=== PATIENT | female | born 1945 | race Caucasian/White ===

== ENCOUNTER 2016-10-22 20:29 | Emergency (ER) | payer MEDICARE ==
[2016-10-22 20:35] VITALS: BP 153/77
--- NOTE | 2016-10-22 21:04 | UC ---
Skin Complaint HPI - HPI Summary HPI Summary: 71 yo female was outside around 2 today a flying insect was shoed away and she thinks she was bit has always been sensitive to bites now red and slightly swollen no itching - History of Current Complaint Chief Complaint: UCSkin Time Seen by Provider: 10/22/16 20:49 Stated Complaint: BUG BITE Hx Obtained From: Patient Onset/Duration: Sudden Onset, Lasting Hours Timing: Constant Onset Severity: Mild Current Severity: Mild Pain Intensity: 0 Pain Scale Used: 0-10 Numeric Location: Discrete Character: Redness, Raised Aggravating: Nothing Alleviating: Nothing Associated Signs & Symptoms: Positive: Rash - Allergy/Home Medications Allergies/Adverse Reactions: Allergies Allergy/AdvReac Type Severity Reaction Status Date / Time Shellfish Allergy Allergy Severe anaphylacti Verified 10/22/16 20:37 c Nabumetone [From Relafen] Allergy Intermediate Rash Verified 10/22/16 20:37 Penicillins Allergy Intermediate Rash Verified 10/22/16 20:37 Benzyl Alcohol [From Enbrel] Allergy Unknown onknown Verified 10/22/16 20:37 per pt Etanercept [From Enbrel] Allergy Unknown onknown Verified 10/22/16 20:37 per pt Tromethamine [From Enbrel] Allergy Unknown onknown Verified 10/22/16 20:37 per pt Azithromycin [From Zithromax] Allergy Rash Verified 10/22/16 20:37 Cefuroxime [From Ceftin] Allergy Swelling Verified 10/22/16 20:37 Lisinopril Allergy Rash Verified 10/22/16 20:37 methotrexztae Allergy Intermediate Rash Uncoded 10/22/16 20:37 Review of Systems Constitutional: Negative Skin: Rash Eyes: Negative ENT: Negative Respiratory: Negative Cardiovascular: Negative Gastrointestinal: Negative Genitourinary: Negative Motor: Negative Neurovascular: Negative Musculoskeletal: Negative Neurological: Negative Psychological: Negative Is Patient Immunocompromised?: No All Other Systems Reviewed And Are Negative: Yes PMH/Surg Hx/FS Hx/Imm Hx Previously Healthy: Yes - RA on chronic prednisone GI/ History: Other Other GI/ History: IBS - Surgical History Surgical History: Yes Surgery Procedure, Year, and Place: hysterectomy,breast biopsy right benign, ectopic ; SKIN CELLS REMOVED-BENIGN - Family History Known Family History: Positive: Hypertension - Social History Alcohol Use: None Substance Use Type: None Smoking Status (MU): Never Smoked Tobacco Physical Exam Triage Information Reviewed: Yes Appearance: Well-Appearing - stigmata of RA, No Pain Distress, Well-Nourished Vital Signs: Initial Vital Signs Temp 97.6 F 10/22/16 20:32 Pulse 77 10/22/16 20:32 Resp 18 10/22/16 20:32 BP 153/77 10/22/16 20:32 Pulse Ox 98 10/22/16 20:32 Vital Signs Reviewed: Yes Eyes: Positive: Conjunctiva Clear ENT: Positive: Pharynx normal. Negative: Nasal congestion, Nasal drainage, Trismus Neck: Positive: Supple, Nontender Respiratory: Positive: Lungs clear, Normal breath sounds, No respiratory distress Cardiovascular: Positive: RRR, No Murmur Neurological: Positive: Alert, Fatigued Skin Exam: Other - see image Course/Dx - Diagnoses Provider Diagnoses: local reaction to insect sting Discharge - Discharge Plan Condition: Good Disposition: HOME Patient Education Materials: Insect Bite or Sting (ED) Referrals: Janie Mccullough MD [Primary Care Provider] - Additional Instructions: cool compresses steroid cream benadryl orally if needed I am here tomorrow at 7AM until 2:30 Pm...don't hesitate to call for any questions or concerns Images Head: 1 - central red spot where bit occurred with surronding mild erthyema 1.5 cm x 3 cm
== END 2016-10-22 21:15 | disposition home or self-care (01) ==
LOC: UCEAST 20:29
DX: T14.8 Other injury of unspecified body region (principal); Z88.0 Allergy status to penicillin; M06.9 Rheumatoid arthritis, unspecified; W57.XXXA Bitten or stung by nonvenomous insect and other nonvenomous arthropods, initial encounter; Y92.9 Unspecified place or not applicable
CPT/HCPCS: 99211; G0463

== ENCOUNTER 2016-11-22 10:22 | Observation (INO) | payer MEDICARE ==
[2016-11-22 11:28] LABS: Hematocrit 40 % (35-47); Hemoglobin 13.3 g/dl (12.0-16.0); Mean Corpuscular HGB Conc 33 g/dl (31-36); Mean Corpuscular Hemoglobin 31 pg (27-31); Mean Corpuscular Volume 93 fL (80-97); Mean Platelet Volume 7 um3 (7.4-10.4); Red Blood Count 4.31 10^6/ul (4.0-5.4); Red Cell Distribution Width 14 % (10.5-15); White Blood Count 9.7 10^3/ul (3.5-10.8)
[2016-11-22 11:54] LABS: Albumin 3.3 g/dL (3.2-5.2); BUN/Creatinine Ratio 22.9 (8-20); C Reactive Protein 7.96 mg/L (< 5.00); Calcium 8.6 mg/dL (8.6-10.3); EGFR African American 106.4 (>60); EGFR Non-African American 82.7 (>60); Globulin 2.4 g/dL (2-4); Total Bilirubin 0.9 mg/dL (0.2-1.0); Total Protein 5.7 g/dL (6.4-8.9)
[2016-11-22] MEDS ORDERED: Potassium Chlor TAB* 20 MEQ TAB.ER PO ONE (11:56)
[2016-11-22] MEDS ORDERED: predniSONE TAB* 10 MG PO ONE (12:09)
[2016-11-22] MEDS ORDERED: Acetaminophen TAB* 325 MG PO ONE (12:09)
[2016-11-22] MEDS ORDERED: Nitroglycerin TAB 0.4 MG* 0.4 MG TAB SL ONE (12:10)
[2016-11-22] MEDS ORDERED: Aspirin TAB* 325 MG PO ONE (12:10)
[2016-11-22] MEDS ORDERED: Iohexol 350* (CONTRAST) 500 ML MDV IV ONE (12:39)
[2016-11-22] MEDS ORDERED: Lidocaine PATCH 5%* 1 PATCH TRANSDERM PRN (13:30)
[2016-11-22] MEDS ORDERED: ALPRAZolam TAB* 0.5 MG PO PRN (13:30)
[2016-11-22] MEDS ORDERED: Enoxaparin(*) 40 MG/0.4 ML SYR SUBCUT SCH (14:00)
[2016-11-22 14:11] LABS: Erythrocyte Sed Rate 30 mm/Hr (0-40)
[2016-11-22 14:33] LABS: Urine Bacteria Absent (Absent); Urine Bilirubin Negative (Negative); Urine Glucose Negative (Negative); Urine Nitrite Negative (Negative)
--- NOTE | 2016-11-22 15:16 | RAD ---
INDICATION: Chest pain. Short of breath. Evaluate for pulmonary embolus. COMPARISON: CT chest December 30, 2011 TECHNIQUE: Axial source images were obtained from the thoracic inlet to the hemidiaphragms following administration of [address] angiographic technique was utilized. Coronal and sagittal reconstructed images were acquired. CHEST FINDINGS: Neck/thyroid: The visualized neck to include the thyroid appear normal. Chest wall: There are no acute abnormalities of the bony thorax or chest wall. There is no supraclavicular, infraclavicular, or axillary lymphadenopathy. Lungs : There are multiple calcified, subcentimeter, nodules compatible with a glomus. Several tiny rounded nodules are not calcified. These are likely chronic inflammatory foci and appear to have been present previously. The pulmonary interstitium appears normal. There are no endobronchial lesions. Cardiomediastinal structures: There is no CT evidence of acute pulmonary embolic disease. The heart is normal in size. There is no pericardial effusion. There is a small amount of fluid in the pericardial recesses There is no evidence of aortic aneurysm or dissection. There is no mediastinal or hilar adenopathy. There are multiple calcified mediastinal lymph nodes. The esophagus appears normal. Pleura : There are no pleural-based masses or effusions. Other: There are calcified granulomas in the spleen. IMPRESSION: NO CT EVIDENCE OF ACUTE PULMONARY EMBOLIC DISEASE. OLD GRANULOMATOUS DISEASE.
[2016-11-22] MEDS ORDERED: diPHENhydraMINE IV* 50 MG/ML 1 ml VIAL (BENADRYL) SLOW PUSH ONE (15:23)
[2016-11-22] MEDS ORDERED: EPINEPHrine AMP 1 MG/ML IM ONE (15:23)
[2016-11-22] MEDS ORDERED: methylPREDNISolone 125 MG* 2 ML VIAL IV ONE (15:23)
[2016-11-22] MEDS ORDERED: EPINEPHRINE 1 MG/ML 1 ML VIAL ONE (15:24)
[2016-11-22] MEDS ORDERED: methylPREDNISolone 125 MG* 2 ML VIAL ONE (15:24)
[2016-11-22] MEDS ORDERED: diPHENhydraMINE IV* 50 MG/ML 1 ml VIAL (BENADRYL) ONE (15:24)
[2016-11-22] MEDS ORDERED: Albuterol 2.5 MG/3 ML NEB.SOL* (0.083%) INH ONE (15:26)
[2016-11-22] MEDS: Atorvastatin* 10 MG TAB PO SCH (17:36)
[2016-11-22] MEDS: Potassium Chlor TAB* 20 MEQ TAB.ER PO SCH (20:25)
--- NOTE | 2016-11-22 21:12 | HP ---
CC: Dr. Mccullough; Dr. Scott, Rheumatology * HISTORY AND PHYSICAL: DATE OF ADMISSION: 11/22/16 PRIMARY CARE PHYSICIAN: Dr. Mccullough. CHIEF COMPLAINT: Fever, chest tightness, nausea. HISTORY OF PRESENT ILLNESS: Ms. Gotti is a pleasant 71-year-old female with past medical history of rheumatoid arthritis, currently on Cimzia and Arava, IBS , hypertension, anxiety, Sjogren's syndrome, hyperlipidemia, who presents to the hospital with fever, nausea, and chest tightness. The patient states she has recently changed her rheumatoid arthritis medications. She was on Xeljanz and developed cellulitis. This was treated at the end of October and last Monday she began Cimzia. She states she has felt off for a while, but more specifically this morning she had some nausea, mild fever that she took at home that was 100.5 as well as some worsening chest tightness. She states that she has had this chest tightness, which has been ongoing for some time now on the order of weeks to months. She seems to downplay the symptoms. She states the tightness can come on at any time, not necessarily with exertion, but she does endorse dyspnea on exertion when she is walking on uneven ground, uphill. She is scheduled to have a stress test done as an outpatient through Dr. Ewing. This morning after she had these symptoms, she called Dr. Scott's office and he told her to come to the ER for further evaluation. She denies any rash. Did not have any emesis this morning. No abdominal pain, diarrhea, blood in the stool or in the urine. Not noticed any evidence of cellulitis recurring. No dysuria. She reports a mild dry cough that has been ongoing. Has had some worsening joint pain after recently tapering her prednisone back down to 5 mg daily and she reports that Dr. Scott told her to go back up to 20 today. In the emergency room, she was found to have D-dimer of 298. A CTA was ordered and hospitalist service was consulted to evaluate the patient. PAST MEDICAL HISTORY: 1. Rheumatoid arthritis, on Cimzia and Arava. 2. IBS. 3. Hypertension. 4. Anxiety. 5. Sjogren's syndrome. 6. Hyperlipidemia. PAST SURGICAL HISTORY: 1. Hysterectomy. 2. Breast biopsy. 3. Ectopic . 4. Wrist surgery. HOME MEDICATIONS: 1. Vitamin D3, 5000 units by mouth daily. 2. Lactobacillus 1 capsule by mouth daily. 3. Aspirin 81 mg by mouth daily. 4. [place]-3 fatty acids 1000 mg by mouth 3 times daily. 5. Multivitamin 1 tablet by mouth daily. 6. Diclofenac gel 1 application topical daily as needed for pain. 7. Calcium carbonate, vitamin D 1 tablet by mouth daily. 8. Lidocaine patch, 1 patch transdermal daily as needed for pain. 9. Sodium chloride 1.1% by mouth nightly. 10. Xanax 0.5 mg by mouth at bedtime as needed for anxiety. 11. Tretinoin 0.025% topical daily. 12. Metronidazole cream 0.75% topical 2 times daily. 13. Chlorthalidone 25 mg by mouth daily. 14. Prednisone 5 mg by mouth daily. 15. Potassium chloride 20 mEq by mouth 2 times daily. 16. Simvastatin 10 mg by mouth daily. 17. Cyclosporin 1 drop in both eyes 2 times daily. 18. Toprol-XL 25 mg by mouth daily. 19. Leflunomide 10 mg by mouth daily. 20. Certolizumab, which is Cimzia 400 mg subcutaneous every 2 weeks. ALLERGIES: The patient has allergies to METHOTREXATE, LISINOPRIL, CEFUROXIME, AZITHROMYCIN, ENBREL, PENICILLIN, NABUMETONE, SHELLFISH, and . FAMILY HISTORY: Significant for father with colon cancer. Mother is still alive at 98 with CAD. SOCIAL HISTORY: The patient smoked cigarettes occasionally in college, none since then. Denies any alcohol or illicit drug use. Lives at home with her . REVIEW OF SYSTEMS: A 12-point review of systems negative except for that as noted in the HPI. PHYSICAL EXAMINATION GENERAL: The patient is a pleasant elderly female, lying in bed, in no apparent distress. VITAL SIGNS: On admission, temperature 99.2, heart rate of 88, respiratory rate of 20, O2 saturation 99% on room air, and blood pressure 101/57. HEENT: Head: Normocephalic, atraumatic. Pupils are equal, round, and reactive to light and accommodation. Anicteric sclerae. ENT: Dry mucous membranes. NECK: No cervical adenopathy. LUNGS: Clear to auscultation bilaterally. No wheezes, rales, or rhonchi. CARDIOVASCULAR: Regular rate and rhythm. S1 and S2 present. No murmurs, gallops, or rubs. ABDOMEN: Soft, nontender, nondistended. Bowel sounds positive. EXTREMITIES: The patient has small bilateral knee effusions, slightly warm to touch. No erythema. Reports pain in her shoulders, although they do not appear to be swollen. NEURO: The patient is alert and oriented x3. No focal neurological deficits. LABORATORY DATA/DIAGNOSTIC STUDIES: White blood cell count of 9.7, hematocrit of 40, and platelets of 286,000. ESR of 30. D-dimer of 298. Sodium 132, potassium 3.0, chloride of 98, BUN of 16, creatinine of 0.7, glucose of 105, lactic acid 1.7. LFTs within normal limits. Troponin 0.00. CRP 7.96. B- natriuretic peptide 25. UA with 1+ blood, trace rbc's, no evidence of infection. EKG personally reviewed shows normal sinus rhythm. No ischemic changes. CTA is pending. ASSESSMENT AND PLAN: Low-grade fever, worsening joint de leon, and exertional dyspnea in a 71-year-old female with past medical history of hypertension, rheumatoid arthritis, Sjogren's, hyperlipidemia, anxiety, and irritable bowel syndrome. 1. Low-grade fever. The patient has a temperature of 99.2 here in the hospital. No clear evidence of infection thus far. White blood cell count is normal. ESR is normal. CRP is minimally elevated. UA does not show any clear evidence of infection. Imaging of the chest is pending at this time. I have ordered blood cultures as well as procalcitonin. We will monitor the patient overnight for any infection to present itself, hold off on antibiotics at this time. 2. Exertional dyspnea. Definitely concerning this has been ongoing for some time with the patient. As this seems to be a primary problem, we will plan to get a stress test while she is here in the hospital tomorrow morning. We will do a chemical stress test due to the patient's rheumatoid arthritis. We will trend her troponins and monitor her on telemetry. No acute ischemic changes noted on her EKG. 3. Rheumatoid arthritis. We will continue plan to increase prednisone 20 mg by mouth daily. 4. I have ordered leflunomide to continue daily, although the patient may have to bring this from home. Reports her next Cimzia dose is due on Monday, . 5. Hypertension. Continue home chlorthalidone and metoprolol. 6. Hyperlipidemia. Continue home statin. 7. Anxiety. Continue Xanax p.r.n. 8. Hypokalemia. We will replete, recheck tomorrow. 9. DVT prophylaxis. Lovenox subcu. 10. Code status: The patient is full code. 11. The patient is a DNR. TIME SPENT: Total time spent on this admission 45 minutes with over half the time spent [id number] with the patient in counseling and coordinating care. [id number]/CPS #: [id number] MTDMiles
[2016-11-22] MEDS ORDERED: Acetaminophen TAB* 325 MG PO PRN (21:31)
[2016-11-23 06:56] LABS: BUN/Creatinine Ratio 24.6 (8-20); Calcium 8.7 mg/dL (8.6-10.3); EGFR African American 115.9 (>60); EGFR Non-African American 90.1 (>60); Potassium 3.4 mmol/L (3.5-5.0)
[2016-11-23 08:03] VITALS: BP 112/53
[2016-11-23] MEDS ORDERED: Metoprolol Succinate XL TAB* 25 MG PO SCH (09:00)
[2016-11-23] MEDS ORDERED: Multivitamins/Minerals TAB PO SCH (09:00)
[2016-11-23] MEDS ORDERED: Chlorthalidone TAB* 50 MG PO SCH (09:00)
[2016-11-23] MEDS ORDERED: Aspirin EC Low Dose* 81 MG TAB.EC PO SCH (09:00)
[2016-11-23] MEDS ORDERED: LEFLUNOMIDE 10 MG PO SCH (09:00)
[2016-11-23] MEDS ORDERED: predniSONE TAB* 20 MG PO SCH (09:00)
[2016-11-23] MEDS ORDERED: Regadenoson* 0.4 MG/5 ML SYRINGE ONE (10:40)
[2016-11-23] MEDS ORDERED: Aminophylline IV* 25 MG/ML 10 ML VIAL ONE (10:40)
[2016-11-23] MEDS: Atorvastatin* 10 MG TAB PO SCH (11:59)
[2016-11-23] MEDS: Potassium Chlor TAB* 20 MEQ TAB.ER PO SCH (11:59)
--- NOTE | 2016-11-23 12:18 | RAD ---
Edited for charges. INDICATION: Chest pain. Negative CT of the chest COMPARISON: CTA chest previous day TECHNIQUE: A single day SPECT protocol was utilized. Rest images were acquired following the intravenous injection of 10.8 millicuries of technetium 99m tetrofosmin. Pharmacologic stress images were acquired following the intravenous administration of 25.2 millicuries of technetium 99m tetrofosmin. FINDINGS: There are no defects of the stress-induced or fixed nature. The cardiac chamber size is normal. There are no wall motion abnormalities. The ejection fraction is calculated at 99 percent during stress. IMPRESSION: NORMAL EXAMINATION ASSESSMENT: LOW-RISK Based on imaging criteria from ACC/AHA 2002 Guideline Update for the Management of Patients With Chronic Stable Angina Table 23. Noninvasive Risk Stratification. MTDD
--- NOTE | 2016-11-23 12:55 | DCNOTE ---
Allergic reaction to IV contrast in CT scan, resolved in ED yesterday. Patient feels well today. Joint pain improved. No further fevers. On exam, lungs CTA B/L, no w/r/r, s1 and s2 present, LEONEL, abd soft, NTND, BS+, no c/c/e Stress test negative, infectious work-up negative. Will plan to discharge patient home on continued prednisone 20 mg daily. F/U with PCP and Dr. Scott regarding ?need for additional lung testing, ?repeat PFTs
--- NOTE | 2016-11-24 03:31 | DS ---
CC: Dr. Mccullough; Dr. Scott, Rheumatology * DISCHARGE SUMMARY: DATE OF ADMISSION: 11/22/16 DATE OF DISCHARGE: 11/23/16 PRIMARY CARE PHYSICIAN: Dr. Mccullough. PRINCIPAL DISCHARGE DIAGNOSES: 1. Low-grade fever. 2. Rheumatoid arthritis flare. 3. Dyspnea on exertion. SECONDARY DIAGNOSES: 1. History of rheumatoid arthritis, on Cimzia and Arava. 2. Irritable bowel syndrome. 3. Hypertension. 4. Anxiety. 5. Sjogren's syndrome. 6. Hyperlipidemia. DISCHARGE MEDICATION REGIMEN: 1. Vitamin D3 5000 units by mouth daily. 2. Lactobacillus 1 capsule by mouth daily. 3. Aspirin 81 mg by mouth daily. 4. [place]-3 fatty acids 1000 mg by mouth 3 times daily. 5. Multivitamin 1 tablet by mouth daily. 6. Diclofenac gel 1% application topical daily as needed for pain. 7. Calcium carbonate and vitamin D 1 tablet by mouth daily. 8. Lidocaine patch 1 patch transdermal daily as needed for pain. 9. Sodium fluoride 1.1% by mouth nightly. 10. Alprazolam 0.5 mg by mouth at bedtime as needed for anxiety. 11. Tretinoin 0.025% topical daily. 12. Metronidazole cream 0.75% topical 2 times daily. 13. Chlorthalidone 25 mg by mouth daily. 14. Prednisone 20 mg by mouth daily, taper as per Dr. Scott. 15. Potassium chloride 20 mEq by mouth 2 times daily. 16. Simvastatin 10 mg by mouth daily. 17. Cyclosporin 1 drop in both eyes 2 times daily. 18. Toprol-XL 12.5 mg by mouth daily. 19. Leflunomide 10 mg by mouth daily. 20. Cimzia 400 mg subcutaneous every other week. STUDIES DONE DURING HOSPITALIZATION: CT of the chest, impression: No CT evidence of acute pulmonary embolic disease. Old granulomatous disease present , unchanged. Nuclear cardiac stress test, impression: Normal examination. Assessment, low risk. HISTORY OF PRESENT ILLNESS AND HOSPITAL SUMMARY: Please see my full history and physical for full details. Briefly, Ms. Gotti is a 71-year-old female with a past medical history as above, who presented to the hospital with low- grade fever, nausea, worsening joint pain as well as ongoing dyspnea on exertion. The patient contacted Dr. Scott's office with these symptoms and temperature of 100.5 at home and she was instructed to come to the hospital for further evaluation. The patient just recently started Cimzia, which is a biologic agent for her rheumatoid arthritis. In the hospital, labs were fairly unremarkable. Inflammatory markers were as follows: ESR of 30, CRP of 7.96. The patient had no evidence of infection on UA. Due to the mildly elevated D- dimer, she did undergo a CTA of the chest, which did not show any evidence of infection or pulmonary embolism. It did show some old granulomatous disease, which is unchanged. Unfortunately, the patient had an allergic reaction to the IV contrast. In the emergency department, she received Benadryl, Solu-Medrol and epinephrine with the resolution of her symptoms. Due to the patient's dyspnea on exertion, she was planned for a stress test as an outpatient as her symptoms were still ongoing. She was monitored on telemetry here and underwent a nuclear cardiac stress test as above that was negative. Troponins remained negative as well. Her joints felt better the following day on increased steroids. She had no recurrent fever here in the hospital. She will continue on prednisone 20 mg daily as per Dr. Scott and he will manage her prednisone taper. The patient will follow up with her PCP and Dr. Scott and she should get referral to perhaps repeat her pulmonary function tests to see if there is any change due to her ongoing breathing issues. TIME SPENT: Total time spent on this discharge 45 minutes. This is a summary of the hospitalization. Please see the full medical record for further details. [id number]/CPS #: [id number] MTDD
== END 2016-11-23 14:15 | disposition home or self-care (01) ==
LOC: ED 10:22 → MEDTELE 13:28
PROVIDERS: ADMIT Hospitalist; ATTEND Hospitalist
DX: R50.9 Fever, unspecified (principal); M06.9 Rheumatoid arthritis, unspecified; R06.09 Other forms of dyspnea; R07.89 Other chest pain; Z79.899 Other long term (current) drug therapy; I10 Essential (primary) hypertension; E78.5 Hyperlipidemia, unspecified; M35.00 Sjogren syndrome, unspecified; F41.9 Anxiety disorder, unspecified; K58.9 Irritable bowel syndrome, unspecified; R11.0 Nausea
CPT/HCPCS: 36415; 71275; 78452; 80048; 80053; 81003; 81015; 82550; 83605; 83880; 84145; 84484; 85025; 85379; 85652; 86140; 87040; 93005; 93017; 96372; 96374; 96375; 99284; A9270-GY; A9502; G0378; J0171; J0280; J1200; J1650; J2785; J2930; J7512; Q9967

== ENCOUNTER 2017-07-01 19:50 | Emergency (ER) | payer MEDICARE ==
[2017-07-01 20:13] VITALS: BP 141/78
[2017-07-01] MEDS ORDERED: Clindamycin CAP* 150 MG PO ONE (20:40)
--- NOTE | 2017-07-01 20:50 | UC ---
Silver Newton Julia, scribed for Veto Menchaca MD on 07/01/17 at 2043 . Skin Complaint HPI - HPI Summary HPI Summary: This patient is a 72 year old F presenting to [facility] with a chief complaint of an insect bite to the right forearm on 06/29/17 that has been worsening with redness and swelling. She states she did not notice the bite immediately but believes is occurred while clipping bushes in her yard. She states last time she had an insect bite like this it developed into cellulitis. PMHx of RA. - History of Current Complaint Chief Complaint: UCSkin Time Seen by Provider: 07/01/17 20:26 Stated Complaint: BUG BITE Hx Obtained From: Patient Onset/Duration: Sudden Onset, Gradual Onset, Lasting Days Skin Exposure Onset/Duration: Days Ago Timing: Constant Onset Severity: Mild Current Severity: Moderate Pain Intensity: 0 Location: Other - right forearm Character: Swelling, Redness Associated Signs & Symptoms: Positive: Negative Related History: Insect Bite/Sting, Other: - cellulitis Similar Episode/Dx as: cellulitis - Allergy/Home Medications Allergies/Adverse Reactions: Allergies Allergy/AdvReac Type Severity Reaction Status Date / Time MS Shellfish Allergy Allergy Severe anaphylacti Verified 10/22/16 20:37 [Shellfish Allergy] c MS Nabumetone [From Relafen] Allergy Intermediate Rash Verified 10/22/16 20:37 MS Penicillins [Penicillins] Allergy Intermediate Rash Verified 10/22/16 20:37 MS Benzyl Alcohol Allergy Unknown onknown Verified 10/22/16 20:37 [From Enbrel] per pt MS Etanercept [From Enbrel] Allergy Unknown onknown Verified 10/22/16 20:37 per pt MS Tromethamine [From Enbrel] Allergy Unknown onknown Verified 10/22/16 20:37 per pt MS Azithromycin Allergy Rash Verified 10/22/16 20:37 [From Zithromax] MS Cefuroxime [From Ceftin] Allergy Swelling Verified 10/22/16 20:37 MS Iohexol [From Omnipaque] Allergy Airway Verified 11/22/16 17:00 Obstruction MS Lisinopril [Lisinopril] Allergy Rash Verified 10/22/16 20:37 methotrexztae Allergy Intermediate Rash Uncoded 10/22/16 20:37 Home Medications: Home Medications Tofacitinib Citrate [Xeljanz] 5 mg PO BID 07/01/17 [History Confirmed 07/01/17] tretinoin 0.03% (NF) [Retin-A 0.03% (NF)] 1 applic .SEE ORDER DAILY 07/01/17 [ History Confirmed 07/01/17] Review of Systems Constitutional: Negative Skin: Other - insect bite Musculoskeletal: Edema All Other Systems Reviewed And Are Negative: Yes PMH/Surg Hx/FS Hx/Imm Hx - Additional Past Medical History Additional PMH: RA Cardiovascular History: Hypertension - Surgical History Surgical History: Yes Surgery Procedure, Year, and Place: hysterectomy,breast biopsy right benign, ectopic ; SKIN CELLS REMOVED-BENIGN, four hand joints replaced and wrist fused, 2014 - Family History Known Family History: Positive: Hypertension - Social History Alcohol Use: None Substance Use Type: None Smoking Status (MU): Former Smoker Physical Exam - Summary Physical Exam Summary: General: well-appearing, no pain distress Skin: warm, color reflects adequate perfusion, dry, Dorsum of R forearm with raised erythematous area appears to be insect bite, no tick or foreign body, with a surrounding erythematous area with a diameter of 3cm, no streaking Head: normal Eyes: EOMI, MITCHELL ENT: normal Neck: supple, nontender Respiratory: CTA, breath sounds present Cardiovascular: RRR Abdomen: soft, nontender Bowel: present Musculoskeletal: normal, strength/ROM intact Neurological: sensory/motor intact, A&O x3 Psychological: affect/mood appropriate Triage Information Reviewed: Yes Vital Signs: Initial Vital Signs Temp 98.0 F 07/01/17 20:07 Pulse 73 07/01/17 20:07 Resp 16 07/01/17 20:07 BP 141/78 07/01/17 20:07 Pulse Ox 99 07/01/17 20:07 Vital Signs Reviewed: Yes Course/Dx - Diagnoses Provider Diagnoses: RIGHT FOREARM INSECT BITE WITH SURROUNDING CELLULITIS Discharge - Sign-Out/Discharge Documenting (check all that apply): Discharge/Admit/Transfer - Discharge Plan Condition: Stable Disposition: HOME Prescriptions: Clindamycin Cap(NF) [Clindamycin Cap 300 mg Cap(NF)] 300 mg PO Q6H #38 cap Patient Education Materials: Cellulitis (ED) Referrals: Janie Mccullough MD [Primary Care Provider] - Additional Instructions: FOLLOW UP WITH YOUR DOCTOR. GET RECHECKED FOR ANY WORSENING OF YOUR CONDITION OR QUESTIONS OR CONCERNS. - Billing Disposition and Condition Condition: STABLE Disposition: HOME The documentation as recorded by the Silver cadet Julia accurately reflects the service I personally performed and the decisions made by me, Veto Menchaca MD.
[2017-07-01] MEDS: Clindamycin CAP* 150 MG PO ONE ×2 (21:09→21:26)
== END 2017-07-01 21:10 | disposition home or self-care (01) ==
LOC: UCEAST 19:50
DX: S50.861A Insect bite (nonvenomous) of right forearm, initial encounter (principal); L03.113 Cellulitis of right upper limb; W57.XXXA Bitten or stung by nonvenomous insect and other nonvenomous arthropods, initial encounter; Y93.H2 Activity, gardening and landscaping; Y92.096 Garden or yard of other non-institutional residence as the place of occurrence of the external cause; M06.9 Rheumatoid arthritis, unspecified; I10 Essential (primary) hypertension; Z88.8 Allergy status to other drugs, medicaments and biological substances; Z88.1 Allergy status to other antibiotic agents; Z91.041 Radiographic dye allergy status; Z88.0 Allergy status to penicillin; Z91.013 Allergy to seafood; Z87.891 Personal history of nicotine dependence
CPT/HCPCS: 99213; A9270-GY; G0463

== ENCOUNTER 2017-08-03 16:17 | Emergency (ER) | payer MEDICARE ==
[2017-08-03] MEDS ORDERED: Morphine VIAL* 4 MG/ML VIAL (1 ml vial) IV ONE (16:45)
[2017-08-03] MEDS ORDERED: Ondansetron ODT TAB* 4 MG PO ONE ×2 (16:46→19:39)
[2017-08-03] MEDS ORDERED: Ondansetron ODT TAB* 4 MG ONE (16:48)
[2017-08-03 17:07] LABS: ABS Basophils 0 10^3/ul (0-0.2); ABS Eosinophils 0 10^3/ul (0-0.6); ABS Lymphocytes 0.5 10^3/ul (1.0-4.8); ABS Monocytes 0.7 10^3/ul (0-0.8); ABS Neutrophils 6.2 10^3/ul (1.5-7.7); ABS Nucleated RBC 0 10^3/ul; Eosinophil % 0.1 % (0-6); Hematocrit 40 % (35-47); Hemoglobin 13.4 g/dl (12.0-16.0); Lymphocyte % 6.9 % (25-47); Mean Corpuscular HGB Conc 34 g/dl (31-36); Mean Corpuscular Hemoglobin 32 pg (27-31); Mean Corpuscular Volume 95 fL (80-97); Mean Platelet Volume 7.7 um3 (7.4-10.4); Nucleated Red Blood Cells % 0; Platelet Count 296 10^3/ul (150-450); Red Blood Count 4.17 10^6/ul (4.00-5.40); Red Cell Distribution Width 13 % (10.5-15); White Blood Count 7.4 10^3/ul (3.5-10.8)
[2017-08-03 17:25] LABS: EGFR Non-African American 86.8 (>60)
[2017-08-03] MEDS ORDERED: HYDROmorphone INJ* 2 MG/ML CARPUJECT SYRINGE IV SLOW PU ONE (17:35)
[2017-08-03] MEDS ORDERED: Potassium Chlor TAB* 20 MEQ TAB.ER PO ONE (17:49)
--- NOTE | 2017-08-03 18:50 | RAD ---
Indication: Left flank pain. CT of the abdomen and pelvis was performed without oral or IV contrast administration. Coronal and sagittal reconstructed images were obtained. The lung bases demonstrate calcified granuloma in the left lower lobe. No alveolar consolidation is noted. The heart demonstrates no pericardial effusion. Liver is normal in size. No focal lesions or intrahepatic ductal dilatation is noted. The spleen demonstrates old granulomatous disease. Pancreas demonstrates no mass or pancreatic ductal dilatation. The common duct is not dilated. The gallbladder demonstrates no gallstones, pericholecystic fluid or wall thickening. No adrenal lesions are noted. The kidneys demonstrate no hydronephrosis in either kidney. No hydroureter is noted. No retroperitoneal lymphadenopathy is noted. No dilated loops of bowel are noted. Atherosclerotic aorta without evidence of a residual dilatation. CT of the pelvis demonstrates urinary bladder to be unremarkable. No hernias are noted. Stool is present throughout the colon. Degenerative disc disease is noted at multiple levels. Incidentally noted is a small periumbilical hernia containing omentum. IMPRESSION: No definite obstructive uropathy is noted. Degenerative disc disease of the lower lumbar spine. Old granulomatous disease of the spleen.
[2017-08-03 18:59] LABS: Urine Appearance Clear; Urine Blood Negative (Negative); Urine Color Yellow; Urine Ketones 1+ (Negative); Urine Protein Negative (Negative); Urine Specific Gravity 1.014 (1.010-1.030); Urine Urobilinogen Negative (Negative)
--- NOTE | 2017-08-03 19:15 | ED ---
Delmi Newton Emily, scribed for Micheal Carolina on 08/03/17 at 1655 . Abdominal Pain/Female - HPI Summary HPI Summary: This patient is a 72 year old F BIBA to [facility] accompanied by with a chief complaint of sudden, constant L flank and back pain that began this morning. The patient rates the pain 8/10 in severity. Symptoms aggravated by nothing. Symptoms alleviated by nothing. Patient reports nausea. - History of Current Complaint Chief Complaint: EDFlankPain Stated Complaint: BACK PAIN Time Seen by Provider: 08/03/17 16:42 Hx Obtained From: Patient ?: No Onset/Duration: Sudden Onset, Lasting Hours, Still Present Timing: Constant Severity Initially: Severe Severity Currently: Severe Pain Intensity: 8 Pain Scale Used: 0-10 Numeric Location: Flank Radiates: Yes Radiates to: Back Character: Sharp Aggravating Factor(s): Nothing Alleviating Factor(s): Nothing Associated Signs and Symptoms: Positive: Nausea Allergies/Adverse Reactions: Allergies Allergy/AdvReac Type Severity Reaction Status Date / Time shellfish derived Allergy Severe Anaphylatic Verified 08/03/17 16:33 Shock methotrexate Allergy Intermediate Rash Verified 08/03/17 16:33 nabumetone Allergy Intermediate Rash Verified 08/03/17 16:33 Penicillins Allergy Intermediate Rash Verified 08/03/17 16:33 azithromycin Allergy Rash Verified 08/03/17 16:33 benzyl alcohol Allergy Unknown Verified 08/03/17 16:33 Reaction Details cefuroxime Allergy Swelling Verified 08/03/17 16:33 etanercept Allergy Unknown Verified 08/03/17 16:33 Reaction Details iohexol Allergy Airway Verified 08/03/17 16:33 Obstruction lisinopril Allergy Rash Verified 08/03/17 16:33 tromethamine Allergy Unknown Verified 08/03/17 16:33 Reaction Details Home Medications: Home Medications Aspirin EC TAB* [Ecotrin EC Low Dose 81 MG*] 81 mg PO DAILY 08/03/17 [History Confirmed 08/03/17] Cholecalciferol (Vitamin D3) [Natural Vitamin D-3] 5,000 unit PO DAILY 08/03/17 [History Confirmed 08/03/17] Cyclosporine 0.05% OPHTH (NF) [Restasis 0.05% OPHTH] 1 drop BOTH EYES BID [History Confirmed 08/03/17] Fluoride (Sodium) [Sf 5000 Plus] 1.1 % PO DAILY 08/03/17 [History Confirmed ] Leflunomide (NF) [Arava (NF)] 10 mg PO DAILY 08/03/17 [History Confirmed ] Multivitamins/Minerals TAB* [Theragran/minerals TAB*] 1 tab PO DAILY 08/03/17 [ History Confirmed 08/03/17] [place]-3 Fatty Acids (Nf) [Fish Oil (NF)] 1,000 mg PO BID 08/03/17 [History Confirmed 08/03/17] Ranitidine TAB (NF) [Zantac TAB (NF)] 150 mg PO BID 08/03/17 [History Confirmed 08/03/17] Simvastatin TAB(NF) [Zocor(NF)] 10 mg PO DAILY 08/03/17 [History Confirmed 08/03] predniSONE TAB* [Deltasone TAB*] 5 mg PO DAILY 08/03/17 [History Confirmed 08/03] PMH/Surg Hx/FS Hx/Imm Hx Previously Healthy: No Endocrine/Hematology History: Denies: Hx Diabetes, Hx Systemic Lupus Erythematosus, Hx Thyroid Disease Cardiovascular History: Reports: Hx Hypertension Denies: Hx Congestive Heart Failure, Hx Pacemaker/ICD Respiratory History: Denies: Hx Asthma, Hx Chronic Obstructive Pulmonary Disease (COPD) GI History: Reports: Other GI Disorders - ibs Denies: Hx Ulcer History: Denies: Hx Dialysis, Hx Renal Disease Musculoskeletal History: Reports: Hx Rheumatoid Arthritis, Other Musculoskeletal History - ra Sensory History: Reports: Hx Contacts or Glasses, Hx Hearing Aid Opthamlomology History: Reports: Hx Contacts or Glasses Psychiatric History: Denies: Hx Panic Disorder - Cancer History Hx Chemotherapy: No Hx Radiation Therapy: No - Surgical History Surgery Procedure, Year, and Place: hysterectomy,breast biopsy right benign, ectopic ; SKIN CELLS REMOVED-BENIGN, four hand joints replaced and wrist fused, 2014 Hx Anesthesia Reactions: No Infectious Disease History: No Infectious Disease History: Denies: Hx Hepatitis, Hx Human Immunodeficiency Virus (HIV), Traveled Outside the [place] in Last 30 Days - Family History Known Family History: Positive: Hypertension - Social History Occupation: Retired Lives: With Family Alcohol Use: None Hx Substance Use: No Substance Use Type: Reports: None Hx Tobacco Use: Yes Smoking Status (MU): Former Smoker Review of Systems Negative: Fever Positive: Nausea, Other - Positive flank pain All Other Systems Reviewed And Are Negative: Yes Physical Exam - Summary Physical Exam Summary: Appearance: Well appearing, no pain distress Skin: warm, dry, reflects adequate perfusion Head/face: normal Eyes: EOMI, MITCHELL ENT: normal Neck: supple, non-tender Respiratory: CTA, breath sounds present Cardiovascular: RRR, pulses symmetrical Abdomen: L flank tenderness, soft Bowel: present Musculoskeletal: normal, strength/ROM intact Neuro: normal, sensory motor intact, A&Ox3 Triage Information Reviewed: Yes Vital Signs On Initial Exam: Initial Vitals Temp Pulse Resp BP Pulse Ox 97.9 F 70 18 155/83 100 08/03/17 16:20 08/03/17 16:20 08/03/17 16:20 08/03/17 16:20 08/03/17 16:20 Vital Signs Reviewed: Yes Diagnostics - Vital Signs Vital Signs Temp Pulse Resp BP Pulse Ox 08/03/17 16:50 20 08/03/17 16:25 63 155/83 98 08/03/17 16:20 97.9 F 70 18 155/83 100 - Laboratory Lab Results: Lab Results 08/03/17 08/03/17 08/03/17 Range/Units 16:55 16:55 16:55 WBC 7.4 (3.5-10.8) 10^3/ul RBC 4.17 (4.00-5.40) 10^6/ul Hgb 13.4 (12.0-16.0) g/dl Hct 40 (35-47) % MCV 95 (80-97) fL MCH 32 H (27-31) pg MCHC 34 (31-36) g/dl RDW 13 (10.5-15) % Plt Count 296 (150-450) 10^3/ul MPV 7.7 (7.4-10.4) um3 Neut % (Auto) 83.4 H (38-83) % Lymph % (Auto) 6.9 L (25-47) % [place] % (Auto) 9.2 H (0-7) % Eos % (Auto) 0.1 (0-6) % Baso % (Auto) 0.4 (0-2) % Absolute Neuts (auto) 6.2 (1.5-7.7) 10^3/ul Absolute Lymphs (auto) 0.5 L (1.0-4.8) 10^3/ul Absolute Monos (auto) 0.7 (0-0.8) 10^3/ul Absolute Eos (auto) 0 (0-0.6) 10^3/ul Absolute Basos (auto) 0 (0-0.2) 10^3/ul Absolute Nucleated RBC 0 10^3/ul Nucleated RBC % 0 Sodium 134 L (135-145) mmol/L Potassium 3.1 L (3.5-5.0) mmol/L Chloride 97 L (101-111) mmol/L Carbon Dioxide 25 (22-32) mmol/L Anion Gap 12 H (2-11) mmol/L BUN 12 (6-24) mg/dL Creatinine 0.67 (0.51-0.95) mg/dL Est GFR ( Amer) 105.0 (>60) Est GFR (Non-Af Amer) 86.8 (>60) BUN/Creatinine Ratio 17.9 (8-20) Glucose 125 H (70-100) mg/dL Lactic Acid 1.4 (0.5-2.0) mmol/L Calcium 9.2 (8.6-10.3) mg/dL Total Bilirubin 0.70 (0.2-1.0) mg/dL AST 19 (13-39) U/L ALT 16 (7-52) U/L Alkaline Phosphatase 42 (34-104) U/L C-Reactive Protein < 1.00 (<8.01) mg/L Total Protein 6.3 L (6.4-8.9) g/dL Albumin 4.0 (3.2-5.2) g/dL Globulin 2.3 (2-4) g/dL Albumin/Globulin Ratio 1.7 (1-3) Lipase 14 (11.0-82.0) U/L Urine Color Urine Appearance Urine pH (5-9) Ur Specific [place] (1.010-1.030) Urine Protein (Negative) Urine Ketones (Negative) Urine Blood (Negative) Urine Nitrate (Negative) Urine Bilirubin (Negative) Urine Urobilinogen (Negative) Ur Leukocyte Esterase (Negative) Urine Glucose (Negative) 08/03/17 Range/Units 18:50 WBC (3.5-10.8) 10^3/ul RBC (4.00-5.40) 10^6/ul Hgb (12.0-16.0) g/dl Hct (35-47) % MCV (80-97) fL MCH (27-31) pg MCHC (31-36) g/dl RDW (10.5-15) % Plt Count (150-450) 10^3/ul MPV (7.4-10.4) um3 Neut % (Auto) (38-83) % Lymph % (Auto) (25-47) % [place] % (Auto) (0-7) % Eos % (Auto) (0-6) % Baso % (Auto) (0-2) % Absolute Neuts (auto) (1.5-7.7) 10^3/ul Absolute Lymphs (auto) (1.0-4.8) 10^3/ul Absolute Monos (auto) (0-0.8) 10^3/ul Absolute Eos (auto) (0-0.6) 10^3/ul Absolute Basos (auto) (0-0.2) 10^3/ul Absolute Nucleated RBC 10^3/ul Nucleated RBC % Sodium (135-145) mmol/L Potassium (3.5-5.0) mmol/L Chloride (101-111) mmol/L Carbon Dioxide (22-32) mmol/L Anion Gap (2-11) mmol/L BUN (6-24) mg/dL Creatinine (0.51-0.95) mg/dL Est GFR ( Amer) (>60) Est GFR (Non-Af Amer) (>60) BUN/Creatinine Ratio (8-20) Glucose (70-100) mg/dL Lactic Acid (0.5-2.0) mmol/L Calcium (8.6-10.3) mg/dL Total Bilirubin (0.2-1.0) mg/dL AST (13-39) U/L ALT (7-52) U/L Alkaline Phosphatase (34-104) U/L C-Reactive Protein (<8.01) mg/L Total Protein (6.4-8.9) g/dL Albumin (3.2-5.2) g/dL Globulin (2-4) g/dL Albumin/Globulin Ratio (1-3) Lipase (11.0-82.0) U/L Urine Color Yellow Urine Appearance Clear Urine pH 7.0 (5-9) Ur Specific [place] 1.014 (1.010-1.030) Urine Protein Negative (Negative) Urine Ketones 1+ A (Negative) Urine Blood Negative (Negative) Urine Nitrate Negative (Negative) Urine Bilirubin Negative (Negative) Urine Urobilinogen Negative (Negative) Ur Leukocyte Esterase Negative (Negative) Urine Glucose Negative (Negative) Result Diagrams: 08/03/17 16:55 08/03/17 16:55 Lab Statement: Any lab studies that have been ordered have been reviewed, and results considered in the medical decision making process. - CT Abdomen/Pelvis CT CT Interpretation Completed By: Radiologist - Abdomen/Pelvis CT reveals, per radiologist, no definite obstructive uropathy is noted. Degenerative disc disease of the lower lumbar spine. Old granulomatous disease of the spleen. ED physician has reviewed this radiology report. Re-Evaluation - Re-Evaluation First Eval Re-Evaluation Time: 17:33 Change: Unchanged Comment: She still reports that she is in pain Second Eval Re-Evaluation Time: 19:00 Change: Improved Comment: Pt reports that her pain has improved Abdominal Pain Fem Course/Dx - Course Course Of Treatment: This patient is a 72 year old F BIBA to [facility] accompanied by with a chief complaint of sudden, constant L flank and back pain that began this morning. Physical Exam Findings: Tenderness over L flank Abdomen /Pelvis CT reveals, per radiologist, no definite obstructive uropathy is noted. Degenerative disc disease of the lower lumbar spine. Old granulomatous disease of the spleen. Blood work and UA obtained. In the ED course the patient was given hydromorphone, morphine, ondansetron, and potassium chlor. Patient will be discharged with prescription for flexeril and percocet and with follow up from PCP. The patient is agreeable with this plan. - Diagnoses Differential Diagnosis: Positive: Diverticulitis, Renal Colic, Urinary Tract Infection Provider Diagnoses: Back pain Discharge - Sign-Out/Discharge Documenting (check all that apply): Discharge/Admit/Transfer - discharge home - Discharge Plan Condition: Stable Disposition: HOME Prescriptions: Cyclobenzaprine TAB* [Flexeril 10 MG TAB*] 10 mg PO TID PRN #15 tab MDD 3 PRN Reason: Pain oxyCODONE/Acetamin 5/325 MG* [Percocet 5/325 TAB*] 1 tab PO Q8H PRN #12 tab MDD 3 PRN Reason: Pain Patient Education Materials: Oxycodone/Acetaminophen (By mouth), Back Pain (ED) Referrals: Janie Mccullough MD [Primary Care Provider] - 3 Days Additional Instructions: RETURN TO THE EMERGENCY DEPARTMENT FOR NEW OR WORSENING SYMPTOMS - Billing Disposition and Condition Condition: STABLE Disposition: Home The documentation as recorded by the Delmi cadet Emily accurately reflects the service I personally performed and the decisions made by Caity montoya Emmanuel.
[2017-08-03 20:33] VITALS: BP 142/74
== END 2017-08-03 20:35 | disposition home or self-care (01) ==
LOC: ED 16:17
DX: R10.9 Unspecified abdominal pain (principal); M54.9 Dorsalgia, unspecified; D73.89 Other diseases of spleen; M51.36 Other intervertebral disc degeneration, lumbar region; M06.9 Rheumatoid arthritis, unspecified; Z79.899 Other long term (current) drug therapy; Z87.891 Personal history of nicotine dependence; Z88.8 Allergy status to other drugs, medicaments and biological substances; Z88.3 Allergy status to other anti-infective agents; Z88.0 Allergy status to penicillin
CPT/HCPCS: 36415; 74176; 80053; 81003; 83605; 83690; 85025; 86140; 96374; 96375; 99284; A9270-GY; J1170; J2270

== ENCOUNTER → 2018-10-17 | Day surgery (SDC) | payer MEDICARE ==
[~2018-10-17] MED LIST: Acetaminophen IV 1GM/100ML * 100 ML ONE; Bacitracin OINTMENT* 0.5% 0.5 oz TUBE ONE; Buffered Lidocaine 1% SYRIN* 1 ML/SYRINGE INTRADERM ONE; Bupivacaine 0.5% W/EPI SDV* 10 ML VIAL INJ ONE; Clindamycin 900 MG/D5W BAG(*) 900 MG/50 ML BAG IVPB ONE; Dexamethasone TAB* 4 MG ONE; Dexamethasone TAB* 4 MG PO ONE; DiMENhydriNATE IV* 50 MG/ML VIAL IV PUSH PRN; Famotidine IV* 10 MG/ML 2 ML (20 mg) IV ONE; Famotidine IV* 10 MG/ML 2 ML (20 mg) ONE; HYDROmorphone INJ1* 1 MG/ML SYRINGE IV PRN; KETAMINE HCL* 50 MG/ML 10 ML VIAL ONE; Lactated Ringers 1000 ML Bag* 1,000 ML IV SCH; Lidocaine 1% INJ* 10 MG/ML 30 ML SDV ONE; Lidocaine 2% PF * 5 ML VIAL ONE; Metoprolol Tartrate IV* 1 MG/ML 5 ML VIAL ONE; Midazolam* 1 MG/ML 5 ML VIAL (5 MG) ONE; Naloxone* 0.4 MG/ML 1 ML VIAL IV PRN; Ondansetron ODT TAB* 4 MG ONE; Ondansetron ODT TAB* 4 MG PO ONE; PROCHLORPERAZINE INJ 5 MG/ML 2 ML VIAL IV PRN; Propofol* 10 MG/ML 20 ML BTL ONE; fentaNYL* 50 MCG/ML 2 ML VIAL (100 MCG VIAL) IV PRN; fentaNYL* 50 MCG/ML 2 ML VIAL (100 MCG VIAL) ONE; hydrALAZINE IV* 20 MG/ML VIAL ONE; oxyCODONE TAB* 5 MG TAB ONE
[2018-10-17] MEDS: oxyCODONE TAB* 5 MG TAB PO PRN ×2 (15:20→15:31)
[2018-10-17 16:14] VITALS: BP 133/69
--- NOTE | 2018-10-17 22:30 | OP ---
CC: Dr. Janie Mccullough; Dr. Mary Covarrubias * DATE OF OPERATION: 10/17/18 - [facility] DATE OF : 47 SURGEON: Dr. Romo. STRINGING MACHINE OPERATOR: Carine Turner NP. ANESTHESIOLOGIST: Dr. Kerr. ANESTHESIA: Local MAC. PRE-OP DIAGNOSIS: Umbilical hernia. POST-OP DIAGNOSIS: Umbilical hernia. OPERATIVE PROCEDURE: Umbilical hernia repair with mesh. ESTIMATED BLOOD LOSS: Minimal blood loss. FLUIDS: Minimal crystalloid fluid given; see chart for additional details. SPECIMEN: None. DRAINS: None. COMPLICATIONS: None. DESCRIPTION OF PROCEDURE: The patient was identified in the preoperative area. She was marked. A consent was signed. She was then taken to the operating room and placed on the operating table in the supine position. Preoperative antibiotics were given. Sequential devices were placed on bilateral lower extremities. Sedation was then given and the patient's abdomen was prepped and draped in a standard surgical fashion. A time-out was performed. An infraumbilical incision was made. This was deepened down to the anterior abdominal wall inferiorly. We did enter into the hernia sac and quickly found ourselves in the abdomen. The hernia defect appeared approximately 2 cm. We sharply dissected the umbilical skin off of the hernia sac and freed up the fascia along the full circumference. Placing my finger into the abdomen, I felt no additional hernias superiorly or inferiorly. Next, a 6.4 cm Ventralex mesh was then placed into the abdomen. It was allowed to unfurl appropriately and tails of this mesh were brought out superiorly and inferiorly. They were sutured to the anterior fascia with a 0 Vicryl suture. The tails were then cut and the edges of the hernia were then reapproximated again with additional 0 Vicryl suture. Next, with the hernia closed, we then irrigated. Hemostasis was obtained. The umbilical skin was tacked down with a 2-0 Vicryl suture and the skin incision was closed in a standard fashion with 3- 0 Vicryl, followed by 4-0 Monocryl subcuticular suture. Steri-Strips and sterile dressing were applied. The patient tolerated the procedure well and was then transferred to the PACU in stable condition. [id number]/[facility] #: [id number] [facility]
== END | disposition home or self-care (01) ==
LOC: OR 11:36
PROVIDERS: ATTEND Surgery
DX: K42.9 Umbilical hernia without obstruction or gangrene (principal); I10 Essential (primary) hypertension; M06.9 Rheumatoid arthritis, unspecified; Z79.52 Long term (current) use of systemic steroids; Z87.891 Personal history of nicotine dependence; M81.0 Age-related osteoporosis without current pathological fracture; E78.00 Pure hypercholesterolemia, unspecified
CPT/HCPCS: A9270-GY; C1781; J0360; J2250; J2704; J3010; J3490; J8540

== ENCOUNTER 2018-12-04 07:30 | Inpatient (IN) | payer MEDICARE ==
--- NOTE | 2018-11-27 13:23 | HP ---
HISTORY AND PHYSICAL: DATE OF ADMISSION/SURGERY: 12/04/18 DATE OF OFFICE VISIT: 11/26/18 SURGEON: Mary Covarrubias MD * (DICTATED BY ELSA DESAI) PROCEDURE: Right total knee arthroplasty. CHIEF COMPLAINT: Right knee pain. HISTORY OF PRESENT ILLNESS: Ms. Gotti is a 73-year-old female with continued complaints of right knee pain. She has failed conservative treatment and elected to proceed with a right total knee arthroplasty. PAST MEDICAL HISTORY: 1. RA. 2. Hypertension. 3. Anxiety. 4. Sjogren's syndrome. 5. Hyperlipidemia. PAST SURGICAL HISTORY: 1. Hysterectomy. 2. Left hand surgery. 3. ORIF of the left wrist. 4. Hernia repair. 5. Breast biopsy. 6. Surgery for an ectopic . CURRENT MEDICATIONS: 1. Actemra subcutaneous injection every other week. 2. [place] 5/325 three times a day as needed for pain. 3. Simvastatin 20 mg q.h.s. 4. Alprazolam 0.5 mg 3 times a day as needed. 5. Prednisone 5 mg a day. 6. Metoprolol 25 mg half a tab daily. 7. Leflunomide 10 mg daily. 8. Potassium chloride 20 mEq twice a day. 9. Chlorthalidone 25 mg a day. 10. Restasis. 11. Metro cream. 12. Retin-A. ALLERGIES: PENICILLIN, METHOTREXATE, SHELLFISH, LISINOPRIL, , NORVASC, ZITHROMAX, CEFTIN, PREVNAR, and CONTRAST DYE. FAMILY HISTORY: Cancer, hypertension, coronary artery disease, and TIA. SOCIAL HISTORY: She is a 73-year-old female. She lives with her . She does not smoke or use drugs. REVIEW OF SYSTEMS: A complete 14-point review of systems was reviewed with the patient, and was all negative and noncontributory. She denies history of DVT, PE, hepatitis, HIV, or anesthesia problems. PHYSICAL EXAMINATION GENERAL: She is well developed, well nourished, in no acute distress. VITAL SIGNS: She stands 62 inches tall, weighs 133 pounds. Her blood pressure is 132/70, heart rate is 89. HEENT: Normocephalic, atraumatic. NECK: Supple. No palpable lymph nodes. PULMONARY: The lungs are clear to auscultation bilaterally. CARDIO: Regular rate and rhythm. Strong S1, S2. ABDOMEN: Soft, nontender, nondistended. NEUROLOGICAL: She is alert and oriented x3. MUSCULOSKELETAL: Right lower extremity: The skin is intact. There are no open wounds or abrasions. There is a moderate effusion of the right knee joint. There is a 15-degree valgus deformity of the right knee and range of motion is 15 to 110 degrees of flexion with significant patellofemoral crepitus. She has 2+ dorsalis pedis pulse. She is able to dorsiflex and plantar flex and has intact sensation. ASSESSMENT AND PLAN: Ms. Gotti is a 73-year-old female with severe end- stage osteoarthritis of the right knee. She has failed conservative treatment and elected to proceed with a right total knee arthroplasty. The surgery is scheduled for 12/04/[address] Covarrubias discussed the risks and benefits of the surgery at today's visit and all of her questions were answered. She will follow up with Dr. Covarrubias 2 weeks after the surgery. ELSA DESAI [id number]/[facility] #: [id number] MELANIE
[~2018-12-04 07:30] MED LIST changes: -Acetaminophen IV 1GM/100ML * 100 ML ONE; +Acetaminophen TAB* 325 MG PO ONE; -Bacitracin OINTMENT* 0.5% 0.5 oz TUBE ONE; -Bupivacaine 0.5% W/EPI SDV* 10 ML VIAL INJ ONE; -Clindamycin 900 MG/D5W BAG(*) 900 MG/50 ML BAG IVPB ONE; -Dexamethasone TAB* 4 MG ONE; -Famotidine IV* 10 MG/ML 2 ML (20 mg) ONE; +Gabapentin CAP(*) 300 MG PO ONE; -KETAMINE HCL* 50 MG/ML 10 ML VIAL ONE; -Lidocaine 1% INJ* 10 MG/ML 30 ML SDV ONE; -Lidocaine 2% PF * 5 ML VIAL ONE; -Metoprolol Tartrate IV* 1 MG/ML 5 ML VIAL ONE; -Midazolam* 1 MG/ML 5 ML VIAL (5 MG) ONE; -Ondansetron ODT TAB* 4 MG ONE; -Propofol* 10 MG/ML 20 ML BTL ONE; +Tranexamic Acid 1,000 MG in NS 0.9% 50 ML* (outpatient use) IV SCH; +celeCOXIB CAP* 100 MG PO ONE; -fentaNYL* 50 MCG/ML 2 ML VIAL (100 MCG VIAL) ONE; -hydrALAZINE IV* 20 MG/ML VIAL ONE; -oxyCODONE TAB* 5 MG TAB ONE; +oxyCODONE TAB* 5 MG TAB PO PRN
--- OUTSIDE RECORDS SUMMARY | 2018-12-04 12:21 | XMS REPORT | Continuity of Care Document ---
:1945 External Reference #:[id number] Author Name Janie Mccullough M.D. (transmitted by agent of provider Janeen Gunderson ) Address [address], [address] [place] [id number] Care Team Providers Name Role Phone Janie Mccullough MD - Internal Care Team Information President [employer] Medicine Problems Active Problems Provider Date Rheumatoid arthritis of multiple joints Bakari Haines M.D. Onset: 11/27/2014 Sjogren's syndrome Bakari Haines M.D. Onset: 08/07/2012 Senile osteoporosis Bakari Haines M.D. Onset: 06/25/2013 Pure hypercholesterolemia Bennie Levi M.D. Onset: 11/02/2010 Lumbosacral spondylosis without myelopathy Bakari Haines M.D. Onset: 2011 Irritable bowel syndrome Bennie Levi M.D. Onset: 03/22/2011 Cervical spondylosis without myelopathy Bakari Haines M.D. Onset: 05/15/2012 Moderate recurrent major depression Bakari Haines M.D. Onset: 09/11/2014 Essential hypertension Janie Mccullough M.D. Onset: 11/06/2014 Long-term current use of systemic steroid Bakari Haines M.D. Onset: 2015 Rheumatoid arthritis with organ / system Dominic Tan MD Onset: 10/09/2018 involvement Localized, primary osteoarthritis of the Mary Covarrubias M.D. Onset: 09/07/2018 pelvic region and thigh Localized, primary osteoarthritis Mary Covarrubias M.D. Onset: 09/07/2018 Rheumatoid arthritis Dominic Tan MD Onset: 07/10/2018 Localized, primary osteoarthritis of the Dominic Tan MD Onset: 07/10/2018 shoulder region Social History Type Date Description Comments Sex Unknown ETOH Use Denies alcohol use Tobacco Use Start: Unknown End: Patient is a former social smoking in Unknown smoker college Recreational Drug Use Denies Drug Use Smoking Status Reviewed: 11/15/18 Patient is a former social smoking in smoker college Exercise Type/Frequency Does not exercise Allergies, Adverse Reactions, Alerts Active Allergies Reaction Severity Comments Date PCN rash 03/05/2007 Methotrexate rash 03/05/2007 shellfish sensity throat tightness Severe Lobster, craw fish 03/05/2007 Lisinopril rash 04/10/2012 Clorox Breathing Problems 01/31/2013 Norvasc rash on chest 03/12/2013 Zithromax rash 04/25/2014 Ceftin throat swelling Severe 06/05/2014 Prevnar sick in bed for weeks 09/12/2014 Contrast Dye Anaphylaxis Severe 12/09/2016 Medications Active Medications SIG Qnty Indications Ordering Date Provider Valacyclovir HCL 1 PO tid x 1 week 21tabs B02.9 Janie 11/15/2018 Janice Mccullough 1gm Tablets Hydrocodone-Acetami 1 tab by mouth twice 60tabs Nain Scott, 10/19/2018 nophen daily as needed for M.D. 5-325mg pain, avoid with Tablets driving Actemra inject 162 mg 4units Nain Scott, 09/04/2018 162mg/0.9ML subcutaneously every M.D. Soln Prefill other week On Hold Syringe Simvastatin 1 by mouth every day 90tabs E78.4 Janie 06/12/2018 20mg at bedtime Janice Mccullough Tablets Alprazolam 1 tablet three times 90tabs Janie 05/02/2018 0.5mg a day as needed Janice Mccullouhg Tablets anxiety Prednisone 15 mg x 4 days, 10 mg 90tabs Z79.52 Nain Scott, 03/19/2018 5mg x 4 days, then 5 mg M.DKaren Tablets daily Metoprolol 1/2 by mouth every 45tabs Janie 09/26/2016 Succinate ER day Janice Mccullough 25mg Tablets ER 24HR Leflunomide Take One Tablet By 90tabs M06.89 Nain Scott, 02/29/2016 10mg Mouth Once Daily M.DKaren Tablets M05.79 Z79.899 Potassium Chloride ER Take One Tablet By 180tabs Janie Mccullough, 2015 20Meq Mouth Twice A Day M.D. Tablets ER Chlorthalidone Take 1 Tablet By 90tabs I10 Janie Mccullough, 09/12/2014 25mg Tablets Mouth Daily as M.D. Directed Calcium 600 1 by mouth every Unknown 600mg Tablets day Tretinoin gel daily as Unknown 0.025% Cream directed Metrocream apply twice daily Unknown Cream as needed Restasis one gtts ou bid Unknown 0.05% Emulsion Fish Oil one tab daily Gale Zhang MD 1200mg Capsules History Medications Hydrocodone-Acetaminophen take one by mouth 30tabs Nain 10/05/2018 - 7.5-325mg twice daily as Tyler, 10/19/2018 Tablets needed for pain M.D. Actemra inject 162 mg 4units M05. Nain 08/23/2018 - 162mg/0.9ML Soln Prefill subcutaneously 79 Tyler, 09/03/2018 Syringe every other week, M.D. stop Xeljanz Nabumetone Take one 30tabs Nain 07/25/2018 - 750mg Tablets capsule/tablet by Tyler, 07/30/2018 mouth twice daily M.D. as needed for pain Hydrocodone take one 60tabs Nain 07/25/2018 - Bitartrate/Acetaminophen capsule/tablet by Tyler, 10/05/2018 5-325mg Tablets mouth twice daily M.D. as needed for pain Nabumetone take one 30tabs Nain 07/03/2018 - 500mg Tablets capsule/tablet by Tyler, 07/25/2018 mouth twice daily M.D. as needed for pain, please stop other nsaids Celebrex take one 30caps Nain 06/19/2018 - 200mg Capsules capsule/tablet Tyler, 07/03/2018 daily by mouth as M.D. needed for pain, avoid ibuprofen and other nsaids Medications Administered in Office Medication SIG Qnty Indications Ordering Provider Date Triamcinolone (Kenalog) Dominic Tan MD 10/09/2018 Injection Triamcinolone (Kenalog) Nain Scott M.D. 08/23/2018 Injection Triamcinolone (Kenalog) Nani Scott M.D. 08/23/2018 Injection Triamcinolone (Kenalog) Dominic Tan MD 06/26/2018 Injection Triamcinolone (Kenalog) Nain Scott M.D. 04/09/2018 Injection Triamcinolone (Kenalog) Nain Scott M.D. 10/03/2017 Injection Triamcinolone (Kenalog) Nain Scott M.D. 08/07/2017 Injection PPD Gale Zhang M.D. 04/19/2011 Injection Immunizations CPT Code Status Date Vaccine Reaction Lot # [id number] Given 11/13/2017 Influenza Virus Vaccine, Quadrivalent, Split, Preservative Free 07122 Given 11/03/2016 Influenza Virus Vaccine, No immediate reaction [id number] Quadrivalent, Split, Preservative Free 12180 Given 11/03/2015 Influenza Virus Vaccine, [id number] Quadrivalent, Split, Preservative Free 62453 Given 11/20/2014 Influenza Virus Vaccine, [id number] Quadrivalent, Split, Preservative Free 50746 Given 04/17/2014 Pneumococcal Conjugate [id number] Vaccine 13 Valent For Intramuscular Use 84348 Given 11/14/2013 Influenza Virus Vaccine, [id number] Quadrivalent, Split, Preservative Free 74185 Given 10/31/2012 Flu Vaccine Split Virus [id number] Preservative Free For Indiv 3Yr Older 86726 Given 08/07/2012 Pneumonia Vaccine [id number] Given 11/22/2011 Fluzone Vaccine [id number] 42651 Given 10/26/2010 Influenza Virus 3Yrs & Over 79644 Given 10/26/2010 Influenza Virus 3Yrs & [id number] Over 20044 Given 12/07/2004 Pneumovax (History By [id number] Patient) 04045 Given 12/07/2004 Td (History By Patient) Vital Signs Date Vital Result Comment 11/15/2018 10:33am Height 62.5 inches 5'2.50" Weight 132.00 lb Heart Rate 88 /min BP Systolic 119 mmHg BP Diastolic 76 mmHg O2 % BldC Oximetry 97 % BMI (Body Mass Index) 23.8 kg/m2 10/26/2018 3:17pm Heart Rate 78 /min BP Systolic Sitting 132 mmHg BP Diastolic Sitting 80 mmHg Respiratory Rate 18 /min Body Temperature 97.5 F Results Test Date Facility Test Result H/L Range Note Order 11/15/2018 [facility] In-House EKG <pending> Laboratory test 10/03/2018 [facility] Vitamin D 75.7 ng/mL High 20-50 [address] Total 25(Oh) [place] [address] [phone] Comp Metabolic 10/03/2018 [facility] Sodium 140 mmol/L Normal 135-[address] [place] [address] [phone] Potassium 3.5 mmol/L Normal 3.5-5.0 Chloride 104 mmol/L Normal 101-111 Co2 Carbon Dioxide 30 mmol/L Normal 22-32 Anion Gap 6 mmol/L Normal 2-11 Glucose 99 mg/dL Normal 70-100 Blood Urea Nitrogen 13 mg/dL Normal 6-24 Creatinine 0.65 mg/dL Normal 0.51-0.95 BUN/Creatinine Ratio 20.0 Normal 8-20 Calcium 9.8 mg/dL Normal 8.6-10.3 Total Protein 6.0 g/dL Low 6.4-8.9 Albumin 4.4 g/dL Normal 3.2-5.2 Globulin 1.6 g/dL Low 2-4 Albumin/Globulin Ratio 2.8 Normal 1-3 Total Bilirubin 1.00 mg/dL Normal 0.2-1.0 Alkaline Phosphatase 46 U/L Normal 34-104 Alt 26 U/L Normal 7-52 Ast 25 U/L Normal 13-39 Egfr Non- 89.6 >60 Egfr 108.4 >60 2 Laboratory test 10/03/2018 [facility] Erythrocyte Sed 7 mm/Hr Normal 0-29 [address] [place] [address] [phone] C Reactive Protein < 1.00 mg/L Normal <8.01 4 Lipid Profile 10/03/2018 [facility] Triglycerides 135 mg/dL 5 (Trig/Chol/HDL) [address] [place] [address] [phone] Cholesterol 208 mg/dL 6 HDL Cholesterol 73.3 mg/dL 7 LDL Cholesterol 108 mg/dL 8 CBC Auto 10/03/2018 [facility] White Blood 4.3 10^3/uL Normal 3.5-10.[address] [place] [address] [phone] Red Blood Count 4.54 10^6/uL Normal 3.70-4.87 Hemoglobin 15.4 g/dL Normal 12.0-16.0 Hematocrit 44 % Normal 35-47 Mean Corpuscular Volume 97 fL Normal 80-97 Mean Corpuscular Hemoglobin 34 pg High 27-31 Mean Corpuscular HGB Conc 35 g/dL Normal 31-36 Red Cell Distribution Width 14 % Normal 10-15 Platelet Count 245 10^3/uL Normal 150-450 Mean Platelet Volume 7.3 fL Low 7.4-10.4 Abs Neutrophils 2.8 10^3/uL Normal 1.5-7.7 Abs Lymphocytes 0.7 10^3/uL Low 1.0-4.8 Abs Monocytes 0.7 10^3/uL Normal 0-0.8 Abs Eosinophils 0.1 10^3/uL Normal 0-0.6 Abs Basophils 0.0 10^3/uL Normal 0-0.2 Abs Nucleated RBC 0.0 10^3/uL Granulocyte % 65.3 % Lymphocyte % 15.9 % Monocyte % 15.5 % Eosinophil % 2.5 % Basophil % 0.8 % Nucleated Red Blood Cells % 0.0 Lipid Profile 08/21/2018 [facility] Triglycerides 94 mg/dL 9 (Trig/Chol/HDL) [address] [place], [place] [id number] [phone] Cholesterol 218 mg/dL 10 HDL Cholesterol 81.1 mg/dL 11 LDL Cholesterol 118 mg/dL 12 Laboratory test 08/21/2018 [facility] Vitamin D 94.4 High 20- 50 [address] Total 25(Oh) ng/mL [place], [place] [id number] [phone] CBC Auto Diff 08/21/2018 [facility] White Blood 4.9 Normal 3.5 -10.[address] Count 10^3/[place] [address] [phone] Red Blood Count 4.44 10^6/uL Normal 3.70-4.87 Hemoglobin 14.7 g/dL Normal 12.0-16.0 Hematocrit 43 % Normal 35-47 Mean Corpuscular Volume 98 fL High 80-97 Mean Corpuscular Hemoglobin 33 pg High 27-31 Mean Corpuscular HGB Conc 34 g/dL Normal 31-36 Red Cell Distribution Width 13 % Normal 10-15 Platelet Count 278 10^3/uL Normal 150-450 Mean Platelet Volume 7.6 fL Normal 7.4-10.4 Abs Neutrophils 3.5 10^3/uL Normal 1.5-7.7 Abs Lymphocytes 0.8 10^3/uL Low 1.0-4.8 Abs Monocytes 0.6 10^3/uL Normal 0-0.8 Abs Eosinophils 0.1 10^3/uL Normal 0-0.6 Abs Basophils 0.0 10^3/uL Normal 0-0.2 Abs Nucleated RBC 0.0 10^3/uL Granulocyte % 70.8 % Lymphocyte % 15.4 % Monocyte % 11.8 % Eosinophil % 1.5 % Basophil % 0.5 % Nucleated Red Blood Cells % 0.0 Comp Metabolic 08/21/2018 [facility] Sodium 141 mmol/L Normal 135-[address] [place] [address] [phone] Potassium 3.5 mmol/L Normal 3.5-5.0 Chloride 102 mmol/L Normal 101-111 Co2 Carbon Dioxide 29 mmol/L Normal 22-32 Anion Gap 10 mmol/L Normal 2-11 Glucose 85 mg/dL Normal 70-100 Blood Urea Nitrogen 14 mg/dL Normal 6-24 Creatinine 0.72 mg/dL Normal 0.51-0.95 BUN/Creatinine Ratio 19.4 Normal 8-20 Calcium 9.5 mg/dL Normal 8.6-10.3 Total Protein 6.2 g/dL Low 6.4-8.9 Albumin 4.1 g/dL Normal 3.2-5.2 Globulin 2.1 g/dL Normal 2-4 Albumin/Globulin Ratio 2.0 Normal 1-3 Total Bilirubin 0.90 mg/dL Normal 0.2-1.0 Alkaline Phosphatase 55 U/L Normal 34-104 Alt 21 U/L Normal 7-52 Ast 20 U/L Normal 13-39 Egfr Non- 79.6 >60 Egfr 96.3 >60 14 Laboratory test 08/21/2018 [facility] Erythrocyte Sed 16 mm/Hr Normal 0-29 [address] [place] [address] [phone] C Reactive Protein 2.09 mg/L Normal <8.01 16 Laboratory test 06/09/2018 [facility] Erythrocyte Sed 12 mm/Hr Normal 0-29 [address] [place] [address] [phone] C Reactive Protein < 1.00 mg/L Normal <8.01 18 CBC Auto 06/09/2018 [facility] White Blood 4.9 10^3/uL Normal 3.5-10.[address] [place] [address] [phone] Red Blood Count 4.22 10^6/uL Normal 3.70-4.87 Hemoglobin 13.7 g/dL Normal 12.0-16.0 Hematocrit 41 % Normal 35-47 Mean Corpuscular Volume 96 fL Normal 80-97 Mean Corpuscular Hemoglobin 32 pg High 27-31 Mean Corpuscular HGB Conc 34 g/dL Normal 31-36 Red Cell Distribution Width 14 % Normal 10.5-15 Platelet Count 313 10^3/uL Normal 150-450 Mean Platelet Volume 7.6 fL Normal 7.4-10.4 Abs Neutrophils 3.3 10^3/uL Normal 1.5-7.7 Abs Lymphocytes 0.9 10^3/uL Low 1.0-4.8 Abs Monocytes 0.6 10^3/uL Normal 0-0.8 Abs Eosinophils 0.1 10^3/uL Normal 0-0.6 Abs Basophils 0.0 10^3/uL Normal 0-0.2 Abs Nucleated RBC 0.0 10^3/uL Granulocyte % 68.0 % Lymphocyte % 17.7 % Monocyte % 11.8 % Eosinophil % 2.1 % Basophil % 0.4 % Nucleated Red Blood Cells % 0.0 Comp Metabolic 06/09/2018 [facility] Sodium 142 mmol/L Normal 135-[address] [place] [address] [phone] Potassium 3.7 mmol/L Normal 3.5-5.0 Chloride 104 mmol/L Normal 101-111 Co2 Carbon Dioxide 31 mmol/L Normal 22-32 Anion Gap 7 mmol/L Normal 2-11 Glucose 85 mg/dL Normal 70-100 Blood Urea Nitrogen 20 mg/dL Normal 6-24 Creatinine 0.71 mg/dL Normal 0.51-0.95 BUN/Creatinine Ratio 28.2 High 8-20 Calcium 10.2 mg/dL Normal 8.6-10.3 Total Protein 6.0 g/dL Low 6.4-8.9 Albumin 4.1 g/dL Normal 3.2-5.2 Globulin 1.9 g/dL Low 2-4 Albumin/Globulin Ratio 2.2 Normal 1-3 Total Bilirubin 0.60 mg/dL Normal 0.2-1.0 Alkaline Phosphatase 65 U/L Normal 34-104 Alt 17 U/L Normal 7-52 Ast 19 U/L Normal 13-39 Egfr Non- 80.9 >60 Egfr 97.9 >60 19 Lipid Profile 06/09/2018 [facility] Triglycerides 81 mg/dL 20 (Trig/Chol/HDL) [address] [place] [address] [phone] Cholesterol 214 mg/dL 21 HDL Cholesterol 81.2 mg/dL 22 LDL Cholesterol 117 mg/dL 23 Laboratory test 06/09/2018 [facility] Hemoglobin A1c 5.9 % High 4.0-5.6 [address] (Glyco HGB) [place] [address] [phone] 1 Total 25-Hydroxyvitamin D2 and D3 (25-OH-VitD) <10 ng/mL (severe deficiency) 10-19 ng/mL (mild to moderate deficiency) 20-50 ng/mL (optimum levels) 51-80 ng/mL (increased risk of hypercalciuria) >80 ng/mL (toxicity possible) 2 Because ethnic data is not always readily available, this report includes an eGFR for both -Americans and non- Americans. The National Kidney Disease Education Program (NKDEP) does not endorse the use of the MDRD equation for patients that are not between the ages of 18 and 70, are , have extremes of body size, muscle mass, or nutritional status, or are non- or non-. According to the National Kidney Foundation, irrespective of diagnosis, the stage of the disease is based on the level of kidney function: Stage Description GFR(mL/min/1.73 m(2)) 1 Kidney damage with normal or decreased GFR 90 2 Kidney damage with mild decrease in GFR 60-89 3 Moderate decrease in GFR 30-59 4 Severe decrease in GFR 15-29 5 Kidney failure <15 (or dialysis) 3 Please check labs 2 days before follow up 4 Please check labs 2 days before follow up 5 Desirable: <150 Borderline High: 150-199 High: 200-499 Very High: >500 6 Desirable: <200 Borderline High: 200-239 High: >239 7 Low: <40 Desirable: 40-60 High: >60 8 Desirable: <100 Near Optimal: 100-129 Borderline High: 130-159 High: 160-189 Very High: >189 9 Desirable: <150 Borderline High: 150-199 High: 200-499 Very High: >500 10 Desirable: <200 Borderline High: 200-239 High: >239 11 Low: <40 Desirable: 40-60 High: >60 12 Desirable: <100 Near Optimal: 100-129 Borderline High: 130-159 High: 160-189 Very High: >189 13 Total 25-Hydroxyvitamin D2 and D3 (25-OH-VitD) <10 ng/mL (severe deficiency) 10-19 ng/mL (mild to moderate deficiency) 20-50 ng/mL (optimum levels) 51-80 ng/mL (increased risk of hypercalciuria) >80 ng/mL (toxicity possible) 14 Because ethnic data is not always readily available, this report includes an eGFR for both -Americans and non- Americans. The National Kidney Disease Education Program (NKDEP) does not endorse the use of the MDRD equation for patients that are not between the ages of 18 and 70, are , have extremes of body size, muscle mass, or nutritional status, or are non- or non-. According to the National Kidney Foundation, irrespective of diagnosis, the stage of the disease is based on the level of kidney function: Stage Description GFR(mL/min/1.73 m(2)) 1 Kidney damage with normal or decreased GFR 90 2 Kidney damage with mild decrease in GFR 60-89 3 Moderate decrease in GFR 30-59 4 Severe decrease in GFR 15-29 5 Kidney failure <15 (or dialysis) 15 S/O Q12 WEEKS PRN ORDERED 07/30/18 EXPIRES 01/29/19 16 S/O Q12 WEEKS PRN ORDERED 07/30/18 EXPIRES 01/29/19 17 Please check labs 2 days before follow up 18 Please check labs 2 days before follow up 19 Because ethnic data is not always readily available, this report includes an eGFR for both -Americans and non- Americans. The National Kidney Disease Education Program (NKDEP) does not endorse the use of the MDRD equation for patients that are not between the ages of 18 and 70, are , have extremes of body size, muscle mass, or nutritional status, or are non- or non-. According to the National Kidney Foundation, irrespective of diagnosis, the stage of the disease is based on the level of kidney function: Stage Description GFR(mL/min/1.73 m(2)) 1 Kidney damage with normal or decreased GFR 90 2 Kidney damage with mild decrease in GFR 60-89 3 Moderate decrease in GFR 30-59 4 Severe decrease in GFR 15-29 5 Kidney failure <15 (or dialysis) 20 Desirable: <150 Borderline High: 150-199 High: 200-499 Very High: >500 21 Desirable: <200 Borderline High: 200-239 High: >239 22 Low: <40 Desirable: 40-60 High: >60 23 Desirable: <100 Near Optimal: 100-129 Borderline High: 130-159 High: 160-189 Very High: >189 24 Therapeutic target for the treatment of diabetes mellitus patients is <7% HBA1C, and in selective patients <6.0%. Please refer to [place] [employer] diabetic care guidelines for further information. Procedures Date Code Description Status 11/15/2018 31439 EKG Tracing & Interpretation Completed 10/17/2018 59100 Repair Hernia Umbilical > 5 Yrs, Reducible Completed 10/17/2018 74016 Repair Hernia Umbilical > 5 Yrs, Reducible Completed 10/09/2018 22283 Inject/Drain Joint/Bursa Major W/O US Completed 08/23/2018 75983 Inject/Drain Joint/Bursa Major W/O US Completed 06/26/2018 28097 Inject/Drain Joint/Bursa Major W/O US Completed 02/12/2018 [id number] Mammogram Completed 06/20/2017 [id number] Bone Mineral Density Test Completed 02/10/2017 [id number] Mammogram Completed 02/05/2016 [id number] Mammogram Completed 12/03/2015 [id number] Colonoscopy Completed 05/04/2015 [id number] Bone Mineral Density Test Completed 02/03/2015 [id number] Mammogram Completed 10/15/2014 [id number] Mammogram Completed 10/14/2013 [id number] Mammogram Completed 04/30/2013 [id number] Bone Mineral Density Test Completed 10/12/2012 [id number] Mammogram Completed 10/11/2011 [id number] Mammogram Completed 10/06/2010 [id number] Mammogram Completed 05/17/2010 [id number] Bone Mineral Density Test Completed Medical Devices Description No Information Available Encounters Type Date Location Provider Dx Diagnosis Office Visit 10/05/2018 Rheumatology Nain Scott M05.79 Rheu arthritis w 12:[facility]p [facility] rheu factor mult site w/o org/sys involv M16.11 Unilateral primary osteoarthritis, right hip Z79.899 [facility] (current) drug therapy M21.061 Valgus deformity, not elsewhere classified, right knee Office Visit 09/24/2018 1:00p [facility] Bob Mackey K42.9 [facility], without FACS obstruction or gangrene Office Visit 09/07/2018 8:00a [facility] Mary Covarrubias M05.79 Rheu arthritis w at [facility] rheu factor mult site w/o org/sys involv M25.561 Pain in right knee M25.562 Pain in left knee M17.11 Unilateral primary osteoarthritis, right knee M25.551 Pain in right hip M16.11 Unilateral primary osteoarthritis, right hip M21.061 Valgus deformity, not elsewhere classified, right knee Office Visit 08/23/2018 2:40p Rheumatology Nain Scott M05.79 [facility] w rheu factor mult site w/o org/sys involv Z79.899 Other [facility] (current) drug therapy M25.551 Pain in right hip M25.561 Pain in right knee Office Visit 07/30/2018 9:00a [facility] Internal Janie R19.00 Intra-abd and Medicine - Ute Mccullough M.D. pelvic swelling, mass and lump, unsp site Office Visit 07/10/2018 9:30a Essence Tan M19.012 [facility] at osteoarthritis, [place] left shoulder M06.9 Rheumatoid arthritis, unspecified Office Visit 06/26/2018 10:30a [facility] Zaneb Yaseen, M25.512 Pain in left at [place] shoulder M19.012 Primary osteoarthritis, left shoulder M06.9 Rheumatoid arthritis, unspecified Office Visit 06/19/2018 1:40p Rheumatology Nain Scott, M05.79 [facility] Janice w jacob factor mult site w/o org/sys involv Z79.899 Other manager intermediate (current) drug therapy M25.551 Pain in right hip M54.5 Low back pain M25.561 Pain in right knee M25.512 Pain in left shoulder Assessments Date Code Description Provider 11/15/2018 Z01.818 Encounter for other preprocedural Janie Mccullough M.D. 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 factor of multiple site 11/15/2018 M16.11 Unilateral primary osteoarthritis, Janie Mccullough M.D. right hip 11/15/2018 Z79.52 exterminator (current) use of systemic Janie Mccullough M.D. steroids 11/15/2018 I10 Essential (primary) hypertension Janie Mccullough M.D. 11/15/2018 B02.9 Zoster without complications Janie Mccullough M.D. 10/26/2018 K42.9 Umbilical hernia without obstruction or Bob Romo MD , FACS gangrene 10/17/2018 K42.9 Umbilical hernia without obstruction or Carine Turner NP gangrene 10/17/2018 K42.9 Umbilical hernia without obstruction or Bob Romo MD , FACS gangrene 10/15/2018 K42.9 Umbilical hernia without obstruction or Bob Romo MD , FACS gangrene 10/15/2018 Z01.818 Encounter for other preprocedural Bob Romo MD, FACS examination 10/09/2018 M05.612 Rheumatoid arthritis of left shoulder Dominic Tan MD with involvement of ot 10/05/2018 M05.79 Rheumatoid arthritis with rheumatoid Nain Scott M.D. factor of multiple site 10/05/2018 M16.11 Unilateral primary osteoarthritis, Nain Scott M.D. right hip 10/05/2018 Z79.899 Other [facility] (current) drug therapy Nain Scott M.D. 10/05/2018 M21.061 Valgus deformity, not elsewhere Nain Scott M.D. classified, right knee 09/24/2018 K42.9 Umbilical hernia without obstruction or Bob Romo MD , FACS gangrene 09/12/2018 M25.561 Pain in right knee Mary Covarrubias M.D. 09/12/2018 M17.11 Unilateral primary osteoarthritis, Mary Covarrubias M.D. right knee 09/12/2018 M21.061 Valgus deformity, not elsewhere Mary Covarrubias M.D. 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 factor of multiple site 09/07/2018 M25.561 Pain in right knee Mary Covarrubias M.D. 09/07/2018 M25.562 Pain in left knee Mary Covarrubias M.D. 09/07/2018 M17.11 Unilateral primary osteoarthritis, Mary Covarrubias M.D. right knee 09/07/2018 M25.551 Pain in right hip Mary Covarrubias M.D. 09/07/2018 M16.11 Unilateral primary osteoarthritis, Mary Covarrubias M.D. right hip 09/07/2018 M21.061 Valgus deformity, not elsewhere Mary Covarrubias M.D. 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 factor of multiple site 08/23/2018 Z79.899 Other [facility]it[facility]iary (current) drug therapy Nain Scott M.D. 08/23/2018 M25.551 Pain in right hip Nain Scott M.D. 08/23/2018 M25.561 Pain in right knee Nain Scott M.D. 07/30/2018 R19.00 Intra-abdominal and pelvic swelling, Janie Mccullough M.D. mass and lump, unspecif 07/10/2018 M19.012 Primary osteoarthritis, left shoulder Dominic Tan MD 07/10/2018 M06.9 Rheumatoid arthritis, unspecified Dominic Tan MD 06/26/2018 M25.512 Pain in left shoulder Dominic Tan MD 06/26/2018 M19.012 Primary osteoarthritis, left shoulder Dominic Tan MD 06/26/2018 M06.9 Rheumatoid arthritis, unspecified Dominic Tan MD 06/19/2018 M05.79 Rheumatoid arthritis with rheumatoid Nain Scott M.D. factor of multiple site 06/19/2018 Z79.899 Other [facility] (current) drug therapy Nain Scott M.D. 06/19/2018 M25.551 Pain in right hip Nain Scott M.D. 06/19/2018 M54.5 Low back pain Nain Scott M.D. 06/19/2018 M25.561 Pain in right knee Nain Scott M.D. 06/19/2018 M25.512 Pain in left shoulder Nain Scott M.D. 06/12/2018 Z00.01 Encounter for general adult medical Janie Mccullough M.D. examination with abnorma 06/12/2018 I10 Essential (primary) hypertension Janie Mccullough M.D. 06/12/2018 E78.5 Hyperlipidemia, unspecified Janie Mccullough M.D. Plan of Treatment Future Appointment(s):12/04/2018 9:30 am - Endy Jenkins PA-C at [facility] at Obmeeu0612/04/2018 9:30 am - ELSA Banegas at [facility] at Facvgy4911/26/2018 9:45 am - Mary Covarrubias M.D. at [facility] at Mlepsj5612/21/2018 12:00 pm - Nain Scott M.D. at [facility]12/04/2018 9:30 am - Mary Covarrubias M.D. at [facility] at [email or web address]/13/2018 1:00 pm - Janie Mccullough M.D. at [facility] Internal Medicine - [facility]11/15/2018 - Janie Mccullough M.D.Z01.818 Encounter for other preprocedural examinationComments:PRE-OP:Medications:Fish oil: stop this 1 week prior to surgeryAspirin: stay offNSAIDs ( ibuprofen, Motrin, Advil, Aleve, naproxen): stay offActemra: stay off this until 4 weeks after surgeryLeflunomide : per directions from Dr. Scott - stop 3 days prior to surgery and resume 3 days after POST-OP:You may have trouble with a walker given your hand joint disease. Discuss this with the business continuity planner and PT at the hospital.For bowel: take MiraLax and WjabgA00.79 Rheumatoid arthritis with rheumatoid factor of multiple siteNew Xrays:SP Cervical 4+VWS, Ordered: 11/15/18Chest PA & Lat 2 VWS, Ordered: 11/15/18M16.11 Unilateral primary osteoarthritis, right hipZ79.52 exterminator (current) use of systemic jcyqgnyaV07 Essential (primary) memisivbujveY34.9 Zoster without complicationsNew Medication:Valacyclovir HCL 1 gm - 1 PO tid x 1 week Functional Status Description No Information Available Mental Status Description No Information Available Referrals Refer to Reason for Referral Status Appt Date Basil Schwartz MD Sent 09/24/2018 [address] [facility] [place] [address] [place] [address] [phone] Mary Covarrubias M.D. Please eval patient with severe Osteoarthritis of Sent 09/07/2018 the knee [address] [place] [id number] [phone] Dominic Tan MD Please evaluate persistent AC joint pain and Sent arthritis in patient with RA; refractory to cortisone and PT [address] [facility] [place] [address] [place] [address] [phone]
--- OUTSIDE RECORDS SUMMARY | 2018-12-04 12:21 | XMS REPORT | Continuity of Care Document ---
:1945 External Reference #:[id number] Author Name Nain Scott M.D. (transmitted by agent of provider Darshana Reese) Address [address] [place] [id number] Care Team Providers Name Role Phone Janie Mccullough MD - Internal Care Team Information Medicare Coordinator Medicine Problems Active Problems Provider Date Rheumatoid [...] systemic steroid Bakari Haines M.D. Onset: 2015 Localized, primary osteoarthritis of the Mary Covarrubias [...] Use Denies Drug Use Smoking Status Reviewed: 10/05/18 Patient is a former social smoking in [...] Medications SIG Qnty Indications Ordering Date Provider Hydrocodone-Acetam take one by mouth 30tabs Nain Scott, 10/05/2018 inophen twice daily as needed M.DKaren 7.5-325mg for pain Tablets Actemra inject 162 mg 4units Nain Scott, 09/04/2018 subcutaneously every M.D. 162mg/0.9ML Soln other week Prefill Syringe Simvastatin 1 by mouth every day 90tabs E78.4 Janie 06/12/2018 20mg at bedtime Janice Mccullough Tablets Alprazolam 1 tablet three times 90tabs Janie 05/02/2018 0.5mg a day as needed Janice Mccullough Tablets anxiety Prednisone 1 by mouth every day 90tabs Z79.52 Nain Scott, 03/19/2018 5mg M.DKaren Tablets Shingrix 0.5 milliliters 2units Z79.899 Nain Scott, 03/19/2018 intramuscular times M.D. 50mcg/0.5ML 1, followed by 0.5ml Suspension Rec intramuscular 2-6 months after dose #1 Ranitidine HCL take 1 tablet by 180tabs R07.89 Janie 02/19/2017 mouth twice daily Janice Mccullough 150mg Tablets Metoprolol 1/2 by mouth every 45tabs Janie 09/26/2016 Succinate ER day Janice Mccullough 25mg Tablets ER 24HR Leflunomide Take One Tablet By 90tabs M06.89 Nain Scott, 02/29/2016 10mg Mouth Once Daily M.D. Tablets M05.79 Z79.899 Potassium Chloride ER Take One Tablet By 180tabs Janie Mccullough, 2015 20Meq Mouth Twice A Day M.D. Tablets ER Chlorthalidone Take 1 Tablet By 90tabs I10 Janie Mccullough, 09/12/2014 25mg Tablets Mouth Daily as M.D. Directed Calcium 600 1 by mouth every Unknown 600mg Tablets day Tretinoin gel daily as Unknown 0.025% Cream directed Retin-A daily Unknown Metrocream apply twice daily Unknown Cream as needed Restasis one gtts ou bid Unknown 0.05% Emulsion Fish Oil one tab daily Gale Zhang MD 1200mg Capsules History Medications Actemra inject 162 mg 4units M05.79 Nain Scott, 08/23/2018 - 162mg/0.9ML subcutaneously every M.D. 09/03/2018 Soln Prefill other week, stop Syringe Xeljanz Nabumetone Take one 30tabs Nain Scott, 07/25/2018 - 750mg capsule/tablet by Janice 07/30/2018 Tablets mouth twice daily as needed for pain Hydrocodone take one 60tabs Nain Scott, 07/25/2018 - Bitartrate/Acetamin capsule/tablet by Janice 10/05/2018 ophen mouth twice daily as 5-325mg needed for pain Tablets Nabumetone take one 30tabs Nain Scott, 07/03/2018 - 500mg capsule/tablet by Janice 07/25/2018 Tablets mouth twice daily as needed for pain, please stop other nsaids Celebrex take one 30caps Nain Scott, 06/19/2018 - 200mg capsule/tablet daily M.DKaren 07/03/2018 Capsules by mouth as needed for pain, avoid ibuprofen and other nsaids Medications Administered in Office Medication SIG Qnty Indications Ordering Provider Date Triamcinolone (Kenalog) Nain Scott M.D. 08/23/2018 Injection Triamcinolone (Kenalog) Nain Scott M.D. 08/23/2018 Injection Triamcinolone (Kenalog) Dominic Tan MD 06/26/2018 Injection Triamcinolone (Kenalog) Nain Scott M.D. 04/09/2018 Injection Triamcinolone (Kenalog) Nain Scott M.D. 10/03/2017 Injection Triamcinolone (Kenalog) Nain Scott M.D. 08/07/2017 Injection PPD Gale Zhang M.D. 04/19/2011 Injection Immunizations CPT Code Status Date Vaccine Reaction Lot # [id number] Given 11/13/2017 Influenza Virus Vaccine, Quadrivalent, Split, Preservative Free 30033 Given 11/03/2016 Influenza Virus Vaccine, No immediate reaction [id number] Quadrivalent, Split, Preservative Free 69382 Given 11/03/2015 Influenza Virus Vaccine, [id number] Quadrivalent, Split, Preservative Free 96220 Given 11/20/2014 Influenza Virus Vaccine, [id number] Quadrivalent, Split, Preservative Free 25613 Given 04/17/2014 Pneumococcal Conjugate [id number] Vaccine 13 Valent For Intramuscular Use 04481 Given 11/14/2013 Influenza Virus Vaccine, [id number] Quadrivalent, Split, Preservative Free 31114 Given 10/31/2012 Flu Vaccine Split Virus [id number] Preservative Free For Indiv 3Yr Older 09741 Given 08/07/2012 Pneumonia Vaccine [id number] Q2038 Given 11/22/2011 Fluzone Vaccine [id number] 20680 Given 10/26/2010 Influenza Virus 3Yrs & Over 84795 Given 10/26/2010 Influenza Virus 3Yrs & [id number] Over 64470 Given 12/07/2004 Pneumovax (History By 1381u Patient) 16321 Given 12/07/2004 Td (History By Patient) Vital Signs Date Vital Result Comment 10/05/2018 12:33pm Height 62.5 inches 5'2.50" Weight 136.38 lb Heart Rate 83 /min BP Systolic 146 mmHg BP Diastolic 82 mmHg Body Temperature 98.8 F O2 % BldC Oximetry 96 % BMI (Body Mass Index) 24.5 kg/m2 09/24/2018 1:12pm Height 62.5 inches 5'2.50" Weight 135.00 lb Heart Rate 78 /min BP Systolic Sitting 138 mmHg BP Diastolic Sitting 78 mmHg Respiratory Rate 16 /min Body Temperature 97.4 F BMI (Body Mass Index) 24.3 kg/m2 Results Test Date Facility Test Result H/L Range Note Laboratory test 10/03/2018 [facility] Erythrocyte Sed 7 mm/Hr Normal 0-29 [address] [place] [address] [phone] C Reactive Protein < 1.00 mg/L Normal <8.01 2 Lipid Profile 10/03/2018 [facility] Triglycerides 135 mg/dL 3 (Trig/Chol/HDL) [address] [place] [address] [phone] Cholesterol 208 mg/dL 4 HDL Cholesterol 73.3 mg/dL 5 LDL Cholesterol 108 mg/dL 6 CBC Auto 10/03/2018 [facility] White Blood 4.3 10^3/uL Normal 3.5-10.[address] [place] [address] [phone] Red Blood Count 4.54 10^6/uL Normal 3.70-4.87 [...] Red Blood Cells % 0.0 Comp Metabolic 10/03/2018 [facility] Sodium 140 mmol/L Normal 135-[address] [place] [address] [phone] Potassium 3.5 mmol/L Normal 3.5-5.0 Chloride 104 [...] Egfr Non- 89.6 >60 Egfr 108.4 >60 7 Laboratory test 10/03/2018 [facility] Vitamin D Total 75.7 High 20-50 [address] 25(Oh) ng/[place] [address] [phone] Lipid Profile 08/21/2018 [facility] Triglycerides 94 mg/dL 9 (Trig/Chol/HDL) [address] [place] [address] [phone] Cholesterol 218 mg/dL 10 HDL Cholesterol 81.1 mg/dL 11 LDL Cholesterol 118 mg/dL 12 Laboratory test 08/21/2018 [facility] Vitamin D 94.4 High 20- 50 [address] Total 25(Oh) ng/[place] [address] [phone] CBC Auto Diff 08/21/2018 [facility] White Blood 4.9 Normal 3.5 -10.[address] Count 10^3/[place] [address] [phone] Red Blood Count 4.44 10^6/uL Normal 3.70-4.87 [...] Blood Cells % 0.0 Comp Metabolic 08/21/2018 [facility] Sodium 141 mmol/L Normal 135-[address] [place] [address] [phone] Potassium 3.5 mmol/L Normal 3.5-5.0 Chloride 102 [...] Egfr 96.3 >60 14 Laboratory test 08/21/2018 [facility] Erythrocyte Sed 16 mm/Hr Normal 0-29 [address] [place] [address] [phone] C Reactive Protein 2.09 mg/L Normal <8.01 16 Laboratory test 06/09/2018 [facility] Hemoglobin A1c 5.9 % High 4.0-5.[address] (Glyco HGB) [place] [address] [phone] Lipid Profile 06/09/2018 [facility] Triglycerides 81 18 (Trig/Chol/HDL) [address] mg/[place] [address] [phone] Cholesterol 214 mg/dL 19 HDL Cholesterol 81.2 mg/dL 20 LDL Cholesterol 117 mg/dL 21 Comp Metabolic 06/09/2018 [facility] Sodium 142 mmol/L Normal 135-[address] [place] [address] [phone] Potassium 3.7 mmol/L Normal 3.5-5.0 Chloride 104 [...] Egfr Non- 80.9 >60 Egfr 97.9 >60 22 CBC Auto 06/09/2018 [facility] White Blood 4.9 10^3/uL Normal 3.5-10.[address] [place] [address] [phone] Red Blood Count 4.22 10^6/uL Normal 3.70-4.87 [...] % Nucleated Red Blood Cells % 0.0 Laboratory test 06/09/2018 [facility] Erythrocyte Sed 12 mm/Hr Normal 0-29 [address] [place] [address] [phone] C Reactive Protein < 1.00 mg/L Normal <8.01 24 1 Please check labs 2 days before follow up 2 Please check labs 2 days before follow up 3 Desirable: <150 Borderline High: 150-199 High: 200-499 Very High: >500 4 Desirable: <200 Borderline High: 200-239 High: >239 5 Low: <40 Desirable: 40-60 High: >60 6 Desirable: <100 Near Optimal: 100-129 Borderline High: 130-159 High: 160-189 Very High: >189 7 Because ethnic data is not always readily [...] 15-29 5 Kidney failure <15 (or dialysis) 8 Total 25-Hydroxyvitamin D2 and D3 (25-OH-VitD) <10 ng/mL (severe deficiency) 10-19 ng/mL (mild to moderate deficiency) 20-50 ng/mL (optimum levels) 51-80 ng/mL (increased risk of hypercalciuria) >80 ng/mL (toxicity possible) 9 Desirable: <150 Borderline High: 150-199 High: [...] WEEKS PRN ORDERED 07/30/18 EXPIRES 01/29/19 17 Therapeutic target for the treatment of diabetes mellitus patients is <7% HBA1C, and in selective patients <6.0%. Please refer to [place] [employer] diabetic care guidelines for further information. 18 Desirable: <150 Borderline High: 150-199 High: 200-499 Very High: >500 19 Desirable: <200 Borderline High: 200-239 High: >239 20 Low: <40 Desirable: 40-60 High: >60 21 Desirable: <100 Near Optimal: 100-129 Borderline High: 130-159 High: 160-189 Very High: >189 22 Because ethnic data is not always readily [...] 15-29 5 Kidney failure <15 (or dialysis) 23 Please check labs 2 days before follow up 24 Please check labs 2 days before follow up Procedures Date Code Description Status 08/23/201844021 Inject/Drain Joint/Bursa Major W/O US Completed 06/26/201875093 Inject/Drain Joint/Bursa Major W/O US Completed 04/09/201811221 Inject/Drain Joint/Bursa Major W/O US Completed 02/12/2018 [id number] Mammogram Completed 06/20/2017 [id number] Bone Mineral Density Test Completed 02/10/2017 [id number] Mammogram Completed 02/05/2016 [id number] Mammogram Completed 12/03/2015 [id number] Colonoscopy Completed 05/04/2015 [id number] Bone Mineral Density Test Completed 02/03/2015 [id number] Mammogram Completed 10/15/2014 [id number] Mammogram Completed 10/14/2013 [id number] Mammogram Completed 04/30/2013 [id number] Bone Mineral Density Test Completed 10/12/2012 [id number] Mammogram Completed 10/11/2011 [id number] Mammogram Completed 10/06/2010 [id number] Mammogram Completed 05/17/2010 [id number] Bone Mineral Density Test Completed Medical Devices Description No Information Available Encounters Type Date Location Provider Dx Diagnosis Office Visit 09/24/2018 Surgical Bob Romo, K42.9 Umbilical hernia 1:00p [facility], [facility] without obstruction or gangrene Office Visit 09/07/2018 Orthopedic Mary Covarrubias, M05.79 Rheu arthritis w 8:00a [facility] rheu factor mult site w/o org/sys involv M25.561 Pain in right knee M25.562 Pain in left knee M17.11 Unilateral primary osteoarthritis, right knee M25.551 Pain in right hip M16.11 Unilateral primary osteoarthritis, right hip M21.061 Valgus deformity, not elsewhere classified, right knee Office Visit 08/23/2018 2:40p Rheumatology Nain Scott M05.79 Rheu [facility] rheu factor mult site w/o org/sys involv Z79.899 Other termination clerk (current) drug therapy M25.551 Pain in right hip M25.561 Pain in right knee Office Visit 07/30/2018 9:00a [facility] Internal Janie R19.00 Intra-abd and Medicine - Ute Mccullough M.D. pelvic swelling, mass and lump, unsp site Office Visit 07/10/2018 9:30a Orthopedic Dominic Tan, M19.012 [facility], [facility] left shoulder M06.9 Rheumatoid arthritis, unspecified Office Visit 06/26/2018 10:30a Orthopedic Dominic Tan M25.512 Pain in left Services [facility] M19.012 Primary osteoarthritis, left shoulder M06.9 Rheumatoid arthritis, unspecified Office Visit 06/19/2018 1:40p Rheumatology Nain Scott M05.79 Rhe[facility] rheu factor mult site w/o org/sys involv Z79.899 Other custodial (current) drug therapy M25.551 Pain in right hip M54.5 Low back pain M25.561 Pain in right knee M25.512 Pain in left shoulder Office Visit 04/09/2018 4:20p Rheumatology Nain Scott, M25.512 Pain in left [facility] M.DKaren shoulder M05.612 Rheu arthritis of l shoulder w involv of organs and systems Z79.52 alf (current) use of systemic steroids Assessments Date Code Description Provider 10/05/2018 M05.79 Rheumatoid arthritis with rheumatoid Nain Scott M.D. factor of multiple site 10/05/2018 M16.11 Unilateral primary osteoarthritis, right Nain Scott M.D. hip 10/05/2018 Z79.899 Other termination clerk (current) drug therapy Nain Scott M.D. 10/05/2018 M21.061 Valgus deformity, not elsewhere Nain Scott M.D. classified, right knee 09/24/2018 K42.9 Umbilical hernia without obstruction or Bob Romo MD , FACS gangrene 09/12/2018 M25.561 Pain in right knee Mary Covarrubias M.D. 09/12/2018 M17.11 Unilateral primary osteoarthritis, right Mary Covarrubias M.D. knee 09/12/2018 M21.061 Valgus deformity, not elsewhere Mary Covarrubias M.D. 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 factor of multiple site 09/07/2018 M25.561 Pain in right knee Mary Covarrubias M.D. 09/07/2018 M25.562 Pain in left knee Mary Covarrubias M.D. 09/07/2018 M17.11 Unilateral primary osteoarthritis, right Mary Covarrubias M.D. knee 09/07/2018 M25.551 Pain in right hip Mary Covarrubias M.D. 09/07/2018 M16.11 Unilateral primary osteoarthritis, right Mary Covarrubias M.D. hip 09/07/2018 M21.061 Valgus deformity, not elsewhere Mary Covarrubias M.D. 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 factor of multiple site 08/23/2018 Z79.899 Other termination clerk (current) drug therapy Nain Scott M.D. 08/23/2018 M25.551 Pain in right hip Nain Scott M.D. 08/23/2018 M25.561 Pain in right knee Nain Scott M.D. 07/30/2018 R19.00 Intra-abdominal and pelvic swelling, mass Janie Mccullough M.D. and lump, unspecif 07/10/2018 M19.012 Primary osteoarthritis, left shoulder Dominic Tan MD 07/10/2018 M06.9 Rheumatoid arthritis, unspecified Dominic Tan MD 06/26/2018 M25.512 Pain in left shoulder Dominic Tan MD 06/26/2018 M19.012 Primary osteoarthritis, left shoulder Dominic Tan MD 06/26/2018 M06.9 Rheumatoid arthritis, unspecified Dominic Tan MD 06/19/2018 M05.79 Rheumatoid arthritis with rheumatoid Nani Scott M.D. factor of multiple site 06/19/2018 Z79.899 Other termination clerk (current) drug therapy Nain Scott M.D. 06/19/2018 [...] 06/12/2018 E78.5 Hyperlipidemia, unspecified Janie Mccullough M.D. 04/09/2018 M25.512 Pain in left shoulder Nain Scott M.D. 04/09/2018 M05.612 Rheumatoid arthritis of left shoulder Nain Scott M.D. with involvement of ot 04/09/2018 Z79.52 rodent exterminator (current) use of systemic Nain Scott M.D. steroids Plan of Treatment Future Appointment(s):12/21/2018 12:00 pm - Nain Scott M.D. at [facility]10/09/2018 10:00 am - Dominic Tan MD at [facility]11/15/2018 10:20 am - Janie Mccullough M.D. at [facility] Internal Medicine - [facility]10/22/2018 9:45 am - Mary Covarrubias M.D. at [facility] 9:30 am - Mary Covarrubias M.D. at [facility]2018 9:45 am - Mary Covarrubias M.D. at [facility]10/26/2018 3 :00 pm - Bob Romo MD, FACS at [facility]10/15/2018 11:00 am - Bob Romo MD, FACS at [facility]10/17/2018 2:30 pm - Carine Turner NP at [facility]10/17/2018 2:30 pm - Bob Romo MD, FACS at [facility]12/04/2018 7:30 am - Mary Covarrubias M.D. at [facility]11/23/2018 9:45 am - Mary Covarrubias M.D. at [facility]12/13/2018 1:00 pm - Janie Mccullough M.D. at [facility] - [facility]10/05/2018 - Nain Scott M.D.M05.79 Rheumatoid arthritis with rheumatoid factor of multiple siteM16.11 Unilateral primary osteoarthritis, right hipZ79.899 Other termination clerk (current) drug pslrgqqA21.061 Valgus deformity, not elsewhere classified, right kneeFollow up:Follow up in 6 to 8 weeks or sooner if needed Functional Status Description No Information Available Mental Status Description No Information Available Referrals Refer to Dr Reason for Referral Status Appt Date Basil Schwartz MD Sent 09/24/[address] [place] [address] [place] [id number] [phone] Satish, Mary, M.D. Please eval patient with severe Osteoarthritis of Sent 09/07/2018 the knee [address] [place] [address] [phone] Dominic Tan MD Please evaluate persistent AC joint pain and Sent arthritis in patient with RA; refractory to cortisone and PT [address] [facility] [place] [address] [place] [address] [phone]
--- OUTSIDE RECORDS SUMMARY | 2018-12-04 12:21 | XMS REPORT | Continuity of Care Document ---
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 Tablets daily Metoprolol 1/2 by mouth every [...] 30caps Nain 06/19/2018 - 200mg Capsules capsule/tablet Tyler 07/03/2018 daily by mouth as M.D. needed [...] Code Status Date Vaccine Reaction Lot # [id number] Given 11/13/2017 Influenza Virus Vaccine, Quadrivalent, Split, Preservative Free 38833 Given 11/03/2016 Influenza Virus Vaccine, No immediate reaction [id number] Quadrivalent, Split, Preservative Free 83825 Given 11/03/2015 Influenza Virus Vaccine, [id number] Quadrivalent, Split, Preservative Free 30244 Given 11/20/2014 Influenza Virus Vaccine, [id number] Quadrivalent, Split, Preservative Free 88121 Given 04/17/2014 Pneumococcal Conjugate [id number] Vaccine 13 Valent For Intramuscular Use 43199 Given 11/14/2013 Influenza Virus Vaccine, [id number] Quadrivalent, Split, Preservative Free 22709 Given 10/31/2012 Flu Vaccine Split Virus [id number] Preservative Free For Indiv 3Yr Older 62239 Given 08/07/2012 Pneumonia Vaccine [id number] Q2038 Given 11/22/2011 Fluzone Vaccine [id number] 60714 Given 10/26/2010 Influenza Virus 3Yrs & Over 75754 Given 10/26/2010 Influenza Virus 3Yrs & [id number] Over 68187 Given 12/07/2004 Pneumovax (History By 1381u Patient) 31611 Given 12/07/2004 Td (History By Patient) Vital Signs Date Vital Result Comment 11/16/2018 2:25pm Heart Rate 78 /min BP Systolic Sitting 124 mmHg BP Diastolic Sitting 80 mmHg Respiratory Rate 16 /min Body Temperature 97.1 F 11/15/2018 10:33am Height 62.5 inches 5'2.50" Weight 132.00 lb Heart Rate 88 /min BP Systolic 119 mmHg BP Diastolic 76 mmHg O2 % BldC Oximetry 97 % BMI (Body Mass Index) 23.8 kg/m2 Results Test Date Facility Test Result H/L Range Note Order 11/15/2018 [facility] In-House EKG <pending> Laboratory test 10/03/2018 [facility] Vitamin D 75.7 ng/mL High 20-[address] Total 25(Oh) [place] [address] [phone] Comp Metabolic 10/03/2018 [facility] Sodium 140 mmol/L Normal 135-[address] [place] [address] [phone] Potassium 3.5 mmol/L Normal 3.5-5.0 Chloride 104 [...] Egfr 108.4 >60 2 Laboratory test 10/03/2018 [facility] Erythrocyte Sed 7 mm/Hr Normal 0-29 [address] [place] [address] [phone] C Reactive Protein < 1.00 mg/L Normal <8.01 4 Lipid Profile 10/03/2018 [facility] Triglycerides 135 mg/dL 5 (Trig/Chol/HDL) [address] [place] [address] [phone] Cholesterol 208 mg/dL 6 HDL Cholesterol 73.3 mg/dL 7 LDL Cholesterol 108 mg/dL 8 CBC Auto 10/03/2018 [facility] White Blood 4.3 10^3/uL Normal 3.5-10.[address] [place] [address] [phone] Red Blood Count 4.54 10^6/uL Normal 3.70-4.87 [...] Blood Cells % 0.0 Lipid Profile 08/21/2018 [facility] Triglycerides 94 mg/dL 9 (Trig/Chol/HDL) [address] [place] [address] [phone] Cholesterol 218 mg/dL 10 HDL Cholesterol 81.1 mg/dL 11 LDL Cholesterol 118 mg/dL 12 Laboratory test 08/21/2018 [facility] Vitamin D 94.4 High 20- 50 [address] Total 25(Oh) ng/mL [place], [place] [phone] CBC Auto Diff 08/21/2018 [facility] White Blood 4.9 Normal 3.5 -10.[address] Count 10^3/[place] [address] [phone] Red Blood Count 4.44 10^6/uL Normal 3.70-4.87 [...] Blood Cells % 0.0 Comp Metabolic 08/21/2018 [facility] Sodium 141 mmol/L Normal 135-[address] [place] [address] [phone] Potassium 3.5 mmol/L Normal 3.5-5.0 Chloride 102 [...] Egfr 96.3 >60 14 Laboratory test 08/21/2018 [facility] Erythrocyte Sed 16 mm/Hr Normal 0-29 [address] [place] [address] [phone] C Reactive Protein 2.09 mg/L Normal <8.01 16 Laboratory test 06/09/2018 [facility] Erythrocyte Sed 12 mm/Hr Normal 0-29 [address] [place] [address] [phone] C Reactive Protein < 1.00 mg/L Normal <8.01 18 CBC Auto 06/09/2018 [facility] White Blood 4.9 10^3/uL Normal 3.5-10.[address] [place] [address] [phone] Red Blood Count 4.22 10^6/uL Normal 3.70-4.87 [...] Blood Cells % 0.0 Comp Metabolic 06/09/2018 [facility] Sodium 142 mmol/L Normal 135-[address] [place] [address] [phone] Potassium 3.7 mmol/L Normal 3.5-5.0 Chloride 104 [...] Egfr 97.9 >60 19 Lipid Profile 06/09/2018 [facility] Triglycerides 81 mg/dL 20 (Trig/Chol/HDL) [address] [place] [address] [phone] Cholesterol 214 mg/dL 21 HDL Cholesterol 81.2 mg/dL 22 LDL Cholesterol 117 mg/dL 23 Laboratory test 06/09/2018 [facility] Hemoglobin A1c 5.9 % High 4.0-5.[address] (Glyco HGB) [place] [address] [phone] 1 Total 25-Hydroxyvitamin D2 and D3 (25-OH-VitD) [...] in selective patients <6.0%. Please refer to [place] [employer] diabetic care guidelines for further information. Procedures Date Code Description Status 11/15/2018 12446 EKG Tracing & Interpretation Completed 10/17/2018 73731 Repair Hernia Umbilical > 5 Yrs, Reducible Completed 10/17/2018 70001 Repair Hernia Umbilical > 5 Yrs, Reducible Completed 10/09/2018 25223 Inject/Drain Joint/Bursa Major W/O US Completed 08/23/2018 44280 Inject/Drain Joint/Bursa Major W/O US Completed 06/26/2018 59937 Inject/Drain Joint/Bursa Major W/O US Completed 02/12/2018 [id number] Mammogram Completed 06/20/2017 [id number] Bone Mineral Density Test Completed 02/10/2017 [id number] Mammogram Completed 02/05/2016 [id number] Mammogram Completed 12/03/2015 [id number] Colonoscopy Completed 05/04/2015 [id number] Bone Mineral Density Test Completed 02/03/2015 [id number] Mammogram Completed 10/15/2014 [id number] Mammogram Completed 10/14/2013 [id number] Mammogram Completed 04/30/2013 [id number] Bone Mineral Density Test Completed 10/12/2012 [id number] Mammogram Completed 10/11/2011 [id number] Mammogram Completed 10/06/2010 [id number] Mammogram Completed 05/17/2010 [id number] Bone Mineral Density Test Completed Medical Devices Description No Information Available Encounters Type Date Location Provider Dx Diagnosis Office Visit 10/05/2018 Rheumatology Nain Scott M05.79 Rheu arthritis w 12:40p [facility] rheu factor mult site w/o org/sys involv M16.11 Unilateral primary osteoarthritis, right hip Z79.899 Other terminologist (current) drug therapy M21.061 Valgus deformity, not elsewhere classified, right knee Office Visit 09/24/2018 1:00p Surgical Bob Mackey K42.9 [facility] Rom[facility] MD, without FACS obstruction or gangrene Office Visit 09/07/2018 8:00a [facility] Mary Covarrubias M05.79 Rheu arthritis w [...] mult site w/o org/sys involv Z79.899 Other terminologist (current) drug therapy M25.551 Pain in right hip M25.561 Pain in right knee Office Visit 07/30/2018 9:00a [facility] Internal Janie R19.00 Intra-abd and Medicine - Ute Mccullough M.D. pelvic swelling, mass and lump, unsp site Office Visit 07/10/2018 9:30a Essence Tan, M19.012 [facility] osteoarthritis, [place] left shoulder M06.9 Rheumatoid arthritis, unspecified Office Visit 06/26/2018 10:30a [facility] Dominic Tan, M25.512 Pain in left at [place] shoulder M19.012 Primary osteoarthritis, left shoulder M06.9 Rheumatoid arthritis, unspecified Office Visit 06/19/2018 1:40p Rheumatology Nain Scott, M05.79 [facility] [place] [place] w/o org/sys involv Z79.899 Other usp (current) drug therapy M25.551 Pain in right hip M54.5 Low back pain M25.561 Pain in right knee M25.512 Pain in left shoulder Assessments Date Code Description Provider 11/16/2018 K42.9 Umbilical hernia without obstruction or Bob Romo MD , FACS gangrene 11/15/2018 Z01.818 Encounter for other preprocedural Janie Mccullough M.D. 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 steroids 11/15/2018 I10 Essential (primary) hypertension Janie Mccullough M.D. 11/15/2018 B02.9 Zoster without complications Janie Mccullough M.D. 11/15/2018 R07.9 Chest pain, unspecified Janie Mccullough M.D. 10/26/2018 K42.9 Umbilical hernia [...] Scott M.D. right hip 10/05/2018 Z79.899 Other usp (current) drug therapy Nain Scott M.D. 10/05/2018 [...] factor of multiple site 08/23/2018 Z79.899 Other terminologist (current) drug therapy Nain Scott M.D. 08/23/2018 M25.551 Pain in right hip Nain Scott M.D. 08/23/2018 M25.561 Pain in right knee Nain Scott M.D. 07/30/2018 R19.00 Intra-abdominal and pelvic swelling, Janie Mccullough M.D. 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 factor of multiple site 06/19/2018 Z79.899 Other usp (current) drug therapy Nain Scott M.D. 06/19/2018 [...] 9:30 am - Endy Jenkins PA-C at [facility] at Rmigew6112/04/2018 9:30 am - ELSA Banegas at [facility] at Kzezgu8611/26/2018 9:45 am - Mary Covarrubias M.D. at [facility] at Nbdrrq6612/21/2018 12:00 pm - Nain Scott M.D. at [facility]12/04/2018 9:30 am - Mary Covarrubias M.D. at [facility] at Flgwdl1712/13/2018 1:00 pm - Janie Mccullough M.D. at [facility] Internal Medicine - Ccmob11/16/2018 - Bob Romo MD, FACSK42.9 Umbilical hernia without obstruction or gangreneFollow up:None needed Functional Status Description No Information Available Mental Status Description No Information Available Referrals Refer to Dr Reason for Referral Status Appt Date Basil Schwartz MD Sent 09/24/2018 [address] [facility] [place] [address] [phone] Mary Covarrubias M.D. Please eval patient with severe Osteoarthritis of Sent 09/07/2018 the knee [address] [place] [address] [phone] Dominic Tan MD Please evaluate persistent AC joint pain and Sent arthritis in patient with RA; refractory to cortisone and PT [address] [facility] [place] [address] [phone]
--- OUTSIDE RECORDS SUMMARY | 2018-12-04 12:21 | XMS REPORT | Continuity of Care Document ---
:1945 External Reference #:[id number] Author Name Nain Scott M.D. 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 Medicine Problems Active Problems Provider Date Rheumatoid [...] Scott, 10/05/2018 inophen twice daily as needed M.DaKren 7.5-325mg for pain Tablets Actemra inject 162 [...] for pain Tablets Nabumetone take one 30tabs aNin Scott, 07/03/2018 - 500mg capsule/tablet by Janice [...] Code Status Date Vaccine Reaction Lot # 19949 Given 11/13/2017 Influenza Virus Vaccine, Quadrivalent, Split, Preservative Free 69895 Given 11/03/2016 Influenza Virus Vaccine, No immediate reaction [id number] Quadrivalent, Split, Preservative Free 73088 Given 11/03/2015 Influenza Virus Vaccine, [id number] Quadrivalent, Split, Preservative Free 58892 Given 11/20/2014 Influenza Virus Vaccine, [id number] Quadrivalent, Split, Preservative Free 89311 Given 04/17/2014 Pneumococcal Conjugate [id number] Vaccine 13 Valent For Intramuscular Use 65746 Given 11/14/2013 Influenza Virus Vaccine, [id number] Quadrivalent, Split, Preservative Free 67064 Given 10/31/2012 Flu Vaccine Split Virus [id number] Preservative Free For Indiv 3Yr Older 36040 Given 08/07/2012 Pneumonia Vaccine [id number] Q2038 Given 11/22/2011 Fluzone Vaccine [id number] 40273 Given 10/26/2010 Influenza Virus 3Yrs & Over 12627 Given 10/26/2010 Influenza Virus 3Yrs & [id number] Over 69255 Given 12/07/2004 Pneumovax (History By 1381u Patient) 57679 Given 12/07/2004 Td (History By Patient) Vital [...] Result H/L Range Note Laboratory test 10/03/2018 [facility] Erythrocyte Sed 7 mm/Hr Normal 0-29 [address] [place] [address] [phone] C Reactive Protein < 1.00 mg/L Normal <8.01 2 Lipid Profile 10/03/2018 [facility] Triglycerides 135 mg/dL 3 (Trig/Chol/HDL) [address] [place] [address] [phone] Cholesterol 208 mg/dL 4 HDL Cholesterol 73.3 mg/dL 5 LDL Cholesterol 108 mg/dL 6 CBC Auto 10/03/2018 [facility] White Blood 4.3 10^3/uL Normal 3.5-10.[address] [place] [address] [phone] Red Blood Count 4.54 10^6/uL Normal 3.70-4.87 [...] Blood Cells % 0.0 Comp Metabolic 10/03/2018 [facility] Sodium 140 mmol/L Normal 135-[address] [place] [address] [phone] Potassium 3.5 mmol/L Normal 3.5-5.0 Chloride 104 [...] Egfr 108.4 >60 7 Laboratory test 10/03/2018 [facility] Vitamin D Total 75.7 High 20-50 [address] 25(Oh) ng/[place] [address] [phone] Lipid Profile 08/21/2018 [facility] Triglycerides 94 mg/dL 9 (Trig/Chol/HDL) [address] [place] [address] [phone] Cholesterol 218 mg/dL 10 HDL Cholesterol 81.1 mg/dL 11 LDL Cholesterol 118 mg/dL 12 Laboratory test 08/21/2018 [facility] Vitamin D 94.4 High 20- 50 [address] Total 25(Oh) ng/[place] [address] [phone] CBC Auto Diff 08/21/2018 [facility] White Blood 4.9 Normal 3.5 -10.[address] Count 10^3/[place] [address] [phone] Red Blood Count 4.44 10^6/uL Normal 3.70-4.87 [...] Blood Cells % 0.0 Comp Metabolic 08/21/2018 [facility] Sodium 141 mmol/L Normal 135-[address] [place] [address] [phone] Potassium 3.5 mmol/L Normal 3.5-5.0 Chloride 102 [...] Egfr 96.3 >60 14 Laboratory test 08/21/2018 [facility] Erythrocyte Sed 16 mm/Hr Normal 0-29 [address] [place] [address] [phone] C Reactive Protein 2.09 mg/L Normal <8.01 16 Laboratory test 06/09/2018 [facility] Hemoglobin A1c 5.9 % High 4.0-5.6 [address] (Glyco HGB) [place] [address] [phone] Lipid Profile 06/09/2018 [facility] Triglycerides 81 18 (Trig/Chol/HDL) [address] mg/[place] [address] [phone] Cholesterol 214 mg/dL 19 HDL Cholesterol 81.2 mg/dL 20 LDL Cholesterol 117 mg/dL 21 Comp Metabolic 06/09/2018 [facility] Sodium 142 mmol/L Normal 135-[address] [place] [address] [phone] Potassium 3.7 mmol/L Normal 3.5-5.0 Chloride 104 [...] Egfr 97.9 >60 22 CBC Auto 06/09/2018 [facility] White Blood 4.9 10^3/uL Normal 3.5-10.[address] [place] [address] [phone] Red Blood Count 4.22 10^6/uL Normal 3.70-4.87 [...] Blood Cells % 0.0 Laboratory test 06/09/2018 [facility] Erythrocyte Sed 12 mm/Hr Normal 0-29 [address] [place] [address] [phone] C Reactive Protein < 1.00 mg/L Normal [...] in selective patients <6.0%. Please refer to [place] [employer] diabetic care guidelines for further [...] follow up Procedures Date Code Description Status 08/23/201841204 Inject/Drain Joint/Bursa Major W/O US Completed 06/26/201831559 Inject/Drain Joint/Bursa Major W/O US Completed 04/09/201825232 Inject/Drain Joint/Bursa Major W/O US Completed 02/12/2018 [id number] Mammogram Completed 06/20/2017 [id number] Bone Mineral Density Test Completed 02/10/2017 [id number] Mammogram Completed 02/05/2016 [id number] Mammogram Completed 12/03/2015 [id number] Colonoscopy Completed 05/04/2015 [id number] Bone Mineral Density Test Completed 02/03/2015 [id number] Mammogram Completed 10/15/2014 [id number] Mammogram Completed 10/14/2013 [id number] Mammogram Completed 04/30/2013 [id number] Bone Mineral Density Test Completed 10/12/2012 [id number] Mammogram Completed 10/11/2011 [id number] Mammogram Completed 10/06/2010 [id number] Mammogram Completed 05/17/2010 [id number] Bone Mineral Density Test Completed Medical Devices [...] mult site w/o org/sys involv Z79.899 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 (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) drug 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 M25.551 Pain in right hip M25.561 Pain in right knee Office Visit 07/30/2018 9:00a [facility] Internal Janie R19.00 Intra-abd and Medicine - [...] unspecified Office Visit 06/19/2018 1:40p Rheumatology Nain Sctot M05.79 Rheu [facility] rheu factor mult site w/o org/sys involv Z79.899 Other assisted (current) drug therapy M25.551 Pain in right hip M54.5 Low back pain M25.561 Pain in right knee M25.512 Pain in left shoulder Office Visit 04/09/2018 4:20p Rheumatology Nain Scott, M25.512 Pain in left [facility] M.DKaren shoulder M05.612 Rheu arthritis of l shoulder w involv of organs and systems Z79.52 care home (current) use of systemic steroids Assessments Date Code Description Provider 10/05/2018 M05.79 Rheumatoid arthritis with rheumatoid Nain Scott M.D. factor of multiple site 10/05/2018 M16.11 Unilateral primary osteoarthritis, right Nain Scott M.D. hip 10/05/2018 Z79.899 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 (current) drug therapy Nain Scott M.D. 10/05/2018 [...] factor of multiple site 08/23/2018 Z79.899 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 (current) drug therapy Nain Scott M.D. 08/23/2018 [...] 06/19/2018 M05.79 Rheumatoid arthritis with rheumatoid Nain Soctt M.D. factor of multiple site 06/19/2018 Z79.899 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 (current) drug therapy Nain Scott M.D. 06/19/2018 [...] M.D. 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 steroids Plan of Treatment Future Appointment(s):12/21/2018 12:00 pm - Nain Scott M.D. at [facility]10/09/2018 10:00 am - Dominic Tan MD at [facility]/15/2018 10:20 am - Janie Mccullough M.D. at [facility] Internal Medicine - [facility]10/22/2018 9:45 am - Mary Covarrubias M.D. at [facility] 9:30 am - Mary Covarrubias M.D. at [facility]2018 9:45 am - Mary Covarrubias M.D. at [facility]10/26/2018 3 :00 pm - Bob Romo MD, FACS at [facility]10/15/2018 11:00 am - Bob Romo MD, FACS at [facility]10/17/2018 2:30 pm - Carine Turner NP at [facility]10/17/2018 2:30 pm - Bob Romo MD, FACS at [facility]12/04/2018 7:30 am - Mary Covarrubias M.D. at [facility]11/23/2018 9:45 am - Mary Covarrubias M.D. at [facility]12/13/2018 1:00 pm - Janie Mccullough M.D. at [facility] Internal Medicine - [facility]10/05/2018 - Nain Scott M.D.M05.79 Rheumatoid arthritis with rheumatoid factor of multiple siteM16.11 Unilateral primary osteoarthritis, right hipZ79.899 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 (current) drug vrnzengC73.061 Valgus deformity, not elsewhere classified, right kneeFollow up:Follow up in 6 to 8 weeks or sooner if needed Functional Status Description No Information Available Mental Status Description No Information Available Referrals Refer to Dr Reason for Referral Status Appt Date Basil Schwartz MD Sent 09/24/[address] [place] [address] [place] [id number] [phone] Satish, Mary, M.D. Please eval patient with severe Osteoarthritis of Sent 09/07/2018 the knee [address] [place] [address] [phone] Dominic Tan MD Please evaluate persistent AC joint pain and Sent arthritis in patient with RA; refractory to cortisone and PT [address] [facility] [address] [place] [address] [phone]
--- OUTSIDE RECORDS SUMMARY | 2018-12-04 12:21 | XMS REPORT | Continuity of Care Document ---
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 25mg Tablets ER 24HR Leflunomide Take One [...] Code Status Date Vaccine Reaction Lot # [id number] Given 11/13/2017 Influenza Virus Vaccine, Quadrivalent, Split, Preservative Free 59247 Given 11/03/2016 Influenza Virus Vaccine, No immediate reaction [id number] Quadrivalent, Split, Preservative Free 78245 Given 11/03/2015 Influenza Virus Vaccine, [id number] Quadrivalent, Split, Preservative Free 30793 Given 11/20/2014 Influenza Virus Vaccine, [id number] Quadrivalent, Split, Preservative Free 40646 Given 04/17/2014 Pneumococcal Conjugate [id number] Vaccine 13 Valent For Intramuscular Use 51560 Given 11/14/2013 Influenza Virus Vaccine, [id number] Quadrivalent, Split, Preservative Free 00260 Given 10/31/2012 Flu Vaccine Split Virus [id number] Preservative Free For Indiv 3Yr Older 24685 Given 08/07/2012 Pneumonia Vaccine [id number] Q2038 Given 11/22/2011 Fluzone Vaccine [id number] 01660 Given 10/26/2010 Influenza Virus 3Yrs & Over 25934 Given 10/26/2010 Influenza Virus 3Yrs & [id number] Over 59405 Given 12/07/2004 Pneumovax (History By 1381u Patient) 13394 Given 12/07/2004 Td (History By Patient) Vital Signs Date Vital Result Comment 10/09/2018 10:10am Height 62.5 inches 5'2.50" Weight 136.00 lb BP Systolic 112 mmHg BP Diastolic 68 mmHg Respiratory Rate 20 /min Pain Level 1 BMI (Body Mass Index) 24.5 kg/m2 10/05/2018 12:33pm Height 62.5 inches 5'2.50" Weight 136.38 lb Heart Rate 83 /min BP Systolic 146 mmHg BP Diastolic 82 mmHg Body Temperature 98.8 F O2 % BldC Oximetry 96 % BMI (Body Mass Index) 24.5 kg/m2 Results Test Date Facility Test Result H/L Range Note Laboratory test 10/03/2018 [facility] Erythrocyte Sed 7 mm/Hr Normal 0-29 [address] [place] [address] [phone] C Reactive Protein < 1.00 mg/L Normal <8.01 2 Lipid Profile 10/03/2018 [facility] Triglycerides 135 mg/dL 3 (Trig/Chol/HDL) [address] [place] [address] [phone] Cholesterol 208 mg/dL 4 HDL Cholesterol 73.3 mg/dL 5 LDL Cholesterol 108 mg/dL 6 CBC Auto 10/03/2018 [facility] White Blood 4.3 10^3/uL Normal 3.5-10.[address] [place] [address] [phone] Red Blood Count 4.54 10^6/uL Normal 3.70-4.87 [...] Blood Cells % 0.0 Comp Metabolic 10/03/2018 [facility] Sodium 140 mmol/L Normal 135-[address] [place] [address] [phone] Potassium 3.5 mmol/L Normal 3.5-5.0 Chloride 104 [...] Egfr 108.4 >60 7 Laboratory test 10/03/2018 [facility] Vitamin D Total 75.7 High 20-50 [address] 25(Oh) ng/[place] [address] [phone] Lipid Profile 08/21/2018 [facility] Triglycerides 94 mg/dL 9 (Trig/Chol/HDL) [address] [place] [address] [phone] Cholesterol 218 mg/dL 10 HDL Cholesterol 81.1 mg/dL 11 LDL Cholesterol 118 mg/dL 12 Laboratory test 08/21/2018 [facility] Vitamin D 94.4 High 20- 50 [address] Total 25(Oh) ng/[place] [address] [phone] CBC Auto Diff 08/21/2018 [facility] White Blood 4.9 Normal 3.5 -10.[address] Count 10^3/[place] [address] [phone] Red Blood Count 4.44 10^6/uL Normal 3.70-4.87 [...] Blood Cells % 0.0 Comp Metabolic 08/21/2018 [facility] Sodium 141 mmol/L Normal 135-[address] [place] [address] [phone] Potassium 3.5 mmol/L Normal 3.5-5.0 Chloride 102 [...] Egfr 96.3 >60 14 Laboratory test 08/21/2018 [facility] Erythrocyte Sed 16 mm/Hr Normal 0-29 [address] [place] [address] [phone] C Reactive Protein 2.09 mg/L Normal <8.01 16 Laboratory test 06/09/2018 [facility] Hemoglobin A1c 5.9 % High 4.0-5.6 [address] (Glyco HGB) [place] [address] [phone] Lipid Profile 06/09/2018 [facility] Triglycerides 81 18 (Trig/Chol/HDL) [address] mg/[place] [address] [phone] Cholesterol 214 mg/dL 19 HDL Cholesterol 81.2 mg/dL 20 LDL Cholesterol 117 mg/dL 21 Comp Metabolic 06/09/2018 [facility] Sodium 142 mmol/L Normal 135-[address] [place] [address] [phone] Potassium 3.7 mmol/L Normal 3.5-5.0 Chloride 104 [...] Egfr 97.9 >60 22 CBC Auto 06/09/2018 [facility] White Blood 4.9 10^3/uL Normal 3.5-10.[address] [place] [address] [phone] Red Blood Count 4.22 10^6/uL Normal 3.70-4.87 [...] Blood Cells % 0.0 Laboratory test 06/09/2018 [facility] Erythrocyte Sed 12 mm/Hr Normal 0-29 [address] [place] [address] [phone] C Reactive Protein < 1.00 mg/L Normal [...] in selective patients <6.0%. Please refer to [place] [employer] diabetic care guidelines for further [...] follow up Procedures Date Code Description Status 10/09/2018 81373 Inject/Drain Joint/Bursa Major W/O US Completed 08/23/2018 12579 Inject/Drain Joint/Bursa Major W/O US Completed 06/26/2018 08544 Inject/Drain Joint/Bursa Major W/O US Completed 04/09/2018 57743 Inject/Drain Joint/Bursa Major W/O US Completed 02/12/2018 [id number] Mammogram Completed 06/20/2017 [id number] Bone Mineral Density Test Completed 02/10/2017 [id number] Mammogram Completed 02/05/2016 [id number] Mammogram Completed 12/03/2015 [id number] Colonoscopy Completed 05/04/2015 [id number] Bone Mineral Density Test Completed 02/03/2015 [id number] Mammogram Completed 10/15/2014 [id number] Mammogram Completed 10/14/2013 [id number] Mammogram Completed 04/30/2013 [id number] Bone Mineral Density Test Completed 10/12/2012 [id number] Mammogram Completed 10/11/2011 [id number] Mammogram Completed 10/06/2010 [id number] Mammogram Completed 05/17/2010 [id number] Bone Mineral Density Test Completed Medical Devices Description No Information Available Encounters Type Date Location Provider Dx Diagnosis Office Visit 09/24/2018 Surgical Bob Romo, K42.9 Umbilical hernia 1:00p [facility] , FACS without obstruction or gangrene Office Visit [...] mult site w/o org/sys involv Z79.899 Other ad terminal makeup operator (current) drug therapy M25.551 Pain in right hip M25.561 Pain in right knee Office Visit 07/30/2018 9:00a [facility] Internal Janie R19.00 Intra-abd and Medicine - Ute Mccullough M.D. pelvic swelling, mass and lump, unsp site Office Visit 07/10/2018 9:30a Orthopedic Dominic Tan M19.012 [facility] MD l[facility], C.M.A. left shoulder M06.9 Rheumatoid arthritis, unspecified Office Visit 06/26/2018 10:30a Orthopedic Dominic Tan M25.512 Pain in left Services Of shoulder C.M.A. M19.012 Primary osteoarthritis, left shoulder M06.9 Rheumatoid arthritis, unspecified Office Visit 06/19/2018 1:40p Rheumatology Nain Scott M05.79 Rheu arthritis [facility] Nanci wang rheu factor mult site w/o org/sys involv Z79.899 Other ad terminal makeup operator (current) drug therapy M25.551 Pain in right hip M54.5 Low back pain M25.561 Pain in right knee M25.512 Pain in left shoulder Office Visit 04/09/2018 4:20p Rheumatology Nain Scott, M25.512 Pain in left [facility] M.D. 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 factor of multiple site 10/05/2018 M16.11 Unilateral primary osteoarthritis, right Nain Scott M.D. hip 10/05/2018 Z79.899 Other ad terminal makeup operator (current) drug therapy Nain Scott M.D. 10/05/2018 [...] factor of multiple site 08/23/2018 Z79.899 Other ad terminal makeup operator (current) drug therapy Nain Scott M.D. 08/23/2018 [...] factor of multiple site 06/19/2018 Z79.899 Other care home (current) drug therapy Nain Scott M.D. 06/19/2018 [...] M.D. with involvement of ot 04/09/2018 Z79.52 long-term (current) use of systemic Nain Scott M.D. steroids Plan of Treatment Future Appointment(s):12/21/2018 12:00 pm - Nain Scott M.D. at [facility]11/15/2018 10:20 am - Janie Mccullough M.D. at [facility] Internal Medicine - [facility]10/22/2018 9:45 am - Mary Covarrubias M.D. at [facility]10/15/2018 9:30 am - Mary Covarrubias M.D. at [facility]10/29/2018 9:45 am - Mary Covarrubias M.D. at [facility]10/26/2018 3:00 pm - Bob Romo MD, FACS at [facility]10/15/2018 11:00 am - Bob Romo MD, FACS at [facility]10/17/2018 2:30 pm - Carine Turner NP at [facility]10/17/2018 2:30 pm - Bob Romo MD, FACS at [facility]12/04/2018 7:30 am - Mary Covarrubias M.D. at [facility] 9:45 am - Mary Covarrubias M.D. at [facility]2018 1:00 pm - Janie Mccullough M.D. at [facility] Internal Medicine - [facility]2018 - Dominic Tan, MDM05.612 Rheumatoid arthritis of left shoulder with involvement of otFollow up:Follow up: as needed Functional Status Description No Information Available Mental Status Description No Information Available Referrals Refer to Dr Reason for Referral Status Appt Date Basil Schwartz MD Sent 09/24/[address] [place] [address] [place] [address] [phone] Mary Covarrubias M.D. Please eval patient with severe Osteoarthritis of Sent 09/07/2018 the knee [address] [place] [address] [phone] Dominic Tan MD Please evaluate persistent AC joint pain and Sent arthritis in patient with RA; refractory to cortisone and PT [address] [facility] [place] [address] [phone]
--- OUTSIDE RECORDS SUMMARY | 2018-12-04 12:21 | XMS REPORT | Continuity of Care Document ---
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 5-325mg pain, [...] day 90tabs Z79.52 Nain Scott, 03/19/2018 5mg M.D. Tablets Shingrix 0.5 milliliters 2units Z79.899 Nain [...] Mccullough, 09/12/2014 25mg Tablets Mouth Daily as M.DKaren Directed Calcium 600 1 by mouth every [...] 09/03/2018 Syringe every other week, M.D. stop Xenicholas Nabumetone Take one 30tabs Nain 07/25/2018 - [...] Code Status Date Vaccine Reaction Lot # [id number] Given 11/13/2017 Influenza Virus Vaccine, Quadrivalent, Split, Preservative Free 79886 Given 11/03/2016 Influenza Virus Vaccine, No immediate reaction [id number] Quadrivalent, Split, Preservative Free 90027 Given 11/03/2015 Influenza Virus Vaccine, [id number] Quadrivalent, Split, Preservative Free 28142 Given 11/20/2014 Influenza Virus Vaccine, [id number] Quadrivalent, Split, Preservative Free 48529 Given 04/17/2014 Pneumococcal Conjugate [id number] Vaccine 13 Valent For Intramuscular Use 21749 Given 11/14/2013 Influenza Virus Vaccine, [id number] Quadrivalent, Split, Preservative Free 33679 Given 10/31/2012 Flu Vaccine Split Virus [id number] Preservative Free For Indiv 3Yr Older 84278 Given 08/07/2012 Pneumonia Vaccine [id number] Q2038 Given 11/22/2011 Fluzone Vaccine [id number] 79464 Given 10/26/2010 Influenza Virus 3Yrs & Over 33849 Given 10/26/2010 Influenza Virus 3Yrs & [id number] Over 24440 Given 12/07/2004 Pneumovax (History By 1381u Patient) 16725 Given 12/07/2004 Td (History By Patient) Vital Signs Date Vital Result Comment 10/26/2018 3:17pm Heart Rate 78 /min BP Systolic Sitting 132 mmHg BP Diastolic Sitting 80 mmHg Respiratory Rate 18 /min Body Temperature 97.5 F 10/15/2018 11:06am Height 62.5 inches 5'2.50" Weight 134.00 lb Heart Rate 76 /min BP Systolic Sitting 138 mmHg BP Diastolic Sitting 82 mmHg Respiratory Rate 16 /min Body Temperature 97.4 F BMI (Body Mass Index) 24.1 kg/m2 Results Test Date Facility Test Result H/L Range Note Laboratory test 10/03/2018 [facility] Erythrocyte Sed 7 mm/Hr Normal 0-29 [address] [place] [address] [phone] C Reactive Protein < 1.00 mg/L Normal <8.01 2 Lipid Profile 10/03/2018 [facility] Triglycerides 135 mg/dL 3 (Trig/Chol/HDL) [address] [place] [address] [phone] Cholesterol 208 mg/dL 4 HDL Cholesterol 73.3 mg/dL 5 LDL Cholesterol 108 mg/dL 6 CBC Auto 10/03/2018 [facility] White Blood 4.3 10^3/uL Normal 3.5-10.[address] [place] [address] [phone] Red Blood Count 4.54 10^6/uL Normal 3.70-4.87 [...] Blood Cells % 0.0 Comp Metabolic 10/03/2018 [facility] Sodium 140 mmol/L Normal 135-[address] [place] [address] [phone] Potassium 3.5 mmol/L Normal 3.5-5.0 Chloride 104 [...] Egfr 108.4 >60 7 Laboratory test 10/03/2018 [facility] Vitamin D Total 75.7 High 20-50 8 finding 101 25(Oh) ng/[place] [address] [phone] Laboratory test 08/21/2018 [facility] Erythrocyte Sed 16 mm/Hr Normal 0-[address] [place] [address] [phone] C Reactive Protein 2.09 mg/L Normal <8.01 10 Comp Metabolic 08/21/2018 [facility] Sodium 141 mmol/L Normal 135-[address] [place] [address] [phone] Potassium 3.5 mmol/L Normal 3.5-5.0 Chloride 102 [...] Egfr Non- 79.6 >60 Egfr 96.3 >60 11 CBC Auto 08/21/2018 [facility] White Blood 4.9 10^3/uL Normal 3.5-10.[address] [place] [address] [phone] Red Blood Count 4.44 10^6/uL Normal 3.70-4.87 [...] Red Blood Cells % 0.0 Laboratory test 08/21/2018 [facility] Vitamin D Total 94.4 High 20-50 [address] 25(Oh) ng/[place] [address] [phone] Lipid Profile 08/21/2018 [facility] Triglycerides 94 mg/dL 13 (Trig/Chol/HDL) [address] [place] [address] [phone] Cholesterol 218 mg/dL 14 HDL Cholesterol 81.1 mg/dL 15 LDL Cholesterol 118 mg/dL 16 Laboratory test 06/09/2018 [facility] Erythrocyte Sed 12 mm/Hr Normal 0-29 [address] [place] [address] [phone] C Reactive Protein < 1.00 mg/L Normal <8.01 18 CBC Auto 06/09/2018 [facility] White Blood 4.9 10^3/uL Normal 3.5-10.[address] [place] [address] [phone] Red Blood Count 4.22 10^6/uL Normal 3.70-4.87 [...] Blood Cells % 0.0 Comp Metabolic 06/09/2018 [facility] Sodium 142 mmol/L Normal 135-[address] [place] [address] [phone] Potassium 3.7 mmol/L Normal 3.5-5.0 Chloride 104 [...] Egfr 97.9 >60 19 Lipid Profile 06/09/2018 [facility] Triglycerides 81 mg/dL 20 (Trig/Chol/HDL) [address] [email or web address] [address] [phone] Cholesterol 214 mg/dL 21 HDL Cholesterol 81.2 mg/dL 22 LDL Cholesterol 117 mg/dL 23 Laboratory test 06/09/2018 [facility] Hemoglobin A1c 5.9 % High 4.0-5.6 24 finding [email or web address] (Glyco HGB) [place] [address] [phone] 1 Please check labs 2 days before [...] of hypercalciuria) >80 ng/mL (toxicity possible) 9 S/O Q12 WEEKS PRN ORDERED 07/30/18 EXPIRES 01/29/19 10 S/O Q12 WEEKS PRN ORDERED 07/30/18 EXPIRES 01/29/19 11 Because ethnic data is not always readily [...] 15-29 5 Kidney failure <15 (or dialysis) 12 Total 25-Hydroxyvitamin D2 and D3 (25-OH-VitD) <10 ng/mL (severe deficiency) 10-19 ng/mL (mild to moderate deficiency) 20-50 ng/mL (optimum levels) 51-80 ng/mL (increased risk of hypercalciuria) >80 ng/mL (toxicity possible) 13 Desirable: <150 Borderline High: 150-199 High: 200-499 Very High: >500 14 Desirable: <200 Borderline High: 200-239 High: >239 15 Low: <40 Desirable: 40-60 High: >60 16 Desirable: <100 Near Optimal: 100-129 Borderline High: 130-159 High: 160-189 Very High: >189 17 Please check labs 2 days before [...] in selective patients <6.0%. Please refer to [place] [employer] diabetic care guidelines for further information. Procedures Date Code Description Status 10/17/2018 65585 Repair Hernia Umbilical > 5 Yrs, Reducible Completed 10/17/2018 87306 Repair Hernia Umbilical > 5 Yrs, Reducible Completed 10/09/2018 04210 Inject/Drain Joint/Bursa Major W/O US Completed 08/23/2018 37765 Inject/Drain Joint/Bursa Major W/O US Completed 06/26/2018 49159 Inject/Drain Joint/Bursa Major W/O US Completed 02/12/2018 [id number] Mammogram Completed 06/20/2017 [id number] Bone Mineral Density Test Completed 02/10/2017 [id number] Mammogram Completed 02/05/2016 [id number] Mammogram Completed 12/03/2015 [id number] Colonoscopy Completed 05/04/2015 [id number] Bone Mineral Density Test Completed 02/03/2015 [id number] Mammogram Completed 10/15/2014 [id number] Mammogram Completed 10/14/2013 [id number] Mammogram Completed 04/30/2013 [id number] Bone Mineral Density Test Completed 10/12/2012 [id number] Mammogram Completed 10/11/2011 [id number] Mammogram Completed 10/06/2010 [id number] Mammogram Completed 05/17/2010 [id number] Bone Mineral Density Test Completed Medical Devices Description No Information Available Encounters Type Date Location Provider Dx Diagnosis Office Visit 10/05/2018 Rheumatology Nain Scott M05.79 Rheu arthritis w 12:40p [facility] Nanci Camacho rheu factor mult site w/o org/sys involv M16.11 Unilateral primary osteoarthritis, right hip Z79.899 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 pelvic swelling, mass and lump, unsp site Office Visit 07/10/2018 9:30a Orthopedic Dominic Tan, M19.012 Primary Services Of osteoarthritis, C.M.A. left shoulder M06.9 Rheumatoid arthritis, unspecified Office Visit 06/26/2018 10:30a Orthopedic Dominic Tan, M25.512 Pain in left Services Of shoulder C.M.A. M19.012 Primary osteoarthritis, left shoulder M06.9 Rheumatoid arthritis, unspecified Office Visit 06/19/2018 1:40p Rheumatology Nain Scott, M05.79 Rheu arthritis [facility] Of Nanci Camacho w rheu factor mult site w/o org/sys involv Z79.899 Other assisted (current) drug therapy M25.551 Pain in right hip M54.5 Low back pain M25.561 Pain in right knee M25.512 Pain in left shoulder Assessments Date Code Description Provider 10/26/2018 K42.9 Umbilical hernia without obstruction or [...] site 10/05/2018 M16.11 Unilateral primary osteoarthritis, Nain Soctt M.D. right hip 10/05/2018 Z79.899 Other assisted (current) drug therapy Nain Scott M.D. 10/05/2018 [...] factor of multiple site 08/23/2018 Z79.899 Other assisted (current) drug therapy Nain Scott M.D. 08/23/2018 [...] factor of multiple site 06/19/2018 Z79.899 Other silk screen processor (current) drug therapy Nain Scott M.D. 06/19/2018 [...] Janie Mccullough M.D. Plan of Treatment Future Appointment(s):11/16/2018 1:00 pm - Bob Romo MD, FACS at [facility]11/26/2018 9:45 am - Mary Covarrubias M.D. at [facility]12/21/2018 12:00 pm - Nain Scott M.D. at [facility]11/15/2018 10:20 am - Janie Mccullough M.D. at [facility] Internal Medicine - [facility]12/04/2018 7:30 am - Mary Covarrubias M.D. at [facility]12/13/2018 1:00 pm - Janie Mccullough M.D. at [facility] Internal Medicine - [facility]10/26/2018 - Bob Romo MD, FACSK42.9 Umbilical hernia without obstruction or gangreneFollow up:3 weeksInstructions:Antibiotic ointment daily in the evening. Functional Status Description No Information Available Mental Status Description No Information Available Referrals Refer to Dr Reason for Referral Status Appt Date Basil Schwartz MD Sent 09/24/2018 [address] [place] [address] [phone] Mary Covarrubias M.D. Please eval patient with severe Osteoarthritis of Sent 09/07/2018 the knee [address] [place] [address] [phone] Dominic Tan MD Please evaluate persistent AC joint pain and Sent arthritis in patient with RA; refractory to cortisone and PT [address] [facility] [place] [address] [phone]
[2018-12-04] MEDS ORDERED: celeCOXIB CAP* 100 MG ONE (12:54)
[2018-12-04] MEDS ORDERED: Ondansetron ODT TAB* 4 MG ONE (12:54)
[2018-12-04] MEDS ORDERED: Gabapentin CAP(*) 300 MG ONE (12:55)
[2018-12-04] MEDS ORDERED: Acetaminophen TAB* 325 MG ONE (12:55)
[2018-12-04] MEDS ORDERED: Dexamethasone TAB* 4 MG ONE (12:55)
[2018-12-04] MEDS ORDERED: Clindamycin 900 MG/D5W BAG(*) 900 MG/50 ML BAG IVPB ONE (12:55)
[2018-12-04] MEDS ORDERED: Buffered Lidocaine 1% SYRIN* 1 ML/SYRINGE INTRADERM ONE (12:56)
[2018-12-04] MEDS ORDERED: Famotidine IV* 10 MG/ML 2 ML (20 mg) ONE (12:56)
[2018-12-04] MEDS ORDERED: KETAMINE HCL* 50 MG/ML 10 ML VIAL ONE (13:16)
[2018-12-04] MEDS ORDERED: Midazolam* 1 MG/ML 10 ML VIAL (10 MG) ONE (13:16)
[2018-12-04] MEDS ORDERED: fentaNYL* 50 MCG/ML 2 ML VIAL (100 MCG VIAL) ONE (13:16)
[2018-12-04] MEDS ORDERED: ROPIVACAINE 5 MG/ML 30 ML BTL (0.5%) ONE ×2 (14:13→16:57)
[2018-12-04 15:32] LABS: Body Fluid Source Synovial Fluid
[2018-12-04] MEDS ORDERED: Ondansetron ODT TAB* 4 MG PO PRN (16:23)
[2018-12-04] MEDS ORDERED: diPHENhydraMINE PO* 25 MG PO PRN (16:23)
[2018-12-04] MEDS ORDERED: Ondansetron INJ* 2 MG/ML VIAL IV PRN (16:23)
[2018-12-04] MEDS ORDERED: Magnesium Hydroxide LIQ* 30 ML UDC PO PRN (16:23)
[2018-12-04] MEDS ORDERED: diPHENhydraMINE IV* 50 MG/ML 1 ml VIAL (BENADRYL) IV PRN (16:23)
[2018-12-04] MEDS ORDERED: Morphine INJ* 2 MG/ML 1 ML SYRINGE (TWO MG - NEW SYRINGE VERSION) IV PRN (16:23)
[2018-12-04] MEDS ORDERED: oxyCODONE TAB* 5 MG TAB PO PRN (16:23)
[2018-12-04] MEDS ORDERED: Cyclobenzaprine TAB* 10 MG PO PRN (16:23)
[2018-12-04] MEDS ORDERED: oxyCODONE/Acetamin 5/325 MG* TAB PO PRN ×2 (16:23)
[2018-12-04] MEDS ORDERED: Phenylephrine 10 MG/ML VIAL* 1 ML VIAL ONE (16:57)
[2018-12-04] MEDS ORDERED: Propofol* 10 MG/ML 20 ML BTL ONE (16:57)
[2018-12-04] MEDS ORDERED: Lidocaine 2% PF * 5 ML VIAL ONE (16:57)
[2018-12-04] MEDS ORDERED: Ketorolac INJ* 30 MG/ML 1 ML VIAL ONE (16:57)
[2018-12-04] MEDS ORDERED: Bupivacaine 0.5% SDV PF* 30ML VIAL ONE (16:57)
[2018-12-04] MEDS ORDERED: ALPRAZolam TAB* 0.5 MG PO PRN (17:06)
[2018-12-04] MEDS ORDERED: diPHENhydraMINE CREAM 2%(NF) 28 gm TUBE TOPICAL PRN (17:06)
[2018-12-04 17:50] LABS: Body Fluid Mono 24 %
--- NOTE | 2018-12-04 17:57 | OP ---
Operative Report - Blank - Operative Report Date of Operation: 12/04/18 Note: BRAYAN VALENTINE 1945 Date of Surgery: 12/04/18 Mary Covarrubias MD Paleology Professor: Lisbeth HUNTER did help throughout the procedure with preparation of the knee, wound retraction, manipulation of the knee, and wound closure. Anesthesiologist: Del Kerr MD Anesthesia Type: Spinal Preoperative Diagnosis: Right severe degenerative osteoarthritis of the knee Postoperative Diagnosis: As above Procedure Performed: Right Total Knee Arthroplasty Tourniquet time: 63 minutes Complications: None Specimen: Bone and cartilage from the right knee joint sent to pathology. Joint fluid sent for micro c and s, gram stain negative intraoperatively. Hardware Used: Cemented Hess [employer] Nephew total knee hardware was used - For the femur a size 6 narrow right legion posterior stabilized femoral component, for the tibia a size 5 right mayte II tibial baseplate, for the insert a size 9mm 5-6 posterior stabilized articular polyethylene insert, and for the patella a size 29 3-peg all poly patella. Brief History/Indication: BRAYAN VALENTINE was known in clinic and had a history of severe right knee pain and swelling. She failed conservative treatment with anti-inflammatories, pain pills, intra-articular injections and physical therapy. She elected to undergo right total knee arthroplasty due to continued pain and decreased quality of life. Radiographs showed severe end stage osteoarthritis of the knee with bone on bone contact. Informed consent was obtained from the patient. She understood the risks of surgery included but were not limited to: bleeding, infection, damage to nearby structures, intraoperative fracture, nerve palsy, failure of the hardware, early loosening, knee stiffness or loss of motion, anesthesia complications, stroke, heart attack , blood clot and . She wished to proceed. Intra-Operative Findings: Intraoperatively the patient was noted to have severe loss of cartilage in all 3 compartments of the knee. Description of the Procedure: BRAYAN VALENTINE was identified in the preanesthesia unit. Her right knee was marked as the correct operative side. Informed consent was signed and placed in the chart. The patient was taken to the operating room and placed under anesthesia without complication. A braun catheter was placed. A tourniquet was placed on the right thigh. The right lower extremity was prepped and draped in the usual sterile fashion. Preoperative time-out was made to correctly identify the patient, side and site. Appropriate intraoperative antibiotics were given within one hour of incision. Tourniquet was inflated. A midline incision was made and carried sharply down to the extensor mechanism. A new 10 blade was used to make a standard medial parapatellar arthrotomy. The joint fluid was thicker than normal and this was likely due to her rheumatoid arthritis. Fluid was collected and STAT gram stain was negative for any organisms. Multiple culture swabs were sent for C and S. No signs of infection were noted. The patella was subluxed laterally. Electrocautery was used to dissect soft tissue off the superomedial tibia to the midsagittal plane. The knee was flexed up. The anterior horn of the lateral meniscus and the ACL were sharply incised. A drill was used to enter the distal femur. The intramedullary distal femoral cutting guide was pinned on the distal femur. The oscillating saw was used to make the distal femoral cut. The external rotation guide was pinned on the distal femur and the distal femur was sized to a size 6. The size 6 multi-cutting jig was pinned on the distal femur. The oscillating saw was used to make the appropriate 4 chamfer cuts. Next the PCL was completely released. The extramedullary tibial cutting guide was pinned on the proximal tibia and the oscillating saw was used to make the proximal tibial cut perpendicular to the mechanical axis of the tibia. The bone was carefully removed. The knee was brought out into full extension. The spacer block was placed and had excellent fit with the knee in full extension. The medial and lateral ligaments were well balanced. The flexion and extension gaps were well balanced. The knee was flexed up. [place] [employer] electrician was placed both medially and laterally. Any remaining meniscus was removed with electrocautery. Curved osteotome was used to remove any posterior osteophytes. The tibial tray and drop sheree were placed and confirmed a satisfactory tibial cut. The size 6 right narrow femoral trial was impacted onto the distal femur. This trial had excellent fit and stability. The box for the posterior stabilized implant was prepared using a box cut osteotome and a reamer. Next a tibial tray trial and 9 mm insert trial was placed. The knee was taken through a range of motion and had full extension to 130 degrees of flexion. Patellofemoral tracking was satisfactory. The patella was inverted and sized to a size 29. Three peg holes were drilled through the size 29 drill guide. The trial patella was placed and the knee was taken through a range of motion. There was satisfactory patellofemoral tracking. All trials were removed. The tibia was subluxed anteriorly and sized to a size 5. The proximal tibial was prepared with a size 5 keel punch. All bony cut surfaces were irrigated with sterile saline and dried. Final implants were cemented into place starting with the tibia, followed by the femur, and last the patella. A 9 mm insert trial was placed and the knee was brought into full extension. Tourniquet was turned down and the knee was copiously irrigated with sterile saline. Electrocautery was used to obtain meticulous hemostasis. Once the cement had fully cured, the insert trial was removed. Any excess cement was removed from around the hardware and capsule. Final insert chosen was a 9 mm posterior stabilized Mayte II articular insert size 5-6. Stability of the insert was checked and noted to be stable. The extensor mechanism was closed using number 1 vicryls. The rest of the incision was closed in a layered fashion using 0 and 2-0 vicryls. The skin was closed using 3-0 nylon suture. Sterile xeroform, 4x4s and webril were used to cover the incision. Yoni wrap and cold pack were used to cover the dressings. The patients anesthesia was reversed without difficulty. She was taken to the PACU in stable condition. Intended weight-bearing will be as tolerated.
[2018-12-04] MEDS: Lactated Ringers 1000 ML Bag* 1,000 ML IV SCH (19:01)
[2018-12-04] MEDS: Potassium Chlor TAB* 20 MEQ TAB.ER PO SCH (20:42)
[2018-12-04] MEDS: Docusate CAP* 100 MG PO SCH (20:42)
[2018-12-04] MEDS: Calcium Carbonate TAB* 1250 MG (CALCIUM 500 MG) PO SCH (20:43)
[2018-12-04] MEDS: HYDROcodone/ACETAMIN 5-325 MG* 1 TAB PO PRN (20:44)
[2018-12-04] MEDS: Atorvastatin* 10 MG TAB PO SCH (20:44)
[2018-12-04] MEDS: PTO:Cyclosporine 0.05% OPHTH (NF) 0.4 ML VIAL BOTH EYES SCH (20:45)
[2018-12-04] MEDS ORDERED: TRETINOIN TOPICAL SCH (21:00)
[2018-12-04] MEDS ORDERED: Metronidazole (TOPICAL)(NF) 45 GM TUBE TOPICAL SCH (21:00)
[2018-12-04] MEDS: OMEGA-3 FATTY ACIDS (NF) 1,000 MG CAP PO SCH (22:16)
[2018-12-04] MEDS: Magnesium Hydroxide LIQ* 30 ML UDC PO SCH (22:16)
[2018-12-04] MEDS: Clindamycin 600 MG/D5W BAG(*) 600 MG/50 ML BAG IV SCH (22:18)
--- NOTE | 2018-12-05 | CONS ---
CONSULTATION REPORT: DATE OF CONSULT: 12/04/18 REASON FOR CONSULT: General co-medical management. REQUESTING PROVIDER: Dr. Covarrubias. HISTORY OF PRESENT ILLNESS: This is a 73-year-old female with a past medical history significant for rheumatoid arthritis, hypertension, Sjogren syndrome, who was admitted in the hospital on 12/04/18 status post a right total knee replacement after failing outpatient therapy. Hospital Medicine was consulted for general co-medical management. The patient was seen in the PACU, resting in bed, in no acute distress. She stated she had no pain to her right lower extremity. PAST MEDICAL HISTORY: Rheumatoid arthritis, hypertension, anxiety, Sjogren syndrome, hyperlipidemia, and IBS. PAST SURGICAL HISTORY: Hysterectomy, left hand surgery, left wrist ORIF, hernia repair, breast biopsy, and surgery for ectopic . HOME MEDICATIONS: 1. Retin-A 0.03% 1 application topically b.i.d. 2. Prednisone 5 mg p.o. q.a.m. 3. Benadryl 2% cream topically once as needed. 4. Simvastatin 20 mg p.o. q.p.m. 5. Potassium chloride 20 mEq p.o. b.i.d. 6. [place]-3 fatty acids 1200 mg p.o. b.i.d. 7. MetroCream 0.75% topically b.i.d. 8. Metoprolol succinate 12.5 mg p.o. q.a.m. 9. Leflunomide 10 mg p.o. q.a.m. 10. Hydrocodone/acetaminophen 7.5/325 p.o. b.i.d. p.r.n. 11. Hydrocodone/acetaminophen 5/325 p.o. b.i.d. p.r.n. 12. Cyclosporin 0.05% 1 drop both eyes b.i.d. 13. Chlorthalidone 25 mg p.o. q.a.m. 14. Calcium carbonate 1000 mg p.o. b.i.d. 15. Alprazolam 0.5 mg p.o. at bedtime as needed p.r.n. ALLERGIES: SHELLFISH, METHOTREXATE, PENICILLIN, AMLODIPINE, IV CONTRAST, AZITHROMYCIN, CEFUROXIME, LISINOPRIL, TROMETHAMINE, and CLOROX. FAMILY HISTORY: Colon cancer, hypertension, CAD, and TIA. SOCIAL HISTORY: Quit smoking 50 years ago. Denies any alcohol or substance use. 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 REVIEW OF SYSTEMS: An 11-point system review was performed, was positive for left shoulder pain as per her norm, radiating down into the left arm, which she states is due to her rheumatoid arthritis, wore a brace to left hand. Denies any chest pain, shortness of breath, abdominal pain. PHYSICAL EXAM: Vital Signs: 97.9 temp, 83 pulse, 16 respirations, 95% oxygen on room air, 128/69 blood pressure. General: This is a well-developed, though thin older woman seen resting in bed, no acute distress noted. Eyes: Conjunctivae pink and moist. PERRLA. EOMs intact. ENT: Mucous membranes slightly dry. Oropharynx clear. Neck is supple. Cardiac: S1, S2 present. Heart rate regular. No murmurs, gallops, or rubs appreciated. Pulmonary: Lung sounds clear throughout bilaterally on room air. No accessory muscle use noted. Abdomen is soft, nontender, nondistended with positive bowel sounds x4. Musculoskeletal: Limited range of motion to the left arm due to pain. No clubbing or cyanosis of the digits. Skin: Dressing to right knee is clean, dry , and intact. No other open areas appreciated. : Muñiz draining medium clear yellow urine. Neuro: Has numbness and tingling to the left fifth finger per her normal. Psych: Alert and oriented x4. Thought content organized. DIAGNOSTIC STUDIES/LAB DATA: Synovial fluid cloudy in appearance. White blood cell count 12,075. Right knee x-ray postoperatively showed proper alignment of prosthesis. ASSESSMENT AND PLAN: My impression; this is a 73-year-old female with past medical history significant for rheumatoid arthritis, hypertension, and Sjogren syndrome, who was admitted on 12/04/18 status post a right total knee arthroplasty after failing outpatient therapy. 1. Right total knee arthroplasty. PT and OT, pain and bowel management as per Ortho. Muñiz catheter to be removed in the a.m. Saline lock after tolerating p.o. and hemodynamically stable. 2. Hypertension. Blood pressures are currently systolically between 120s and 130s. We will hold chlorthalidone, but may continue metoprolol and resume the chlorthalidone upon discharge. 3. Sjogren syndrome. No reports of dry eyes or other membranes at this moment in time, though continue Restasis eye drops. 4. Rheumatoid arthritis. The patient has ongoing left shoulder pain due to the rheumatoid arthritis. May continue prednisone and leflunomide. 5. Anxiety. May continue alprazolam as needed, though the patient knows that if she takes that along with narcotic pain medicine, she will get palpitations as she has discovered in the past. 6. Hyperlipidemia. Continue simvastatin. 7. Hypokalemia. The patient originally is taking potassium due to chlorthalidone, though states she has had issues in the past keeping her potassium levels up. I do not have a current lab data to reference, though continue potassium supplementation. 8. DVT prophylaxis. Continue SCDs and apixaban as per Ortho. 9. Full code status. Thank you for allowing us to participate in the care of this patient. We will follow additionally during this admission. [id number]/[facility] #: [id number] MELANIE
[2018-12-05] MEDS: Hydrocodone/Acetamin 10/325 1 TAB PO PRN ×4 (01:49→23:40)
[2018-12-05] MEDS: Lactated Ringers 1000 ML Bag* 1,000 ML IV SCH (06:07)
[2018-12-05 06:14] LABS: Hematocrit 36 % (35-47); Hemoglobin 12.1 g/dL (12.0-16.0); Mean Platelet Volume 6.4 fL (7.4-10.4); Platelet Count 402 10^3/uL (150-450)
[2018-12-05 06:26] LABS: BUN/Creatinine Ratio 17.3 (8-20); Calcium 8.8 mg/dL (8.6-10.3); EGFR African American 140.3 (>60); EGFR Non-African American 115.9 (>60); Potassium 3.1 mmol/L (3.5-5.0)
[2018-12-05] MEDS: Clindamycin 600 MG/D5W BAG(*) 600 MG/50 ML BAG IV SCH ×2 (06:30→14:13)
[2018-12-05] MEDS ORDERED: Potassium Chlor TAB* 20 MEQ TAB.ER PO ONE (06:43)
[2018-12-05] MEDS: Docusate CAP* 100 MG PO SCH ×2 (08:42→21:25)
[2018-12-05] MEDS: Magnesium Hydroxide LIQ* 30 ML UDC PO SCH ×2 (08:42→21:37)
[2018-12-05] MEDS: Potassium Chlor TAB* 20 MEQ TAB.ER PO SCH ×2 (08:44→21:25)
[2018-12-05] MEDS: Vitamin THERAPEUTIC TAB PO SCH (08:44)
[2018-12-05] MEDS: Metoprolol Succinate XL TAB* 25 MG PO SCH (08:44)
[2018-12-05] MEDS: Calcium Carbonate TAB* 1250 MG (CALCIUM 500 MG) PO SCH ×2 (08:44→21:25)
[2018-12-05] MEDS: predniSONE TAB* 5 MG PO SCH (08:45)
[2018-12-05] MEDS: Apixaban* 2.5 MG TAB PO SCH ×2 (08:45→21:25)
[2018-12-05] MEDS: PTO:Cyclosporine 0.05% OPHTH (NF) 0.4 ML VIAL BOTH EYES SCH ×2 (08:45→23:02)
[2018-12-05] MEDS: OMEGA-3 FATTY ACIDS (NF) 1,000 MG CAP PO SCH ×2 (08:48→21:26)
[2018-12-05] MEDS: Leflunomide (NF) 10 MG TAB PO SCH (08:48)
--- NOTE | 2018-12-05 10:47 | PN ---
Subjective Date of Service: 12/05/18 Interval History: Patient was seen after ambulating in hallway to physical therapist and walker, gait steady. Reported pain to be well controlled. Denied chest pain, shortness of breath, palpitations, muscle cramps, nausea, vomiting, or bowel issues. Has voided twice since braun catheter removal. Family History: Unchanged from Admission Social History: Unchanged from Admission Past Medical History: Unchanged from Admission Objective Active Medications: Acetaminophen (Tylenol Tab*) 650 mg PO Q8HR PRN PRN Reason: MILD PAIN or TEMP > 100.4 Hydrocodone Bitart/Acetaminophen ([place] 5-325 Tab*) 1 tab PO Q4H PRN PRN Reason: PAIN - MODERATE Last Admin: 12/04/18 20:44 Dose: 1 tab Hydrocodone Bitart/Acetaminophen ([place] 10/325 (Nf)) 1 tab PO Q4H PRN PRN Reason: PAIN - SEVERE Last Admin: 12/05/18 08:43 Dose: 1 tab Alprazolam (Xanax Tab*) 0.5 mg PO BEDTIME PRN PRN Reason: ANXIETY Last Admin: 12/04/18 23:23 Dose: 0.5 mg Apixaban (Eliquis*) 2.5 mg PO BID [facility] Last Admin: 12/05/18 08:45 Dose: 2.5 mg Atorvastatin Calcium (Lipitor*) 10 mg PO QPM [facility] Last Admin: 12/04/18 20:44 Dose: 10 mg Bisacodyl (Dulcolax Supp*) 10 mg NC DAILY PRN PRN Reason: CONSTIPATION Calcium Carbonate (Calcium Carbonate Tab*) 1,250 mg PO BID [facility] Last Admin: 12/05/18 08:44 Dose: 1,250 mg Cyclobenzaprine HCl (Flexeril Tab*) 10 mg PO Q6H PRN PRN Reason: SPASMS Cyclosporine (Restasis 0.05% Oph) 1 drop BOTH EYES BID [facility]; Protocol Last Admin: 12/05/18 08:45 Dose: 1 drop Diphenhydramine HCl (Benadryl Iv*) 25 mg IV Q6H PRN PRN Reason: PRURITIS Diphenhydramine HCl (Benadryl Po*) 25 mg PO Q6H PRN PRN Reason: PRURITIS Docusate Sodium (Colace Cap*) 100 mg PO BID [facility] Last Admin: 12/05/18 08:42 Dose: 100 mg Fish Oil (Fish Oil (Nf)) 1,200 mg PO BID [facility]; Protocol Last Admin: 12/05/18 08:48 Dose: Not Given Clindamycin HCl/Dextrose (Cleocin 600 Mg/50 Ml(*)) 600 mg in 50 mls @ 100 mls/ hr IV Q8H [facility] Stop: 12/05/18 14:59 Last Admin: 12/05/18 06:30 Dose: 100 mls/hr Lactated Ringer's (Lactated Ringers 1000 Ml Bag*) 1,000 mls @ 100 mls/hr IV PER RATE [facility] Last Admin: 12/05/18 06:07 Dose: 100 mls/hr Lactulose (Lactulose*) 30 ml PO BID PRN PRN Reason: CONSTIPATION Leflunomide (Arava (Nf)) 10 mg PO QAM [facility]; Protocol Last Admin: 12/05/18 08:48 Dose: Not Given Magnesium Hydroxide (Milk Of Magnesia Liq*) 30 ml PO BID [facility] Last Admin: 12/05/18 08:42 Dose: 30 ml Magnesium Hydroxide (Milk Of Magnesia Liq*) 30 ml PO Q6H PRN PRN Reason: CONSTIPATION Metoprolol Succinate (Toprol Xl Tab*) [facility] [place] Last Admin: 12/05/18 08:44 Dose: 12.5 mg Morphine Sulfate (Morphine Inj (Syringe))*) 2 mg IV Q4H PRN PRN Reason: Pain - Unrelieved Multivitamins (Theragran Tab*) 1 tab PO DAILY [facility] Last Admin: 12/05/18 08:44 Dose: 1 tab Ondansetron HCl (Zofran Inj*) 4 mg IV Q6H PRN PRN Reason: NAUSEA Ondansetron HCl (Zofran Odt Tab*) 4 mg PO Q6H PRN PRN Reason: NAUSEA Potassium Chloride (Klor Con Er Tab*) 20 meq PO BID [facility] Last Admin: 12/05/18 08:44 Dose: 20 meq Prednisone (Deltasone Tab*) 5 mg PO QAM [facility] Last Admin: 12/05/18 08:45 Dose: 5 mg Zinc Acetate/Diphenhydramine (Banophen 2 % Cream (Nf)) 1 applic TOPICAL ONCE PRN PRN Reason: RASH Stop: 12/05/18 17:05 Vital Signs - 8 hr 12/05/18 12/05/18 12/05/18 03:32 06:12 08:00 Temperature 98.7 F Pulse Rate 80 Respiratory 17 16 16 Rate Blood Pressure 142/63 (mmHg) O2 Sat by Pulse 97 97 Oximetry 12/05/18 12/05/18 08:07 08:43 Temperature 99.1 F Pulse Rate 85 Respiratory 16 20 Rate Blood Pressure 129/63 (mmHg) O2 Sat by Pulse 96 Oximetry Oxygen Devices in Use Now: None Appearance: Well developed female seen resting in bed, no acute distress. Eyes: No Scleral Icterus, PERRLA Ears/Nose/Mouth/Throat: Clear Oropharnyx, Mucous Membranes Moist Neck: NL Appearance and Movements; NL JVP, Trachea Midline Respiratory: Symmetrical Chest Expansion and Respiratory Effort, Clear to Auscultation Cardiovascular: NL Sounds; No Murmurs; No JVD, RRR, - - +1 non-pitting edema to righ lower extremity. Abdominal: NL Sounds; No Tenderness; No Distention Lymphatic: No Cervical Adenopathy Extremities: No Clubbing, Cyanosis Skin: No Rash or Ulcers, No Nodules or Sclerosis, - - Dressing to right knee is clean, dry and intact. Neurological: Alert and Oriented x 3, NL Sensation, NL Gait Lines/Tubes/Other Access: Clean, Dry and Intact Peripheral IV Result Diagrams: 12/05/18 05:52 12/05/18 05:52 Microbiology and Other Data: Microbiology 12/04/18 15:15 Skin and Soft Tissue MRSA/MSSA (PCR - Final Knee Right Mrsa Negative S.aureus Negative Gram Stain - Final Assess/Plan/Problems-Billing Assessment: This is a 73 year old female with a past medical history significant for RA and HTN admitted on 12/04/18 s/p a right total knee replacement after failing outpatient conservative treatment. - Patient Problems (1) Status post total right knee replacement Current Visit: Yes Status: Acute Code(s): Z96.651 - PRESENCE OF RIGHT ARTIFICIAL KNEE JOINT SNOMED Code(s): 2773244973511 Comment: -PT/OT. Pain and bowel management as per ortho. Patient appears to be managing well on her first post op day. (2) Rheumatoid arthritis Current Visit: Yes Status: Acute Code(s): M06.9 - RHEUMATOID ARTHRITIS, UNSPECIFIED SNOMED Code(s): 17548510 Comment: -Patient has alread gone through several previous surgeries due to RA. -Continue prednisone and leflunomide. (3) HTN (hypertension) Current Visit: Yes Status: Acute Code(s): I10 - ESSENTIAL (PRIMARY) HYPERTENSION SNOMED Code(s): 43646794 Comment: -Systolically averaging between 120'2 to 130's BP. -Continue metoprolol. -Hold chlorthalidone during admission, but may resume upon discharge. (4) Anxiety Current Visit: Yes Status: Acute Code(s): F41.9 - ANXIETY DISORDER, UNSPECIFIED SNOMED Code(s): 69534993 Comment: -May continue alprazolam as needed, though patient states that when she take sit with pain medication, she feels like she will sometimes get palpitations. Feels comfortable in self-managing the balance between pain and anxiety. (5) Hyperlipidemia Current Visit: Yes Status: Acute Code(s): E78.5 - HYPERLIPIDEMIA, UNSPECIFIED SNOMED Code(s): 89501184 Comment: -Continue atorvastatin while in hospital, may resume her normal simvastatin upon discharge. (6) Hypokalemia Current Visit: Yes Status: Acute Code(s): E87.6 - HYPOKALEMIA SNOMED Code( s): 88556877 Comment: -Potassium level this am 3.1. Received a one time dose of potassium 40mEq in addition to her normal 20mEq BID. Asymptomatic. (7) DVT prophylaxis Current Visit: Yes Status: Acute Code(s): Z29.9 - ENCOUNTER FOR PROPHYLACTIC MEASURES, UNSPECIFIED SNOMED Code(s): 446742048 Comment: -Continue SCD's and apixaban per ortho. (8) DNR (do not resuscitate) Current Visit: Yes Status: Acute Status and Disposition: CONDITION: Fair DISPOSITION: Inpatient. Attending: Jocelynn Jeff
--- NOTE | 2018-12-05 11:29 | PN ---
Progress Note - Progress Note Date of Service: 12/05/18 SOAP: Subjective: []Pt seen at bedside. She is feeling well, progressing towards goals with PT. Knee is sore but pain is tolerable after PT. Denies CP, SOB, dizziness or nausea. Desires rehab at [facility]. Has pmhx of RA Objective: []Gen: APpears well, NAD RLE: Right knee dressing CDI, thigh soft, DF/PF intact, DP2+, sensation intact to light touch distally Calves supple and nontender without erythema, edema or palpable cords Assessment: []POD 1 sp RTK Plan: []WBAT PT.OT eliquis 2.5 mg po BID 40 mEQ K+ today for hypokalemia [facility] referral in Vital Signs Temp 99.1 F 12/05/18 08:07 Pulse 85 12/05/18 08:07 Resp 20 12/05/18 08:43 BP 129/63 12/05/18 08:07 Pulse Ox 96 12/05/18 08:07 Intake & Output 12/04/18 12/05/18 12/05/18 18:59 06:59 18:59 Intake Total 1700 2120 480 Output Total 1250 400 Balance 1700 870 80 Weight 130 lb Intake: IV Fluids 1700 1040 ABX - CLINDAMYCIN 50 LR 1700 990 Oral 1080 480 Output: Urine 400 Muñiz 1250 Laboratory Last Values Hgb 12.1 g/dL (12.0-16.0) 12/05/18 05:52 Hct 36 % (35-47) 12/05/18 05:52 Plt Count 402 10^3/uL (150-450) 12/05/18 05:52 MPV 6.4 fL (7.4-10.4) L 12/05/18 05:52 Sodium 137 mmol/L (135-145) 12/05/18 05:52 Potassium 3.1 mmol/L (3.5-5.0) L 12/05/18 05:52 Chloride 99 mmol/L (101-111) L 12/05/18 05:52 Carbon Dioxide 28 mmol/L (22-32) 12/05/18 05:52 Anion Gap 10 mmol/L (2-11) 12/05/18 05:52 BUN 9 mg/dL (6-24) 12/05/18 05:52 Creatinine 0.52 mg/dL (0.51-0.95) 12/05/18 05:52 Est GFR ( Amer) 140.3 (>60) 12/05/18 05:52 Est GFR (Non-Af Amer) 115.9 (>60) 12/05/18 05:52 BUN/Creatinine Ratio 17.3 (8-20) 12/05/18 05:52 Glucose 117 mg/dL (70-100) H 12/05/18 05:52 Calcium 8.8 mg/dL (8.6-10.3) 12/05/18 05:52 Fluid Source Synovial fluid 12/04/18 15:15 Fluid Volume 6.0 mL 12/04/18 15:15 Fluid Color Reena 12/04/18 15:15 Fluid Appearance Cloudy 12/04/18 15:15 Fluid WBC 29986 /mcL (0-102384) 12/04/18 15:15 Fluid RBC 3900 /mcL 12/04/18 15:15 Fluid Tot Cell Count 100 12/04/18 15:15 Fluid Neutrophils 62 % 12/04/18 15:15 Fluid Lymphocytes 14 % 12/04/18 15:15 Fluid Monocytes 24 % 12/04/18 15:15 Fluid Cell Count Rvw By 12/04/18 15:15 Fluid Comment 12/04/18 15:15
[2018-12-05] MEDS: Acetaminophen TAB* 325 MG PO PRN ×2 (11:34→21:25)
[2018-12-05] MEDS ORDERED: HYDROcodone/ACETAM 10-325 MG(NF) 1 TAB PO PRN ×2 (13:18→23:45)
[2018-12-05] MEDS: Atorvastatin* 10 MG TAB PO SCH (18:05)
[2018-12-05] MEDS ORDERED: Hydrocodone/Acetamin 10/325 1 TAB PO PRN (23:45)
[2018-12-06] MEDS: Hydrocodone/Acetamin 10/325 1 TAB PO PRN (04:05)
[2018-12-06 06:48] LABS: Hematocrit 30 % (35-47); Hemoglobin 10.6 g/dL (12.0-16.0); Mean Platelet Volume 6.6 fL (7.4-10.4); Platelet Count 364 10^3/uL (150-450)
[2018-12-06 07:01] LABS: Calcium 8.1 mg/dL (8.6-10.3); EGFR African American 165.7 (>60); Potassium 3.4 mmol/L (3.5-5.0)
[2018-12-06 07:27] VITALS: BP 135/59
[2018-12-06] MEDS: Docusate CAP* 100 MG PO SCH (08:47)
[2018-12-06] MEDS: Apixaban* 2.5 MG TAB PO SCH (08:47)
[2018-12-06] MEDS: Potassium Chlor TAB* 20 MEQ TAB.ER PO SCH (08:47)
[2018-12-06] MEDS: HYDROcodone/ACETAMIN 5-325 MG* 1 TAB PO PRN (08:48)
[2018-12-06] MEDS: Vitamin THERAPEUTIC TAB PO SCH (08:48)
[2018-12-06] MEDS: predniSONE TAB* 5 MG PO SCH (08:48)
[2018-12-06] MEDS: Calcium Carbonate TAB* 1250 MG (CALCIUM 500 MG) PO SCH (08:48)
[2018-12-06] MEDS: PTO:Cyclosporine 0.05% OPHTH (NF) 0.4 ML VIAL BOTH EYES SCH (08:50)
[2018-12-06] MEDS: Metoprolol Succinate XL TAB* 25 MG PO SCH (08:51)
[2018-12-06] MEDS: Magnesium Hydroxide LIQ* 30 ML UDC PO SCH (08:56)
[2018-12-06] MEDS: OMEGA-3 FATTY ACIDS (NF) 1,000 MG CAP PO SCH (08:56)
[2018-12-06] MEDS: Leflunomide (NF) 10 MG TAB PO SCH (08:56)
[2018-12-06] MEDS ORDERED: Chlorthalidone TAB* 50 MG PO SCH (09:00)
[2018-12-06] MEDS ORDERED: Potassium Chlor TAB* 20 MEQ TAB.ER PO ONE (10:10)
--- NOTE | 2018-12-06 10:40 | DS ---
Orthopedic Discharge Summary - Discharge Summary Date of Admission:12/04/18 Date of Discharge: 12/06/18 Date of Surgery: 12/04/18 Attending Orthopedic Provider: Dr Covarrubias Pre-operative Diagnosis: Right knee osteoarthritis Operative Procedure: right total knee replacement Disposition of Patient: home with VNS Condition of Patient: stable History: BRAYAN VALENTINE is a 73 year old F with years of increasingly severe right knee pain. Patient has failed conservative management and has elected to undergo a right total knee replacement Hospital Course: BRAYAN was admitted to [facility] on 12/04/18. Patient underwent a right total knee replacement without complication followed by a brief recovery in PACU and transfer to the Short Stay Surgical Unit in stable condition. Our hospitalist service, physical therapy and occupational therapy also participated in this patients care. Post-op day 1: patient was alert and in no acute distress. Dressing was clean, dry and intact. Operative extremity dorsiflexion and plantarflexion intact, sensation intact to light touch distally, DP2+. Post-op day two: dressing was changed, incision was clean , dry and intact. Patient was deemed to be medically and orthopedically stable for discharge. Physical therapy goals were met. Home Medications Medication Instructions Recorded Confirmed Type Chlorthalidone TAB* [Hygroton TAB*] 25 mg PO QAM 12/01/15 12/04/18 History ALPRAZolam TAB* [Xanax TAB*] 0.5 mg PO BEDTIME PRN 11/22/16 12/04/18 History Metoprolol Succinate XL TAB* 12.5 mg PO QAM 11/22/16 12/04/18 History [Toprol XL TAB*] Metronidazole (TOPICAL)(NF) 0.75 % TOPICAL BID 11/22/16 12/04/18 History [Metrocream (NF)] Potassium Chlor TAB* [Potassium 20 meq PO BID 11/22/16 12/04/18 History Chlor TAB 20 MEQ*] tretinoin 0.03% (NF) [Retin-A 1 applic TOPICAL BID 07/01/17 12/04/18 History 0.03% (NF)] Cyclosporine 0.05% OPHTH (NF) 1 drop BOTH EYES BID 08/03/17 12/04/18 History [Restasis 0.05% OPHTH] Leflunomide (NF) [Arava (NF)] 10 mg PO QAM 08/03/17 12/04/18 History Irving-3 Fatty Acids (Nf) [Fish Oil 1,200 mg PO BID 08/03/17 12/04/18 History (NF)] Simvastatin TAB(NF) [Zocor 10 MG 20 mg PO QPM 08/03/17 12/04/18 History (NF)] predniSONE TAB* [Deltasone TAB*] 5 mg PO QAM 08/03/17 12/04/18 History Calcium Carbonate [Calcium] 1,000 mg PO BID 10/10/18 12/04/18 History Hydrocodone/Acetaminophen 0.5 tab PO BID PRN 10/10/18 12/04/18 History [Hydrocodone-Acetamin 7.5-300] Tocilizumab* [Actemra*] 162 mg INJ Q14D 10/10/18 12/04/18 History diPHENhydraMINE 2% CREAM(NF) 1 applic TOPICAL ONCE PRN 10/10/18 12/04/18 History [Benadryl 2% CREAM (NF)] Acetaminophen TAB* [Tylenol TAB*] 650 mg PO Q8HR PRN tab 12/06/18 Rx Apixaban* [Eliquis*] 2.5 mg PO Q12HR #60 tab 12/06/18 Rx Docusate CAP* [Colace Cap*] 100 mg PO BID PRN #90 cap 12/06/18 Rx HYDROcodone/ACETAMIN 5-325 MG* 2 tab PO Q4H PRN #70 tab MDD 10 12/06/18 Rx [[place] 5-325 TAB*] Discharge Instructions following Orthopedic Surgery: Activity: * Weight Bearing as tolerated * Continue physical therapy and occupational therapy exercises as shown * Home PT Wound care: * OK to shower on post-op day 3, no bathing, swimming, or submerging wound. * Use gentle soap, pat dry. Cover with gauze, RAMBO wrap or tape. * Visiting home nurse to do wound checks. Call Orthopedic office for: * Increased drainage * Redness * Increased pain * Fever Go to ER with shortness of breath or chest pain. Diet: * Regular diet * Increase fluids and fiber to prevent constipation. * Continue to use stool softeners, call office if no bowel motion within 48 hours. Medications See Home Medication List in your packet for medications that you should take after discharge. DVT Prophylaxis: Eliquis Dosin.5 mg, 1 tab every 12 hours x 30 days. Increases bleeding tendency Pain Control: [place] ( hydrocodone/acetaminophen) Dosin/325 mg 1 tab for moderate 2 tabs for severe pain by mouth every 4 hours as needed for pain. Maximum of 10 tabs per day. Hold for sedation and wean off as soon as pain allows Please note that norco contains Tylenol (acetaminophen). Maximum daily dose of Tylenol is 4000 mg from all sources. Antibiotics are required prior to any dental work. FOLLOW UP: Follow up with [Satish] Within 10-14 days, call for appointment Please call our office with any questions or concerns ([phone]) RX to [facility]
[2018-12-06] MEDS: Acetaminophen TAB* 325 MG PO PRN (11:22)
[2018-12-06] MEDS ORDERED: Bisacodyl SUPP* 10 MG SUPP PR PRN (16:23)
== END 2018-12-06 13:10 | disposition home health service (06) | DRG 470 ==
LOC: AA 12:16 → SSU 18:34
PROVIDERS: ADMIT Orthopaedic Surgery Adult Reconstructive Orthopaedic Surgery; ATTEND Orthopaedic Surgery Adult Reconstructive Orthopaedic Surgery
PROC: 0SRC0J9 Replacement of Right Knee Joint with Synthetic Substitute, Cemented, Open Approach (ICD-10-PCS; principal; 2018-12-04 15:00)
DX: M17.11 Unilateral primary osteoarthritis, right knee (principal); F33.1 Major depressive disorder, recurrent, moderate; I10 Essential (primary) hypertension; F41.9 Anxiety disorder, unspecified; E78.5 Hyperlipidemia, unspecified; M35.00 Sjogren syndrome, unspecified; M25.461 Effusion, right knee; M21.061 Valgus deformity, not elsewhere classified, right knee; K58.9 Irritable bowel syndrome, unspecified; E87.6 Hypokalemia; Z66 Do not resuscitate; M19.019 Primary osteoarthritis, unspecified shoulder; M81.0 Age-related osteoporosis without current pathological fracture; M47.812 Spondylosis without myelopathy or radiculopathy, cervical region; M47.817 Spondylosis without myelopathy or radiculopathy, lumbosacral region; E78.00 Pure hypercholesterolemia, unspecified; F42.9 Obsessive-compulsive disorder, unspecified; M25.761 Osteophyte, right knee; L71.9 Rosacea, unspecified; M05.79 Rheumatoid arthritis with rheumatoid factor of multiple sites without organ or systems involvement; L30.9 Dermatitis, unspecified; D71 Functional disorders of polymorphonuclear neutrophils; Z88.8 Allergy status to other drugs, medicaments and biological substances; Z88.1 Allergy status to other antibiotic agents; Z82.3 Family history of stroke; Z91.041 Radiographic dye allergy status; Z88.0 Allergy status to penicillin; Z91.013 Allergy to seafood; Z87.891 Personal history of nicotine dependence; Z79.52 Long term (current) use of systemic steroids
CPT/HCPCS: 36415; 80048; 85014; 85018; 85049; 87070; 87073; 87205; 87640; 87641; 88305; 88311; 89051; A9270-GY; C1776; G8978-GP-CK; G8979-GP-CI; J1885; J2250; J2704; J2795; J3010; J3490; J7512; J8540

== ENCOUNTER 2018-12-28 14:39 | Emergency (ER) | payer MEDICARE ==
--- OUTSIDE RECORDS SUMMARY | 2018-12-28 14:46 | XMS REPORT ---
:1945 Author Organization [facility] Care Team Providers Name Role Phone Unavailable Unavailable Unavailable Problems Condition Condition Condition Status Onset Resolution Last Treating Comments Name Details Category Date Date Treatment Clinician Date Aftercare Aftercare Diagnosis Active 2018-02 Ingrid following following 02-06 Foley PT joint joint 805160 replacement replacement surgery surgery Presence of Presence of Diagnosis Active 2018-02 Ingrid right right 02-06 Foley PT artificial artificial [id number] knee joint knee joint Encounter Encounter Diagnosis Active 2018-02 Ingrid for change for change 02-06 Foley PT or removal or removal [id number] of surgical of surgical wound wound dressing dressing Rheumatoid Rheumatoid Diagnosis Active 2018-02 Ingrid arthritis, arthritis, 02-06 Foley PT unspecified unspecified [id number] Essential Essential Diagnosis Active 2018-02 Ingrid (primary) (primary) 02-06 Foley PT hypertensio hypertensio 264193 n n E78.5 E78.5 Diagnosis Active 2018-02 Ingrid 02-06 Foley PT [id number] Pain frequent Pain Mgmt Resolve 2018-022018-12-20 Aracely pain d 02-06 16:15:00 (Shirin) 09:20: Diehl 00 [id number] Cardio edema Cardiovasc Resolve 2018-022018-12-20 Aracely ular d 02-06 16:15:00 (Shirin) 09:20: Diehl 00 [id number] Respiratory dyspnea Respirator Resolve 2018-022018-12-20 Aracely present y d 02-06 16:15:00 (Shirin) 09:20: Diehl 00 [id number] Integument surgical Integument Resolve 2018-022018-12-20 Aracely wound d 02-06 16:15:00 (Shirin) present 09:20: Diehl 00 [id number] Integument skin Integument Resolve 2018-022018-12-20 Aracely integrity d 02-06 16:15:00 (Shirin) risk 09:20: Diehl [id number] Elimination urinary Eliminatio Resolve 2018-022018-12-20 Aracely incontinenc n d 02-06 16:15:00 (Shirin) e 09:20: Diehl 00 [id number] Neuro confusion Neuro/Emot Resolve 2018-022018-12-20 Aracely present ion d 02-06 16:15:00 (Shirin) 09:20: Diehl [id number] Activity ADL Activity Resolve 2018-022018-12-20 Aracely assistance d 02-06 16:15:00 (Shirin) required 09:20: Diehl [id number] Activity self-care Activity Resolve 2018-022018-12-20 Aracely deficit d 02-06 16:15:00 (Shirin) 09:20: Diehl [id number] Safety risk for Safety Resolve 2018-022018-12-20 Aracely hospitaliza d 02-06 16:15:00 (Shirin) tion 09:20: Diehl [id number] Safety fall risk Safety Resolve 2018-022018-12-20 Aracely factor d 02-06 16:15:00 (Shirin) present 09:20: Diehl [id number] Safety can be left Safety Resolve 2018-022018-12-20 Aracely alone for d 02-06 16:15:00 (Shirin) only short 09:20: Diehl 00 [id number] Medication oral med Meds Resolve 2018-022018-12-20 Aracely assistance d 02-06 16:15:00 (Shirin) required 09:20: Diehl [id number] Musculoskel transfer Musculoske Resolve 2018-022018-12-12 Aracely etal assistance letal d 02-06 10:04:00 (Shirin) required 09:20: Diehl [id number] Pain knowledge/s Pain Mgmt Resolve 2018-022018-12-12 Ingrid kill d 02-06 10:04:00 Foley PT deficit: pt 14:40: [id number] Safety knowledge/s Safety Resolve 2018-022018-12-20 Ingrid kill d 02-06 16:15:00 Foley PT deficit: pt 14:40: [id number] Safety knowledge/s Safety Resolve 2018-022018-12-20 Ingrid kill d 02-06 16:15:00 Foley PT deficit: cg 14:40: [id number] Bed mobility/tr PT/OT: Bed Resolve 2018-022018-12-20 Ingrid Mobility/Tr ansfer Mobility/T d 02-06 16:15:00 Foley PT ansfer device ransfer 14:40: [id number] present 00 Bed transfer PT/OT: Bed Resolve 2018-022018-12-20 Ingrid Mobility/Tr deficit: Mobility/T d 02-06 16:15:00 Foley PT ansfer sit/stand ransfer 14:40: [id number] 00 Bed transfer PT/OT: Bed Resolve 2018-022018-12-20 Ingrid Mobility/Tr deficit: Mobility/T d 02-06 16:15:00 Foley PT ansfer shower/tub ransfer 14:40: [id number] 00 Bed transfer PT/OT: Bed Resolve 2018-022018-12-20 Ingrid Mobility/Tr deficit: Mobility/T d 02-06 16:15:00 Foley PT ansfer vehicle ransfer 14:40: [id number] Bed knowledge/s PT/OT: Bed Resolve 2018-022018-12-20 Ingrid Mobility/Tr kill Mobility/T d 02-06 16:15:00 Foley PT ansfer deficit: pt ransfer 14:40: [id number] 00 Environment environment PT/OT: Resolve 2018-022018-12-20 Ingrid al al access Environmen d 02-06 16:15:00 Foley PT deficit t 14:40: [id number] Environment knowledge/s PT/OT: Resolve 2018-022018-12-20 Ingrid al kill Environmen d 02-06 16:15:00 Foley PT deficit: pt t 14:40: [id number] 00 Gait/Locomo gait PT/OT: Resolve 2018-022018-12-10 Ingrid tion assistive Gait/Locom d 02-06 14:05:00 Foley PT problems device otion 14:40: [id number] present 00 Gait/Locomo knowledge/s PT/OT: Resolve 2018-022018-12-10 Ingrid tion kill Gait/Locom d 02-06 14:05:00 Foley PT problems deficit: pt otion 14:40: [id number] 00 Gait/Locomo knowledge/s PT/OT: Resolve 2018-022018-12-10 Ingrid tion kill Gait/Locom d 02-06 14:05:00 Foley PT problems deficit: cg otion 14:40: [id number] 00 Gait/Locomo gait PT/OT: Resolve 2018-022018-12-10 Ingrid tion deficit Gait/Locom d 02-06 14:05:00 Foley PT problems otion 14:40: [id number] 00 Endo/George anti-coagul Endo/George Resolve 2018-022018-12-12 Tessa ation d 02-11 10:04:00 Parekh therapy 10:04: 00 Musculoskel requires Musculoske Resolve 2018-022018-12-12 Tessa etal human letal d 02-11 10:04:00 Parekh assist to 10:04: leave home 00 Musculoskel transfer Musculoske Resolve 2018-022018-12-20 Ingrid etal assistance letal d 02-16 16:15:00 Foley PT required 10:30: [id number] Allergies, Adverse Reactions, Alerts Allergy Name Allergy Status Severity Reaction(s) Onset Inactive Treating Comments Type Date Date Clinician Iodinated Allergen Active Unknown Reaction 2018-02 Martha Beam Contrast Group Unknown 0-31 Media Penicillins Allergen Active Unknown Reaction 2018-02 Martha Beam Group Unknown 0-31 lisinopril Base Active Unknown Reaction 2018-02 Martha Beam Ingredient Unknown 0-31 iohexol Base Active Unknown Reaction 2018-02 Martha Beam Ingredient Unknown 0-31 tromethamine Base Active Unknown Reaction 2018-02 Martha Beam Ingredient Unknown 0-31 methotrexate Base Active Unknown Reaction 2018-02 Martha Beam Ingredient Unknown 0-31 benzyl Base Active Unknown Reaction 2018-02 Martha Beam alcohol Ingredient Unknown 0-31 cefuroxime Base Active Unknown Reaction 2018-02 Martha Beam Ingredient Unknown 0-31 azithromycin Base Active Unknown Reaction 2018-02 Martha Beam Ingredient Unknown 0-31 amlodipine Base Active Unknown Reaction 2018-02 Martha Beam Ingredient Unknown 0-31 pneumococcal Base Active Unknown Reaction 2018-02 Martha Beam 7-valent Ingredient Unknown 0-31 conjugate to diphtheria crm shellfish Base Active Unknown Reaction 2018-02 Martha Beam derived Ingredient Unknown 0-31 Medications Ordered Filled Start Stop Current Ordering Indication Dosage Frequency Signature Comments Components Medication Medication Date Date Medication? Clinician (SIG) Name Name chlorthalid chlorthalid 2018-02- Yes Satish Unknown Unknown one 25 mg one 25 mg 02-06 Mary FUCHS tablet tablet ALPRAZolam ALPRAZolam 2018-02- Yes Satish Unknown Unknown 0.5 mg 0.5 mg 02-06 Mary FUCHS tablet tablet metoprolol metoprolol 2018-02- Yes Satish Unknown Unknown succinate succinate 02-06 Mary FUCHS ER 25 mg ER 25 mg tablet,exte tablet,exte nded nded release 24 release 24 hr hr potassium potassium 2018-02- Yes Satish Unknown Unknown chloride ER chloride ER 02-06 Mary FUCHS 20 mEq 20 mEq tablet,exte tablet,exte nded nded release(par release(par t/cryst) t/cryst) cycloSPORIN cycloSPORIN 2018-02- Yes Satish Unknown Unknown E 0.05 % E 0.05 % 02-06 Mary FUCHS eye drops eye drops atorvastati atorvastati 2018-02- Yes Satish Unknown Unknown n 20 mg n 20 mg 02-06 Mary FUCHS tablet tablet predniSONE predniSONE 2018-02- Yes Satish Unknown Unknown 5 mg tablet 5 mg tablet 02-06 Mary FUCHS Tums Ultra Tums Ultra 2018-02- Yes Satish Unknown Unknown 400 mg 400 mg 02-06 Mary FUCHS calcium calcium (1,000 mg) (1,000 mg) chewable chewable tablet tablet Acetaminoph Acetaminoph 2018-02- Yes Satish Unknown Unknown en Extra en Extra 02-06 Mary FUCHS Strength Strength 500 mg 500 mg tablet tablet apixaban apixaban 2018-02- Yes Satish Unknown Unknown 2.5 mg 2.5 mg 02-06 Mary FUCHS tablet tablet docusate docusate 2018-02- Yes Satish Unknown Unknown sodium 100 sodium 100 02-06 Mary FUCHS mg capsule mg capsule HYDROcodone HYDROcodone 2018-02- Yes Satish Unknown Unknown 5 5 02-06 Mary FUCHS mg-acetamin mg-acetamin ophen 325 ophen 325 mg tablet mg tablet Vital Signs Vital Name Observation Time Observation Value Comments SYSTOLIC mm[Hg] 2018-12-20 18:08:51 114 mm[Hg] mm[Hg] Method: Sit DIASTOLIC mm[Hg] 2018-12-20 18:08:51 71 mm[Hg] mm[Hg] Method: Sit PULSE 2018-12-20 18:08:51 106 /min /min RESP RATE 2018-12-20 18:08:51 17 /min /min TEMP 2018-12-20 18:08:51 97.0 [degF] Procedures This patient has no known procedures. Results This patient has no known results.
--- OUTSIDE RECORDS SUMMARY | 2018-12-28 14:46 | XMS REPORT ---
:1945 Author Organization [facility] Care Team Providers Name Role Phone Unavailable Unavailable Unavailable Problems Condition Condition Condition Status Onset Resolution Last Treating Comments Name Details Category Date Date Treatment Clinician Date Aftercare Aftercare Diagnosis Active 2018-02 Ingrid following following 02-06 Foley PT joint joint 668147 replacement replacement surgery surgery Presence of Presence of Diagnosis Active 2018-02 Ingrid right right 02-06 Foley PT artificial artificial 564926 knee joint knee joint Encounter Encounter Diagnosis Active 2018-02 Ingrid for change for change 02-06 Foley PT or removal or removal [id number] of surgical of surgical wound wound dressing dressing Rheumatoid Rheumatoid Diagnosis Active 2018-02 Ingrid arthritis, arthritis, 02-06 Foley PT unspecified unspecified [id number] Essential Essential Diagnosis Active 2018-02 Ingrid (primary) (primary) 02-06 Foley PT hypertensio hypertensio 504701 n n E78.5 E78.5 Diagnosis Active 2018-02 Ingrid 02-06 Foley PT [id number] Pain frequent Pain Mgmt Resolve 2018-022018-12-20 Aracely pain d 02-06 16:15:00 (Shirin) 09:20: Diehl 00 [id number] Cardio edema Cardiovasc Resolve 2018-022018-12-20 Aracely ular d 02-06 16:15:00 (Shirin) 09:20: Diehl 00 [id number] Respiratory dyspnea Respirator Resolve 2018-022018-12-20 Aracely present y d 02-06 16:15:00 (Shirin) 09:20: Diehl 00 [id number] Integument surgical Integument Resolve 2018-022018-12-20 Aracely wound d 02-06 16:15:00 (Shirin) present 09:20: Diehl 00 [id number] Integument skin Integument Resolve 2018-022018-12-20 Aracely integrity d 02-06 16:15:00 (Shirin) risk 09:20: Diehl [id number] Elimination urinary Eliminatio Resolve 2018-022018-12-20 Aracely incontinenc n d 02-06 16:15:00 (Shirin) e 09:20: Diehl 00 [id number] Neuro confusion Neuro/Emot Resolve 2018-022018-12-20 Aracely present ion d 02-06 16:15:00 (Shirin) 09:20: Diehl [id number] Activity ADL Activity Resolve 2018-022018-12-20 Aracely assistance d 02-06 16:15:00 (Shirin) required 09:20: Diehl [id number] Activity self-care Activity Resolve 2018-022018-12-20 Aracely deficit d 02-06 16:15:00 (Shirin) 09:20: Diehl [id number] Safety risk for Safety Resolve 2018-022018-12-20 Aracely hospitaliza d 02-06 16:15:00 (Shirin) tion 09:20: Diehl [id number] Safety fall risk Safety Resolve 2018-022018-12-20 Aracely factor d 02-06 16:15:00 (Shirin) present 09:20: Diehl [id number] Safety can be left Safety Resolve 2018-022018-12-20 Aracely alone for d 02-06 16:15:00 (Shirin) only short 09:20: Diehl 00 [id number] Medication oral med Meds Resolve 2018-022018-12-20 Aracely assistance d 02-06 16:15:00 (Shirin) required 09:20: Diehl [id number] Musculoskel transfer Musculoske Resolve 2018-022018-12-12 Aracely etal assistance letal d 02-06 10:04:00 (Shirin) required 09:20: Diehl [id number] Pain knowledge/s Pain Mgmt Resolve 2018-022018-12-12 Ingrid kill d 02-06 10:04:00 Foley PT deficit: pt 14:40: [id number] 00 Safety knowledge/s Safety Resolve 2018-022018-12-20 Ingrid kill d 02-06 16:15:00 Foley PT deficit: pt 14:40: [id number] 00 Safety knowledge/s Safety Resolve 2018-022018-12-20 Ingrid kill d 02-06 16:15:00 Foley PT deficit: cg 14:40: [id number] 00 Bed mobility/tr PT/OT: Bed Resolve 2018-022018-12-20 Ingrid Mobility/Tr ansfer Mobility/T d 02-06 16:15:00 Foley PT ansfer device ransfer 14:40: [id number] present 00 Bed transfer PT/OT: Bed Resolve 2018-022018-12-20 Nigrid Mobility/Tr deficit: Mobility/T d 02-06 16:15:00 Foley PT ansfer sit/stand ransfer 14:40: [id number] 00 Bed transfer PT/OT: Bed Resolve 2018-022018-12-20 Ingrid Mobility/Tr deficit: Mobility/T d 02-06 16:15:00 Foley PT ansfer shower/tub ransfer 14:40: [id number] 00 Bed transfer PT/OT: Bed Resolve 2018-022018-12-20 Ingrid Mobility/Tr deficit: Mobility/T d 02-06 16:15:00 Foley PT ansfer vehicle ransfer 14:40: [id number] 00 Bed knowledge/s PT/OT: Bed Resolve 2018-022018-12-20 Ingrid Mobility/Tr kill Mobility/T d 02-06 16:15:00 Foley PT ansfer deficit: pt ransfer 14:40: [id number] 00 Environment environment PT/OT: Resolve 2018-022018-12-20 Ingrid al al access Environmen d 02-06 16:15:00 Foley PT deficit t 14:40: [id number] 00 Environment knowledge/s PT/OT: Resolve 2018-022018-12-20 Ingrid al kill Environmen d 02-06 16:15:00 Foley PT deficit: pt t 14:40: [id number] 00 Gait/Locomo gait PT/OT: Resolve 2018-022018-12-10 Ingrid tion assistive Gait/Locom d 02-06 14:05:00 Foley PT problems device otion 14:40: [id number] present 00 Gait/Locomo knowledge/s PT/OT: Resolve 2018-022018-12-10 Ingrid tion kill Gait/Locom d 02-06 14:05:00 Foley PT problems deficit: pt otion 14:40: [id number] 00 Gait/Locomo knowledge/s PT/OT: Resolve 2018-022018-12-10 Ingrid tion kill Gait/Locom d 02-06 14:05:00 Foley PT problems deficit: cg otion 14:40: [id number] 00 Gait/Locomo gait PT/OT: Resolve 2018-022018-12-10 Ingrid tion deficit Gait/Locom d 02-06 14:05:00 Foley PT problems otion 14:40: [id number] 00 Endo/George anti-coagul Endo/George Resolve 2018-022018-12-12 Tessa ation d 02-11 10:04:00 Parekh therapy 10:04: 00 Musculoskel requires Musculoske Resolve 2018-022018-12-12 Tessa etal human letal d 02-11 10:04:00 Parekh assist to 10:04: leave home 00 Musculoskel transfer Musculoske Resolve 2018-022018-12-20 Nigrid etal assistance letal d 02-16 16:15:00 Foley PT required 10:30: [id number] Allergies, Adverse Reactions, Alerts Allergy Name [...]
--- OUTSIDE RECORDS SUMMARY | 2018-12-28 14:47 | XMS REPORT | Continuity of Care Document ---
:1945 External Reference #:[id number] Author Name Janie Mccullough M.D. (transmitted by agent of provider Kelsey Louis) Address [address] [place] [address], [address] [place] [id number] Care Team Providers Name Role Phone Janie Mccullough MD - Internal Care Team Information President And Cmo [phone] Medicine Gopal Hawkins MD - Urology Care Team Information President And Cmo [phone] Problems Active Problems Provider Date Rheumatoid arthritis [...] Onset: 2015 Localized, primary osteoarthritis of the Dominic Tan MD Onset: 07/10/2018 shoulder region Rheumatoid arthritis Dominic Tan MD Onset: 07/10/2018 Localized, primary osteoarthritis Mary Covarrubias M.D. Onset: 09/07/2018 Localized, primary osteoarthritis of the Mary Covarrubias M.D. Onset: 09/07/2018 pelvic region and thigh Rheumatoid arthritis with organ / system Dominic Tan MD Onset: 10/09/2018 involvement Social History Type Date Description Comments Sex Unknown ETOH Use Denies alcohol use Tobacco Use Start: Unknown End: Patient is a former social smoking in Unknown smoker college Recreational Drug Use Denies Drug Use Smoking Status Reviewed: 12/18/18 Patient is a former social smoking in [...] Medications Active Medications SIG Qnty Indications Ordering Provider Date Xeljanz 1 by mouth twice 180tabs Nain Scott, 11/30/2018 5mg Tablets a day to start 3 M.D. weeks after your upcoming surgery Hydrocodone-Acetamin 1 - 2 tabs by 60tabs Enrrique Dumont MD 10/19/2018 ophen mouth every 4-6 5-325mg Tablets hours as needed for pain Simvastatin 1 by mouth every 90tabs E78.4 Janie Mccullough, 06/12/2018 20mg day at bedtime M.D. Tablets Alprazolam 1 tablet three 90tabs Janie Mccullough, 05/02/2018 0.5mg times a day as M.D. Tablets needed anxiety Prednisone 15 mg x 4 days, 90tabs Z79.52 Nain Scott, 03/19/2018 5mg 10 mg x 4 days, M.D. Tablets then 5 mg daily Metoprolol Succinate 1/2 by mouth 45tabs Janie Mccullough, 09/26/2016 ER every day M.D. 25mg Tablets ER 24HR Leflunomide Take One Tablet 90tabs M06.89 Nain Scott, 02/29/2016 10mg By Mouth Once M.D. Tablets Daily M05.79 Z79.899 Potassium Chloride ER Take One Tablet By 180tabs Janie Mccullough, 2015 20Meq Mouth Twice A Day M.D. Tablets ER Chlorthalidone Take 1 Tablet By 90tabs I10 Janie Mccullough, 09/12/2014 25mg Tablets Mouth Daily as M.D. Directed Dulcolax 2 by mouth every Unknown 5mg Tablets DR day Eliquis take one tab by Unknown 2.5mg Tablets mouth twice daily x 4 weeks Calcium 600 1 by mouth every Unknown 600mg Tablets day Tretinoin gel daily as Unknown 0.025% Cream directed Metrocream apply twice daily Unknown Cream as needed Restasis one gtts ou bid Unknown 0.05% Emulsion Fish Oil one tab daily Gale Zhang MD 1200mg Capsules History Medications Valacyclovir HCL 1 PO tid x 1 week 21tabs B02.9 Janie 11/15/2018 - Janice Mccullough 12/18/2018 1gm Tablets Hydrocodone-Acetami take one by mouth 30tabs Nain Scott, 10/05/2018 - nophen twice daily as needed M.DKaren 10/19/2018 7.5-325mg for pain Tablets Actemra inject 162 mg 4units Nain Scott, 09/04/2018 - 162mg/0.9ML subcutaneously every M.D. 11/30/2018 Soln Prefill other week On Hold Syringe Actemra inject 162 mg 4units M05.79 Nain [...] Nain Scott, 06/19/2018 - 200mg capsule/tablet daily Janice 07/03/2018 Capsules by mouth as needed for [...] Code Status Date Vaccine Reaction Lot # [id number] Given 11/13/2017 Influenza Virus Vaccine, Quadrivalent, Split, Preservative Free 16626 Given 11/03/2016 Influenza Virus Vaccine, No immediate reaction [id number] Quadrivalent, Split, Preservative Free 58773 Given 11/03/2015 Influenza Virus Vaccine, [id number] Quadrivalent, Split, Preservative Free 71113 Given 11/20/2014 Influenza Virus Vaccine, [id number] Quadrivalent, Split, Preservative Free 97213 Given 04/17/2014 Pneumococcal Conjugate [id number] Vaccine 13 Valent For Intramuscular Use 93165 Given 11/14/2013 Influenza Virus Vaccine, [id number] Quadrivalent, Split, Preservative Free 70492 Given 10/31/2012 Flu Vaccine Split Virus [id number] Preservative Free For Indiv 3Yr Older 30321 Given 08/07/2012 Pneumonia Vaccine [id number] Q2038 Given 11/22/2011 Fluzone Vaccine [id number] 53226 Given 10/26/2010 Influenza Virus 3Yrs & Over 58804 Given 10/26/2010 Influenza Virus 3Yrs & [id number] Over 75901 Given 12/07/2004 Pneumovax (History By [id number] Patient) 86026 Given 12/07/2004 Td (History By Patient) Vital Signs Date Vital Result Comment 12/18/2018 2:07pm Height 62 inches 5'2" Weight 132.00 lb Heart Rate 104 /min BP Systolic 131 mmHg BP Diastolic 70 mmHg O2 % BldC Oximetry 97 % BMI (Body Mass Index) 24.1 kg/m2 12/14/2018 10:30am Height 62 inches 5'2" Weight 133.00 lb Heart Rate 135 /min BP Systolic 118 mmHg BP Diastolic 84 mmHg Respiratory Rate 16 /min Body Temperature 99.4 F Pain Level 4 BMI (Body Mass Index) 24.3 kg/m2 Results Test Acquired Date Facility Test Result H/L Range Note Order 12/18/2018 [facility] Holter Monitor <pending> [address] [place] [address] [phone] Type & Screen 11/26/2018 [facility] Patient Blood O Positive [address] [place] [address] [phone] Antibody Screen NEGATIVE Urinalysis Profile 11/16/2018 [facility] Urine Color Yellow [address] [place] [address] [phone] Urine Appearance Clear Urine Specific [place] 1.012 Normal 1.010-1.030 Urine pH 7.0 Normal 5-9 Urine Urobilinogen Negative Negative Urine Ketones Negative Negative Urine Protein Negative Negative Urine Leukocytes Negative Negative Urine Blood 2+ Abnormal Negative Urine Nitrite Negative Negative Urine Bilirubin Negative Negative Urine Glucose Negative Negative Urine White Blood Cell Trace(0-5/hpf) Absent Urine Red Blood Cell 1+(3-5/hpf) Abnormal Absent Urine Bacteria Absent Absent CBC Auto 11/16/2018 [facility] White Blood 9.9 10^3/uL Normal 3.5-10.[address] [place] [address] [phone] Red Blood Count 4.24 10^6/uL Normal 3.70-4.87 Hemoglobin 14.2 g/dL Normal 12.0-16.0 Hematocrit 42 % Normal 35-47 Mean Corpuscular Volume 98 fL High 80-97 Mean Corpuscular Hemoglobin 34 pg High 27-31 Mean Corpuscular HGB Conc 34 g/dL Normal 31-36 Red Cell Distribution Width 13 % Normal 10-15 Platelet Count 275 10^3/uL Normal 150-450 Mean Platelet Volume 7.4 fL Normal 7.4-10.4 Abs Neutrophils 8.3 10^3/uL High 1.5-7.7 Abs Lymphocytes 0.5 10^3/uL Low 1.0-4.8 Abs Monocytes 1.0 10^3/uL High 0-0.8 Abs Eosinophils 0.0 10^3/uL Normal 0-0.6 Abs Basophils 0.1 10^3/uL Normal 0-0.2 Abs Nucleated RBC 0.0 10^3/uL Granulocyte % 84.1 % Lymphocyte % 4.9 % Monocyte % 10.2 % Eosinophil % 0.3 % Basophil % 0.5 % Nucleated Red Blood Cells % 0.0 Comp Metabolic 11/16/2018 [facility] Sodium 137 mmol/L Normal 135-[address] [place] [address] [phone] Potassium 3.7 mmol/L Normal 3.5-5.0 Chloride 97 mmol/L Low 101-111 Co2 Carbon Dioxide 31 mmol/L Normal 22-32 Anion Gap 9 mmol/L Normal 2-11 Glucose 100 mg/dL Normal 70-100 Blood Urea Nitrogen 16 mg/dL Normal 6-24 Creatinine 0.59 mg/dL Normal 0.51-0.95 BUN/Creatinine Ratio 27.1 High 8-20 Calcium 9.7 mg/dL Normal 8.6-10.3 Total Protein 6.1 g/dL Low 6.4-8.9 Albumin 4.0 g/dL Normal 3.2-5.2 Globulin 2.1 g/dL Normal 2-4 Albumin/Globulin Ratio 1.9 Normal 1-3 Total Bilirubin 0.80 mg/dL Normal 0.2-1.0 Alkaline Phosphatase 47 U/L Normal 34-104 Alt 21 U/L Normal 7-52 Ast 20 U/L Normal 13-39 Egfr Non- 100.2 >60 Egfr 121.2 >60 2 Inr/Protime 11/16/2018 [facility] Inr 0.95 Normal 0.82-1.[address] [place] [address] [phone] Laboratory test 11/16/2018 [facility] Partial 30.4 Normal 26.0 -38.[address] [place] [address] Time PTT [phone] Urine Culture And 11/16/2018 [facility] Urine SEE RESULT [address] [place] [address] [phone] Laboratory test 10/03/2018 [facility] Vitamin D 75.7 ng/mL High 20-50 [address] [place] [address] 25(Oh) [phone] Comp Metabolic 10/03/2018 [facility] Sodium 140 mmol/L Normal 135-[address] [place] [address] [phone] Potassium 3.5 mmol/L Normal 3.5-5.0 Chloride 104 [...] Egfr Non- 89.6 >60 Egfr 108.4 >60 6 CBC Auto 10/03/2018 [facility] White Blood 4.3 10^3/uL Normal 3.5-10.[address] [place] [address] [phone] Red Blood Count 4.54 10^6/uL Normal 3.70-4.87 [...] Red Blood Cells % 0.0 Lipid Profile 10/03/2018 [facility] Triglycerides 135 mg/dL 7 (Trig/Chol/HDL) [address] [place] [address] [phone] Cholesterol 208 mg/dL 8 HDL Cholesterol 73.3 mg/dL 9 LDL Cholesterol 108 mg/dL 10 Laboratory test 10/03/2018 [facility] Erythrocyte Sed 7 mm/Hr Normal 0-29 [address] [place] [address] [phone] C Reactive Protein < 1.00 mg/L Normal <8.01 12 Laboratory test 08/21/2018 [facility] Vitamin D 94.4 High 20- 50 [address] Total 25(Oh) ng/[place] [address] [phone] CBC Auto Diff 08/21/2018 [facility] White Blood 4.9 Normal 3.5 -10.[address] Count 10^3/uL [place], [place] [address] [phone] Red Blood Count 4.44 10^6/uL Normal 3.70-4.87 [...] % 0.0 Comp Metabolic 08/21/2018 [facility] Sodium 141 mmol/L Normal 135-[address] [place] [address] [phone] Potassium 3.5 mmol/L Normal 3.5-5.0 Chloride 102 [...] >60 14 Laboratory test 08/21/2018 [facility] Erythrocyte Sed 16 mm/Hr Normal 0-29 [address] [place] [address] [phone] C Reactive Protein 2.09 mg/L Normal <8.01 16 Lipid Profile 08/21/2018 [facility] Triglycerides 94 mg/dL 17 (Trig/Chol/HDL) [address] [place] [address] [phone] Cholesterol 218 mg/dL 18 HDL Cholesterol 81.1 mg/dL 19 LDL Cholesterol 118 mg/dL 20 1 PAIN IN RIGHT KNEE, UNILATERAL PRIMARY OSTEOARTHRI 2 Because ethnic data is not always [...] 5 Kidney failure <15 (or dialysis) 3 Standard intensity warfarin therapeutic range: 2.0-3.0 High intensity warfarin therapeutic range: 2.5-3.5 4 SEE RESULT BELOW Name: MEMEBRAYAN Echols : [address]: Janie Mccullough MD Acct: [id number] Unit: [id number] AGE: 73 Location: LAB Re11/16/18 SEX: F Status: REG REF SPEC: [id number] JEREMY: 11/16/[address]: Janie Mcculluogh MD REQ: [id number] RECD: 11/16/183742 STATUS: COMP _ SOURCE: URINE SPDESC: ORDERED: Urine Culture Procedure Result Reported Site Urine Culture Final 11/18/18- 828 ML No growth of clinically significant organisms * ML - Main Lab . END OF REPORT DEPARTMENT OF PATHOLOGY, [address] [place] [address] Jacob Keys M.D. Director [facility] # [id number] 5 Total 25-Hydroxyvitamin D2 and D3 (25-OH-VitD) <10 ng/mL (severe deficiency) 10-19 ng/mL (mild to moderate deficiency) 20-50 ng/mL (optimum levels) 51-80 ng/mL (increased risk of hypercalciuria) >80 ng/mL (toxicity possible) 6 Because ethnic data is not always readily [...] 15-29 5 Kidney failure <15 (or dialysis) 7 Desirable: <150 Borderline High: 150-199 High: 200-499 Very High: >500 8 Desirable: <200 Borderline High: 200-239 High: >239 9 Low: <40 Desirable: 40-60 High: >60 10 Desirable: <100 Near Optimal: 100-129 Borderline High: 130-159 High: 160-189 Very High: >189 11 Please check labs 2 days before follow up 12 Please check labs 2 days before follow up 13 Total 25-Hydroxyvitamin D2 and D3 (25-OH-VitD) [...] WEEKS PRN ORDERED 07/30/18 EXPIRES 01/29/19 17 Desirable: <150 Borderline High: 150-199 High: 200-499 Very High: >500 18 Desirable: <200 Borderline High: 200-239 High: >239 19 Low: <40 Desirable: 40-60 High: >60 20 Desirable: <100 Near Optimal: 100-129 Borderline High: 130-159 High: 160-189 Very High: >189 Procedures Date Code Description Status 12/18/2018 30391 EKG Tracing & Interpretation Completed 12/04/2018 73242 TKR Total Knee Replacement Completed 12/04/2018 12922 TKR Total Knee Replacement Completed 11/22/2018 59059 ECHO Transthoracic, Real-Time 2D With Doppler And Completed Color Flow 11/22/2018 04612 ECHO Transthoracic, Real-Time 2D With Doppler And Completed Color Flow 11/15/2018 26203 EKG Tracing & Interpretation Completed 10/17/2018 71247 Repair Hernia Umbilical > 5 Yrs, Reducible Completed 10/17/2018 93279 Repair Hernia Umbilical > 5 Yrs, Reducible Completed 10/09/2018 34191 Inject/Drain Joint/Bursa Major W/O US Completed 08/23/2018 71310 Inject/Drain Joint/Bursa Major W/O US Completed 06/26/2018 02048 Inject/Drain Joint/Bursa Major W/O US Completed 02/12/2018 [id number] Mammogram Completed 06/20/2017 [id number] Bone Mineral Density Test Completed 02/10/2017 [id number] Mammogram Completed 02/05/2016 [id number] Mammogram Completed 12/03/2015 [id number] Colonoscopy Completed 05/04/2015 [id number] Bone Mineral Density Test Completed 02/03/2015 96185596 Mammogram Completed 10/15/2014 51595052 Mammogram Completed 10/14/2013 11603127 Mammogram Completed 04/30/2013 [id number] Bone Mineral Density Test Completed 10/12/2012 45349381 Mammogram Completed 10/11/2011 [id number] Mammogram Completed 10/06/2010 90509964 Mammogram Completed 05/17/2010 494173652 Bone Mineral Density Test Completed Medical Devices Description No Information Available Encounters Type Date Location Provider Dx Diagnosis Office Visit 12/05/2018 [facility] Sandrita Russ, M06.9 Rheumatoid 9:11a Assoc,pc DOUBLER OPERATOR arthritis, Hospitalists unspecified I10 Essential (primary) hypertension F41.9 Anxiety disorder, unspecified E87.6 Hypokalemia E78.5 Hyperlipidemia, unspecified Office Visit 12/04/2018 [facility] Sandrita De DiosHollie, M06.9 Rheumatoid 9:11a Assoc,pc DOUBLER OPERATOR arthritis, Hospitalists unspecified M25.512 Pain in left shoulder E87.6 Hypokalemia I10 Essential (primary) hypertension E78.5 Hyperlipidemia, unspecified F41.9 Anxiety disorder, unspecified M35.00 Sicca syndrome, unspecified Office Visit 11/15/2018 [facility] Internal Janie Z01.818 Encounter for other 10:20a Tevin Mccullough M.D. 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 I10 Essential (primary) hypertension R07.9 Chest pain, unspecified R21 Rash and other nonspecific skin eruption Office Visit 10/05/2018 12:40p Rheumatology Nain Scott M05.79 [facility] w[facility] rheu factor mult site w/o org/sys involv M16.11 Unilateral primary osteoarthritis, right hip Z79.899 Other mcc (current) drug therapy M21.061 Valgus deformity, not elsewhere classified, right knee Office Visit 09/24/2018 1:00p Surgical Bob Mackey K42.9 [facility] Romo MD, without FACS obstruction or gangrene Office Visit 09/07/2018 8:00a [facility] Mary Covarrubias, M05.79 Rheu arthritis w at [facility] [place] [...] mult site w/o org/sys involv Z79.899 Other termite control representative (current) drug therapy M25.551 Pain in right hip M25.561 Pain in right knee Office Visit 07/30/2018 9:00a [facility] Internal Janie R19.00 Intra-abd and Medicine - Ute Mccullough M.D. pelvic swelling, mass and lump, unsp site Office Visit 07/10/2018 9:30a Essence Tan, M19.012 [facility] at osteoarthritis, [place] left shoulder M06.9 Rheumatoid arthritis, unspecified Office Visit 06/26/2018 10:30a [facility] Amparojeffchirstine Campospatricio, M25.512 Pain in left at [place] MD shoulder M19.012 Primary osteoarthritis, left shoulder M06.9 Rheumatoid arthritis, unspecified Office Visit 06/19/2018 1:40p Rheumatology Nain Scott, M05.79 [facility] Camacho w rheu factor mult site w/o org/sys involv Z79.899 Other termite control representative (current) drug therapy M25.551 Pain in right hip M54.5 Low back pain M25.561 Pain in right knee M25.512 Pain in left shoulder Assessments Date Code Description Provider 12/18/2018 R00.0 Tachycardia, unspecified Janie Mccullough M.D. 12/18/2018 R31.9 Hematuria, nehal Mccullough M.D. 12/14/2018 Z96.651 Presence of right artificial knee Mary Covarrubias M.D. joint 12/14/2018 Z47.1 Aftercare following joint replacement Mary Covarrubias M.D. surgery 12/05/2018 M06.9 Rheumatoid arthritis, unspecified Sandrita Russ NP 12/05/2018 I10 Essential (primary) hypertension Sandrita Russ, GIANNA 12/05/2018 F41.9 Anxiety disorder, unspecified Sandrita Russ NP 12/05/2018 E87.6 Hypokalemia Sandrita Russ NP 12/05/2018 E78.5 Hyperlipidemia, unspecified Sandrita Russ, GIANNA 12/04/2018 M17.11 Unilateral primary osteoarthritis, ELSA Banegas right knee 12/04/2018 M17.11 Unilateral primary osteoarthritis, Mary Covarrubias M.D. right knee 12/04/2018 M06.9 Rheumatoid arthritis, unspecified Sandrita Petrona, DOUBLER OPERATOR 12/04/2018 M25.512 Pain in left shoulder Sandrita Petrona, DOUBLER OPERATOR 12/04/2018 E87.6 Hypokalemia Sandrita NashHiren, DOUBLER OPERATOR 12/04/2018 I10 Essential (primary) hypertension Sandrita NashHiren, DOUBLER OPERATOR 12/04/2018 E78.5 Hyperlipidemia, unspecified Sandrita Petrona, DOUBLER OPERATOR 12/04/2018 F41.9 Anxiety disorder, unspecified Sandrita NashHiren, DOUBLER OPERATOR 12/04/2018 M35.00 Sicca syndrome, unspecified Sandrita Petrona, DOUBLER OPERATOR 11/26/2018 M25.461 Effusion, right knee Mary Covarrubias M.D. 11/26/2018 M25.561 Pain in right knee Mary Covarrubias M.D. 11/26/2018 M17.11 Unilateral primary osteoarthritis, Mary Covarrubias M.D. right knee 11/22/2018 I27.20 Pulmonary hypertension, unspecified Maryan Magallanes M.D. 11/22/2018 I27.20 Pulmonary hypertension, unspecified Traveling ECHO 2 11/22/2018 I10 Essential (primary) hypertension Traveling ECHO 2 11/22/2018 R07.9 Chest pain, unspecified Traveling ECHO 2 11/16/2018 K42.9 Umbilical hernia without obstruction Bob Romo MD, FACS or gangrene 11/15/2018 Z01.818 Encounter for other preprocedural Janie Mccullough M.D. 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 factor of multiple site 11/15/2018 Z79.52 senior living (current) use of systemic Janie Mccullough M.D. steroids 11/15/2018 I10 Essential (primary) hypertension Janie Mccullough M.D. 11/15/2018 R07.9 Chest pain, unspecified Janie Mccullough M.D. 11/15/2018 R21 Rash and other nonspecific skin Janie Mccullough M.D. 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 factor of multiple site 10/05/2018 M16.11 Unilateral primary osteoarthritis, Nain Scott M.D. right hip 10/05/2018 Z79.899 Other mcc (current) drug therapy Nain Scott M.D. 10/05/2018 M21.061 Valgus deformity, not elsewhere Nain Scott M.D. classified, right knee 09/24/2018 K42.9 Umbilical hernia without obstruction Bob Romo MD, FACS or gangrene 09/12/2018 M25.561 Pain in right knee Mary Covarrubias M.D. 09/12/2018 M17.11 Unilateral primary osteoarthritisMary M.D. right knee 09/12/2018 M21.061 Valgus deformity, not elsewhere Mary Covarrubias M.D. 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 factor of multiple site 09/07/2018 M25.561 Pain in right knee Mary Covarrubias M.D. 09/07/2018 M25.562 Pain in left knee Mary Covarrubias M.D. 09/07/2018 M17.11 Unilateral primary osteoarthritisMary M.D. right knee 09/07/2018 M25.551 Pain in right hip Mary Covarrubias M.D. 09/07/2018 M16.11 Unilateral primary osteoarthritisMary M.D. right hip 09/07/2018 M21.061 Valgus deformity, not elsewhere Mary Covarrubias M.D. 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 factor of multiple site 08/23/2018 Z79.899 Other termite control representative (current) drug therapy Nain Scott M.D. 08/23/2018 [...] factor of multiple site 06/19/2018 Z79.899 Other mcc (current) drug therapy Nain Scott M.D. 06/19/2018 M25.551 Pain in right hip Nain Scott M.D. 06/19/2018 M54.5 Low back pain Nain Scott M.D. 06/19/2018 M25.561 Pain in right knee Nain Scott M.D. 06/19/2018 M25.512 Pain in left shoulder Nain Scott M.D. Plan of Treatment Future Appointment(s):01/16/2019 9:45 am - Mary Covarrubias M.D. at [facility]01/18/2019 11:20 am - Nain Scott M.D. at [facility]02/25/2019 2:20 pm - Janie Mccullough M.D. at [facility] Internal Medicine - [facility]12/18/2018 - Janie Mccullough M.D.R00.0 Tachycardia, unspecifiedComments:We will call you with blood test ppwcagsF05.9 Hematuria, unspecifiedReferral:Gopal Hawkins MD, Urology Functional Status Description No Information Available Mental Status Description No Information Available Referrals Refer to Dr Reason for Referral Status Appt Date Gopal Hawkins MD Created [address] [place] [address] [place] [address] [phone] Basil Schwartz MD Sent 09/24/[address] [place] [address] [place] [address] [phone] Mary Covarrubias M.D. Please eval patient with severe Osteoarthritis of Sent 09/07/2018 the knee [address] [place] [phone] Dominic Tan MD Please evaluate persistent AC joint pain and Sent arthritis in patient with RA; refractory to cortisone and PT [address] [facility] [place] [address] [place] [phone] [phone]
--- OUTSIDE RECORDS SUMMARY | 2018-12-28 14:47 | XMS REPORT ---
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 knee joint Pain frequent Pain Mgmt Resolve 2018-022018-12-20 Aracely pain d 02-06 16:15:00 (Shirin) 09:20: Diehl 00 [id number] Cardio edema Cardiovasc Resolve 2018-022018-12-20 Aracely ular d 02-06 16:15:00 (Shirin) 09:20: Diehl 00 [id number] Respiratory dyspnea Respirator Resolve 2018-022018-12-20 Aracely present y d 02-06 16:15:00 (Shirin) 09:20: Diehl 00 [id number] Integument surgical Integument Resolve 2018-022018-12-20 Aracely wound d 02-06 16:15:00 (Shirin) present 09:20: Diehl 00 [id number] Integument skin Integument Resolve 2018-022018-12-20 Aracely integrity d 02-06 16:15:00 (Shirin) risk 09:20: Diehl 00 [id number] Elimination urinary Eliminatio Resolve 2018-022018-12-20 Aracely incontinenc n d 02-06 16:15:00 (Shirin) e 09:20: Diehl 00 [id number] Neuro confusion Neuro/Emot Resolve 2018-022018-12-20 Aracely present ion d 02-06 16:15:00 (Shirin) 09:20: Diehl 00 [id number] Activity ADL Activity Resolve 2018-022018-12-20 Aracely assistance d 02-06 16:15:00 (Shirin) required 09:20: Diehl 00 [id number] Activity self-care Activity Resolve 2018-022018-12-20 Aracely deficit d 02-06 16:15:00 (Shirin) 09:20: Diehl 00 [id number] Safety risk for Safety Resolve 2018-022018-12-20 Aracely hospitaliza d 02-06 16:15:00 (Shirin) tion 09:20: Diehl [id number] Safety fall risk Safety Resolve 2018-022018-12-20 Aracely factor d 02-06 16:15:00 (Shirin) present 09:20: Diehl [id number] Safety can be left Safety Resolve 2018-022018-12-20 Aracely alone for d 02-06 16:15:00 (Shirin) only short 09:20: Diehl 00 [id number] Medication oral med Meds Resolve 2018-022018-12-20 Aracely assistance d 02-06 16:15:00 (Shirin) required 09:20: Diehl [id number] Musculoskel transfer Musculoske Resolve 2018-022018-12-12 Aracely etal assistance letal d 02-06 10:04:00 (Shirin) required 09:20: Diehl [id number] Pain knowledge/s Pain Mgmt Resolve 2018-022018-12-12 Ingrid kill d 02-06 10:04:00 Foley PT deficit: pt 14:40: [id number] Safety knowledge/s Safety Resolve 2018-022018-12-20 Ingrid kill d 02-06 16:15:00 Foley PT deficit: pt 14:40: [id number] Safety knowledge/s Safety Resolve 2018-022018-12-20 Ingrid kill d 02-06 16:15:00 Foley PT deficit: cg 14:40: [id number] 00 Bed mobility/tr PT/OT: Bed Resolve 2018-022018-12-20 Ingrid Mobility/Tr ansfer Mobility/T d 02-06 16:15:00 Foley PT ansfer device ransfer 14:40: [id number] present 00 Bed transfer PT/OT: Bed Resolve 2018-022018-12-20 Ingrid Mobility/Tr deficit: Mobility/T d 02-06 16:15:00 Foley PT ansfer sit/stand ransfer 14:40: [id number] 00 Bed transfer PT/OT: Bed Resolve 2018-022018-12-20 Ingrid Mobility/Tr deficit: Mobility/T d 02-06 16:15:00 Foley PT ansfer shower/tub ransfer 14:40: [id number] 00 Bed transfer PT/OT: Bed Resolve 2018-022018-12-20 Ingrid Mobility/Tr deficit: Mobility/T d 02-06 16:15:00 Foley PT ansfer vehicle ransfer 14:40: [id number] 00 Bed knowledge/s PT/OT: Bed Resolve 2018-022018-12-20 Ingrid Mobility/Tr kill Mobility/T d 02-06 16:15:00 Foley PT ansfer deficit: pt ransfer 14:40: [id number] 00 Environment environment PT/OT: Resolve 2018-022018-12-20 Ingrid al al access Environmen d 02-06 16:15:00 Foley PT deficit t 14:40: [id number] Environment knowledge/s PT/OT: Resolve 2018-022018-12-20 Ingrid al kill Environmen d 02-06 16:15:00 Foley PT deficit: pt t 14:40: [id number] 00 Gait/Locomo gait PT/OT: Resolve 2018-022018-12-10 Ingrid tion assistive Gait/Locom d 02-06 14:05:00 Foley PT problems device otion 14:40: [id number] present 00 Gait/Locomo knowledge/s PT/OT: Resolve 2018-022018-12-10 Ingrid tion kill Gait/Locom d 02-06 14:05:00 Foley PT problems deficit: pt otion 14:40: [id number] Gait/Locomo knowledge/s PT/OT: Resolve 2018-022018-12-10 Ingrid tion kill Gait/Locom d 02-06 14:05:00 Foley PT problems deficit: cg otion 14:40: [id number] 00 Gait/Locomo gait PT/OT: Resolve 2018-022018-12-10 Ingrid tion deficit Gait/Locom d 02-06 14:05:00 Foley PT problems otion 14:40: [id number] 00 Endo/George anti-coagul Endo/George Resolve 2018-022018-12-12 Tessa ation d 02-11 10:04:00 Parekh therapy 10:04: 00 Musculoskel requires Musculoske Resolve 2018-022018-12-12 Tessa etal human letal d 02-11 10:04:00 Parekh assist to 10:04: leave home 00 Musculoskel transfer Musculoske Resolve 2018-022018-12-20 Ingrid etal assistance letal d 02-16 16:15:00 Foley PT required 10:30: [id number] 00 Allergies, Adverse Reactions, Alerts Allergy Name [...]
--- OUTSIDE RECORDS SUMMARY | 2018-12-28 14:47 | XMS REPORT ---
:1945 Author Organization [facility] Care Team Providers Name Role Phone Unavailable Unavailable Unavailable Problems Condition Condition Condition Status Onset Resolution Last Treating Comments Name Details Category Date Date Treatment Clinician Date Presence of Presence of Diagnosis Active 2018-02 Ingrid right right 0-31 Foley PT artificial artificial [id number] knee joint knee joint Pain frequent Pain Mgmt Resolve 2018-022018-12-20 Aracely pain d 02-06 16:15:00 (Shirin) 09:20: Diehl 00 [id number] Cardio edema Cardiovasc Resolve 2018-022018-12-20 Aracely ular d 02-06 16:15:00 (Shirin) 09:20: Diehl 00 [id number] Respiratory dyspnea Respirator Resolve 2018-022018-12-20 Aracely present y d 02-06 16:15:00 (Shirin) 09:20: Diehl 00 [id number] Integument surgical Integument Resolve 2018-022018-12-20 Aracely wound d 02-06 16:15:00 (Shirin) present 09:20: Diehl 00 [id number] Integument skin Integument Resolve 2018-022018-12-20 Aracely integrity d 02-06 16:15:00 (Shirin) risk 09:20: Diehl 00 [id number] Elimination urinary Eliminatio Resolve 2018-022018-12-20 Aracely incontinenc n d 02-06 16:15:00 (Shirin) e 09:20: Diehl 00 [id number] Neuro confusion Neuro/Emot Resolve 2018-022018-12-20 Aracely present ion d 02-06 16:15:00 (Shirin) 09:20: Diehl 00 [id number] Activity ADL Activity Resolve 2018-022018-12-20 Aracely assistance d 02-06 16:15:00 (Shirin) required 09:20: Diehl 00 [id number] Activity self-care Activity Resolve 2018-022018-12-20 Aracely deficit d 02-06 16:15:00 (Shirin) 09:20: Diehl 00 [id number] Safety risk for Safety Resolve 2018-022018-12-20 Aracely hospitaliza d 02-06 16:15:00 (Shirin) tion 09:20: Diehl [id number] Safety fall risk Safety Resolve 2018-022018-12-20 Aracely factor d 02-06 16:15:00 (Shirin) present 09:20: Diehl [id number] Safety can be left Safety Resolve 2018-022018-12-20 Aracely alone for d 02-06 16:15:00 (Shirin) only short 09:20: Diehl 00 [id number] Medication oral med Meds Resolve 2018-022018-12-20 Aracely assistance d 02-06 16:15:00 (Shirin) required 09:20: Diehl [id number] Musculoskel transfer Musculoske Resolve 2018-022018-12-12 Aracely etal assistance letal d 02-06 10:04:00 (Shirin) required 09:20: Diehl [id number] Pain knowledge/s Pain Mgmt Resolve 2018-022018-12-12 Ingrid kill d 02-06 10:04:00 Foely PT deficit: pt 14:40: [id number] 00 Safety knowledge/s Safety Resolve 2018-022018-12-20 Ingrid kill d 02-06 16:15:00 Foley PT deficit: pt 14:40: [id number] 00 Safety knowledge/s Safety Resolve 2018-022018-12-20 Ingrid kill d 02-06 16:15:00 Foley PT deficit: cg 14:40: [id number] 00 Bed mobility/tr PT/OT: Bed Resolve 2018-022018-12-20 Ingrid Mobility/Tr ansfer Mobility/T d 02-06 16:15:00 Foley PT ansfer device ransfer 14:40: [id number] present 00 Bed transfer PT/OT: Bed Resolve 2018-022018-12-20 Ingrid Mobility/Tr deficit: Mobility/T d 02-06 16:15:00 Foley PT ansfer sit/stand ransfer 14:40: [id number] 00 Bed transfer PT/OT: Bed Resolve 2018-022018-12-20 Ingrid Mobility/Tr deficit: Mobility/T d 02-06 16:15:00 Foley PT ansfer shower/tub ransfer 14:40: [id number] 00 Bed transfer PT/OT: Bed Resolve 2018-022018-12-20 Ingrid Mobility/Tr deficit: Mobility/T d 02-06 16:15:00 Foley PT ansfer vehicle ransfer 14:40: [id number] 00 Bed knowledge/s PT/OT: Bed Resolve 2018-022018-12-20 Ingrid Mobility/Tr kill Mobility/T d 02-06 16:15:00 Foley PT ansfer deficit: pt ransfer 14:40: [id number] 00 Environment environment PT/OT: Resolve 2018-022018-12-20 Ingrid al al access Environmen d 02-06 16:15:00 Foley PT deficit t 14:40: [id number] Environment knowledge/s PT/OT: Resolve 2018-022018-12-20 Ingrid al kill Environmen d 02-06 16:15:00 Foley PT deficit: pt t 14:40: [id number] 00 Gait/Locomo gait PT/OT: Resolve 2018-022018-12-10 Ingrid tion assistive Gait/Locom d 02-06 14:05:00 Foley PT problems device otion 14:40: [id number] present 00 Gait/Locomo knowledge/s PT/OT: Resolve 2018-022018-12-10 Ingrid tion kill Gait/Locom d 02-06 14:05:00 Foley PT problems deficit: pt otion 14:40: [id number] 00 Gait/Locomo knowledge/s PT/OT: Resolve 2018-022018-12-10 Ingrid tion kill Gait/Locom d 02-06 14:05:00 Foley PT problems deficit: cg otion 14:40: [id number] 00 Gait/Locomo gait PT/OT: Resolve 2018-022018-12-10 Ingrid tion deficit Gait/Locom d 02-06 14:05:00 Foley PT problems otion 14:40: [id number] 00 Endo/George anti-coagul Endo/George Resolve 2018-022018-12-12 Tessa ation d 02-11 10:04:00 Parekh therapy 10:04: 00 Musculoskel requires Musculoske Resolve 2018-022018-12-12 Tessa etal human letal d 02-11 10:04:00 Parekh assist to 10:04: leave home 00 Musculoskel transfer Musculoske Resolve 2018-022018-12-20 Ingrid etal assistance letal d 02-16 16:15:00 Foley PT required 10:30: [id number] 00 Allergies, Adverse Reactions, Alerts Allergy Name [...]
--- OUTSIDE RECORDS SUMMARY | 2018-12-28 14:47 | XMS REPORT | Continuity of Care Document ---
:1945 External Reference #:[id number] Author Name Mary Covarrubias M.D. (transmitted by agent of provider Hope Parekh) Address [address] [place] [address] Care Team Providers Name Role Phone Janie Mccullough MD - Internal Care Team Information [employer] Manager [phone] Medicine Problems Active Problems Provider Date Rheumatoid [...] Bakari Haines M.D. Onset: 09/11/2014 Essential hypertension Jaine Mccullough M.D. Onset: 11/06/2014 Long-term current use of systemic steroid Bakari Haines M.D. Onset: 2015 Localized, primary osteoarthritis of the Dominic Tan MD Onset: 07/10/2018 shoulder region Rheumatoid arthritis Dominic Tan MD Onset: 07/10/2018 Localized, primary osteoarthritis Mary Coavrrubias M.D. Onset: 09/07/2018 Localized, primary osteoarthritis of [...] Use Denies Drug Use Smoking Status Reviewed: 12/14/18 Patient is a former social smoking in [...] 3 M.D. weeks after your upcoming surgery Valacyclovir HCL 1 PO tid x 1 21tabs B02.9 Janie Mccullough, 11/15/2018 1gm week M.D. Tablets Hydrocodone-Acetamino 1 - 2 tabs by 60tabs Enrrique Dumont MD 10/19/2018 phen mouth every 4-6 5-325mg Tablets hours as needed for pain Simvastatin 1 by mouth every 90tabs E78.4 Janie Mccullough, 06/12/2018 20mg day at bedtime M.D. Tablets Alprazolam 1 tablet three 90tabs Janie Mccullough, 05/02/2018 0.5mg times a day as M.D. Tablets needed anxiety Prednisone 15 mg x 4 days, 90tabs Z79.52 Nain Scott, 03/19/2018 5mg Tablets 10 mg x 4 days, M.D. then 5 mg daily Metoprolol Succinate 1/2 [...] Medications Hydrocodone-Acetaminophen take one by mouth 30tabs [place] 10/05/2018 - 7.5-325mg twice daily as Tyler, 10/19/2018 Tablets needed for pain M.D. Actemra inject 162 mg 4units Nain 09/04/2018 - 162mg/0.9ML Soln Prefill subcutaneously Tyler, 11/30/2018 Syringe every other week On M.D. Hold Actemra inject 162 mg 4units M05. Nain [...] Nain 07/03/2018 - 500mg Tablets capsule/tablet by Tlyer, 07/25/2018 mouth twice daily M.D. as needed for pain, please stop other nsaids Celebrex take one 30caps [place] 06/19/2018 - 200mg Capsules capsule/tablet Tyler, 07/03/2018 daily by mouth as M.D. needed for pain, avoid ibuprofen and other nsaids Medications Administered in Office Medication SIG Qnty Indications Ordering Provider Date Triamcinolone (Kenalog) Dominic Tan MD 10/09/2018 Injection Triamcinolone (Kenalog) Nain Sctot M.D. 08/23/2018 Injection Triamcinolone (Kenalog) Nain Scott M.D. 08/23/2018 Injection Triamcinolone (Kenalog) Dominic Tan MD 06/26/2018 Injection Triamcinolone (Kenalog) Nain Scott M.D. 04/09/2018 Injection Triamcinolone (Kenalog) Nain Scott M.D. 10/03/2017 Injection Triamcinolone (Kenalog) Nain Scott M.D. 08/07/2017 Injection PPD Gale Zhang M.D. 04/19/2011 Injection Immunizations CPT Code Status Date Vaccine Reaction Lot # [id number] Given 11/13/2017 Influenza Virus Vaccine, Quadrivalent, Split, Preservative Free 31041 Given 11/03/2016 Influenza Virus Vaccine, No immediate reaction [id number] Quadrivalent, Split, Preservative Free 87123 Given 11/03/2015 Influenza Virus Vaccine, [id number] Quadrivalent, Split, Preservative Free 71230 Given 11/20/2014 Influenza Virus Vaccine, [id number] Quadrivalent, Split, Preservative Free 95367 Given 04/17/2014 Pneumococcal Conjugate [id number] Vaccine 13 Valent For Intramuscular Use 32473 Given 11/14/2013 Influenza Virus Vaccine, [id number] Quadrivalent, Split, Preservative Free 47366 Given 10/31/2012 Flu Vaccine Split Virus [id number] Preservative Free For Indiv 3Yr Older 99069 Given 08/07/2012 Pneumonia Vaccine [id number] Q2038 Given 11/22/2011 Fluzone Vaccine [id number] 47954 Given 10/26/2010 Influenza Virus 3Yrs & Over 52071 Given 10/26/2010 Influenza Virus 3Yrs & [id number] Over 80593 Given 12/07/2004 Pneumovax (History By 1381u Patient) 04838 Given 12/07/2004 Td (History By Patient) Vital Signs Date Vital Result Comment 12/14/2018 10:30am Height 62 inches 5'2" Weight 133.00 lb Heart Rate 135 /min BP Systolic 118 mmHg BP Diastolic 84 mmHg Respiratory Rate 16 /min Body Temperature 99.4 F Pain Level 4 BMI (Body Mass Index) 24.3 kg/m2 11/26/2018 9:50am Height 62 inches 5'2" Weight 133.00 lb Heart Rate 89 /min BP Systolic 132 mmHg BP Diastolic 70 mmHg Body Temperature 99.0 F Pain Level 7 BMI (Body Mass Index) 24.3 kg/m2 Results Test Acquired Date Facility Test Result H/L Range Note Type & Screen 11/26/2018 [facility] Patient Blood O Positive [address] [place] [address] [phone] Antibody Screen NEGATIVE Urinalysis Profile 11/16/2018 [facility] Urine Color Yellow [address] [place] [address] [phone] Urine Appearance Clear Urine Specific [place] 1.012 Normal 1.010-1.030 Urine pH 7.0 Normal 5-9 Urine Urobilinogen Negative Negative Urine Ketones Negative Negative Urine Protein Negative Negative Urine Leukocytes Negative Negative Urine Blood 2+ Abnormal Negative Urine Nitrite Negative Negative Urine Bilirubin Negative Negative Urine Glucose Negative Negative Urine White Blood Cell Trace(0-5/hpf) Absent Urine Red Blood Cell 1+(3-5/hpf) Abnormal Absent Urine Bacteria Absent Absent CBC Auto 11/16/2018 [facility] White Blood 9.9 10^3/uL Normal 3.5-10.[address] [place] [address] [phone] Red Blood Count 4.24 10^6/uL Normal 3.70-4.87 [...] Blood Cells % 0.0 Comp Metabolic 11/16/2018 [facility] Sodium 137 mmol/L Normal 135-[address] [place] [address] [phone] Potassium 3.7 mmol/L Normal 3.5-5.0 Chloride 97 [...] >60 Egfr 121.2 >60 2 Inr/Protime 11/16/2018 [facility] Inr 0.95 Normal 0.82-1.[address] [place] [address] [phone] Laboratory test 11/16/2018 [facility] Partial 30.4 Normal 26.0 -38.[address] [place] [address] Time PTT [phone] Urine Culture And 11/16/2018 [facility] Urine SEE RESULT [address] [place] [place] [address] [phone] Laboratory test 10/03/2018 [facility] Vitamin D 75.7 ng/mL High 20-50 [address] [place] [address] 25(Oh) [phone] Comp Metabolic 10/03/2018 [facility] Sodium 140 mmol/L Normal 135-[address] [place] [address] [phone] Potassium 3.5 mmol/L Normal 3.5-5.0 Chloride 104 [...] Egfr 108.4 >60 6 CBC Auto 10/03/2018 [facility] White Blood 4.3 10^3/uL Normal 3.5-10.[address] [place] [address] [phone] Red Blood Count 4.54 10^6/uL Normal 3.70-4.87 [...] Blood Cells % 0.0 Lipid Profile 10/03/2018 [facility] Triglycerides 135 mg/dL 7 (Trig/Chol/HDL) [address] [place] [address] [phone] Cholesterol 208 mg/dL 8 HDL Cholesterol 73.3 mg/dL 9 LDL Cholesterol 108 mg/dL 10 Laboratory test 10/03/2018 [facility] Erythrocyte Sed 7 mm/Hr Normal 0-29 [address] [place] [address] [phone] C Reactive Protein < 1.00 mg/L Normal <8.01 12 Lipid Profile 08/21/2018 [facility] Triglycerides 94 mg/dL 13 (Trig/Chol/HDL) [address] [place] [address] [phone] Cholesterol 218 mg/dL 14 HDL Cholesterol 81.1 mg/dL 15 LDL Cholesterol 118 mg/dL 16 Laboratory test 08/21/2018 [facility] Vitamin D 94.4 High 20- 50 [address] Total 25(Oh) ng/[place] [address] [phone] CBC Auto Diff 08/21/2018 [facility] White Blood 4.9 Normal 3.5 -10.[address] Count 10^3/[place] [address] [phone] Red Blood Count 4.44 10^6/uL Normal 3.70-4.87 [...] Blood Cells % 0.0 Comp Metabolic 08/21/2018 [facility] Sodium 141 mmol/L Normal 135-[address] [place] [address] [phone] Potassium 3.5 mmol/L Normal 3.5-5.0 Chloride 102 [...] Egfr Non- 79.6 >60 Egfr 96.3 >60 18 Laboratory test 08/21/2018 [facility] Erythrocyte Sed 16 mm/Hr Normal 0-29 [address] [place] [address] [phone] C Reactive Protein 2.09 mg/L Normal <8.01 20 1 PAIN IN RIGHT KNEE, UNILATERAL [...] 2.5-3.5 4 SEE RESULT BELOW Name: MEMEBRAYAN : [address]: Janie Mccullough MD Acct: [id number] Unit: [id number] AGE: 73 Location: LAB Re11/16/18 SEX: F Status: REG REF SPEC: [id number] JEREMY: 11/16/[address]: Janie Mccullough MD REQ: [id number] RECD: 11/16/18539 STATUS: COMP _ SOURCE: URINE SPDESC: ORDERED: Urine Culture Procedure Result Reported Site Urine Culture Final 11/18/18- 08 ML No growth of clinically significant organisms * ML - Main Lab . END OF REPORT DEPARTMENT OF PATHOLOGY, [address] [place] [address] Jacob Keys M.D. Director [facility] # [id number] 5 Total 25-Hydroxyvitamin D2 and D3 (25-OH-VitD) [...] labs 2 days before follow up 13 Desirable: <150 Borderline High: 150-199 High: 200-499 Very High: >500 14 Desirable: <200 Borderline High: 200-239 High: >239 15 Low: <40 Desirable: 40-60 High: >60 16 Desirable: <100 Near Optimal: 100-129 Borderline High: 130-159 High: 160-189 Very High: >189 17 Total 25-Hydroxyvitamin D2 and D3 (25-OH-VitD) <10 ng/mL (severe deficiency) 10-19 ng/mL (mild to moderate deficiency) 20-50 ng/mL (optimum levels) 51-80 ng/mL (increased risk of hypercalciuria) >80 ng/mL (toxicity possible) 18 Because ethnic data is not always readily [...] 15-29 5 Kidney failure <15 (or dialysis) 19 S/O Q12 WEEKS PRN ORDERED 07/30/18 EXPIRES 01/29/19 20 S/O Q12 WEEKS PRN ORDERED 07/30/18 EXPIRES 01/29/19 Procedures Date Code Description Status 12/04/2018 26250 TKR Total Knee Replacement Completed 12/04/2018 42590 TKR Total Knee Replacement Completed 11/22/2018 11278 ECHO Transthoracic, Real-Time 2D With Doppler And Completed Color Flow 11/22/2018 64485 ECHO Transthoracic, Real-Time 2D With Doppler And Completed Color Flow 11/15/2018 08803 EKG Tracing & Interpretation Completed 10/17/2018 63417 Repair Hernia Umbilical > 5 Yrs, Reducible Completed 10/17/2018 37861 Repair Hernia Umbilical > 5 Yrs, Reducible Completed 10/09/2018 53211 Inject/Drain Joint/Bursa Major W/O US Completed 08/23/2018 95559 Inject/Drain Joint/Bursa Major W/O US Completed 06/26/2018 71389 Inject/Drain Joint/Bursa Major W/O US Completed 02/12/2018 59001808 Mammogram Completed 06/20/2017 510835888 Bone Mineral Density Test Completed 02/10/2017 40054838 Mammogram Completed 02/05/2016 66232551 Mammogram Completed 12/03/2015 64053412 Colonoscopy Completed 05/04/2015 504108462 Bone Mineral Density Test Completed 02/03/2015 22219021 Mammogram Completed 10/15/2014 74609790 Mammogram Completed 10/14/2013 72287579 Mammogram Completed 04/30/2013 458043725 Bone Mineral Density Test Completed 10/12/2012 55295862 Mammogram Completed 10/11/2011 82092878 Mammogram Completed 10/06/2010 54683275 Mammogram Completed 05/17/2010 678223616 Bone Mineral Density Test Completed Medical Devices Description No Information Available Encounters Type Date Location Provider Dx Diagnosis Office Visit 12/05/2018 [facility] Sandrita Russ, M06.9 Rheumatoid 9:11a Assoc,pc CLERK OF COURT arthritis, Hospitalists unspecified I10 Essential (primary) hypertension F41.9 Anxiety disorder, unspecified E87.6 Hypokalemia E78.5 Hyperlipidemia, unspecified Office Visit 12/04/2018 [facility] Sandrita Russ, M06.9 Rheumatoid 9:11a Assoc,pc CLERK OF COURT arthritis, Hospitalists unspecified M25.512 Pain in left shoulder E87.6 Hypokalemia I10 Essential (primary) hypertension E78.5 Hyperlipidemia, unspecified F41.9 Anxiety disorder, unspecified M35.00 Sicca syndrome, unspecified Office Visit 11/15/2018 [facility] Internal Janie Z01.818 Encounter for other 10:20a Medicine - Cotton, M.D. preprocedural [facility] examination M05.79 Rheu arthritis w rheu factor mult site w/o org/sys involv Z79.52 snf (current) use of systemic steroids I10 Essential (primary) hypertension R07.9 Chest pain, unspecified R21 Rash and other nonspecific skin eruption Office Visit 10/05/2018 12:40p Rheumatology Nain Scott, M05.79 [facility] Janice w rheu factor mult site w/o org/sys involv M16.11 Unilateral primary osteoarthritis, right hip Z79.899 Other terminal supervisor (current) drug therapy M21.061 Valgus deformity, not elsewhere classified, right knee Office Visit 09/24/2018 1:00p Surgical Bob Mackey K42.9 [facility] MD Demetrius, without FACS obstruction or gangrene Office Visit 09/07/2018 8:00a [facility] Mary Covarrubias, M05.79 Rheu arthritis w [...] Nain Scott M05.79 [facility] Janice w rheu factor mult site w/o org/sys involv Z79.899 Other terminal supervisor (current) drug therapy M25.551 Pain in right hip M25.561 Pain in right knee Office Visit 07/30/2018 9:00a [facility] Internal Janie R19.00 Intra-abd and Medicine - [facility] Janice Mccullough pelvic swelling, mass and lump, unsp site Office Visit 07/10/2018 9:30a Essence Tan M19.012 [facility] at osteoarthritis, [place] left shoulder M06.9 Rheumatoid arthritis, unspecified Office Visit 06/26/2018 10:30a [facility] Dominic Tan M25.512 Pain in left at [place] MD shoulder M19.012 Primary osteoarthritis, left shoulder M06.9 Rheumatoid arthritis, unspecified Office Visit 06/19/2018 1:40p Rheumatology Nain Shahdor, M05.79 [facility] w jacob factor mult site w/o org/sys involv Z79.899 Other halfway (current) drug therapy M25.551 Pain in right hip M54.5 Low back pain M25.561 Pain in right knee M25.512 Pain in left shoulder Assessments Date Code Description Provider 12/14/2018 Z96.651 Presence of right artificial knee Mary Covarrubias M.D. joint 12/14/2018 Z47.1 Aftercare following joint replacement Mary Covarrubias M.D. surgery 12/05/2018 M06.9 Rheumatoid arthritis, unspecified Sandrita Russ, CLERK OF COURT 12/05/2018 I10 Essential (primary) hypertension Sadnrita Russ, CLERK OF COURT 12/05/2018 F41.9 Anxiety disorder, unspecified Sandrita Russ, CLERK OF COURT 12/05/2018 E87.6 Hypokalemia Sandrita Russ, CLERK OF COURT 12/05/2018 E78.5 Hyperlipidemia, unspecified Sandrita Russ, CLERK OF COURT 12/04/2018 M17.11 Unilateral primary osteoarthritis, ELSA Banegas right knee 12/04/2018 M17.11 Unilateral primary osteoarthritis, Mary Covarrubias M.D. right knee 12/04/2018 M06.9 Rheumatoid arthritis, unspecified Sandrita Russ, CLERK OF COURT 12/04/2018 M25.512 Pain in left shoulder Sandrita Russ, CLERK OF COURT 12/04/2018 E87.6 Hypokalemia Sandrita Russ, CLERK OF COURT 12/04/2018 I10 Essential (primary) hypertension Sandrita Russ, CLERK OF COURT 12/04/2018 E78.5 Hyperlipidemia, unspecified Sandrita Russ, CLERK OF COURT 12/04/2018 F41.9 Anxiety disorder, unspecified Sandrita Russ, CLERK OF COURT 12/04/2018 M35.00 Sicca syndrome, unspecified Sandrita Russ, CLERK OF COURT 11/26/2018 M25.461 Effusion, right knee Mary Covarrubias [...] M.D. factor of multiple site 11/15/2018 Z79.52 snf (current) use of systemic Janie Mccullough M.D. steroids 11/15/2018 I10 Essential (primary) hypertension Janie Mccullough M.D. 11/15/2018 R07.9 Chest pain, unspecified Janie Mccullough M.D. 11/15/2018 R21 Rash and other nonspecific skin Janie Mccullough M.D. eruption 10/26/2018 K42.9 Umbilical hernia without obstruction Bob Romo MD, FACS or gangrene 10/17/2018 K42.9 Umbilical hernia without obstruction Carine Turner NP or gangrene 10/17/2018 K42.9 Umbilical hernia without obstruction Bob Romo MD, FACS or gangrene 10/15/2018 K42.9 Umbilical hernia without [...] Scott M.D. right hip 10/05/2018 Z79.899 Other terminal supervisor (current) drug therapy Nain Scott M.D. [...] factor of multiple site 08/23/2018 Z79.899 Other terminal supervisor (current) drug therapy Nain Scott M.D. [...] factor of multiple site 06/19/2018 Z79.899 Other terminal supervisor (current) drug therapy Nain Scott M.D. 06/19/2018 M25.551 Pain in right hip Nain Scott M.D. 06/19/2018 M54.5 Low back pain Nain Scott M.D. 06/19/2018 M25.561 Pain in right knee Nain Scott M.D. 06/19/2018 M25.512 Pain in left shoulder Nain Scott M.D. Plan of Treatment Future Appointment(s):01/16/2019 9:45 am - Mary Covarrubias M.D. at [facility] at [place]1701/18/2019 11:20 am - Nain Scott M.D. at [facility]02/25/2019 2:20 pm - Janie Mccullough M.D. at [facility] Internal Medicine - [facility]12/14/2018 - Mary Covarrubias M.D.Z96.651 Presence of right artificial knee jointNew Therapy:Physical TherapyFollow up:Follow up: 4 rzqcyU91.1 Aftercare following joint replacement surgery Functional Status Description No Information Available Mental Status Description No Information Available Referrals Refer to Dr Reason for Referral Status Appt Date Basil Schwartz MD Sent 09/24/2018 [address] [facility] [place] [address] [phone] Mary Covarrubias M.D. Please eval patient with severe Osteoarthritis of Sent 09/07/2018 the knee [address] [place] [address] [phone] Dominic Tan MD Please evaluate persistent AC joint pain and Sent / arthritis in patient with RA; refractory to cortisone and PT [address] [place] [address] [phone]
--- OUTSIDE RECORDS SUMMARY | 2018-12-28 14:47 | XMS REPORT ---
:1945 Author Organization [facility] Care Team Providers Name Role Phone Unavailable Unavailable Unavailable Problems Condition Condition Condition Status Onset Resolution Last Treating Comments Name Details Category Date Date Treatment Clinician Date Aftercare Aftercare Diagnosis Active 2018-02 Ingrid following following 02-06 Foley PT joint joint [id number] replacement replacement surgery surgery Presence of Presence of Diagnosis Active 2018-02 Ingrid right right 02-06 Foley PT artificial artificial 811733 knee joint knee joint Encounter Encounter Diagnosis Active 2018-02 Ingrid for change for change 02-06 Foley PT or removal or removal [id number] of surgical of surgical wound wound dressing dressing Rheumatoid Rheumatoid Diagnosis Active 2018-02 Ingrid arthritis, arthritis, 02-06 Foley PT unspecified unspecified [id number] Essential Essential Diagnosis Active 2018-02 Ingrid (primary) (primary) 02-06 Foley PT hypertensio hypertensio 615623 n n E78.5 E78.5 Diagnosis Active 2018-02 Ingrid 02-06 Foley PT [id number] Pain frequent Pain Mgmt Resolve 2018-022018-12-20 Aracely pain d 02-06 16:15:00 (Shirin) 09:20: Diehl 00 [id number] Cardio edema Cardiovasc Resolve 2018-022018-12-20 Aracely ular d 02-06 16:15:00 (Shirin) 09:20: Diehl 00 [id number] Respiratory dyspnea Respirator Resolve 2018-022018-12-20 Aracely present y d 02-06 16:15:00 (Shirin) 09:20: Diehl 00 [id number] Integument surgical Integument Resolve 2018-022018-12-20 Aracely wound d 02-06 16:15:00 (Shirin) present 09:20: Diehl 00 [id number] Integument skin Integument Resolve 2018-022018-12-20 Aracely integrity d 02-06 16:15:00 (Shirin) risk 09:20: Diehl [id number] Elimination urinary Eliminatio Resolve 2018-022018-12-20 Aracely incontinenc n d 02-06 16:15:00 (Shirin) e 09:20: Diehl 00 [id number] Neuro confusion Neuro/Emot Resolve 2018-022018-12-20 Aracely present ion d 02-06 16:15:00 (Shirin) 09:20: Diehl [id number] Activity ADL Activity Resolve 2018-022018-12-20 Aracely assistance d 02-06 16:15:00 (Shirin) required 09:20: Diehl [id number] Activity self-care Activity Resolve 2018-022018-12-20 Aracely deficit d 02-06 16:15:00 (Shirin) 09:20: Diehl [id number] Safety risk for Safety Resolve 2018-022018-12-20 Aracely hospitaliza d 02-06 16:15:00 (Shirin) tion 09:20: Diehl [id number] Safety fall risk Safety Resolve 2018-022018-12-20 Aracely factor d 02-06 16:15:00 (Shirin) present 09:20: Diehl [id number] Safety can be left Safety Resolve 2018-022018-12-20 Aracely alone for d 02-06 16:15:00 (Shirin) only short 09:20: Diehl 00 [id number] Medication oral med Meds Resolve 2018-022018-12-20 Aracely assistance d 02-06 16:15:00 (Shirin) required 09:20: Diehl [id number] Musculoskel transfer Musculoske Resolve 2018-022018-12-12 Aracely etal assistance letal d 02-06 10:04:00 (Shirin) required 09:20: Diehl [id number] Pain knowledge/s Pain Mgmt Resolve 2018-022018-12-12 Ingrid kill d 02-06 10:04:00 Foley PT deficit: pt 14:40: [id number] Safety knowledge/s Safety Resolve 2018-022018-12-20 Ingrid kill d 02-06 16:15:00 Foley PT deficit: pt 14:40: [id number] Safety knowledge/s Safety Resolve 2018-022018-12-20 Ingrid kill d 02-06 16:15:00 Foley PT deficit: cg 14:40: [id number] 00 Bed mobility/tr PT/OT: Bed Resolve 2018-022018-12-20 Ingrid Mobility/Tr ansfer Mobility/T d 02-06 16:15:00 Foley PT ansfer device ransfer 14:40: [id number] present 00 Bed transfer PT/OT: Bed Resolve 2018-022018-12-20 Ingrid Mobility/Tr deficit: Mobility/T d 02-06 16:15:00 Foley PT ansfer sit/stand ransfer 14:40: [id number] 00 Bed transfer PT/OT: Bed Resolve 2018-022018-12-20 Ingrid Mobility/Tr deficit: Mobility/T d 02-06 16:15:00 Foley PT ansfer shower/tub ransfer 14:40: [id number] 00 Bed transfer PT/OT: Bed Resolve 2018-022018-12-20 Ingrid Mobility/Tr deficit: Mobility/T d 02-06 16:15:00 Foley PT ansfer vehicle ransfer 14:40: [id number] 00 Bed knowledge/s PT/OT: Bed Resolve 2018-022018-12-20 Ingrid Mobility/Tr kill Mobility/T d 02-06 16:15:00 Foley PT ansfer deficit: pt ransfer 14:40: [id number] 00 Environment environment PT/OT: Resolve 2018-022018-12-20 Ingrid al al access Environmen d 02-06 16:15:00 Foley PT deficit t 14:40: [id number] Environment knowledge/s PT/OT: Resolve 2018-022018-12-20 Ingrid al kill Environmen d 02-06 16:15:00 Foley PT deficit: pt t 14:40: [id number] 00 Gait/Locomo gait PT/OT: Resolve 2018-022018-12-10 Ingrid tion assistive Gait/Locom d 02-06 14:05:00 Foley PT problems device otion 14:40: [id number] present 00 Gait/Locomo knowledge/s PT/OT: Resolve 2018-022018-12-10 Ingrid tion kill Gait/Locom d 02-06 14:05:00 Foley PT problems deficit: pt otion 14:40: [id number] 00 Gait/Locomo knowledge/s PT/OT: Resolve 2018-022018-12-10 Ingrid tion kill Gait/Locom d 02-06 14:05:00 Foley PT problems deficit: cg otion 14:40: [id number] 00 Gait/Locomo gait PT/OT: Resolve 2018-022018-12-10 Ingrid tion deficit Gait/Locom d 02-06 14:05:00 Foley PT problems otion 14:40: [id number] Endo/George anti-coagul Endo/George Resolve 2018-022018-12-12 Tessa ation d 02-11 10:04:00 Parekh therapy 10:04: 00 Musculoskel requires Musculoske Resolve 2018-022018-12-12 Tessa etal human letal d 02-11 10:04:00 Parekh assist to 10:04: leave home 00 Musculoskel transfer Musculoske Resolve 2018-022018-12-20 Ingrid etal assistance letal d 02-16 16:15:00 Foley PT required 10:30: [id number] 00 Allergies, Adverse Reactions, Alerts Allergy Name [...]
--- OUTSIDE RECORDS SUMMARY | 2018-12-28 14:47 | XMS REPORT ---
:1945 Author Organization [facility] Care Team Providers Name Role Phone Unavailable Unavailable Unavailable Problems Condition Condition Condition Status Onset Resolution Last Treating Comments Name Details Category Date Date Treatment Clinician Date Presence of Presence of Diagnosis Active 2018-02 Ingrid right right 0-31 Foley PT artificial artificial [id number] knee joint knee joint Pain knowledge/s Pain Mgmt Resolve 2018-022018-12-12 Ingrid kill d 02-06 10:04:00 Foley PT deficit: pt 14:40: [id number] Safety knowledge/s Safety Active 2018-02 Ingrid kill 02-06 Foley PT deficit: pt 14:40: [id number] 00 Safety knowledge/s Safety Active 2018-02 Ingrid kill 02-06 Foley PT deficit: cg 14:40: [id number] 00 Bed mobility/tr PT/OT: Bed Active 2018-02 Ingrid Mobility/Tr ansfer Mobility/T - Foley PT ansfer device ransfer 14:40: [id number] present 00 Bed transfer PT/OT: Bed Active 2018-02 Ingrid Mobility/Tr deficit: Mobility/T - Foley PT ansfer sit/stand ransfer 14:40: [id number] 00 Bed transfer PT/OT: Bed Active 2018-02 Ingrid Mobility/Tr deficit: Mobility/T 1- Foley PT ansfer shower/tub ransfer 14:40: [id number] 00 Bed transfer PT/OT: Bed Active 2018-02 Ingrid Mobility/Tr deficit: Mobility/T 1- Foley PT ansfer vehicle ransfer 14:40: [id number] 00 Bed knowledge/s PT/OT: Bed Active 2018-02 Ingrid Mobility/Tr kill Mobility/T 02-06 Foley PT ansfer deficit: pt ransfer 14:40: [id number] 00 Environment environment PT/OT: Active 2018-02 Ingrid al al access Environmen 02-06 Foley PT deficit t 14:40: [id number] 00 Environment knowledge/s PT/OT: Active 2018-02 Ingrid al kill Environmen 02-06 Foley PT deficit: pt t 14:40: [id number] 00 Gait/Locomo gait PT/OT: Resolve 2018-022018-12-10 Ingrid tion assistive Gait/Locom d 02-06 14:05:00 Foley PT problems device otion 14:40: [id number] present 00 Gait/Locomo knowledge/s PT/OT: Resolve 2018-022018-12-10 Ingrid tion kill Gait/Locom d 02-06 14:05:00 Foley PT problems deficit: pt otion 14:40: [id number] 00 Gait/Locomo knowledge/s PT/OT: Resolve 2018-022018-12-10 Ingrid tion kill Gait/Locom d 02-06 14:05:00 Foley PT problems deficit: cg otion 14:40: [id number] 00 Gait/Locomo gait PT/OT: Resolve 2018-022018-12-10 Ingrid tion deficit Gait/Locom d 02-06 14:05:00 Foley PT problems otion 14:40: [id number] 00 Endo/George anti-coagul Endo/George Resolve 2018-022018-12-12 Tessa ation d 02-11 10:04:00 Parekh therapy 10:04: 00 Safety risk for Safety Active 2018-02 Tessa hospitaliza 02-11 Parekh tion 10:04: 00 Musculoskel requires Musculoske Resolve 2018-022018-12-12 Tessa etal human letal d 02-11 10:04:00 Parekh assist to 10:04: leave home 00 Allergies, Adverse Reactions, Alerts Allergy Name [...] Medication? Clinician (SIG) Name Name chlorthalid chlorthalid 2018-02 Yes Satish Unknown Unknown one 25 mg one 25 mg 02-06 Mary FUCHS tablet tablet ALPRAZolam ALPRAZolam 2018-02 Yes Satish Unknown Unknown 0.5 mg 0.5 mg 02-06 Mary FUCHS tablet tablet metoprolol metoprolol 2018-02 Yes Satish Unknown Unknown succinate succinate 02-06 Mary FUCHS ER 25 mg ER 25 mg tablet,exte tablet,exte nded nded release 24 release 24 hr hr potassium potassium 2018-02 Yes Satish Unknown Unknown chloride ER chloride ER 02-06 Mary FUCHS 20 mEq 20 mEq tablet,exte tablet,exte nded nded release(par release(par t/cryst) t/cryst) cycloSPORIN cycloSPORIN 2018-02 Yes Satish Unknown Unknown E 0.05 % E 0.05 % 02-06 Mary FUCHS eye drops eye drops atorvastati atorvastati 2018-02 Yes Satish Unknown Unknown n 20 mg n 20 mg 02-06 Mary FUCHS tablet tablet predniSONE predniSONE 2018-02 Yes Satish Unknown Unknown 5 mg tablet 5 mg tablet 02-06 Mary FUCHS Tums Ultra Tums Ultra 2018-02 Yes Satish Unknown Unknown 400 mg 400 mg 02-06 Mary FUCHS calcium calcium (1,000 mg) (1,000 mg) chewable chewable tablet tablet Acetaminoph Acetaminoph 2018-02 Yes Satish Unknown Unknown en Extra en Extra 02-06 Mary FUCHS Strength Strength 500 mg 500 mg tablet tablet apixaban apixaban 2018-02 Yes Satish Unknown Unknown 2.5 mg 2.5 mg 02-06 Mary FUCHS tablet tablet docusate docusate 2018-02 Yes Satish Unknown Unknown sodium 100 sodium 100 02-06 Mary FUCHS mg capsule mg capsule HYDROcodone HYDROcodone 2018-02 Yes Satish Unknown Unknown 5 5 02-06 Mary FUCHS mg-acetamin mg-acetamin ophen 325 ophen 325 mg tablet mg tablet Vital Signs Vital Name Observation Time Observation Value Comments SYSTOLIC mm[Hg] 2018-12-15 18:08:46 104 mm[Hg] mm[Hg] Method: Sit DIASTOLIC mm[Hg] 2018-12-15 18:08:46 84 mm[Hg] mm[Hg] Method: Sit PULSE 2018-12-15 18:08:46 111 /min /min RESP RATE 2018-12-12 18:08:43 18 /min /min TEMP 2018-12-15 18:08:46 99 [degF] Procedures This patient has no known procedures. Results This patient has no known results.
--- OUTSIDE RECORDS SUMMARY | 2018-12-28 14:47 | XMS REPORT ---
:1945 Author Organization [facility] Care Team Providers Name Role Phone Unavailable Unavailable Unavailable Problems Condition Condition Condition Status Onset Resolution Last Treating Comments Name Details Category Date Date Treatment Clinician Date Presence of Presence of Diagnosis Active 2018-02 Ingrid right right 0-31 Foley PT artificial artificial [id number] knee joint knee joint Pain frequent Pain Mgmt Active 2018-02 Aracely pain 02-06 (Shirin) 09:20: Diehl 00 [id number] Cardio edema Cardiovasc Active 2018-02 Aracely ular 02-06 (Shirin) 09:20: Diehl 00 [id number] Respiratory dyspnea Respirator Active 2018-02 Aracely present y 02-06 (Shirin) 09:20: Diehl 00 [id number] Integument surgical Integument Active 2018-02 Aracely wound 02-06 (Shirin) present 09:20: Diehl 00 [id number] Integument skin Integument Active 2018-02 Aracely integrity 02-06 (Shirin) risk 09:20: Diehl 00 [id number] Elimination urinary Eliminatio Active 2018-02 Aracely incontinenc n 02-06 (Shirin) e 09:20: Diehl 00 [id number] Neuro confusion Neuro/Emot Active 2018-02 Aracely present ion 02-06 (Shirin) 09:20: Diehl 00 [id number] Activity ADL Activity Active 2018-02 Aracely assistance 02-06 (Shirin) required 09:20: Diehl 00 [id number] Activity self-care Activity Active 2018-02 Aracely deficit 02-06 (Shirin) 09:20: Diehl 00 [id number] Safety risk for Safety Active 2018-02 Aracely hospitaliza 02-06 (Shirin) tion 09:20: Diehl 00 [id number] Safety fall risk Safety Active 2018-02 Aracely factor 02-06 (Shirin) present 09:20: Diehl 00 [id number] Safety can be left Safety Active 2018-02 Aracely alone for 02-06 (Shirin) only short 09:20: Diehl [id number] Medication oral med Meds Active 2018-02 Aracely assistance 02-06 (Shirin) required 09:20: [id number] Musculoskel transfer Musculoske Resolve 2018-022018-12-12 Aracely etal assistance letal d 02-06 10:04:00 (Shirin) required 09:20: [id number] Pain knowledge/s Pain Mgmt Resolve 2018-022018-12-12 Ingrid kill d 02-06 10:04:00 Foley PT deficit: pt 14:40: [id number] 00 Safety knowledge/s Safety Active 2018-02 Nigrid kill 02-06 Foley PT deficit: pt 14:40: [id number] 00 Safety knowledge/s Safety Active 2018-02 Ingrid kill 02-06 Foley PT deficit: cg 14:40: [id number] 00 Bed mobility/tr PT/OT: Bed Active 2018-02 Ingrid Mobility/Tr ansfer Mobility/T 02-06 Foley PT ansfer device ransfer 14:40: [id number] present 00 Bed transfer PT/OT: Bed Active 2018-02 Ingrid Mobility/Tr deficit: Mobility/T 02-06 Foley PT ansfer sit/stand ransfer 14:40: [id number] 00 Bed transfer PT/OT: Bed Active 2018-02 Ingrid Mobility/Tr deficit: Mobility/T 02-06 Foley PT ansfer shower/tub ransfer 14:40: [id number] 00 Bed transfer PT/OT: Bed Active 2018-02 Ingrid Mobility/Tr deficit: Mobility/T 02-06 Foley PT ansfer vehicle ransfer 14:40: [id number] 00 Bed knowledge/s PT/OT: Bed Active 2018-02 Ingrid Mobility/Tr kill Mobility/T 02-06 Foley PT ansfer deficit: pt ransfer 14:40: [id number] 00 Environment environment PT/OT: Active 2018-02 Ingrid al al access Environmen 02-06 Foley PT deficit t 14:40: [id number] 00 Environment knowledge/s PT/OT: Active 2018-02 Ingrid al kill Environmen 02-06 Foley PT deficit: pt t 14:40: [id number] 00 Gait/Locomo gait PT/OT: Resolve 2018-022018-12-10 Ingrid tion assistive Gait/Locom d 02-06 14:05:00 Foley PT problems device otion 14:40: [id number] present 00 Gait/Locomo knowledge/s PT/OT: Resolve 2018-022018-12-10 Ingrid tion kill Gait/Locom d 02-06 14:05:00 Foley PT problems deficit: pt otion 14:40: [id number] 00 Gait/Locomo knowledge/s PT/OT: Resolve 2018-022018-12-10 Ingrid tion kill Gait/Locom d 02-06 14:05:00 Foley PT problems deficit: cg otion 14:40: [id number] 00 Gait/Locomo gait PT/OT: Resolve 2018-022018-12-10 Ingrid tion deficit Gait/Locom d 02-06 14:05:00 Foley PT problems otion 14:40: [id number] 00 Endo/George anti-coagul Endo/George Resolve 2018-022018-12-12 Tessa [...] Reaction 2018-02 Martha Beam 7-valent Ingredient Unknown 0- conjugate to diphtheria crm shellfish Base Active [...] Observation Time Observation Value Comments SYSTOLIC mm[Hg] 2018-12-19 18:08:50 104 mm[Hg] mm[Hg] Method: Sit DIASTOLIC mm[Hg] 2018-12-19 18:08:50 84 mm[Hg] mm[Hg] Method: Sit PULSE 2018-12-19 18:08:50 104 /min /min RESP RATE 2018-12-12 18:08:43 18 /min /min TEMP 2018-12-19 18:08:50 99 [degF] Procedures This patient has no known procedures. Results This patient has no known results.
--- OUTSIDE RECORDS SUMMARY | 2018-12-28 14:47 | XMS REPORT | Continuity of Care Document ---
:1945 External Reference #:[id number] Author Name Bob Ortega DO FACC (transmitted by agent of provider Shandra Wilder) Address [address] [place] [id number] Care Team Providers Name Role Phone Janie Mccullough MD - Internal Care Team Information Electric Switch Tester [phone] Medicine Gopal Hawkins MD - Urology Care Team Information Electric Switch Tester [phone] Bob Ortega DO, FAC - Care Team Information Electric Switch Tester [phone] Cardiovascular Disease Problems Active Problems Provider Date Rheumatoid arthritis [...] thigh Rheumatoid arthritis with organ / system Dominci Tan MD Onset: 10/09/2018 involvement Social History Type Date Description Comments Sex Unknown ETOH Use Denies alcohol use Tobacco Use Start: Unknown End: Patient is a former social smoking in Unknown smoker college Recreational Drug Use Denies Drug Use Smoking Status Reviewed: 12/21/18 Patient is a former social smoking in [...] day as M.D. Tablets needed anxiety Prednisone 5 mg daily 90tabs Z79.52 Nain Scott, 03/19/2018 5mg M.D. Tablets Metoprolol Succinate 1 by mouth every 90tabs Bob Ortega, 09/26/2016 ER day DO FACC 25mg Tablets ER 24HR Leflunomide Take One Tablet 90tabs M06.89 Nain Scott, 02/29/2016 10mg By Mouth Once M.D. Tablets Daily M05.79 Z79.899 Potassium Chloride ER Take One Tablet By 180tabs Janie Mccullough, 2015 20Meq Mouth Twice A Day M.D. Tablets ER Chlorthalidone Take 1 Tablet By 90tabs I10 Janie Mccullough, 09/12/2014 25mg Tablets Mouth Daily as M.D. Directed Calcium 600 1 po qd Unknown Dulcolax 2 by mouth every Unknown 5mg Tablets DR day Eliquis take one tab by Unknown 2.5mg Tablets mouth twice daily x 4 weeks Tretinoin gel daily as Unknown 0.025% Cream [...] 10/05/2018 - nophen twice daily as needed M.D. 10/19/2018 7.5-325mg for pain Tablets Actemra inject [...] needed for pain, please stop other nsaids Medications Administered in Office Medication [...] Code Status Date Vaccine Reaction Lot # [id number] Given 11/13/2017 Influenza Virus Vaccine, Quadrivalent, Split, Preservative Free 08989 Given 11/03/2016 Influenza Virus Vaccine, No immediate reaction [id number] Quadrivalent, Split, Preservative Free 57141 Given 11/03/2015 Influenza Virus Vaccine, [id number] Quadrivalent, Split, Preservative Free 87790 Given 11/20/2014 Influenza Virus Vaccine, [id number] Quadrivalent, Split, Preservative Free 20498 Given 04/17/2014 Pneumococcal Conjugate [id number] Vaccine 13 Valent For Intramuscular Use 89686 Given 11/14/2013 Influenza Virus Vaccine, [id number] Quadrivalent, Split, Preservative Free 94533 Given 10/31/2012 Flu Vaccine Split Virus [id number] Preservative Free For Indiv 3Yr Older 25777 Given 08/07/2012 Pneumonia Vaccine [id number] Q2038 Given 11/22/2011 Fluzone Vaccine [id number] 14212 Given 10/26/2010 Influenza Virus 3Yrs & Over 08186 Given 10/26/2010 Influenza Virus 3Yrs & [id number] Over 09840 Given 12/07/2004 Pneumovax (History By 1381u Patient) 63294 Given 12/07/2004 Td (History By Patient) Vital Signs Date Vital Result Comment 12/21/2018 2:48pm Height 62 inches 5'2" Weight 133.00 lb with shoes Heart Rate 80 /min BP Systolic 128 mmHg Rue regular cuff BP Diastolic 86 mmHg Rue regular cuff BP Systolic Sitting 128 mmHg Lue regular cuff BP Diastolic Sitting 72 mmHg Lue regular cuff BMI (Body Mass Index) 24.3 kg/m2 Ejection Fraction 60%-65% 11/22/18 echo 12/18/2018 2:07pm Height 62 inches 5'2" Weight 132.00 lb Heart Rate 104 /min BP Systolic 131 mmHg BP Diastolic 70 mmHg O2 % BldC Oximetry 97 % BMI (Body Mass Index) 24.1 kg/m2 Results Test Acquired Date Facility Test Result H/L Range Note CBC Auto 12/18/2018 [facility] White Blood 9.4 10^3/uL Normal 3.5-10.[address] [place] [address] [phone] Red Blood Count 3.53 10^6/uL Low 3.70-4.87 Hemoglobin 11.7 g/dL Low 12.0-16.0 Hematocrit 34 % Low 35-47 Mean Corpuscular Volume 97 fL Normal 80-97 Mean Corpuscular Hemoglobin 33 pg High 27-31 Mean Corpuscular HGB Conc 34 g/dL Normal 31-36 Red Cell Distribution Width 13 % Normal 10-15 Platelet Count 616 10^3/uL High 150-450 Mean Platelet Volume 6.2 fL Low 7.4-10.4 Abs Neutrophils 8.0 10^3/uL High 1.5-7.7 Abs Lymphocytes 0.5 10^3/uL Low 1.0-4.8 Abs Monocytes 0.8 10^3/uL Normal 0-0.8 Abs Eosinophils 0.0 10^3/uL Normal 0-0.6 Abs Basophils 0.1 10^3/uL Normal 0-0.2 Abs Nucleated RBC 0.0 10^3/uL Granulocyte % 85.1 % Lymphocyte % 5.0 % Monocyte % 8.9 % Eosinophil % 0.3 % Basophil % 0.7 % Nucleated Red Blood Cells % 0.0 Laboratory 12/18/2018 [facility] D Dimer 716 ng/mL High Less 1 test finding [address] [place] [address] [phone] Type & Screen 11/26/2018 [facility] Patient Blood O Positive [address] [place] [address] [phone] Antibody Screen NEGATIVE Comp Metabolic 11/16/2018 [facility] Sodium 137 mmol/L Normal 135-[address] [place], [place] [id number] [phone] Potassium 3.7 mmol/L Normal 3.5-5.0 Chloride 97 [...] Egfr Non- 100.2 >60 Egfr 121.2 >60 3 Inr/Protime 11/16/2018 [facility] Inr 0.95 Normal 0.82-1.[address] [place] [address] [phone] Laboratory test 11/16/2018 [facility] Partial 30.4 Normal 26.0 -38.[address] [place] [address] Time PTT [phone] Urine Culture And 11/16/2018 [facility] Urine SEE RESULT [address] Culture BELOW [place], [place] [id number] [phone] CBC Auto Diff 11/16/2018 [facility] White 9.9 Normal 3.5-10.[address] Blood 10^3/[place] [address] Count [phone] Red Blood Count 4.24 10^6/uL Normal 3.70-4.87 [...] % Nucleated Red Blood Cells % 0.0 Urinalysis Profile 11/16/2018 [facility] Urine Color Yellow [address] [place] [address] [phone] Urine Appearance Clear Urine Specific Johnson 1.012 Normal 1.010-1.030 Urine pH 7.0 Normal 5-9 Urine Urobilinogen Negative Negative Urine Ketones Negative Negative Urine Protein Negative Negative Urine Leukocytes Negative Negative Urine Blood 2+ Abnormal Negative Urine Nitrite Negative Negative Urine Bilirubin Negative Negative Urine Glucose Negative Negative Urine White Blood Cell Trace(0-5/hpf) Absent Urine Red Blood Cell 1+(3-5/hpf) Abnormal Absent Urine Bacteria Absent Absent Laboratory test 10/03/2018 [facility] Vitamin D 75.7 ng/mL High 20-50 6 finding [address] [facility] Total 25(Oh) [place] [address] [phone] Comp Metabolic 10/03/2018 [facility] Sodium 140 mmol/L Normal 135-145 Panel [address] [place] [address] [phone] Potassium 3.5 mmol/L Normal 3.5-5.0 Chloride 104 [...] Non- 89.6 >60 Egfr 108.4 >60 7 CBC Auto 10/03/2018 [facility] White Blood 4.3 10^3/uL Normal 3.5-10.[address] Count [place], [place] [address] [phone] Red Blood Count 4.54 10^6/uL Normal 3.70-4.87 [...] Blood Cells % 0.0 Lipid Profile 10/03/2018 [facility] Triglycerides 135 mg/dL 8 (Trig/Chol/HDL) [address] [place] [address] [phone] Cholesterol 208 mg/dL 9 HDL Cholesterol 73.3 mg/dL 10 LDL Cholesterol 108 mg/dL 11 Laboratory test 10/03/2018 [facility] Erythrocyte Sed 7 mm/Hr Normal 0-29 [address] [place] [address] [phone] C Reactive Protein < 1.00 mg/L Normal <8.01 13 Laboratory test 08/21/2018 [facility] Erythrocyte Sed 16 mm/Hr Normal 0-29 [address] [place] [address] [phone] C Reactive Protein 2.09 mg/L Normal <8.01 15 Comp Metabolic 08/21/2018 [facility] Sodium 141 mmol/L Normal 135-[address] [place] [address] [phone] Potassium 3.5 mmol/L Normal 3.5-5.0 Chloride 102 [...] Egfr Non- 79.6 >60 Egfr 96.3 >60 16 CBC Auto 08/21/2018 [facility] White Blood 4.9 10^3/uL Normal 3.5-10.[address] [place] [address] [phone] Red Blood Count 4.44 10^6/uL Normal 3.70-4.87 [...] Blood Cells % 0.0 Laboratory test 08/21/2018 [facility] Vitamin D Total 94.4 High 20-50 17 finding [address] [facility] 25(Oh) ng/mL [place], [place] [address] [phone] Lipid Profile 08/21/2018 [facility] Triglycerides 94 mg/dL 18 (Trig/Chol/HDL) [address] [place], [place] [address] [phone] Cholesterol 218 mg/dL 19 HDL Cholesterol 81.1 mg/dL 20 LDL Cholesterol 118 mg/dL 21 1 Please note: The following may produce a false positive D Dimer test: - Rheumatoid factor greater than 60 IU/ml - Plasma hemoglobin greater than 0.05 gm/dl - Bilirubin greater than 50 mg/dl - Lipids greater than 1000 mg/dl - FDP greater than 20 ug/ml 2 PAIN IN RIGHT KNEE, UNILATERAL PRIMARY OSTEOARTHRI 3 Because ethnic data is not always readily [...] 15-29 5 Kidney failure <15 (or dialysis) 4 Standard intensity warfarin therapeutic range: 2.0-3.0 High intensity warfarin therapeutic range: 2.5-3.5 5 SEE RESULT BELOW Name: MEMEBRAYAN MOORE : [address]: Janie Mccullough MD Acct: [id number] Unit: [id number] AGE: 73 Location: LAB Re11/16/18 SEX: F Status: REG REF SPEC: [id number] JEREMY: 11/16/[address]: Janie Mccullough MD REQ: [id number] RECD: 11/16/18 STATUS: COMP _ SOURCE: URINE SPDESC: ORDERED: Urine Culture Procedure Result Reported Site Urine Culture Final 11/18/18- 0829 ML No growth of clinically significant organisms * ML - Main Lab . END OF REPORT DEPARTMENT OF PATHOLOGY, [address] [place] [address] Jacob Keys M.D. Director [facility] # [id number] 6 Total 25-Hydroxyvitamin D2 and D3 (25-OH-VitD) <10 ng/mL (severe deficiency) 10-19 ng/mL (mild to moderate deficiency) 20-50 ng/mL (optimum levels) 51-80 ng/mL (increased risk of hypercalciuria) >80 ng/mL (toxicity possible) 7 Because ethnic data is not always [...] 5 Kidney failure <15 (or dialysis) 8 Desirable: <150 Borderline High: 150-199 High: 200-499 Very High: >500 9 Desirable: <200 Borderline High: 200-239 High: >239 10 Low: <40 Desirable: 40-60 High: >60 11 Desirable: <100 Near Optimal: 100-129 Borderline High: 130-159 High: 160-189 Very High: >189 12 Please check labs 2 days before follow up 13 Please check labs 2 days before follow up 14 S/O Q12 WEEKS PRN ORDERED 07/30/18 EXPIRES 01/29/19 15 S/O Q12 WEEKS PRN ORDERED 07/30/18 EXPIRES 01/29/19 16 Because ethnic data is not always readily [...] 15-29 5 Kidney failure <15 (or dialysis) 17 Total 25-Hydroxyvitamin D2 and D3 (25-OH-VitD) <10 ng/mL (severe deficiency) 10-19 ng/mL (mild to moderate deficiency) 20-50 ng/mL (optimum levels) 51-80 ng/mL (increased risk of hypercalciuria) >80 ng/mL (toxicity possible) 18 Desirable: <150 Borderline High: 150-199 High: 200-499 Very High: >500 19 Desirable: <200 Borderline High: 200-239 High: >239 20 Low: <40 Desirable: 40-60 High: >60 21 Desirable: <100 Near Optimal: 100-129 Borderline High: 130-159 High: 160-189 Very High: >189 Procedures Date Code Description Status 12/21/2018 64380 EKG Tracing & Interpretation Completed 12/18/2018 06293 EKG Tracing & Interpretation Completed 12/04/2018 82668 TKR Total Knee Replacement Completed 12/04/2018 36213 TKR Total Knee Replacement Completed 11/22/2018 88059 ECHO Transthoracic, Real-Time 2D With Doppler And Completed Color Flow 11/22/2018 57780 ECHO Transthoracic, Real-Time 2D With Doppler And Completed Color Flow 11/15/2018 15209 EKG Tracing & Interpretation Completed 10/17/2018 81150 Repair Hernia Umbilical > 5 Yrs, Reducible Completed 10/17/2018 92324 Repair Hernia Umbilical > 5 Yrs, Reducible Completed 10/09/2018 72688 Inject/Drain Joint/Bursa Major W/O US Completed 08/23/2018 34511 Inject/Drain Joint/Bursa Major W/O US Completed 06/26/2018 61309 Inject/Drain Joint/Bursa Major W/O US Completed 02/12/2018 77322071 Mammogram Completed 06/20/2017 938950764 Bone Mineral Density Test Completed 02/10/2017 77059668 Mammogram Completed 02/05/2016 82278616 Mammogram Completed 12/03/2015 60597129 Colonoscopy Completed 05/04/2015 138071828 Bone Mineral Density Test Completed 02/03/2015 50733917 Mammogram Completed 10/15/2014 84880390 Mammogram Completed 10/14/2013 62524410 Mammogram Completed 04/30/2013 535533148 Bone Mineral Density Test Completed 10/12/2012 53961754 Mammogram Completed 10/11/2011 58392660 Mammogram Completed 10/06/2010 57751116 Mammogram Completed 05/17/2010 655246788 Bone Mineral Density Test Completed Medical Devices Description No Information Available Encounters Type Date Location Provider Dx Diagnosis Office Visit 12/05/2018 [facility] Sandrita Russ, M06.9 Rheumatoid 9:11a Assoc,pc [employer] arthritis, Hospitalists unspecified I10 Essential (primary) hypertension F41.9 Anxiety disorder, unspecified E87.6 Hypokalemia E78.5 Hyperlipidemia, unspecified Office Visit 12/04/2018 [facility] Sandrita Russ, M06.9 Rheumatoid 9:11a Assoc,pc [employer] arthritis, Hospitalists unspecified M25.512 Pain in left shoulder E87.6 Hypokalemia I10 Essential (primary) hypertension E78.5 Hyperlipidemia, unspecified F41.9 Anxiety disorder, unspecified M35.00 Sicca syndrome, unspecified Office Visit 11/15/2018 [facility] Internal [facility] Z01.818 Encounter for other 10:20a Tevin Mccullough M.D. 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 I10 Essential (primary) hypertension R07.9 Chest pain, unspecified R21 Rash and other nonspecific skin eruption Office Visit 10/05/2018 12:40p Rheumatology Nain Scott M05.79 [facility] w rheu factor mult site w/o org/sys involv M16.11 Unilateral primary osteoarthritis, right hip Z79.899 Other termite control servicer (current) drug therapy M21.061 Valgus deformity, not elsewhere classified, right knee Office Visit 09/24/2018 1:00p Surgical Bob Mackey K42.9 [facility] Rom[facility] MD, without FACS obstruction or gangrene Office Visit 09/07/2018 8:00a [facility] Mary Covarrubias M05.79 Rheu arthritis w [...] Nain Scott M05.79 [facility] Janice w rheu factor mult site w/o org/sys involv Z79.899 Other termite control servicer (current) drug therapy M25.551 Pain in right hip M25.561 Pain in right knee Office Visit 07/30/2018 9:00a [facility] Internal Janie R19.00 Intra-abd and Medicine - Ute Mccullough M.D. pelvic swelling, mass and lump, unsp site Office Visit 07/10/2018 9:30a Essence Tan M19.012 [facility], [facility] left shoulder M06.9 Rheumatoid arthritis, unspecified Office Visit 06/26/2018 10:30a [facility] Dominic Tan M25.512 Pain in left at [facility] shoulder M19.012 Primary osteoarthritis, left shoulder M06.9 Rheumatoid arthritis, unspecified Assessments Date Code Description Provider 12/21/2018 R00.0 Tachycardia, unspecified Bob Ortega, DO FAC 12/21/2018 M06.9 Rheumatoid arthritis, unspecified Bob Ortega, DO FAC 12/21/2018 I44.7 Left bundle-branch block, unspecified Bob Ortega, DO FAC 12/18/2018 R00.0 Tachycardia, unspecified Janie Mccullough M.D. 12/18/2018 R31.9 Hematuria, unspecified Janie Mccullough M.D. 12/14/2018 Z96.651 Presence of right artificial knee Mary Covarrubias M.D. joint 12/14/2018 Z47.1 Aftercare following joint replacement Mary Covarrubias M.D. surgery 12/05/2018 M06.9 Rheumatoid arthritis, unspecified Sandrita Russ, [employer] 12/05/2018 I10 Essential (primary) hypertension Sandrita Russ, [employer] 12/05/2018 F41.9 Anxiety disorder, unspecified Sandrita Russ, [employer] 12/05/2018 E87.6 Hypokalemia Sandrita Russ, [employer] 12/05/2018 E78.5 Hyperlipidemia, unspecified Sandrita Russ, [employer] 12/04/2018 M17.11 Unilateral primary osteoarthritis, ELSA Banegas right knee 12/04/2018 M17.11 Unilateral primary osteoarthritis, Mary Covarrubias M.D. right knee 12/04/2018 M06.9 Rheumatoid arthritis, unspecified Sandrita Russ, [employer] 12/04/2018 M25.512 Pain in left shoulder Sandrita Russ, [employer] 12/04/2018 E87.6 Hypokalemia Sandrita Russ, [employer] 12/04/2018 I10 Essential (primary) hypertension Sandrita Russ, [employer] 12/04/2018 E78.5 Hyperlipidemia, unspecified Sandrita Russ, [employer] 12/04/2018 F41.9 Anxiety disorder, unspecified Sandrita Russ, [employer] 12/04/2018 M35.00 Sicca syndrome, unspecified Sandrita Russ, [employer] 11/26/2018 M25.461 Effusion, right knee Mary Covarrubias [...] M.D. factor of multiple site 11/15/2018 Z79.52 rodent exterminator (current) use of systemic Janie Mccullough M.D. steroids 11/15/2018 I10 Essential (primary) hypertension Janie Mccullough M.D. 11/15/2018 R07.9 Chest pain, unspecified Janie Mccullough M.D. 11/15/2018 R21 Rash and other nonspecific skin Janie Mccullough M.D. eruption 10/26/2018 K42.9 Umbilical hernia without obstruction Bob Romo MD, FACS or gangrene 10/17/2018 K42.9 Umbilical hernia without obstruction Carine Turner , GIANNA or gangrene 10/17/2018 K42.9 Umbilical hernia without [...] Scott M.D. right hip 10/05/2018 Z79.899 Other termite control servicer (current) drug therapy Nain Scott M.D. 10/05/2018 [...] multiple site 08/23/2018 Z79.899 Other termite control servicer (current) drug therapy Nain Scott M.D. 08/23/2018 M25.551 Pain in right hip Nain Scott M.D. 08/23/2018 M25.561 Pain in right knee Nain Scott M.D. 07/30/2018 R19.00 Intra-abdominal and pelvic swelling, Janie Cotton, M.D. mass and lump, unspecif 07/10/2018 M19.012 Primary osteoarthritis, left shoulder Dominic Tan MD 07/10/2018 M06.9 Rheumatoid arthritis, unspecified Dominic Tan MD 06/26/2018 M25.512 Pain in left shoulder Dominic Tan MD 06/26/2018 M19.012 Primary osteoarthritis, left shoulder Dominic Tan MD 06/26/2018 M06.9 Rheumatoid arthritis, unspecified Dominic Tan MD Plan of Treatment Future Appointment(s):02/08/2019 1:20 pm - Bob Ortega DO FACC at [facility]01/24/2019 9:00 am - Nurse Visit IC at [facility]01/23/2019 9:30 am - Nurse Visit IC at [facility]01/09/2019 11 :00 am - Bob Ortega DO FACC at [facility]01/18/2019 2:15 pm - Mary Covarrubias M.D. at [facility] at [facility]01/18/2019 11:20 am - Nain Scott M.D. at [facility]02/25/2019 2:20 pm - Janie Mccullough M.D. at [facility] - Bob Ortega DO FACCR00.0 Tachycardia, unspecifiedNew Orders:Holter Monitor, Ordered : 12/21/18Comments:Start taking a full tablet (25 mg) of metoprololWear another monitor in about 1 month and come back afterwardsFollow up:schedule stress test any time schedule holter monitor with f/u OV after in 1 pfgauW42.9 Rheumatoid arthritis, adcfkvuihvhN54.7 Left bundle-branch block, unspecifiedNew Orders: Stress Test, Pharmacologic Nuclear (Lexiscan), Ordered: 12/21/18 Functional Status Description No Information Available Mental Status Description No Information Available Referrals Refer to Reason for Referral Status Appt Date Dangelo Ewing MD, FACC, FASNC First available Sent 12/21/2018 [address] [place] [address] [phone] Gopal Hawkins MD Sent [address] [place] [address] [place] [address] [phone] Basil Schwartz MD Sent 09/24/[address] [place] [address] [phone] Mary Covarrubias M.D. Please eval patient with severe Osteoarthritis of Sent 09/07/2018 the knee [address] [place] [address] [phone]
--- OUTSIDE RECORDS SUMMARY | 2018-12-28 14:47 | XMS REPORT ---
:1945 Author Organization [facility] Care Team Providers Name Role Phone Unavailable Unavailable Unavailable Problems Condition Condition Condition Status Onset Resolution Last Treating Comments Name Details Category Date Date Treatment Clinician Date Presence of Presence of Diagnosis Active 2018-02 Ingrid right right 0-31 Foley PT artificial artificial [id number] knee joint knee joint Pain knowledge/s Pain Mgmt Resolve 2018-022018-12-12 Ingrid kill d 02-06 10:04:00 Foley PT deficit: pt 14:40: 162256 00 Safety knowledge/s Safety Active 2018-02 Ingrid kill 02-06 Foley PT deficit: pt 14:40: 960506 00 Safety knowledge/s Safety Active 2018-02 Ingrid kill 02-06 Foley PT deficit: cg 14:40: 155455 00 Bed mobility/tr PT/OT: Bed Active 2018-02 Ingrid Mobility/Tr ansfer Mobility/T - Foley PT ansfer device ransfer 14:40: 809149 present 00 Bed transfer PT/OT: Bed Active 2018-02 Ingrid Mobility/Tr deficit: Mobility/T - Foley PT ansfer sit/stand ransfer 14:40: 794517 00 Bed transfer PT/OT: Bed Active 2018-02 Ingrid Mobility/Tr deficit: Mobility/T 1- Foley PT ansfer shower/tub ransfer 14:40: 559560 00 Bed transfer PT/OT: Bed Active 2018-02 Ingrid Mobility/Tr deficit: Mobility/T 1- Foley PT ansfer vehicle ransfer 14:40: 879706 00 Bed knowledge/s PT/OT: Bed Active 2018-02 Ingrdi Mobility/Tr kill Mobility/T 02-06 Foley PT ansfer deficit: pt ransfer 14:40: 979006 00 Environment environment PT/OT: Active 2018-02 Ingrid al al access Environmen 02-06 Foley PT deficit t 14:40: 132047 00 Environment knowledge/s PT/OT: Active 2018-02 Ingrid al kill Environmen 02-06 Foley PT deficit: pt t 14:40: 419877 00 Gait/Locomo gait PT/OT: Resolve 2018-022018-12-10 Ingrid tion assistive Gait/Locom d 02-06 14:05:00 Foley PT problems device otion 14:40: 783683 present 00 Gait/Locomo knowledge/s PT/OT: Resolve 2018-022018-12-10 Ingrid tion kill Gait/Locom d 02-06 14:05:00 Foley PT problems deficit: pt otion 14:40: 227817 00 Gait/Locomo knowledge/s PT/OT: Resolve 2018-022018-12-10 Ingrid tion kill Gait/Locom d 02-06 14:05:00 Ofley PT problems deficit: cg otion 14:40: 983107 00 Gait/Locomo gait PT/OT: Resolve 2018-022018-12-10 Ingrid tion deficit Gait/Locom d 02-06 14:05:00 Foley PT problems otion 14:40: 029867 00 Endo/George anti-coagul Endo/George Resolve 2018-022018-12-12 Tessa [...] FUCHS Tums Ultra Tums Ultra 2018-02 Yes Astish Unknown Unknown 400 mg 400 mg 02-06 [...]
--- NOTE | 2018-12-28 15:39 | ED ---
Shortness of Breath - HPI Summary HPI Summary: 73-year-old female with a significant past medical history of rheumatoid arthritis and also right total knee replacement done on 12/04/2018 presents to the emergency department today ending of increased shortness of breath which began yesterday. She states she feels short of breath when walking around her home and her symptoms are made worse with exertion. She has not taken any medication for alleviation of her symptoms prior to arrival. She states she is a former smoker but has not smoked" in a few years". She endorses swelling of her lower extremities as well as a cough. Denies changes in medications. She denies fever, chest pain, abdominal pain, pain with urination, calf pain. 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 Supervisor - Onset/Duration: Gradual Onset, Lasting Days Timing: Constant Current Severity: Mild Dyspnea At: Orthopena Aggravating Factors: Movement Alleviating Factors: Upright Position Associated Signs & Symptoms: Cough (Nonproductive) - Risk Factors Pulmonary Embolism: Recent Surgery - Allergy/Home Medications Allergies/Adverse Reactions: Allergies Allergy/AdvReac Type Severity Reaction Status Date / Time shellfish derived Allergy Severe Anaphylatic Verified 12/04/18 13:08 Shock methotrexate Allergy Intermediate Rash Verified 12/04/18 13:08 Penicillins Allergy Intermediate Rash Verified 12/04/18 13:08 [facility] Allergy Unknown Verified 12/04/18 13:08 Reaction Details azithromycin Allergy Rash Verified 12/04/18 13:08 benzyl alcohol Allergy Unknown Verified 12/04/18 13:08 Reaction Details cefuroxime Allergy Swelling Verified 12/04/18 13:08 Iodinated Contrast Media Allergy Anaphylatic Verified 12/04/18 13:08 [Iodinated Contrast- Oral Shock and IV Dye] iohexol Allergy Airway Verified 12/04/18 13:08 Obstruction lisinopril Allergy Rash Verified 12/04/18 13:08 pneumococcal 7-valent Allergy Unknown Verified 12/04/18 13:08 conjugate to Reaction [From Prevnar] Details sodium hypochlorite solution Allergy See Comment Verified 12/05/18 14:09 tromethamine Allergy Unknown Verified 12/04/18 13:08 Reaction Details PMH/Surg Hx/FS Hx/Imm Hx Endocrine/Hematology History: Denies: Hx Bone Marrow Disease, Hx Diabetes, Hx Systemic Lupus Erythematosus , Hx Sickle Cell Disease, Hx Thyroid Disease, Hx Anemia Cardiovascular History: Reports: Hx Hypertension Denies: Hx Angina, Hx Cardiomegaly, Hx Congestive Heart Failure, Hx Coronary Artery Disease, Hx Pacemaker/ICD, Hx Peripheral Vascular Disease, Hx Rheumatic Fever, Hx Valvular Heart Disease, Other Cardiovascular Problems/Disorders Respiratory History: Reports: Other Respiratory Problems/Disorders - "UNDIAGNOSED LUNG DISEASE"-NODULES Denies: Hx Asthma, Hx Chronic Obstructive Pulmonary Disease (COPD), Hx Pulmonary Edema, Hx Pulmonary Embolism, Hx Sleep Apnea GI History: Reports: Hx Irritable Bowel, Other GI Disorders - ibs Denies: Hx Cirrhosis, Hx Crohn's Disease, Hx Gastroesophageal Reflux Disease , Hx Hiatal Hernia, Hx Jaundice, Hx Ulcer History: Denies: Hx Dialysis, Hx Kidney Infection, Hx Kidney Stones, Hx Renal Disease , Other Problems/Disorders Musculoskeletal History: Reports: Hx Arthritis - RHEUMATOID ARTHRITIS AND OSTEO ARTHRITIS, Hx Rheumatoid Arthritis, Hx Bursitis - HX OF IN THE PAST, Hx Scoliosis, Other Musculoskeletal History - ra Denies: Hx Tendonitis Sensory History: Reports: Hx Cataracts - BILATERAL, Hx Contacts or Glasses, Hx Hearing Aid Denies: Hx Glaucoma Opthamlomology History: Reports: Hx Cataracts - BILATERAL, Hx Contacts or Glasses Denies: Hx Glaucoma Neurological History: Denies: Hx Headaches, Hx Migraine, Hx Nerve Disease, Hx Seizures, Other Neuro Impairments/Disorders Psychiatric History: Reports: Hx Anxiety - ON MEDICATION FOR Denies: Hx Depression, Hx Panic Disorder - Cancer History Hx Chemotherapy: No Hx Radiation Therapy: No - Surgical History Surgery Procedure, Year, and Place: hysterectomy,breast biopsy right benign, ectopic ; SKIN CELLS REMOVED-BENIGN, four hand joints replaced and wrist fused LEFT 2014 Hx Anesthesia Reactions: No Infectious Disease History: No Infectious Disease History: Denies: Hx Hepatitis, Hx Human Immunodeficiency Virus (HIV), Traveled Outside the [place] in Last 30 Days - Family History Known Family History: Positive: Hypertension - Social History Alcohol Use: None Hx Substance Use: No Substance Use Type: Reports: None Hx Tobacco Use: Yes Smoking Status (MU): Former Smoker Type: Cigarettes Amount Used/How Often: SOCIAL X FEW YEARS Have You Smoked in the Last Year: No Review of Systems Constitutional: Negative Eyes: Negative Cardiovascular: Negative Positive: Shortness Of Breath, Cough Gastrointestinal: Negative Genitourinary: Negative Positive: Decreased ROM Skin: Negative Neurological: Negative Psychological: Normal All Other Systems Reviewed And Are Negative: Yes Physical Exam Triage Information Reviewed: Yes Vital Signs On Initial Exam: Initial Vitals Temp Pulse Resp BP Pulse Ox 98.1 F 98 16 142/66 100 12/28/18 14:46 12/28/18 14:46 12/28/18 14:46 12/28/18 14:46 12/28/18 14:46 Vital Signs Reviewed: Yes Appearance: Positive: Well-Appearing, No Pain Distress, Well-Nourished Skin: Positive: Warm, Skin Color Reflects Adequate Perfusion Eyes: Positive: EOMI, MITCHELL ENT: Positive: Hearing grossly normal Respiratory/Lung Sounds: Positive: Breath Sounds Present, Rales - noted to left lung base, Other - Patient is able to speak in full on broken sentences and is in no respiratory distress. No evidence of accessory muscle use or personal breathing.. Negative: Subcutaneous Emphysema, Stridor, Tracheal Deviation, Wheezes, Unable to speak in full sentences Cardiovascular: Positive: RRR, S1, S2 Abdomen Description: Positive: Nontender, Soft Bowel Sounds: Positive: Present Musculoskeletal: Positive: Strength/ROM Intact, Other - Surgical scar noted to the anterior aspect of the right knee which has no evidence of secondary infection or discharge. Mild pain with palpation of the right lower calf. 2+ pitting edema bilaterally on the lower extremities. Neurological: Positive: Sensory/Motor Intact, Alert, Oriented to Person Place, Time, Speech Normal Psychiatric: Positive: Normal AVPU Assessment: Alert Procedures - Sedation Patient Received Moderate/Deep Sedation with Procedure: No Diagnostics - Vital Signs Vital Signs Temp Pulse Resp BP Pulse Ox 12/28/18 14:46 98.1 F 98 16 142/66 100 - Laboratory Result Diagrams: 12/28/18 15:47 12/28/18 15:47 Lab Statement: Any lab studies that have been ordered have been reviewed, and results considered in the medical decision making process. Course/Dx - Course Course Of Treatment: Patient was evaluated in the emergency department today for shortness of breath 2 days. The patient was seen and examined. Her vital signs are stable she was afebrile. Laboratory results as well as an EKG, chest x-ray and Doppler ultrasound of her right lower extremity was performed. EKG showed normal sinus rhythm at a rate of 96 bpm. Normal axis. Normal ND and QTc interval no evidence of acute myocardial infarction. Findings are unchanged as compared to previous EKG done on 11/22/16. Laboratory results returned showing Anemia however this is a chronic problem for her and unchanged since her last visit on 12/18/2018 Platelet count is also elevated, which is also her baseline when compared to her last visit. There is no evidence of electrolyte abnormalities. C reactive protein was elevated at 41.70 which is likely due to her RA. BNP is 51, making CHF unlikely. Chest xray showed findings consistent with COPD and old granulomatous disease. No evidence of acute disease. Doppler ultrasound of the right lower examination showed no evidence of DVT. Patient was ambulated twice around the unit with no DIP and oxygen saturation. Patient stated 96% on room air throughout the duration of this activity. A d-dimer was done in order to investigate further the possibility of a pulmonary embolism. Wells criteria for pulmonary embolism was considered low risk at 1.5. - Diagnoses Differential Diagnosis/HQI/PQRI: Positive: Airway Obstruction, CHF, COPD Exacerbation, ME, Pneumothorax, Pulmonary Embolism Provider Diagnoses: Dyspnea Discharge ED - Sign-Out/Discharge Documenting (check all that apply): Sign-Out Patient Signing out patient TO: Shaq Marquez Receiving patient FROM: Rashaad Yu - Discharge Plan Referrals: Janie Mccullough MD [Primary Care Provider] -
[2018-12-28 15:53] LABS: ABS Lymphocytes 0.6 10^3/ul (1.0-4.8); ABS Monocytes 0.5 10^3/ul (0-0.8); Eosinophil % 0.4 %; Hematocrit 34 % (35-47); Hemoglobin 11.5 g/dL (12.0-16.0); Mean Corpuscular HGB Conc 34 g/dL (31-36); Mean Corpuscular Hemoglobin 32 pg (27-31); Mean Corpuscular Volume 96 fL (80-97); Mean Platelet Volume 6.1 fL (7.4-10.4); Platelet Count 547 10^3/uL (150-450); Red Blood Count 3.55 10^6 /uL (3.70-4.87); Red Cell Distribution Width 14 % (10-15); White Blood Count 7.1 10^3/uL (3.5-10.8)
[2018-12-28 16:13] LABS: Troponin I 0.01 ng/mL (<0.03)
[2018-12-28 16:22] LABS: Albumin 3.3 g/dL (3.2-5.2); Albumin/Globulin Ratio 1.1 (1-3); BUN/Creatinine Ratio 19.4 (8-20); C Reactive Protein 41.7 mg/L (<8.01); Calcium 9.4 mg/dL (8.6-10.3); EGFR African American 96.3 (>60); EGFR Non-African American 79.6 (>60); Total Bilirubin 0.5 mg/dL (0.2-1.0); Total Protein 6.3 g/dL (6.4-8.9)
[2018-12-28] MEDS ORDERED: Albuterol 0.5% CONC NEB.SOL* 5 MG/ML 20 ml BOT INH ONE (16:48)
[2018-12-28] MEDS ORDERED: Albuterol 2.5 MG/3 ML NEB.SOL* (0.083%) INH ONE (16:51)
[2018-12-28] MEDS ORDERED: Albuterol HFA INHALER* 8 gm MDI INH ONE (20:45)
--- NOTE | 2018-12-28 21:23 | PN ---
Progress Note - Progress Note Date of Service: 12/28/18 Note: Patient signed out to me by ELSA Yu pending results of d-dimer. D-dimer 470. Patient has history of total knee replacement 3 weeks ago, presents for onset exertional shortness of breath. Patient on Eliquis 2.5 mg twice a day as prophylaxis. D-dimer likely secondary to recent surgery. Patient has anaphylactic allergy to contrast, VQ scan preferable to CTA. Nuc med not available for VQ scan during the weekend. Patient was ambulated around the ED after breathing treatment without any drop in O2 sats or patient shortness of breath. Chest x-ray consistent with COPD, the patient denies prior diagnosis. Consulted with hospitalist Dr. Lyman who recommended as patient was on Eliquis prophylactically the patient be discharged and follow-up for outpatient VQ scan on Monday. Patient understands and approves plan. Discharged in stable condition with diagnosis of shortness of breath.
[2018-12-28 21:53] VITALS: BP 143/74
--- NOTE | 2018-12-29 09:17 | CONSULT ---
Subjective Date of Service: 12/28/18 Interval History: 73 yo female who presented with sudden onset of shortness of breath. She was concerned she was having a PE. Last week she had similar episode. D-Dimer was done and she said it was around ~7. Her PCP ordered a VQ scan for her and it was negative. She has a hx of knee surgery and is on eliquis prophylactically. Pt received breathing treatment. She was able to ambulate around the unit w/o symptoms and her saturation maintained on RA. Repeat D-Dimer 4 Given that her vitals are normal, she is not tachycardic, saturating well on RA and she is on prophylaxis at home, her chances of having a PE right now are very low. She is allergic to contrast and wont be able to have a repeat VQ test until monday. I gave the pt the option of making her eliquis therapeutic instead of prophylactic and explained the risks and benefits of empirical treatment pending formal testing. She feels more comfortable waiting until monday to have a repeat VQ testing done. As far as her elevated D-dimer, not a good test right now with her recent surgery and her numbers are downtrending from last week. Review of Systems - Measurements Intake and Output: Intake and Output Last 24 Hours 12/27/18 12/28/18 12/29/18 12/30/18 06:59 06:59 06:59 06:59 Weight 127 lb Objective Result Diagrams: 12/28/18 15:47 12/28/18 15:47 Assessment/Plan - Billing Plan By Medical Problem: 1. 2. VTE PPX: Diet: Code Status: Admission Status and Rationale:
== END 2018-12-28 21:52 | disposition home or self-care (01) ==
LOC: ED 14:39
DX: R06.00 Dyspnea, unspecified (principal); I10 Essential (primary) hypertension; M06.9 Rheumatoid arthritis, unspecified; F41.9 Anxiety disorder, unspecified; Z96.651 Presence of right artificial knee joint; Z87.891 Personal history of nicotine dependence; Z90.710 Acquired absence of both cervix and uterus; Z88.0 Allergy status to penicillin; Z88.7 Allergy status to serum and vaccine; Z88.8 Allergy status to other drugs, medicaments and biological substances; Z88.6 Allergy status to analgesic agent; Z88.1 Allergy status to other antibiotic agents; Z91.041 Radiographic dye allergy status
CPT/HCPCS: 36415; 71046; 80053; 83880; 84484; 85025; 85379; 86140; 93005; 99284; A9270-GY

== ENCOUNTER 2019-04-24 06:51 | Observation (INO) | payer MEDICARE ==
--- OUTSIDE RECORDS SUMMARY | 2019-04-24 06:57 | XMS REPORT | Continuity of Care Document ---
:1945 External Reference #:[id number] Author Name Janie Mccullough M.D. (transmitted by agent of provider Kelsey Louis) Address [address] [facility], [place] [address] Care Team Providers Name Role Phone Janie Mccullough MD - Internal Care Team Information Table Inspector Medicine Gopal Hawkins MD - Urology Care Team Information Table Inspector [phone] Bob Ortega DO, [facility] - Care Team Information Table Inspector [phone] Cardiovascular Disease Problems Active Problems Provider Date [...] MD Onset: 07/10/2018 Localized, primary osteoarthritis Mary Satish, M.D. Onset: 09/07/2018 Localized, primary osteoarthritis of [...] Use Denies Drug Use Smoking Status Reviewed: 03/28/19 Patient is a former social smoking in [...] Medications SIG Qnty Indications Ordering Date Provider Duloxetine HCL 2 by mouth every 30caps F33.9 Janie 03/28/2019 20mg Caps day Janice Mccullough DRmidluanne Take One Tablet 90tabs Nain Scott, 03/22/2019 10mg Tablets By Mouth Once M.D. Daily Xeljanz Take one 180tabs Nain Scott, 11/30/2018 5mg Tablets capsule/tablet M.D. daily by mouth for 1 week then 1 twice daily Hydrocodone-Acetaminop 1 - 2 tabs daily 60tabs Nain Scott, 10/19/2018 hen as needed for M.D. 5-325mg Tablets pain Simvastatin 1 by mouth every 90tabs E78.4 Janie 06/12/2018 20mg Tablets day at bedtime Janice Mccullough Alprazolam 1 tablet three 90tabs Janie 05/02/2018 0.5mg Tablets times a day as Janice Mccullough needed anxiety Prednisone 5 mg daily 90tabs Z79.52 Nain Scott, 03/19/2018 5mg Tablets M.D. Metoprolol Succinate 1 by mouth every 90tabs Janie 09/26/2016 ER day Janice Mccullough 25mg Tablets ER 24HR Potassium Chloride ER Take One Tablet 180tabs Janie 03/19/2015 By Mouth Twice A Janice Mccullough 20Meq Tablets ER Day Chlorthalidone Take 1 Tablet By 90tabs I10 Janie 09/12/2014 25mg Mouth Daily as Janice Mccullough Tablets Directed Fish Oil one tab daily Gale Zhang, 1200mg Capsules Restasis one gtts ou bid Unknown 0.05% Emulsion Metrocream apply twice Unknown Cream daily as needed Calcium 600 1 po qd Unknown History Medications Compression s/p right 1units Z96.651 Mary Covarrubias, 02/18/2019 - Stockings total knee MKarenDKaren 03/28/2019 Misc replacement with rle edema Valacyclovir HCL 1 PO tid x 1 week 21tabs B02.9 Janie 11/15/2018 - Janice Mccullough 12/18/2018 1gm Tablets Hydrocodone-Acetami take one by mouth 30tabs Nain Scott, 10/05/2018 - nophen twice daily as GabriellaDKaren 10/19/2018 7.5-325mg needed for pain Tablets Medications Administered in Office Medication SIG Qnty Indications Ordering Provider Date Inj, Regadenoson, 0.1 MG Bob Ortega, DO [facility] 01/09/2019 Injection Technetium TC 99M Bob Ortega, DO [facility] 01/09/2019 Tetrofosmin, Per Unit Dose Up To 40 Millicuries Injection Technetium TC 99M Bob Ortega, DO [facility] 01/09/2019 Tetrofosmin, Per Unit Dose Up To 40 Millicuries Injection Triamcinolone (Kenalog) Dominic Tan MD 10/09/2018 Injection [...] Code Status Date Vaccine Reaction Lot # [id number] Given 11/13/2017 Influenza Virus Vaccine, Quadrivalent, Split, Preservative Free 21149 Given 11/03/2016 Influenza Virus Vaccine, No immediate reaction [id number] Quadrivalent, Split, Preservative Free 01160 Given 11/03/2015 Influenza Virus Vaccine, [id number] Quadrivalent, Split, Preservative Free 05220 Given 11/20/2014 Influenza Virus Vaccine, [id number] Quadrivalent, Split, Preservative Free 62755 Given 04/17/2014 Pneumococcal Conjugate [id number] Vaccine 13 Valent For Intramuscular Use 75402 Given 11/14/2013 Influenza Virus Vaccine, [id number] Quadrivalent, Split, Preservative Free 57941 Given 10/31/2012 Flu Vaccine Split Virus [id number] Preservative Free For Indiv 3Yr Older 57314 Given 08/07/2012 Pneumonia Vaccine [id number] Q2038 Given 11/22/2011 Fluzone Vaccine [id number] 29631 Given 10/26/2010 Influenza Virus 3Yrs & Over 31742 Given 10/26/2010 Influenza Virus 3Yrs & [id number] Over 98744 Given 12/07/2004 Pneumovax (History By 1381u Patient) 22372 Given 12/07/2004 Td (History By Patient) Vital Signs Date Vital Result Comment 03/28/2019 10:15am Height 62 inches 5'2" Weight 128.00 lb Heart Rate 83 /min BP Systolic 126 mmHg BP Diastolic 72 mmHg O2 % BldC Oximetry 96 % BMI (Body Mass Index) 23.4 kg/m2 03/21/2019 11:39am Height 62 inches 5'2" Weight 128.00 lb Heart Rate 93 /min BP Systolic Sitting 136 mmHg BP Diastolic Sitting 80 mmHg Pain Level 6 O2 % BldC Oximetry 98 % BMI (Body Mass Index) 23.4 kg/m2 Results Test Acquired Date Facility Test Result H/L Range Note Lipid Profile 03/19/2019 [facility] Triglycerides 104 mg/dL 1 (Trig/Chol/HDL) [address] [place] [address] [phone] Cholesterol 180 mg/dL 2 HDL Cholesterol 63.1 mg/dL 3 LDL Cholesterol 96 mg/dL 4 Comp Metabolic 03/19/2019 [facility] Sodium 140 mmol/L Normal 135-[address] [place] [address] [phone] Potassium 3.5 mmol/L Normal 3.5-5.0 Chloride 103 mmol/L Normal 101-111 Co2 Carbon Dioxide 28 mmol/L Normal 22-32 Anion Gap 9 mmol/L Normal 2-11 Glucose 96 mg/dL Normal 70-100 Blood Urea Nitrogen 13 mg/dL Normal 6-24 Creatinine 0.62 mg/dL Normal 0.51-0.95 BUN/Creatinine Ratio 21.0 High 8-20 Calcium 9.4 mg/dL Normal 8.6-10.3 Total Protein 6.0 g/dL Low 6.4-8.9 Albumin 3.7 g/dL Normal 3.2-5.2 Globulin 2.3 g/dL Normal 2-4 Albumin/Globulin Ratio 1.6 Normal 1-3 Total Bilirubin 0.40 mg/dL Normal 0.2-1.0 Alkaline Phosphatase 66 U/L Normal 34-104 Alt 9 U/L Normal 7-52 Ast 14 U/L Normal 13-39 Egfr Non- 94.4 >60 Egfr 114.2 >60 5 Laboratory test 03/19/2019 [facility] C Reactive 20.07 mg/L High <8.01 6 finding [address] [place] [address] [phone] Vitamin D Total 25(Oh) 57.0 ng/mL High 20-50 7 CBC Auto 03/19/2019 [facility] White Blood 7.2 10^3/uL Normal 3.5-10.[address] [place] [address] [phone] Red Blood Count 4.28 10^6/uL Normal 3.70-4.87 Hemoglobin 13.1 g/dL Normal 12.0-16.0 Hematocrit 39 % Normal 35-47 Mean Corpuscular Volume 92 fL Normal 80-97 Mean Corpuscular Hemoglobin 31 pg Normal 27-31 Mean Corpuscular HGB Conc 33 g/dL Normal 31-36 Red Cell Distribution Width 15 % Normal 10-15 Platelet Count 398 10^3/uL Normal 150-450 Mean Platelet Volume 7.8 fL Normal 7.4-10.4 Abs Neutrophils 5.5 10^3/uL Normal 1.5-7.7 Abs Lymphocytes 0.7 10^3/uL Low 1.0-4.8 Abs Monocytes 0.7 10^3/uL Normal 0-0.8 Abs Eosinophils 0.2 10^3/uL Normal 0-0.6 Abs Basophils 0.0 10^3/uL Normal 0-0.2 Abs Nucleated RBC 0.0 10^3/uL Granulocyte % 76.5 % Lymphocyte % 10.2 % Monocyte % 10.2 % Eosinophil % 2.5 % Basophil % 0.6 % Nucleated Red Blood Cells % 0.0 Laboratory test 03/19/2019 [facility] Erythrocyte Sed 64 mm/Hr High 0-[address] [place] [address] [phone] Laboratory test 01/17/2019 [facility] Erythrocyte Sed 71 mm/Hr High 0-29 [address] [place] [address] [phone] C Reactive Protein 9.73 mg/L High <8.01 9 CBC Auto 01/17/2019 [facility] White Blood 6.5 10^3/uL Normal 3.5-10.[address] [place] [address] [phone] Red Blood Count 3.70 10^6/uL Normal 3.70-4.87 Hemoglobin 11.9 g/dL Low 12.0-16.0 Hematocrit 35 % Normal 35-47 Mean Corpuscular Volume 94 fL Normal 80-97 Mean Corpuscular Hemoglobin 32 pg High 27-31 Mean Corpuscular HGB Conc 34 g/dL Normal 31-36 Red Cell Distribution Width 14 % Normal 10-15 Platelet Count 434 10^3/uL Normal 150-450 Mean Platelet Volume 6.9 fL Low 7.4-10.4 Abs Neutrophils 5.0 10^3/uL Normal 1.5-7.7 Abs Lymphocytes 0.8 10^3/uL Low 1.0-4.8 Abs Monocytes 0.6 10^3/uL Normal 0-0.8 Abs Eosinophils 0.1 10^3/uL Normal 0-0.6 Abs Basophils 0.0 10^3/uL Normal 0-0.2 Abs Nucleated RBC 0.0 10^3/uL Granulocyte % 77.2 % Lymphocyte % 11.5 % Monocyte % 8.8 % Eosinophil % 2.0 % Basophil % 0.5 % Nucleated Red Blood Cells % 0.0 Comp Metabolic 01/17/2019 [facility] Sodium 139 mmol/L Normal 135-145 Panel [address] [place] [address] [phone] Potassium 3.4 mmol/L Low 3.5-5.0 Chloride 101 mmol/L Normal 101-111 Co2 Carbon Dioxide 29 mmol/L Normal 22-32 Anion Gap 9 mmol/L Normal 2-11 Glucose 91 mg/dL Normal 70-100 Blood Urea Nitrogen 12 mg/dL Normal 6-24 Creatinine 0.58 mg/dL Normal 0.51-0.95 BUN/Creatinine Ratio 20.7 High 8-20 Calcium 9.9 mg/dL Normal 8.6-10.3 Total Protein 6.1 g/dL Low 6.4-8.9 Albumin 3.8 g/dL Normal 3.2-5.2 Globulin 2.3 g/dL Normal 2-4 Albumin/Globulin Ratio 1.7 Normal 1-3 Total Bilirubin 0.60 mg/dL Normal 0.2-1.0 Alkaline Phosphatase 56 U/L Normal 34-104 Alt 9 U/L Normal 7-52 Ast 14 U/L Normal 13-39 Egfr Non- 101.9 >60 Egfr 123.3 >60 10 Laboratory test 12/28/2018 [facility] C Reactive 41.70 mg/L High <8.01 finding [address] [place] [address] [phone] Comp Metabolic 12/28/2018 [facility] Sodium 137 mmol/L Normal 135-145 Panel [address] [place] [address] [phone] Potassium 4.0 mmol/L Normal 3.5-5.0 Chloride 101 mmol/L Normal 101-111 Co2 Carbon Dioxide 28 mmol/L Normal 22-32 Anion Gap 8 mmol/L Normal 2-11 Glucose 110 mg/dL High 70-100 Blood Urea Nitrogen 14 mg/dL Normal 6-24 Creatinine 0.72 mg/dL Normal 0.51-0.95 BUN/Creatinine Ratio 19.4 Normal 8-20 Calcium 9.4 mg/dL Normal 8.6-10.3 Total Protein 6.3 g/dL Low 6.4-8.9 Albumin 3.3 g/dL Normal 3.2-5.2 Globulin 3.0 g/dL Normal 2-4 Albumin/Globulin Ratio 1.1 Normal 1-3 Total Bilirubin 0.50 mg/dL Normal 0.2-1.0 Alkaline Phosphatase 73 U/L Normal 34-104 Alt 15 U/L Normal 7-52 Ast 16 U/L Normal 13-39 Egfr Non- 79.6 >60 Egfr 96.3 >60 11 Laboratory test 12/28/2018 [facility] B-Type 51 pg/mL <=[address] [place] [address] Peptide BNP [phone] Troponin-I (TnI) 0.01 ng/mL <0.03 12 CBC Auto 12/28/2018 [facility] White Blood 7.1 10^3/uL Normal 3.5-10.[address] [place] [address] [phone] Red Blood Count 3.55 10^6/uL Low 3.70-4.87 Hemoglobin 11.5 g/dL Low 12.0-16.0 Hematocrit 34 % Low 35-47 Mean Corpuscular Volume 96 fL Normal 80-97 Mean Corpuscular Hemoglobin 32 pg High 27-31 Mean Corpuscular HGB Conc 34 g/dL Normal 31-36 Red Cell Distribution Width 14 % Normal 10-15 Platelet Count 547 10^3/uL High 150-450 Mean Platelet Volume 6.1 fL Low 7.4-10.4 Abs Neutrophils 6.0 10^3/uL Normal 1.5-7.7 Abs Lymphocytes 0.6 10^3/uL Low 1.0-4.8 Abs Monocytes 0.5 10^3/uL Normal 0-0.8 Abs Eosinophils 0.0 10^3/uL Normal 0-0.6 Abs Basophils 0.0 10^3/uL Normal 0-0.2 Abs Nucleated RBC 0.0 10^3/uL Granulocyte % 83.7 % Lymphocyte % 8.0 % Monocyte % 7.2 % Eosinophil % 0.4 % Basophil % 0.7 % Nucleated Red Blood Cells % 0.0 Laboratory 12/28/2018 [facility] D Dimer 470 ng/mL High Less 13 test finding [address] [place] [address] [phone] Laboratory 12/28/2018 [facility] Troponin-I (TnI) 0.01 <0.03 14 test finding [address] ng/[place] [address] [phone] Laboratory 12/18/2018 [facility] D Dimer 716 ng/mL High Less 15 test finding [address] [place] [address] [phone] CBC Auto Diff 12/18/2018 [facility] White Blood 9.4 Normal 3.5 -10. [address] Count 10^3/uL 8 [place] [id number] [phone] Red Blood Count 3.53 10^6/uL Low 3.70-4.87 [...] % Nucleated Red Blood Cells % 0.0 Type & Screen 11/26/2018 [facility] Patient Blood Type O Positive [address] [place] [address] [phone] Antibody Screen NEGATIVE Urine Culture And 11/16/2018 [facility] Urine SEE RESULT [address] [place] [address] [phone] Laboratory test 11/16/2018 [facility] Partial 30.4 Normal 26.[address] Thrombo Time seconds -38. [place] [address] PTT [phone] Inr/Protime 11/16/2018 [facility] Inr 0.95 Normal 0.[address] -1.0 [place] [address] [phone] Comp Metabolic 11/16/2018 [facility] Sodium 137 mmol/L Normal 135- Panel [address] [place] [address] [phone] Potassium 3.7 mmol/L Normal 3.5-5.0 Chloride 97 [...] Egfr Non- 100.2 >60 Egfr 121.2 >60 19 CBC Auto 11/16/2018 [facility] White Blood 9.9 10^3/uL Normal 3.5-10.[address] [place] [address] [phone] Red Blood Count 4.24 10^6/uL Normal 3.70-4.87 [...] Blood Cells % 0.0 Urinalysis Profile 11/16/2018 [facility] Urine Color Yellow [address] [place] [address] [phone] Urine Appearance Clear Urine Specific [place] 1.012 Normal 1.010-1.030 Urine pH 7.0 Normal 5-9 Urine Urobilinogen Negative Negative Urine Ketones Negative Negative Urine Protein Negative Negative Urine Leukocytes Negative Negative Urine Blood 2+ Abnormal Negative Urine Nitrite Negative Negative Urine Bilirubin Negative Negative Urine Glucose Negative Negative Urine White Blood Cell Trace(0-5/hpf) Absent Urine Red Blood Cell 1+(3-5/hpf) Abnormal Absent Urine Bacteria Absent Absent Laboratory test 10/03/2018 [facility] Vitamin D 75.7 ng/mL High 20-[address] Total 25(Oh) [place] [address] [phone] Comp Metabolic 10/03/2018 [facility] Sodium 140 mmol/L Normal 135-[address] [place] [address] [phone] Potassium 3.5 mmol/L Normal 3.5-5.0 Chloride 104 [...] Egfr Non- 89.6 >60 Egfr 108.4 >60 21 CBC Auto 10/03/2018 [facility] White Blood 4.3 10^3/uL Normal 3.5-10.[address] [place] [address] [phone] Red Blood Count 4.54 10^6/uL Normal 3.70-4.87 [...] Blood Cells % 0.0 Lipid Profile 10/03/2018 [facility] Triglycerides 135 mg/dL 22 (Trig/Chol/HDL) [address] [place] [address] [phone] Cholesterol 208 mg/dL 23 HDL Cholesterol 73.3 mg/dL 24 LDL Cholesterol 108 mg/dL 25 Laboratory test 10/03/2018 [facility] Erythrocyte Sed 7 mm/Hr Normal 0-29 [address] [place] [address] [phone] C Reactive Protein < 1.00 mg/L Normal <8.01 27 1 Desirable: <150 Borderline High: 150-199 High: 200-499 Very High: >500 2 Desirable: <200 Borderline High: 200-239 High: >239 3 Low: <40 Desirable: 40-60 High: >60 4 Desirable: <100 Near Optimal: 100-129 Borderline High: 130-159 High: 160-189 Very High: >189 5 Because ethnic data is not always readily [...] 15-29 5 Kidney failure <15 (or dialysis) 6 FASTING 7 Total 25-Hydroxyvitamin D2 and D3 (25-OH-VitD) <10 ng/mL (severe deficiency) 10-19 ng/mL (mild to moderate deficiency) 20-50 ng/mL (optimum levels) 51-80 ng/mL (increased risk of hypercalciuria) >80 ng/mL (toxicity possible) 8 FASTING S/O Q12 WEEKS PRN ORDERED 07/30/18 EXPIRES 01/29/19 9 S/O Q12 WEEKS PRN ORDERED 07/30/18 EXPIRES 01/29/19 10 Because ethnic data is not always readily [...] 15-29 5 Kidney failure <15 (or dialysis) 11 Because ethnic data is not always [...] 5 Kidney failure <15 (or dialysis) 12 Troponin-I testing on Plasma Separator Tubes (PST) has a known false positive rate of 0.20-0.40%. All positive troponins reflex immediately to secondary confirmatory testing. Using the [employer] DxI 800 Access Immunoassay systems, the 99th percentile upper reference limit was demonstrated to be < 0.03 ng/mL. 13 Please note: The following may produce a false positive D Dimer test: - Rheumatoid factor greater than 60 IU/ml - Plasma hemoglobin greater than 0.05 gm/dl - Bilirubin greater than 50 mg/dl - Lipids greater than 1000 mg/dl - FDP greater than 20 ug/ml 14 Troponin-I testing on Plasma Separator Tubes (PST) has a known false positive rate of 0.20-0.40%. All positive troponins reflex immediately to secondary confirmatory testing. Using the [employer]erge DxI 800 Access Immunoassay systems, the 99th percentile upper reference limit was demonstrated to be < 0.03 ng/mL. 15 Please note: The following may produce a false positive D Dimer test: - Rheumatoid factor greater than 60 IU/ml - Plasma hemoglobin greater than 0.05 gm/dl - Bilirubin greater than 50 mg/dl - Lipids greater than 1000 mg/dl - FDP greater than 20 ug/ml 16 PAIN IN RIGHT KNEE, UNILATERAL PRIMARY OSTEOARTHRI 17 SEE RESULT BELOW Name: BRAYAN VALENTINE : [address]: Janie Mccullough MD Acct: [id number] Unit: [id number] AGE: 73 Location: LAB Re11/16/18 SEX: F Status: REG REF SPEC: [id number] JEREMY: 11/16/[address]: Janie Mccullough MD REQ: [id number] RECD: 11/16/18 STATUS: COMP _ SOURCE: URINE SPDESC: ORDERED: Urine Culture Procedure Result Reported Site Urine Culture Final 11/18/18- 08 ML No growth of clinically significant organisms * ML - Main Lab . END OF REPORT DEPARTMENT OF PATHOLOGY, [address] [place] [address] Jacob Keys M.D. Director [facility] # [id number] 18 Standard intensity warfarin therapeutic range: 2.0-3.0 High intensity warfarin therapeutic range: 2.5-3.5 19 Because ethnic data is not always [...] 5 Kidney failure <15 (or dialysis) 20 Total 25-Hydroxyvitamin D2 and D3 (25-OH-VitD) <10 ng/mL (severe deficiency) 10-19 ng/mL (mild to moderate deficiency) 20-50 ng/mL (optimum levels) 51-80 ng/mL (increased risk of hypercalciuria) >80 ng/mL (toxicity possible) 21 Because ethnic data is not always readily [...] 15-29 5 Kidney failure <15 (or dialysis) 22 Desirable: <150 Borderline High: 150-199 High: 200-499 Very High: >500 23 Desirable: <200 Borderline High: 200-239 High: >239 24 Low: <40 Desirable: 40-60 High: >60 25 Desirable: <100 Near Optimal: 100-129 Borderline High: 130-159 High: 160-189 Very High: >189 26 Please check labs 2 days before follow up 27 Please check labs 2 days before follow up Procedures Date Code Description Status 02/13/2019 [id number] Mammogram Completed 01/24/2019 58271 Holter Monitor Review (24 hr)dr review & interp only Completed 01/23/2019 72973 ECG Monitor/Recording W/Visual Superimposition Completed Scanning 01/09/2019 49012 Stress Test Completed 01/09/2019 04365 Myocardial Perfusion Imaging Tomographic (Spect) Completed Multiple Studies 12/21/2018 31026 EKG Tracing & Interpretation Completed 12/18/2018 00989 ECG Monitor/Recording W/Visual Superimposition Completed Scanning 12/18/2018 45772 EKG Tracing & Interpretation Completed 12/04/2018 90774 TKR Total Knee Replacement Completed 12/04/2018 72858 TKR Total Knee Replacement Completed 11/22/2018 46846 ECHO Transthoracic, Real-Time 2D With Doppler And Completed Color Flow 11/22/2018 10251 ECHO Transthoracic, Real-Time 2D With Doppler And Completed Color Flow 11/15/2018 83919 EKG Tracing & Interpretation Completed 10/17/2018 49119 Repair Hernia Umbilical > 5 Yrs, Reducible Completed 10/17/2018 34138 Repair Hernia Umbilical > 5 Yrs, Reducible Completed 10/09/2018 81792 Inject/Drain Joint/Bursa Major W/O US Completed 02/12/2018 [id number] Mammogram Completed 06/20/2017 [id number] Bone Mineral Density Test Completed 02/10/2017 [id number] Mammogram Completed 02/05/2016 [id number] Mammogram Completed 12/03/2015 [id number] Colonoscopy Completed 05/04/2015 [id number] Bone Mineral Density Test Completed 02/03/2015 [id number] Mammogram Completed 10/15/2014 [id number] Mammogram Completed 10/14/2013 [id number] Mammogram Completed 04/30/2013 [id number] Bone Mineral Density Test Completed 10/12/2012 [id number] Mammogram Completed 10/11/2011 [id number] Mammogram Completed 10/06/2010 [id number] Mammogram Completed 05/17/2010 [id number] Bone Mineral Density Test Completed Medical Devices Description No Information Available Encounters Type Date Location Provider Dx Diagnosis Office Visit 03/21/2019 Rheumatology Conor Patrick6.9 Rheumatoid 11:40a Services Of [facility] Cam[facility] arthritis, unspecified Z79.899 Other snf (current) drug therapy 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 Internal Janie I10 Essential ( primary) Tevin Mccullough M.D. hypertension Ccmob L89.610 Pressure ulcer of right heel, unstageable F43.20 Adjustment disorder, unspecified M54.5 Low back pain Office Visit 02/08/2019 [facility] Bob SKaren I44.7 Left bundle- branch 1:20p Of Nanci Ortega DO block, unspecified FACC Office Visit 01/18/2019 Rheumatology Nain Perdomo6.9 Rheumatoid 11:20a Services Of [facility] Scott M.D. 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 Internal Janie R00.0 Tachycardia, Medicine Loni Mccullough, M.D. unspecified Ccmob R31.9 Hematuria, unspecified [facility] 9:11a Assoc,pc [employer] arthritis, Hospitalists unspecified I10 Essential (primary) hypertension F41.9 Anxiety disorder, unspecified E87.6 Hypokalemia E78.5 Hyperlipidemia, unspecified Office Visit 12/04/2018 [facility] Sandrita Russ, M06.9 Rheumatoid 9:11a Assoc,pc DIRECT[employer] arthritis, Hospitalists unspecified M25.512 Pain in left shoulder E87.6 Hypokalemia I10 Essential (primary) hypertension E78.5 Hyperlipidemia, unspecified F41.9 Anxiety disorder, unspecified M35.00 Sicca syndrome, unspecified Office Visit 11/15/[address] [facility] Internal Janie Z01.818 Encounter for other 10:20a Tevin Mccullough M.D. 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 unspecified 03/28/2019 R60.0 Localized edema Janie Mccullough M.D. 03/21/2019 M06.9 Rheumatoid arthritis, unspecified Nain Scott M.D. 03/21/2019 Z79.899 Other rodent exterminator (current) drug Nain Scott M.D. 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 03/21/2019 M21.061 Valgus deformity, not elsewhere Nain Scott M.D. classified, right knee 03/06/2019 L89.610 Pressure ulcer of right heel, Mary Covarrubias M.D. unstageable 03/06/2019 Z96.651 Presence of right artificial knee Mary Covarrubias M.D. joint 03/06/2019 Z47.1 Aftercare following joint replacement Mary Covarrubias M.D. surgery 02/25/2019 I10 Essential (primary) hypertension Janie Mccullough M.D. 02/25/2019 L89.610 Pressure ulcer of right heel, Janie Mcculolugh M.D. unstageable 02/25/2019 F43.20 Adjustment disorder, unspecified Janie Mccullough M.D. 02/25/2019 M54.5 Low back pain Janie Mccullough M.D. 02/18/2019 Z96.651 Presence of right artificial knee Mary Covarrubias M.D. joint 02/18/2019 Z47.1 Aftercare following joint replacement Mary Covarrubias M.D. surgery 02/08/2019 I44.7 Left bundle-branch block, unspecified Bob Ortega, DO FACC 01/29/2019 Z96.651 Presence of right artificial knee Ravindra Dill, joint RPA-C 01/29/2019 Z47.1 Aftercare following joint replacement Ravindra Dill, surgery RPA-C 01/29/2019 S91.301D Unspecified open wound, right foot, Ravindra Dill, subsequent encounter RPA-C 01/24/2019 R00.0 Tachycardia, unspecified Bob Ortega, DO FACC 01/23/2019 R00.0 Tachycardia, unspecified Nurse Visit IC 01/23/2019 R00.0 Tachycardia, unspecified Bob Ortega, DO FACC 01/18/2019 Z96.651 Presence of right artificial knee Mary Covarrubias M.D. joint 01/18/2019 M06.9 Rheumatoid arthritis, unspecified Nain Scott M.D. 01/18/2019 Z47.1 Aftercare following joint replacement Mary Covarrubias M.D. surgery 01/18/2019 Z79.899 Other rodent exterminator (current) drug Nain Scott M.D. therapy 01/18/2019 M54.5 Low back pain Nain Scott M.D. 01/18/2019 M21.061 Valgus deformity, not elsewhere Nain Scott M.D. 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 01/18/2019 R00.0 Tachycardia, unspecified Nain Scott M.D. 01/09/2019 I44.7 Left bundle-branch block, unspecified Bob S. Ortega, DO FACC 01/09/2019 R94.31 Abnormal electrocardiogram [ECG] Bob S. Ortega, DO FACC [EKG] 12/21/2018 R00.0 Tachycardia, unspecified Bob S. Ortega, DO FACC 12/21/2018 M06.9 Rheumatoid arthritis, unspecified Bob S. Ortega, DO FACC 12/21/2018 I44.7 Left bundle-branch block, unspecified Bob S. Ortega, DO FACC 12/21/2018 R00.2 Palpitations Bob SKaren Ortega, DO FACC 12/19/2018 R00.0 Tachycardia, unspecified Im Nurse Holter Monitor 12/18/2018 R00.0 Tachycardia, unspecified Janie Mccullough M.D. 12/18/2018 R31.9 Hematuria, unspecified Janie Mccullough M.D. 12/14/2018 Z96.651 Presence of right artificial knee Mary Covarrubias M.D. joint 12/14/2018 Z47.1 Aftercare following joint replacement Mary Covarrubias M.D. surgery 12/05/2018 M06.9 Rheumatoid arthritis, unspecified Sandrita Russ, GIANNA 12/05/2018 I10 Essential (primary) hypertension Sandrita Russ, GIANNA 12/05/2018 F41.9 Anxiety disorder, unspecified Sandrita Russ, GIANNA 12/05/2018 E87.6 Hypokalemia Sandrita Russ, GIANNA 12/05/2018 E78.5 Hyperlipidemia, unspecified Sandrita Russ, GIANNA 12/04/2018 M17.11 Unilateral primary osteoarthritis, ELSA Banegas right knee 12/04/2018 M17.11 Unilateral primary osteoarthritis, Mary Covarrubias M.D. right knee 12/04/2018 M06.9 Rheumatoid arthritis, unspecified Sandrita Russ, [employer] OF [employer] 12/04/2018 M25.512 Pain in left shoulder Sandrita Russ, [employer] 12/04/2018 E87.6 Hypokalemia Sandrita Russ, [employer] 12/04/2018 I10 Essential (primary) hypertension Sandrita Russ, [employer] OF [employer] 12/04/2018 E78.5 Hyperlipidemia, unspecified Sandrita Russ, [employer] 12/04/2018 F41.9 Anxiety disorder, unspecified Sandrita Russ, [employer] 12/04/2018 M35.00 Sicca syndrome, unspecified Sandrita Russ, [employer] 11/26/2018 M25.461 Effusion, right knee Mary Covarrubias [...] M.D. factor of multiple site 11/15/2018 Z79.52 longterm (current) use of systemic Janie Mccullough M.D. [...] Scott M.D. right hip 10/05/2018 Z79.899 Other rodent exterminator (current) drug Nain Scott M.D. therapy 10/05/2018 M21.061 Valgus deformity, not elsewhere Nain Scott M.D. classified, right knee Plan of Treatment Future Appointment(s):04/26/2019 10:00 am - Janie Mccullough M.D. at [facility]06/13/2019 1:20 pm - Nain Scott M.D. at [facility]06/05/2019 10:30 am - Mary Covarrubias M.D. at [facility]/28/2019 - Janie Mccullough M.D.F33.9 Major depressive disorder, recurrent, unspecifiedNew Medication:Duloxetine HCL 20 mg - 2 by mouth every dayComments:Start duloxetineConsider counseling Group!?Follow up:1 month - [id number] Localized edemaComments:Keep moving the calf musclesWe could increase the chlorthalidone - increase to 1 and 1/2 pills daily Functional Status Description No Information Available Mental Status Description No Information Available Referrals Refer to Reason for Referral Status Appt Date Dangelo Ewing MD, FACC, FASNC First available Sent 12/21/[address] [place] [address] [phone] Gopal Hawkins MD Sent 01/21/2019 [address] [place] [address] [place] [address] [phone]
--- OUTSIDE RECORDS SUMMARY | 2019-04-24 06:57 | XMS REPORT | Continuity of Care Document ---
:1945 External Reference #:[id number] Author Name Mary Covarrubias M.D. (transmitted by agent of provider Tasia Teixeira) Address [address] [place] [address] Care Team Providers Name Role Phone Janie Mccullough MD - Internal Care Team Information Adjunct Faculty Medicine Gopal Hawkins MD - Urology Care Team Information Adjunct Faculty [phone] Bob Ortega DO, [facility] - Care Team Information Adjunct Faculty [phone] Cardiovascular Disease Problems Active Problems Provider Date [...] 09/07/2018 Localized, primary osteoarthritis of the Mary Covarrubisa M.D. Onset: 09/07/2018 pelvic region and thigh Rheumatoid arthritis with organ / system Dominic Tan MD Onset: 10/09/2018 involvement Social History Type Date Description Comments Sex Unknown ETOH Use Denies alcohol use Tobacco Use Start: Unknown End: Patient is a former social smoking in Unknown smoker college Recreational Drug Use Denies Drug Use Smoking Status Reviewed: 03/06/19 Patient is a former social smoking in [...] Medications SIG Qnty Indications Ordering Date Provider Compression s/p right 1units Z96.651 Mary Covarrubias, 02/18/2019 Stockings total knee M.D. Misc replacement with rle edema Xeljanz Take one 180tabs Nain Scott, 11/30/2018 5mg Tablets capsule/tablet M.DKaren daily by mouth for 1 week then 1 twice daily Hydrocodone-Acetami 1 - 2 tabs daily as 30tabs Enrrique Dumont, 10/19/2018 nophen needed for pain 5-325mg Tablets Simvastatin 1 by mouth every 90tabs E78.4 Janie 06/12/2018 20mg day at bedtime Janice Mccullough Tablets Alprazolam 1 tablet three 90tabs Janie 05/02/2018 0.5mg times a day as Janice Mccullough Tablets needed anxiety Prednisone 5 mg daily 90tabs Z79.52 Nain Scott, 03/19/2018 5mg M.DKaren Tablets Metoprolol 1 by mouth every 90tabs Janie 09/26/2016 Succinate ER day Janice Mccullough [...] 25mg Tablets Mouth Daily as M.D. Directed Fish Oil one tab daily Gale Zhang MD 1200mg Capsules Restasis one gtts ou bid Unknown 0.05% Emulsion Metrocream apply twice daily Unknown Cream as needed Tretinoin gel daily as Unknown 0.025% Cream directed Calcium 600 1 po qd Unknown History Medications Valacyclovir HCL 1 PO tid x 1 week 21tabs B02.9 Janie 11/15/2018 - Janice Mccullough 12/18/2018 1gm Tablets Hydrocodone-Acetami take one by mouth 30tabs Nain Scott, 10/05/2018 - nophen twice daily as needed M.DKaren 10/19/2018 7.5-325mg for pain Tablets Actemra inject 162 mg 4units Nain Scott, 09/04/2018 - 162mg/0.9ML subcutaneously every M.D. 11/30/2018 Soln Prefill other week On Hold Syringe Medications Administered in Office Medication SIG Qnty Indications Ordering Provider Date Inj, Regadenoson, 0.1 MG Bob Ortega, DO [facility] 01/09/2019 Injection Technetium TC 99M Bob Ortega, DO [facility] 01/09/2019 Tetrofosmin, Per Unit Dose Up To 40 Millicuries Injection Technetium TC 99M Bob Ortega DO [facility] 01/09/2019 Tetrofosmin, Per Unit Dose Up To [...] Code Status Date Vaccine Reaction Lot # [id number] Given 11/13/2017 Influenza Virus Vaccine, Quadrivalent, Split, Preservative Free 48453 Given 11/03/2016 Influenza Virus Vaccine, No immediate reaction [id number] Quadrivalent, Split, Preservative Free 97869 Given 11/03/2015 Influenza Virus Vaccine, [id number] Quadrivalent, Split, Preservative Free 33044 Given 11/20/2014 Influenza Virus Vaccine, [id number] Quadrivalent, Split, Preservative Free 22813 Given 04/17/2014 Pneumococcal Conjugate [id number] Vaccine 13 Valent For Intramuscular Use 17255 Given 11/14/2013 Influenza Virus Vaccine, [id number] Quadrivalent, Split, Preservative Free 66150 Given 10/31/2012 Flu Vaccine Split Virus [id number] Preservative Free For Indiv 3Yr Older 59839 Given 08/07/2012 Pneumonia Vaccine [id number] Q2038 Given 11/22/2011 Fluzone Vaccine [id number] 20763 Given 10/26/2010 Influenza Virus 3Yrs & Over 06211 Given 10/26/2010 Influenza Virus 3Yrs & [id number] Over 68058 Given 12/07/2004 Pneumovax (History By 1381u Patient) 27723 Given 12/07/2004 Td (History By Patient) Vital Signs Date Vital Result Comment 03/06/2019 11:08am Height 62 inches 5'2" Weight 127.00 lb Heart Rate 91 /min BP Systolic 131 mmHg BP Diastolic 84 mmHg Body Temperature 98.2 F Pain Level 2 BMI (Body Mass Index) 23.2 kg/m2 02/25/2019 2:21pm Height 62 inches 5'2" Weight 127.00 lb Heart Rate 82 /min BP Systolic 127 mmHg BP Diastolic 80 mmHg O2 % BldC Oximetry 97 % BMI (Body Mass Index) 23.2 kg/m2 Results Test Acquired Date Facility Test Result H/L Range Note Laboratory test 01/17/2019 [facility] Erythrocyte Sed 71 mm/Hr High 0-29 [address] [place] [address] [phone] C Reactive Protein 9.73 mg/L High <8.01 2 CBC Auto 01/17/2019 [facility] White Blood 6.5 10^3/uL Normal 3.5-10.[address] [place] [address] [phone] Red Blood Count 3.70 10^6/uL Normal 3.70-4.87 [...] Blood Cells % 0.0 Comp Metabolic 01/17/2019 [facility] Sodium 139 mmol/L Normal 135-[address] [place] [address] [phone] Potassium 3.4 mmol/L Low 3.5-5.0 Chloride 101 [...] Egfr Non- 101.9 >60 Egfr 123.3 >60 3 Laboratory test 12/28/2018 [facility] Troponin-I 0.01 <0.03 [address] (TnI) ng/[place] [address] [phone] Laboratory test 12/28/2018 [facility] C Reactive 41.70 High < 8.[address] Protein mg/[place] [address] [phone] Comp Metabolic 12/28/2018 [facility] Sodium 137 Normal 135- [address] mmol/[place] [address] [phone] Potassium 4.0 mmol/L Normal 3.5-5.0 Chloride 101 [...] Egfr Non- 79.6 >60 Egfr 96.3 >60 5 Laboratory test 12/28/2018 [facility] B-Type 51 pg/mL <=[address] [place] [address] Peptide BNP [phone] Troponin-I (TnI) 0.01 ng/mL <0.03 6 CBC Auto 12/28/2018 [facility] White Blood 7.1 10^3/uL Normal 3.5-10.[address] [place] [address] [phone] Red Blood Count 3.55 10^6/uL Low 3.70-4.87 [...] Red Blood Cells % 0.0 Laboratory 12/28/2018 [facility] D Dimer 470 ng/mL High Less 7 test finding [address] Quantitative Than 230 [place], [place] [id number] [phone] Laboratory 12/18/2018 [facility] D Dimer 716 ng/mL High Less 8 test finding [address] Quantitative Than 230 [place] [address] [phone] CBC Auto Diff 12/18/2018 [facility] White Blood 9.4 Normal 3.5 -10.[address] Count 10^3/[place] [address] [phone] Red Blood Count 3.53 10^6/uL Low 3.70-4.87 [...] Cells % 0.0 Type & Screen 11/26/2018 [facility] Patient Blood Type O Positive [address] [place] [address] [phone] Antibody Screen NEGATIVE Urine Culture And 11/16/2018 [facility] Urine SEE RESULT [address] Culture BELOW [place], [place] [id number] [phone] Laboratory test 11/16/2018 [facility] Partial 30.4 Normal 26.[address] Thrombo Time seconds -38. [place] [address] PTT 0 [phone] Inr/Protime 11/16/2018 [facility] Inr 0.95 Normal 0.[address] -1.0 [place] [address] 9 [phone] Comp Metabolic 11/16/2018 [facility] Sodium 137 mmol/L Normal 135- Panel [address] [place] [address] [phone] Potassium 3.7 mmol/L Normal 3.5-5.0 Chloride 97 [...] Egfr Non- 100.2 >60 Egfr 121.2 >60 12 CBC Auto 11/16/2018 [facility] White Blood 9.9 10^3/uL Normal 3.5-10.[address] [place] [address] [phone] Red Blood Count 4.24 10^6/uL Normal 3.70-4.87 [...] Blood Cells % 0.0 Urinalysis Profile 11/16/2018 [facility] Urine Color Yellow [address] [place] [address] [phone] Urine Appearance Clear Urine Specific Petros 1.012 Normal 1.010-1.030 Urine pH 7.0 Normal 5-9 Urine Urobilinogen Negative Negative Urine Ketones Negative Negative Urine Protein Negative Negative Urine Leukocytes Negative Negative Urine Blood 2+ Abnormal Negative Urine Nitrite Negative Negative Urine Bilirubin Negative Negative Urine Glucose Negative Negative Urine White Blood Cell Trace(0-5/hpf) Absent Urine Red Blood Cell 1+(3-5/hpf) Abnormal Absent Urine Bacteria Absent Absent Laboratory test 10/03/2018 [facility] Vitamin D 75.7 ng/mL High 20-50 [address] Total 25(Oh) [place] [address] [phone] Comp Metabolic 10/03/2018 [facility] Sodium 140 mmol/L Normal 135-[address] [place] [address] [phone] Potassium 3.5 mmol/L Normal 3.5-5.0 Chloride 104 [...] Egfr Non- 89.6 >60 Egfr 108.4 >60 14 CBC Auto 10/03/2018 [facility] White Blood 4.3 10^3/uL Normal 3.5-10.[address] [place] [address] [phone] Red Blood Count 4.54 10^6/uL Normal 3.70-4.87 [...] Blood Cells % 0.0 Lipid Profile 10/03/2018 [facility] Triglycerides 135 mg/dL 15 (Trig/Chol/HDL) [address] [place] [address] [phone] Cholesterol 208 mg/dL 16 HDL Cholesterol 73.3 mg/dL 17 LDL Cholesterol 108 mg/dL 18 Laboratory test 10/03/2018 [facility] Erythrocyte Sed 7 mm/Hr Normal 0-29 [address] [place] [address] [phone] C Reactive Protein < 1.00 mg/L Normal <8.01 20 1 FASTING S/O Q12 WEEKS PRN ORDERED 07/30/18 EXPIRES 01/29/19 2 S/O Q12 WEEKS PRN ORDERED 07/30/18 EXPIRES 01/29/19 3 Because ethnic data is not always [...] 5 Kidney failure <15 (or dialysis) 4 Troponin-I testing on Plasma Separator Tubes (PST) has a known false positive rate of 0.20-0.40%. All positive troponins reflex immediately to secondary confirmatory testing. Using the [employer] DxI 800 Access Immunoassay systems, the 99th percentile upper reference limit was demonstrated to be < 0.03 ng/mL. 5 Because ethnic data is not always [...] 5 Kidney failure <15 (or dialysis) 6 Troponin-I testing on Plasma Separator Tubes (PST) has a known false positive rate of 0.20-0.40%. All positive troponins reflex immediately to secondary confirmatory testing. Using the [employer] DxI 800 Access Immunoassay systems, the 99th percentile upper reference limit was demonstrated to be < 0.03 ng/mL. 7 Please note: The following may produce a false positive D Dimer test: - Rheumatoid factor greater than 60 IU/ml - Plasma hemoglobin greater than 0.05 gm/dl - Bilirubin greater than 50 mg/dl - Lipids greater than 1000 mg/dl - FDP greater than 20 ug/ml 8 Please note: The following may produce a false positive D Dimer test: - Rheumatoid factor greater than 60 IU/ml - Plasma hemoglobin greater than 0.05 gm/dl - Bilirubin greater than 50 mg/dl - Lipids greater than 1000 mg/dl - FDP greater than 20 ug/ml 9 PAIN IN RIGHT KNEE, UNILATERAL PRIMARY OSTEOARTHRI 10 SEE RESULT BELOW Name: BRAYAN VALENTINE : [address]: Janie Mccullough MD Acct: [id number] Unit: [id number] AGE: 73 Location: LAB Re11/16/18 SEX: F Status: REG REF SPEC: [id number] JEREMY: 11/16/[address]: Janie Mccullough MD REQ: [id number] RECD: 11/16/18 STATUS: COMP _ SOURCE: URINE SPDESC: ORDERED: Urine Culture Procedure Result Reported Site Urine Culture Final 11/18/18- 0829 ML No growth of clinically significant organisms * ML - Main Lab . END OF REPORT DEPARTMENT OF PATHOLOGY, [address] [place] [address] Jacob Keys M.D. Director [facility] # [id number] 11 Standard intensity warfarin therapeutic range: 2.0-3.0 High intensity warfarin therapeutic range: 2.5-3.5 12 Because ethnic data is not always readily [...] 15-29 5 Kidney failure <15 (or dialysis) 13 Total 25-Hydroxyvitamin D2 and D3 (25-OH-VitD) [...] 5 Kidney failure <15 (or dialysis) 15 Desirable: <150 Borderline High: 150-199 High: 200-499 Very High: >500 16 Desirable: <200 Borderline High: 200-239 High: >239 17 Low: <40 Desirable: 40-60 High: >60 18 Desirable: <100 Near Optimal: 100-129 Borderline High: 130-159 High: 160-189 Very High: >189 19 Please check labs 2 days before follow up 20 Please check labs 2 days before follow up Procedures Date Code Description Status 02/13/2019 [id number] Mammogram Completed 01/24/2019 74971 Holter Monitor Review (24 hr)dr review & interp only Completed 01/23/2019 89546 ECG Monitor/Recording W/Visual Superimposition Completed Scanning 01/09/2019 21621 Stress Test Completed 01/09/2019 13249 Myocardial Perfusion Imaging Tomographic (Spect) Completed Multiple Studies 12/21/2018 21949 EKG Tracing & Interpretation Completed 12/18/2018 17111 ECG Monitor/Recording W/Visual Superimposition Completed Scanning 12/18/2018 78817 EKG Tracing & Interpretation Completed 12/04/2018 34335 TKR Total Knee Replacement Completed 12/04/2018 87641 TKR Total Knee Replacement Completed 11/22/2018 33028 ECHO Transthoracic, Real-Time 2D With Doppler And Completed Color Flow 11/22/2018 83760 ECHO Transthoracic, Real-Time 2D With Doppler And Completed Color Flow 11/15/2018 08247 EKG Tracing & Interpretation Completed 10/17/2018 15222 Repair Hernia Umbilical > 5 Yrs, Reducible Completed 10/17/2018 89289 Repair Hernia Umbilical > 5 Yrs, Reducible Completed 10/09/2018 69603 Inject/Drain Joint/Bursa Major W/O US Completed 02/12/2018 [id number] Mammogram Completed 06/20/2017 [id number] Bone Mineral Density Test Completed 02/10/2017 [id number] Mammogram Completed 02/05/2016 [id number] Mammogram Completed 12/03/2015 [id number] Colonoscopy Completed 05/04/2015 [id number] Bone Mineral Density Test Completed 02/03/2015 [id number] Mammogram Completed 10/15/2014 [id number] Mammogram Completed 10/14/2013 [id number] Mammogram Completed 04/30/2013 [id number] Bone Mineral Density Test Completed 10/12/2012 [id number] Mammogram Completed 10/11/2011 95160421 Mammogram Completed 10/06/2010 [id number] Mammogram Completed 05/17/2010 [id number] Bone Mineral Density Test Completed Medical Devices Description No Information Available Encounters Type Date Location Provider Dx Diagnosis Office Visit 02/25/2019 [facility] Internal Janie Jamel, I10 Essential ( primary) 2:20p Medicine Loni Unger M.D. hypertension L89.610 Pressure ulcer of right heel, unstageable F43.20 Adjustment disorder, unspecified M54.5 Low back pain Office Visit 02/08/2019 [facility] Bob Bob I44.7 Left bundle- branch 1:20p Of Nanci Ortega DO block, unspecified FACC Office Visit 01/18/2019 Rhe[facility] Nain M06.9 Rheumatoid 11:20a Services Of Nanci Scott M.D. 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 unspecified Ccmob R31.9 Hematuria, unspecified Office Visit 12/05/2018 [facility] Rebekah Russ, M06.9 Rheumatoid 9:11a Assoc,pc DIRECTOR OF OUTREACH arthritis, Hospitalists unspecified I10 Essential (primary) hypertension F41.9 Anxiety disorder, unspecified E87.6 Hypokalemia E78.5 Hyperlipidemia, unspecified Office Visit 12/04/2018 [facility] Rebekah Nash.Hollie, M06.9 Rheumatoid 9:11a Assoc,pc DIRECTOR OF OUTREACH arthritis, Hospitalists unspecified M25.512 Pain in left shoulder E87.6 Hypokalemia I10 Essential (primary) hypertension E78.5 Hyperlipidemia, unspecified F41.9 Anxiety disorder, unspecified M35.00 Sicca syndrome, unspecified Office Visit 11/15/2018 [facility] Internal Janie Z01.818 Encounter for other 10:20a Tevin Mccullough M.D. preprocedural Ccmob examination M05.79 Rheu arthritis w rheu factor mult site w/o org/sys involv Z79.52 USP (current) use of systemic steroids I10 Essential (primary) hypertension R07.9 Chest pain, unspecified R21 Rash and other nonspecific skin eruption Office Visit 10/05/2018 12:40p Rheumatology Nain Scott, M05.79 Rheu arthritis Services Of Nanci Camacho w rheu factor mult site w/o org/sys involv M16.11 Unilateral primary osteoarthritis, right hip Z79.899 Other nursing home (current) drug therapy M21.061 Valgus deformity, not elsewhere classified, right knee Office Visit 09/24/2018 1:00p Surgical Bob Mackey K42.9 Umbilical hernia [facility] MD Demetrius, without FACS obstruction or gangrene Office Visit 09/07/2018 8:00a [facility] Mary Covarrubias, M05.79 Rheu arthritis w at [facility] Janice rheu factor mult site w/o org/sys involv M25.561 Pain in right knee M25.562 Pain in left knee M17.11 Unilateral primary osteoarthritis, right knee M25.551 Pain in right hip M16.11 Unilateral primary osteoarthritis, right hip M21.061 Valgus deformity, not elsewhere classified, right knee Assessments Date Code Description Provider 02/25/2019 I10 Essential (primary) hypertension Janie Mccullough M.D. 02/25/2019 L89.610 Pressure ulcer of right heel, Janie Mccullough M.D. unstageable 02/25/2019 F43.20 Adjustment disorder, unspecified Janie Mccullough M.D. 02/25/2019 M54.5 Low back pain Janie Mccullough M.D. 02/18/2019 Z96.651 Presence of right artificial knee Mary Covarrubias M.D. joint 02/18/2019 Z47.1 Aftercare following joint replacement Mary Covarrubias M.D. surgery 02/08/2019 I44.7 Left bundle-branch block, unspecified Bob Ortega, DO FACC 01/29/2019 Z96.651 Presence of right artificial knee Ravindra EcholsKaren Dill, joint RPA-C 01/29/2019 Z47.1 Aftercare following joint replacement [facility] HKaren Dill, surgery RPA-C 01/29/2019 S91.301D Unspecified open wound, right foot, [facility] HKaren Dill, subsequent encounter RPA-C 01/24/2019 R00.0 Tachycardia, unspecified Bob Ortega, DO FACC 01/23/2019 R00.0 Tachycardia, unspecified Nurse Visit IC 01/23/2019 R00.0 Tachycardia, unspecified Bob Ortega, DO FACC 01/18/2019 Z96.651 Presence of right artificial knee Mary Covarrubias M.D. joint 01/18/2019 M06.9 Rheumatoid arthritis, unspecified Nain Scott M.D. 01/18/2019 Z47.1 Aftercare following joint replacement Mary Covarrubias M.D. surgery 01/18/2019 Z79.899 Other nursing home (current) drug Nain Scott M.D. therapy 01/18/2019 M54.5 Low back pain Nain Scott M.D. 01/18/2019 M21.061 Valgus deformity, not elsewhere Nain Scott M.D. 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 01/18/2019 R00.0 Tachycardia, unspecified Nain Scott M.D. 01/09/2019 I44.7 Left bundle-branch block, unspecified Bob Ortega, DO FACC 01/09/2019 R94.31 Abnormal electrocardiogram [ECG] Bob Ortega, DO FACC [EKG] 12/21/2018 R00.0 Tachycardia, unspecified Bob Ortega, DO [facility] 12/21/2018 M06.9 Rheumatoid arthritis, unspecified Bob Ortega, DO [facility] 12/21/2018 I44.7 Left bundle-branch block, unspecified Bob Ortega, DO [facility] 12/21/2018 R00.2 Palpitations Bob Ortega, DO [facility] 12/19/2018 R00.0 Tachycardia, unspecified Im Nurse Holter Monitor 12/18/2018 R00.0 Tachycardia, unspecified Janie Mccullough M.D. 12/18/2018 R31.9 Hematuria, unspecified Janie Mccullough M.D. 12/14/2018 Z96.651 Presence of right artificial knee Mary Covarrubias M.D. joint 12/14/2018 Z47.1 Aftercare following joint replacement Mary Covarrubias M.D. surgery 12/05/2018 M06.9 Rheumatoid arthritis, unspecified Sandrita Russ, GIANNA 12/05/2018 I10 Essential (primary) hypertension Sandrita Russ, DIRECTOR OF OUTREACH 12/05/2018 F41.9 Anxiety disorder, unspecified Sandrita Russ, DIRECTOR OF OUTREACH 12/05/2018 E87.6 Hypokalemia Sandrita Russ, DIRECTOR OF OUTREACH 12/05/2018 E78.5 Hyperlipidemia, unspecified Sandrita Russ, DIRECTOR OF OUTREACH 12/04/2018 M17.11 Unilateral primary osteoarthritis, ELSA Banegas right knee 12/04/2018 M17.11 Unilateral primary osteoarthritis, Mary Covarrubias M.D. right knee 12/04/2018 M06.9 Rheumatoid arthritis, unspecified Sandrita Russ, DIRECTOR OF OUTREACH 12/04/2018 M25.512 Pain in left shoulder Sandrita Russ, DIRECTOR OF OUTREACH 12/04/2018 E87.6 Hypokalemia Sandrita Russ, DIRECTOR OF OUTREACH 12/04/2018 I10 Essential (primary) hypertension Sandrita Russ, DIRECTOR OF OUTREACH 12/04/2018 E78.5 Hyperlipidemia, unspecified Sandrita Russ, DIRECTOR OF OUTREACH 12/04/2018 F41.9 Anxiety disorder, unspecified Sandrita Russ, DIRECTOR OF OUTREACH 12/04/2018 M35.00 Sicca syndrome, unspecified Sandrita Russ, DIRECTOR OF OUTREACH 11/26/2018 M25.461 Effusion, right knee Mary Covarrubias [...] M.D. factor of multiple site 11/15/2018 Z79.52 USP (current) use of systemic Janie Mccullough M.D. [...] Scott M.D. 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 therapy 10/05/2018 [...] elsewhere Mary Covarrubias M.D. classified, right knee Plan of Treatment Future Appointment(s):06/05/2019 10:30 am - Mary Covarrubias M.D. at [facility] at [id number]/28/2019 10:20 am - Janie Mccullough M.D. at [facility] Internal Medicine - [facility]03/21/2019 11:40 am - Nain Scott M.D. at [facility] Functional Status Description No Information Available Mental Status Description No Information Available Referrals Refer to Dr Reason for Referral Status Appt Dangelo Monteiro MD, FACC, FASNY First available Sent 12/21/2018 [address] [place] [address] [phone] Gopal Hawkins MD Sent 01/21/[address] [place] [address] [place] [address] [phone] Basil Schwartz MD Sent 09/24/[address] [place] [address] [place] [address] [phone]
--- OUTSIDE RECORDS SUMMARY | 2019-04-24 06:57 | XMS REPORT | Continuity of Care Document ---
:1945 External Reference #:[id number] Author Name Nain Scott M.D. (transmitted by agent of provider Elke Massey) Address [address] [place] [address] Care Team Providers Name Role Phone Janie Mccullough MD - Internal Care Team Information Visual Merchandising Coordinator Medicine Gopal Hawkins MD - Urology Care Team Information Visual Merchandising Coordinator [phone] Bob Ortega DO, [facility] - Care Team Information Visual Merchandising Coordinator [phone] Cardiovascular Disease Problems Active Problems Provider Date [...] Use Denies Drug Use Smoking Status Reviewed: 03/21/19 Patient is a former social smoking in [...] Hydrocodone-Acetami 1 - 2 tabs daily as 60tabs Nain Scott, 10/19/2018 nophen needed for pain M.D. 5-325mg Tablets Simvastatin 1 by mouth every 90tabs E78.4 Janie 06/12/2018 20mg day at bedtime Janice Mccullough Tablets Alprazolam 1 tablet three 90tabs Janie 05/02/2018 0.5mg times a day as Janice Mccullough Tablets needed anxiety Prednisone 5 mg daily 90tabs Z79.52 Nain Scott, 03/19/2018 5mg M.D. Tablets Metoprolol 1 by mouth every 90tabs [...] x 1 21tabs B02.9 Janie Mccullough, 11/15/2018 - 1gm week M.D. 12/18/2018 Tablets Hydrocodone-Acetamino take one by 30tabs Nain Scott, 10/05/2018 - phen mouth twice M.D. 10/19/2018 7.5-325mg Tablets daily as needed for pain Medications Administered in Office Medication SIG Qnty Indications Ordering Provider Date Inj, Regadenoson, 0.1 MG Bob Ortega, DO [facility] 01/09/2019 Injection Technetium TC 99M Bob Ortega, DO [facility] 01/09/2019 Tetrofosmin, Per Unit Dose Up To 40 Millicuries Injection Technetium TC 99M Bob Ortega DO [facility] 01/09/2019 Tetrofosmin, Per Unit Dose Up [...] Code Status Date Vaccine Reaction Lot # [id number] Given 11/13/2017 Influenza Virus Vaccine, Quadrivalent, Split, Preservative Free 50719 Given 11/03/2016 Influenza Virus Vaccine, No immediate reaction [id number] Quadrivalent, Split, Preservative Free 51275 Given 11/03/2015 Influenza Virus Vaccine, [id number] Quadrivalent, Split, Preservative Free 97386 Given 11/20/2014 Influenza Virus Vaccine, [id number] Quadrivalent, Split, Preservative Free 44846 Given 04/17/2014 Pneumococcal Conjugate [id number] Vaccine 13 Valent For Intramuscular Use 72772 Given 11/14/2013 Influenza Virus Vaccine, [id number] Quadrivalent, Split, Preservative Free 84368 Given 10/31/2012 Flu Vaccine Split Virus [id number] Preservative Free For Indiv 3Yr Older 63977 Given 08/07/2012 Pneumonia Vaccine [id number] Given 11/22/2011 Fluzone Vaccine [id number] 84104 Given 10/26/2010 Influenza Virus 3Yrs & Over 43326 Given 10/26/2010 Influenza Virus 3Yrs & [id number] Over 41890 Given 12/07/2004 Pneumovax (History By 1381u Patient) 05166 Given 12/07/2004 Td (History By Patient) Vital Signs Date Vital Result Comment 03/21/2019 11:39am Height 62 inches 5'2" Weight 128.00 lb Heart Rate 93 /min BP Systolic Sitting 136 mmHg BP Diastolic Sitting 80 mmHg Pain Level 6 O2 % BldC Oximetry 98 % BMI (Body Mass Index) 23.4 kg/m2 03/06/2019 11:08am Height 62 inches 5'2" Weight 127.00 lb Heart Rate 91 /min BP Systolic 131 mmHg BP Diastolic 84 mmHg Body Temperature 98.2 F Pain Level 2 BMI (Body Mass Index) 23.2 kg/m2 Results Test Acquired Date Facility Test Result H/L Range Note Lipid Profile 03/19/2019 [facility] Triglycerides 104 mg/dL 1 (Trig/Chol/HDL) [address] [place] [address] [phone] Cholesterol 180 mg/dL 2 HDL Cholesterol 63.1 mg/dL 3 LDL Cholesterol 96 mg/dL 4 Comp Metabolic 03/19/2019 [facility] Sodium 140 mmol/L Normal 135-[address] [place] [address] [phone] Potassium 3.5 mmol/L Normal 3.5-5.0 Chloride 103 [...] Egfr 114.2 >60 5 Laboratory test 03/19/2019 [facility] C Reactive 20.07 mg/L High <8.01 6 finding [address] [place] [address] [phone] Vitamin D Total 25(Oh) 57.0 ng/mL High 20-50 7 CBC Auto 03/19/2019 [facility] White Blood 7.2 10^3/uL Normal 3.5-10.8 Diff [address] [place] [address] [phone] Red Blood Count 4.28 10^6/uL Normal 3.70-4.87 [...] Blood Cells % 0.0 Laboratory test 03/19/2019 [facility] Erythrocyte Sed 64 mm/Hr High 0-[address] [place] [address] [phone] Laboratory test 01/17/2019 [facility] Erythrocyte Sed 71 mm/Hr High 0-29 [address] [place] [address] [phone] C Reactive Protein 9.73 mg/L High <8.01 9 CBC Auto 01/17/2019 [facility] White Blood 6.5 10^3/uL Normal 3.5-10.[address] [place] [address] [phone] Red Blood Count 3.70 10^6/uL Normal 3.70-4.87 [...] Blood Cells % 0.0 Comp Metabolic 01/17/2019 [facility] Sodium 139 mmol/L Normal 135-145 Panel [address] [place] [address] [phone] Potassium 3.4 mmol/L Low 3.5-5.0 Chloride 101 [...] Egfr 123.3 >60 10 Laboratory test 12/28/2018 [facility] C Reactive 41.70 mg/L High <8.01 finding [address] [facility] [place] [address] [phone] Comp Metabolic 12/28/2018 [facility] Sodium 137 mmol/L Normal 135-145 Panel [address] [place] [address] [phone] Potassium 4.0 mmol/L Normal 3.5-5.0 Chloride 101 [...] Egfr 96.3 >60 11 Laboratory test 12/28/2018 [facility] B-Type 51 pg/mL <=[address] [place] [address] Peptide BNP [phone] Troponin-I (TnI) 0.01 ng/mL <0.03 12 CBC Auto 12/28/2018 [facility] White Blood 7.1 10^3/uL Normal 3.5-10.[address] [place] [address] [phone] Red Blood Count 3.55 10^6/uL Low 3.70-4.87 [...] Red Blood Cells % 0.0 Laboratory 12/28/2018 [facility] D Dimer 470 ng/mL High Less 13 test finding [address] [place] [address] [phone] Laboratory 12/28/2018 [facility] Troponin-I (TnI) 0.01 <0.03 14 test finding [address] ng/mL [place], [place] [address] [phone] Laboratory 12/18/2018 [facility] D Dimer 716 ng/mL High Less 15 test finding [address] [place] [address] [phone] CBC Auto Diff 12/18/2018 [facility] White Blood 9.4 Normal 3.5 -10. [address] Count 10^3/uL 8 [place], [place] [id number] [phone] Red Blood Count 3.53 10^6/uL Low 3.70-4.87 [...] Cells % 0.0 Type & Screen 11/26/2018 [facility] Patient Blood Type O Positive [address] [place] [address] [phone] Antibody Screen NEGATIVE Urine Culture And 11/16/2018 [facility] Urine SEE RESULT [address] [place] [address] [phone] Laboratory test 11/16/2018 [facility] Partial 30.4 Normal 26.[address] Thrombo Time seconds -38. [place] [address] PTT [phone] Inr/Protime 11/16/2018 [facility] Inr 0.95 Normal 0.[address] -1.0 [place] [address] [phone] Comp Metabolic 11/16/2018 [facility] Sodium 137 mmol/L Normal 135- Panel [address] [place] [address] [phone] Potassium 3.7 mmol/L Normal 3.5-5.0 Chloride 97 [...] Egfr 121.2 >60 19 CBC Auto 11/16/2018 [facility] White Blood 9.9 10^3/uL Normal 3.5-10.[address] [place] [address] [phone] Red Blood Count 4.24 10^6/uL Normal 3.70-4.87 [...] Blood Cells % 0.0 Urinalysis Profile 11/16/2018 [facility] Urine Color Yellow [address] [place] [address] [phone] Urine Appearance Clear Urine Specific Tolar 1.012 Normal 1.010-1.030 Urine pH 7.0 Normal 5-9 Urine Urobilinogen Negative Negative Urine Ketones Negative Negative Urine Protein Negative Negative Urine Leukocytes Negative Negative Urine Blood 2+ Abnormal Negative Urine Nitrite Negative Negative Urine Bilirubin Negative Negative Urine Glucose Negative Negative Urine White Blood Cell Trace(0-5/hpf) Absent Urine Red Blood Cell 1+(3-5/hpf) Abnormal Absent Urine Bacteria Absent Absent Laboratory test 10/03/2018 [facility] Vitamin D 75.7 ng/mL High 20-[address] Total 25(Oh) [place] [address] [phone] Comp Metabolic 10/03/2018 [facility] Sodium 140 mmol/L Normal 135-[address] [place] [address] [phone] Potassium 3.5 mmol/L Normal 3.5-5.0 Chloride 104 [...] Egfr 108.4 >60 21 CBC Auto 10/03/2018 [facility] White Blood 4.3 10^3/uL Normal 3.5-10.[address] [place] [address] [phone] Red Blood Count 4.54 10^6/uL Normal 3.70-4.87 [...] Blood Cells % 0.0 Lipid Profile 10/03/2018 [facility] Triglycerides 135 mg/dL 22 (Trig/Chol/HDL) [address] [place] [address] [phone] Cholesterol 208 mg/dL 23 HDL Cholesterol 73.3 mg/dL 24 LDL Cholesterol 108 mg/dL 25 Laboratory test 10/03/2018 [facility] Erythrocyte Sed 7 mm/Hr Normal 0-29 [address] [place] [address] [phone] C Reactive Protein < 1.00 mg/L Normal [...] immediately to secondary confirmatory testing. Using the simfy DxI 800 Access Immunoassay systems, the 99th [...] immediately to secondary confirmatory testing. Using the simfy DxI 800 Access Immunoassay systems, the 99th [...] [address]: Janie Mccullough MD Acct: [id number] Unit: [id number] AGE: 73 Location: LAB Re11/16/18 SEX: F Status: REG REF SPEC: [id number] JEREMY: 11/16/[address]: Janie Mccullough MD REQ: [id number] RECD: 11/16/18 STATUS: COMP _ SOURCE: URINE SPDESC: ORDERED: Urine Culture Procedure Result Reported Site Urine Culture Final 11/18/18- 08 ML No growth of clinically significant organisms * ML - Main Lab . END OF REPORT DEPARTMENT OF PATHOLOGY, [address] [place] [address] Jacob Keys M.D. Director [facility] # [id number] 18 Standard intensity warfarin therapeutic range: 2.0-3.0 [...] up Procedures Date Code Description Status 02/13/2019 50720045 Mammogram Completed 01/24/2019 12638 Holter Monitor Review (24 hr)dr review & interp only Completed 01/23/2019 80479 ECG Monitor/Recording W/Visual Superimposition Completed Scanning 01/09/2019 66764 Stress Test Completed 01/09/2019 50652 Myocardial Perfusion Imaging Tomographic (Spect) Completed Multiple Studies 12/21/2018 88494 EKG Tracing & Interpretation Completed 12/18/2018 03211 ECG Monitor/Recording W/Visual Superimposition Completed Scanning 12/18/2018 55828 EKG Tracing & Interpretation Completed 12/04/2018 25922 TKR Total Knee Replacement Completed 12/04/2018 09578 TKR Total Knee Replacement Completed 11/22/2018 34494 ECHO Transthoracic, Real-Time 2D With Doppler And Completed Color Flow 11/22/2018 03124 ECHO Transthoracic, Real-Time 2D With Doppler And Completed Color Flow 11/15/2018 22896 EKG Tracing & Interpretation Completed 10/17/2018 51148 Repair Hernia Umbilical > 5 Yrs, Reducible Completed 10/17/2018 23832 Repair Hernia Umbilical > 5 Yrs, Reducible Completed 10/09/2018 47146 Inject/Drain Joint/Bursa Major W/O US Completed 02/12/2018 [id number] Mammogram Completed 06/20/2017 141473241 Bone Mineral Density Test Completed 02/10/2017 11274669 Mammogram Completed 02/05/2016 16986771 Mammogram Completed 12/03/2015 [id number] Colonoscopy Completed 05/04/2015 [id number] Bone Mineral Density Test Completed 02/03/2015 05165887 Mammogram Completed 10/15/2014 97285463 Mammogram Completed 10/14/2013 65120875 Mammogram Completed 04/30/2013 613672460 Bone Mineral Density Test Completed 10/12/2012 99692224 Mammogram Completed 10/11/2011 [id number] Mammogram Completed 10/06/2010 37005391 Mammogram Completed 05/17/2010 274823387 Bone Mineral Density Test Completed Medical Devices Description No Information Available Encounters Type Date Location Provider Dx Diagnosis Office Visit 02/25/2019 [facility] Benson Mccullough, I10 Essential ( primary) 2:20p Medicine Loni Unger M.D. hypertension L89.610 Pressure ulcer of right heel, unstageable F43.20 Adjustment disorder, unspecified M54.5 Low back pain Office Visit 02/08/2019 [facility] Bob Bob I44.7 Left bundle- branch 1:20p Of Nanci Ortega DO block, unspecified FACC Office Visit 01/18/2019 Rheumatology Nain M06.9 Rheumatoid 11:20a Services Of Nanci Scott M.D. arthritis, unspecified Z79.899 Other longterm (current) drug therapy M54.5 Low back pain M21.061 Valgus deformity, not elsewhere classified, right knee E67.3 Hypervitaminosis D R00.0 Tachycardia, unspecified Office Visit 12/21/2018 3:00p [facility] Bob SKaren R00.0 Tachycardia, Of Nanci Ortega DO unspecified FACC M06.9 Rheumatoid arthritis, unspecified I44.7 Left bundle-branch block, unspecified R00.2 Palpitations Office Visit 12/18/2018 2:00p [facility] Benson Lima R00.0 Tachycardia, Tevin Mccullough M.D. unspecified Ccmob R31.9 Hematuria, unspecified Office Visit 12/05/2018 [facility] Sandrita Russ, M06.9 Rheumatoid 9:11a Assoc,pc RELISH MAKER arthritis, Hospitalists unspecified I10 Essential (primary) hypertension F41.9 Anxiety disorder, unspecified E87.6 Hypokalemia E78.5 Hyperlipidemia, unspecified Office Visit 12/04/2018 [facility] Sandrita Russ, M06.9 Rheumatoid 9:11a Assoc,pc RELISH MAKER arthritis, Hospitalists unspecified M25.512 Pain in left shoulder E87.6 Hypokalemia I10 Essential (primary) hypertension E78.5 Hyperlipidemia, unspecified F41.9 Anxiety disorder, unspecified M35.00 Sicca syndrome, unspecified Office Visit 11/15/2018 [facility] Internal Janie Z01.818 Encounter for other 10:20a Tevin Mccullough M.D. preprocedural Ccmob examination M05.79 Rheu arthritis w rheu factor mult site w/o org/sys involv Z79.52 MCFP (current) use of systemic steroids I10 Essential (primary) hypertension R07.9 Chest pain, unspecified R21 Rash and other nonspecific skin eruption Office Visit 10/05/2018 12:40p Rheumatology Nain Scott, M05.79 Rheu arthritis Services Of Nanci Camacho w rheu factor mult site w/o org/sys involv M16.11 Unilateral primary osteoarthritis, right hip Z79.899 Other long term care administrator (current) drug therapy M21.061 Valgus deformity, not elsewhere classified, right knee Office Visit 09/24/2018 1:00p Surgical Bob Mackey K42.9 Umbilical hernia [facility] MD Demetrius, without FACS obstruction or gangrene Assessments Date Code Description Provider 03/21/2019 M06.9 Rheumatoid arthritis, unspecified Nain Scott M.D. 03/21/2019 Z79.899 Other long term care administrator (current) drug Nain Scott M.D. 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 03/21/2019 M21.061 Valgus deformity, not elsewhere Nani Scott M.D. classified, right knee 03/06/2019 L89.610 [...] Mary Covarrubias M.D. surgery 01/18/2019 Z79.899 Other long term care administrator (current) drug Nain Scott M.D. therapy 01/18/2019 M54.5 Low back pain Nain Scott M.D. 01/18/2019 M21.061 Valgus deformity, not elsewhere Nain Scott M.D. 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 01/18/2019 R00.0 Tachycardia, unspecified Nain Scott M.D. 01/09/2019 I44.7 Left bundle-branch block, unspecified Bob Ortega, DO [facility] 01/09/2019 R94.31 Abnormal electrocardiogram [ECG] Bob Ortega, DO [facility] [EKG] 12/21/2018 R00.0 Tachycardia, unspecified Bob Ortega, DO FAC 12/21/2018 M06.9 Rheumatoid arthritis, unspecified Bob Ortega, DO FACC 12/21/2018 I44.7 Left bundle-branch block, unspecified Bob SKaren Ortega, DO FAC 12/21/2018 R00.2 Palpitations Bob Ortega, DO [facility] 12/19/2018 R00.0 Tachycardia, unspecified Im Nurse Holter Monitor 12/18/2018 R00.0 Tachycardia, unspecified Janie Mccullough M.D. 12/18/2018 R31.9 Hematuria, unspecified Janie Mccullough M.D. 12/14/2018 Z96.651 Presence of right artificial knee Mary Covarrubias M.D. joint 12/14/2018 Z47.1 Aftercare following joint replacement Mary Covarrubias M.D. surgery 12/05/2018 M06.9 Rheumatoid arthritis, unspecified Sandrita Russ, GIANNA 12/05/2018 I10 Essential (primary) hypertension Sandrita Russ, RELISH [employer] 12/05/2018 F41.9 Anxiety disorder, unspecified Sandrita Russ, RELISH MA[employer] 12/05/2018 E87.6 Hypokalemia Sandrita Russ, RELISH MA[employer] 12/05/2018 E78.5 Hyperlipidemia, unspecified Sandrita Russ, [employer] MA[employer] 12/04/2018 M17.11 Unilateral primary osteoarthritis, ELSA Banegas right knee 12/04/2018 M17.11 Unilateral primary osteoarthritis, Mary Covarrubias M.D. right knee 12/04/2018 M06.9 Rheumatoid arthritis, unspecified Sandrita Russ, [employer]ISH [employer] 12/04/2018 M25.512 Pain in left shoulder Sandrita Russ, GIANNA 12/04/2018 E87.6 Hypokalemia Sandrita Russ, GIANNA 12/04/2018 I10 Essential (primary) hypertension Sandrita Russ, RELISH MA[employer]ER 12/04/2018 E78.5 Hyperlipidemia, unspecified Sandrita Russ, [employer] MA[employer] 12/04/2018 F41.9 Anxiety disorder, unspecified Sandrita Russ, [employer] 12/04/2018 M35.00 Sicca syndrome, unspecified Sandrita Russ, [employer] 11/26/2018 M25.461 Effusion, right knee Mary [...] M.D. 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 [...] Scott M.D. right hip 10/05/2018 Z79.899 Other long term care administrator (current) drug Nain Scott M.D. therapy 10/05/2018 M21.061 Valgus deformity, not elsewhere Nain Scott M.D. classified, right knee 09/24/2018 K42.9 Umbilical hernia without obstruction Bob Romo MD, FACS or gangrene Plan of Treatment Future Appointment(s):06/13/2019 1:20 pm - Nain Scott M.D. at [facility]06/05/2019 10:30 am - Mary Covarrubias M.D. at [facility] at [id number]/28/2019 10:20 am - Janie Mccullough M.D. at [facility] Internal Medicine - [facility]03/21/2019 - Nain Scott M.D.M06.9 Rheumatoid arthritis, unspecifiedFollow up:Follow up in 2 or 3 months or sooner if wesyxyU61.899 Other longterm (current) drug gysbcrfY95.3 Hypervitaminosis DM21.061 Valgus deformity, not elsewhere classified, right knee Functional Status Description No Information Available Mental Status Description No Information Available Referrals Refer to Dr Reason for Referral Status Appt Date Dangelo Ewing MD, [facility], [facility] First available Sent 12/21/[address] [place] [address] [phone] Gopal Hawkins MD Sent 01/21/2019 [address] [place] [address] [place] [address] [phone] Basil Schwartz MD Sent 09/24/2018 [address] [place] [address] [phone]
--- OUTSIDE RECORDS SUMMARY | 2019-04-24 06:58 | XMS REPORT | Continuity of Care Document ---
:1945 External Reference #:[id number] Author Name Janie Mccullough M.D. (transmitted by agent of provider Kelsey Louis) Address [address], [place] [address] Care Team Providers Name Role Phone Janie Mccullough MD - Internal Care Team Information Ui Developer [phone] Medicine Gopal Hawkins MD - Urology Care Team Information Ui Developer [phone] Bob Ortega DO, [facility] - Care Team Information Ui Developer [phone] Cardiovascular Disease Problems Active Problems Provider Date Rheumatoid arthritis of multiple joints Bakari Haines M.D. Onset: 11/27/2014 Sjogren's syndrome Bakari Haines M.D. Onset: 08/07/2012 Senile osteoporosis Bakari Haines M.D. Onset: 06/25/2013 Pure hypercholesterolemia Bennie Levi M.D. Onset: 11/02/2010 Lumbosacral spondylosis without myelopathy Bakari Haines M.D. Onset: 2011 Irritable bowel syndrome Bennie Levi M.D. Onset: 03/22/2011 Cervical spondylosis without myelopathy Baakri Haines M.D. Onset: 05/15/2012 Moderate recurrent major [...] Use Denies Drug Use Smoking Status Reviewed: 02/25/19 Patient is a former social smoking in [...] Inj, Regadenoson, 0.1 MG Bob Ortega, DO [facility] 01/09/2019 Injection Technetium TC 99M Bob Ortega, DO [facility] 01/09/2019 Tetrofosmin, Per Unit Dose Up To 40 Millicuries Injection Technetium TC 99M Bob Ortega DO [facility] 01/09/2019 Tetrofosmin, Per Unit Dose Up To [...] Code Status Date Vaccine Reaction Lot # [id number] Given 11/13/2017 Influenza Virus Vaccine, Quadrivalent, Split, Preservative Free 22506 Given 11/03/2016 Influenza Virus Vaccine, No immediate reaction [id number] Quadrivalent, Split, Preservative Free 68222 Given 11/03/2015 Influenza Virus Vaccine, [id number] Quadrivalent, Split, Preservative Free 06645 Given 11/20/2014 Influenza Virus Vaccine, [id number] Quadrivalent, Split, Preservative Free 11677 Given 04/17/2014 Pneumococcal Conjugate [id number] Vaccine 13 Valent For Intramuscular Use 10010 Given 11/14/2013 Influenza Virus Vaccine, [id number] Quadrivalent, Split, Preservative Free 53961 Given 10/31/2012 Flu Vaccine Split Virus [id number] Preservative Free For Indiv 3Yr Older 98293 Given 08/07/2012 Pneumonia Vaccine [id number] Q2038 Given 11/22/2011 Fluzone Vaccine [id number] 44610 Given 10/26/2010 Influenza Virus 3Yrs & Over 47258 Given 10/26/2010 Influenza Virus 3Yrs & [id number] Over 30102 Given 12/07/2004 Pneumovax (History By 1381u Patient) 36894 Given 12/07/2004 Td (History By Patient) Vital Signs Date Vital Result Comment 02/25/2019 2:21pm Height 62 inches 5'2" Weight 127.00 lb Heart Rate 82 /min BP Systolic 127 mmHg BP Diastolic 80 mmHg O2 % BldC Oximetry 97 % BMI (Body Mass Index) 23.2 kg/m2 02/18/2019 2:37pm Height 62 inches 5'2" Weight 126.00 lb Heart Rate 88 /min BP Systolic 138 mmHg BP Diastolic 72 mmHg Respiratory Rate 18 /min Pain Level 4 BMI (Body Mass Index) 23.0 kg/m2 Results Test Acquired Date Facility Test Result H/L Range Note Laboratory test 01/17/2019 [facility] Erythrocyte Sed 71 mm/Hr High 0-29 [address] [place] [address] [phone] C Reactive Protein 9.73 mg/L High <8.01 2 CBC Auto 01/17/2019 [facility] White Blood 6.5 10^3/uL Normal 3.5-10.[address] [place] [address] [phone] Red Blood Count 3.70 10^6/uL Normal 3.70-4.87 [...] Blood Cells % 0.0 Comp Metabolic 01/17/2019 [facility] Sodium 139 mmol/L Normal 135-[address] [place] [address] [phone] Potassium 3.4 mmol/L Low 3.5-5.0 Chloride 101 [...] Egfr 123.3 >60 3 Laboratory test 12/28/2018 [facility] Troponin-I 0.01 <0.03 [address] (TnI) ng/[place] [address] [phone] Laboratory test 12/28/2018 [facility] C Reactive 41.70 High < 8.[address] Protein mg/[place] [address] [phone] Comp Metabolic 12/28/2018 [facility] Sodium 137 Normal 135- [address] mmol/[place] [address] [phone] Potassium 4.0 mmol/L Normal 3.5-5.0 Chloride 101 [...] Egfr 96.3 >60 5 Laboratory test 12/28/2018 [facility] B-Type 51 pg/mL <=[address] [place] [address] Peptide BNP [phone] Troponin-I (TnI) 0.01 ng/mL <0.03 6 CBC Auto 12/28/2018 [facility] White Blood 7.1 10^3/uL Normal 3.5-10.[address] [place] [address] [phone] Red Blood Count 3.55 10^6/uL Low 3.70-4.87 [...] Red Blood Cells % 0.0 Laboratory 12/28/2018 [facility] D Dimer 470 ng/mL High Less 7 test finding [address] Quantitative Than 230 [place] [address] [phone] Laboratory 12/18/2018 [facility] D Dimer 716 ng/mL High Less 8 test finding [address] Quantitative Than 230 [place] [address] [phone] CBC Auto Diff 12/18/2018 [facility] White Blood 9.4 Normal 3.5 -10.[address] Count 10^3/[place] [address] [phone] Red Blood Count 3.53 10^6/uL Low 3.70-4.87 [...] Cells % 0.0 Type & Screen 11/26/2018 [facility] Patient Blood Type O Positive [address] [place], [place] [address] [phone] Antibody Screen NEGATIVE Urine Culture And 11/16/2018 [facility] Urine SEE RESULT [address] [place] [address] [phone] Laboratory test 11/16/2018 [facility] Partial 30.4 Normal 26.[address] Thrombo Time seconds -38. [place] [address] PTT 0 [phone] Inr/Protime 11/16/2018 [facility] Inr 0.95 Normal 0.[address] -1.0 [place] [address] [phone] Comp Metabolic 11/16/2018 [facility] Sodium 137 mmol/L Normal 135- Panel [address] [place] [address] [phone] Potassium 3.7 mmol/L Normal 3.5-5.0 Chloride 97 [...] Egfr 121.2 >60 12 CBC Auto 11/16/2018 [facility] White Blood 9.9 10^3/uL Normal 3.5-10.[address] [place] [address] [phone] Red Blood Count 4.24 10^6/uL Normal 3.70-4.87 [...] Blood Cells % 0.0 Urinalysis Profile 11/16/2018 [facility] Urine Color Yellow [address] [place] [address] [phone] Urine Appearance Clear Urine Specific [place] 1.012 Normal 1.010-1.030 Urine pH 7.0 Normal 5-9 Urine Urobilinogen Negative Negative Urine Ketones Negative Negative Urine Protein Negative Negative Urine Leukocytes Negative Negative Urine Blood 2+ Abnormal Negative Urine Nitrite Negative Negative Urine Bilirubin Negative Negative Urine Glucose Negative Negative Urine White Blood Cell Trace(0-5/hpf) Absent Urine Red Blood Cell 1+(3-5/hpf) Abnormal Absent Urine Bacteria Absent Absent Laboratory test 10/03/2018 [facility] Vitamin D 75.7 ng/mL High 20-[address] Total 25(Oh) [place] [address] [phone] Comp Metabolic 10/03/2018 [facility] Sodium 140 mmol/L Normal 135-[address] [place] [address] [phone] Potassium 3.5 mmol/L Normal 3.5-5.0 Chloride 104 [...] Egfr 108.4 >60 14 CBC Auto 10/03/2018 [facility] White Blood 4.3 10^3/uL Normal 3.5-10.[address] [place] [address] [phone] Red Blood Count 4.54 10^6/uL Normal 3.70-4.87 [...] Blood Cells % 0.0 Lipid Profile 10/03/2018 [facility] Triglycerides 135 mg/dL 15 (Trig/Chol/HDL) [address] [place] [address] [phone] Cholesterol 208 mg/dL 16 HDL Cholesterol 73.3 mg/dL 17 LDL Cholesterol 108 mg/dL 18 Laboratory test 10/03/2018 [facility] Erythrocyte Sed 7 mm/Hr Normal 0-29 [address] [place] [address] [phone] C Reactive Protein < 1.00 mg/L Normal [...] immediately to secondary confirmatory testing. Using the [employer] DxI 800 Access Immunoassay systems, the 99th [...] immediately to secondary confirmatory testing. Using the [employer] DxI 800 Access Immunoassay systems, the 99th [...] [address]: Janie Mccullough MD Acct: [id number] Unit: [id number] AGE: 73 Location: LAB Re11/16/18 SEX: F Status: REG REF SPEC: [id number] JEREMY: 11/16/[address]: Janie Mccullough MD REQ: [id number] RECD: 11/16/18 STATUS: COMP _ SOURCE: URINE SPDESC: ORDERED: Urine Culture Procedure Result Reported Site Urine Culture Final 11/18/18- 08 ML No growth of clinically significant organisms * ML - Main Lab . END OF REPORT DEPARTMENT OF PATHOLOGY, [address] [place] [address] Jacob Keys M.D. Director [facility] # [id number] 11 Standard intensity warfarin therapeutic range: 2.0-3.0 [...] up Procedures Date Code Description Status 02/13/2019 00020552 Mammogram Completed 01/24/2019 64586 Holter Monitor Review (24 hr)dr review & interp only Completed 01/23/2019 02603 ECG Monitor/Recording W/Visual Superimposition Completed Scanning 01/09/2019 41431 Stress Test Completed 01/09/2019 46402 Myocardial Perfusion Imaging Tomographic (Spect) Completed Multiple Studies 12/21/2018 56487 EKG Tracing & Interpretation Completed 12/18/2018 44285 ECG Monitor/Recording W/Visual Superimposition Completed Scanning 12/18/2018 56797 EKG Tracing & Interpretation Completed 12/04/2018 68237 TKR Total Knee Replacement Completed 12/04/2018 35651 TKR Total Knee Replacement Completed 11/22/2018 85800 ECHO Transthoracic, Real-Time 2D With Doppler And Completed Color Flow 11/22/2018 95011 ECHO Transthoracic, Real-Time 2D With Doppler And Completed Color Flow 11/15/2018 27175 EKG Tracing & Interpretation Completed 10/17/2018 22509 Repair Hernia Umbilical > 5 Yrs, Reducible Completed 10/17/2018 19718 Repair Hernia Umbilical > 5 Yrs, Reducible Completed 10/09/2018 23049 Inject/Drain Joint/Bursa Major W/O US Completed 02/12/2018 [id number] Mammogram Completed 06/20/2017 [id number] Bone Mineral Density Test Completed 02/10/2017 60990417 Mammogram Completed 02/05/2016 04886446 Mammogram Completed 12/03/2015 65355245 Colonoscopy Completed 05/04/2015 [id number] Bone Mineral Density Test Completed 02/03/2015 19246038 Mammogram Completed 10/15/2014 55898900 Mammogram Completed 10/14/2013 40273248 Mammogram Completed 04/30/2013 565952348 Bone Mineral Density Test Completed 10/12/2012 64863791 Mammogram Completed 10/11/2011 22499536 Mammogram Completed 10/06/2010 41949040 Mammogram Completed 05/17/2010 880633914 Bone Mineral Density Test Completed Medical Devices Description No Information Available Encounters Type Date Location Provider Dx Diagnosis Office Visit 02/08/2019 [facility] Bob Ortega, I44.7 Left bundle-branch 1:20p [facility] DO FACC block, unspecified Office Visit 01/18/2019 Rheumatology Nain Scott, M06.9 Rheumatoid 11:20a Services Of Nanci Camacho arthritis, unspecified Z79.899 Other exterminator (current) drug therapy M54.5 Low back pain M21.061 Valgus deformity, not elsewhere classified, right knee E67.3 Hypervitaminosis D R00.0 Tachycardia, unspecified Office Visit 12/21/2018 3:00p [facility] Bob Bob R00.0 Tachycardia, Of Nanci Ortega, DO unspecified FACC M06.9 Rheumatoid arthritis, unspecified I44.7 Left bundle-branch block, unspecified R00.2 Palpitations Office Visit 12/18/2018 2:00p [facility] Internal Janie R00.0 Tachycardia, Tevin Mccullough M.D. unspecified Ccmob R31.9 Hematuria, unspecified Office Visit 12/05/2018 [facility] Sandrita Russ, M06.9 Rheumatoid 9:11a Assoc,pc ASSOCIATE PROFESSOR OF COMMUNICATION arthritis, Hospitalists unspecified I10 Essential (primary) hypertension F41.9 Anxiety disorder, unspecified E87.6 Hypokalemia E78.5 Hyperlipidemia, unspecified Office Visit 12/04/2018 [facility] Sandrita Russ, M06.9 Rheumatoid 9:11a Assoc,pc ASSOCIATE PROFESSOR OF COMMUNICATION arthritis, Hospitalists unspecified M25.512 Pain in left shoulder E87.6 Hypokalemia I10 Essential (primary) hypertension E78.5 Hyperlipidemia, unspecified F41.9 Anxiety disorder, unspecified M35.00 Sicca syndrome, unspecified Office Visit 11/15/2018 [facility] Internal Janie Z01.818 Encounter for other 10:20a Tevin Mccullough M.D. preprocedural Ccmob examination M05.79 Rheu arthritis w rheu factor mult site w/o org/sys involv Z79.52 superintendent terminal (current) use of systemic steroids I10 Essential (primary) hypertension R07.9 Chest pain, unspecified R21 Rash and other nonspecific skin eruption Office Visit 10/05/2018 12:40p Rheumatology Nain Scott, M05.79 Rheu arthritis [facility] Nanci Camacho w rheu factor mult site w/o org/sys involv M16.11 Unilateral primary osteoarthritis, right hip Z79.899 Other exterminator (current) drug therapy M21.061 Valgus deformity, not elsewhere classified, right knee Office Visit 09/24/2018 1:00p Surgical Bob Mackey K42.9 Umbilical hernia [facility] MD Demetrius, without FACS obstruction or gangrene Office Visit 09/07/2018 8:00a [facility] Mary Covarrubias, M05.79 Rheu arthritis w at [place] Janice rheu factor mult site w/o org/sys [...] Mary Covarrubias M.D. surgery 01/18/2019 Z79.899 Other [facility] (current) drug Nain Scott M.D. therapy 01/18/2019 [...] FACC [EKG] 12/21/2018 R00.0 Tachycardia, unspecified Bob SKaren Ortega, DO FACC 12/21/2018 M06.9 Rheumatoid arthritis, unspecified Bob Ortega, DO FACC 12/21/2018 I44.7 Left bundle-branch block, unspecified Bob Ortega, DO FACC 12/21/2018 R00.2 Palpitations Bob Ortega, DO [facility] 12/19/2018 R00.0 Tachycardia, unspecified Im Nurse Holter Monitor 12/18/2018 R00.0 Tachycardia, unspecified Janie Mccullough M.D. 12/18/2018 R31.9 Hematuria, unspecified Janie Mccullough M.D. 12/14/2018 Z96.651 Presence of right artificial knee Mary Covarrubias M.D. joint 12/14/2018 Z47.1 Aftercare following joint replacement Mary Covarrubias M.D. surgery 12/05/2018 M06.9 Rheumatoid arthritis, unspecified Sandrita Russ, ASSOCIATE PROFESSOR OF COMMUNICATION 12/05/2018 I10 Essential (primary) hypertension Sandrita Russ, ASSOCIATE PROFESSOR OF COMMUNICATION 12/05/2018 F41.9 Anxiety disorder, unspecified Sandrita Russ, ASSOCIATE PROFESSOR OF COMMUNICATION 12/05/2018 E87.6 Hypokalemia Sandrita Russ, ASSOCIATE PROFESSOR OF COMMUNICATION 12/05/2018 E78.5 Hyperlipidemia, unspecified Sandrita Russ, ASSOCIATE PROFESSOR OF COMMUNICATION 12/04/2018 M17.11 Unilateral primary osteoarthritis, ELSA Banegas right knee 12/04/2018 M17.11 Unilateral primary osteoarthritis, Mary Covarrubias M.D. right knee 12/04/2018 M06.9 Rheumatoid arthritis, unspecified Sandrita Russ, ASSOCIATE PROFESSOR OF COMMUNICATION 12/04/2018 M25.512 Pain in left shoulder Sandrita Russ, ASSOCIATE PROFESSOR OF COMMUNICATION 12/04/2018 E87.6 Hypokalemia Sandrita Russ, ASSOCIATE PROFESSOR OF COMMUNICATION 12/04/2018 I10 Essential (primary) hypertension Sandrita Russ, ASSOCIATE PROFESSOR OF COMMUNICATION 12/04/2018 E78.5 Hyperlipidemia, unspecified Sandrita Russ, ASSOCIATE PROFESSOR OF COMMUNICATION 12/04/2018 F41.9 Anxiety disorder, unspecified Sandrita Russ, ASSOCIATE PROFESSOR OF COMMUNICATION 12/04/2018 M35.00 Sicca syndrome, unspecified Sandrita Russ, ASSOCIATE PROFESSOR OF COMMUNICATION 11/26/2018 M25.461 Effusion, right knee Mary Covarrubias [...] M.D. factor of multiple site 11/15/2018 Z79.52 assisted (current) use of systemic Janie Mccullough M.D. [...] Scott M.D. right hip 10/05/2018 Z79.899 Other [facility]ci (current) drug Nain Scott M.D. therapy 10/05/2018 [...] Covarrubias M.D. 09/07/2018 M17.11 Unilateral primary osteoarthritis, Mray Covarrubias M.D. right knee 09/07/2018 M25.551 Pain in right hip Mary Covarrubias M.D. 09/07/2018 M16.11 Unilateral primary osteoarthritis, Mary Covarrubias M.D. right hip 09/07/2018 M21.061 Valgus deformity, not elsewhere Mary Covarrubias M.D. classified, right knee Plan of Treatment Future Appointment(s):03/28/2019 10:20 am - Janie Mccullough M.D. at [facility] Internal Medicine - [facility]03/18/2019 1:45 pm - Mary Covarrubias M.D. at [facility]03/21/2019 11:40 am - Nain Scott M.D. at [facility]02/25/2019 - Janie Mccullough M.D.I10 Essential (primary) hypertensionComments:Your blood pressure is fine. Continue the same hedzfvajvaT26.610 Pressure ulcer of right heel, unstageableComments:Keep the heel ulcer covered when wearing shoesFollow up:1 likpoD79.20 Adjustment disorder , unspecifiedComments:We discussed medicationRecheck in 1 cyyznA82.5 Low back painNew Therapy:Physical TherapyComments:Do PT Functional Status Description No Information Available Mental Status Description No Information Available Referrals Refer to Dr Reason for Referral Status Appt Date Dangelo Ewing MD, [facility], [facility] First available Sent 12/21/[address] [place] [address] [phone] Gopal Hawkins MD Sent 01/21/[address] [place] [address] [place] [address] [phone] Basil Schwartz MD Sent 09/24/[address] [place] [place] [address] [phone]
--- NOTE | 2019-04-24 07:01 | ED ---
HPI Chest Pain - HPI Summary HPI Summary: 74 year old F arriving via EMS to [facility] complains of non radiating left sided chest pressure that woke her from her sleep around 0500. She states she has had an ectopic in the past, and the pain today feels similar to that. Patient reports shortness of breath. She was feeling fine yesterday. The patient rates the pain 8/10 in severity. Symptoms aggravated by nothing. Symptoms alleviated by nothing. EMS gave aspirin 324 mg and nitroglycerin x1 without change in symptoms. Patient has had chest tightness before. She is followed by Dr. Ewing and Dr. Ortega. Patient states she had a normal stress test done in Jan 2019. Hx severe rheumatoid arthritis. She was seen in ER in Dec 2018 for shortness of breath. Medications reviewed. Usually takes hydrocodone. Started Cymbalta one month ago. Allergies noted. - History of Current Complaint Time Seen by Provider: 04/24/19 06:54 Hx Obtained From: Patient, Medical Records Onset/Duration: Started Hours Ago - 1, Still Present Timing: Constant Current Severity: Severe Pain Intensity: 8 Pain Scale Used: 0-10 Numeric Chest Pain Radiates: No Aggravating Factor(s): Nothing Alleviating Factor(s): Nothing Associated Signs and Symptoms: Positive: Shortness of Breath - Additional Pertinent History Primary Care Physician: [id number] - Allergy/Home Medications Allergies/Adverse Reactions: Allergies Allergy/AdvReac Type Severity Reaction Status Date / Time shellfish derived Allergy Severe Anaphylatic Verified 04/24/19 07:01 Shock methotrexate Allergy Intermediate Rash Verified 04/24/19 07:01 Penicillins Allergy Intermediate Rash Verified 04/24/19 07:01 amlodipine [From Norvasc] Allergy Unknown Verified 04/24/19 07:01 Reaction Details azithromycin Allergy Rash Verified 04/24/19 07:01 benzyl alcohol Allergy Unknown Verified 04/24/19 07:01 Reaction Details cefuroxime Allergy Swelling Verified 04/24/19 07:01 Iodinated Contrast Media Allergy Anaphylatic Verified 04/24/19 07:01 [Iodinated Contrast- Oral Shock and IV Dye] iohexol Allergy Airway Verified 04/24/19 07:01 Obstruction lisinopril Allergy Rash Verified 04/24/19 07:01 pneumococcal 7-valent Allergy Unknown Verified 04/24/19 07:01 conjugate to Reaction [From Prevnar] Details sodium hypochlorite solution Allergy See Comment Verified 04/24/19 07:01 tromethamine Allergy Unknown Verified 04/24/19 07:01 Reaction Details Home Medications: Home Medications Chlorthalidone TAB* [Hygroton TAB*] 25 mg PO QAM 12/01/15 [History Confirmed ] ALPRAZolam TAB* [Xanax TAB*] 0.5 mg PO BEDTIME PRN 11/22/16 [History Confirmed 04/24/19] Metoprolol Succinate XL TAB* [Toprol XL TAB*] 12.5 mg PO QAM 11/22/16 [History Confirmed 04/24/19] Metronidazole (TOPICAL)(NF) [Metrocream (NF)] 0.75 % TOPICAL BID 11/22/16 [ History Confirmed 04/24/19] Potassium Chlor TAB* [Potassium Chlor TAB 20 MEQ*] 20 meq PO BID 11/22/16 [ History Confirmed 04/24/19] Cyclosporine 0.05% OPHTH (NF) [Restasis 0.05% OPHTH] 1 drop BOTH EYES BID [History Confirmed 04/24/19] Leflunomide (NF) [Arava (NF)] 10 mg PO QAM 08/03/17 [History Confirmed 04/24/19] Ragland-3 Fatty Acids (Nf) [Fish Oil (NF)] 1,200 mg PO BID 08/03/17 [History Confirmed 04/24/19] Simvastatin TAB(NF) [Zocor 10 MG (NF)] 20 mg PO QPM 08/03/17 [History Confirmed 04/24/19] predniSONE 5 mg TAB [Deltasone 5 mg TAB] 5 mg PO QAM 08/03/17 [History Confirmed 04/24/19] Calcium Carbonate [Calcium] 750 mg PO QAM 10/10/18 [History Confirmed 04/24/19] HYDROcodone/ACETAMIN 5-325 MG* [[place] 5-325 TAB*] 2 tab PO Q4H PRN #70 tab MDD 10 12/06/18 [Rx Confirmed 04/24/19] PMH/Surg Hx/FS Hx/Imm Hx Endocrine/Hematology History: Denies: Hx Bone Marrow Disease, Hx Diabetes, Hx Systemic Lupus Erythematosus , Hx Sickle Cell Disease, Hx Thyroid Disease, Hx Anemia Cardiovascular History: Reports: Hx Hypertension Denies: Hx Angina, Hx Cardiomegaly, Hx Congestive Heart Failure, Hx Coronary Artery Disease, Hx Pacemaker/ICD, Hx Peripheral Vascular Disease, Hx Rheumatic Fever, Hx Valvular Heart Disease, Other Cardiovascular Problems/Disorders Respiratory History: Reports: Other Respiratory Problems/Disorders - "UNDIAGNOSED LUNG DISEASE"-NODULES Denies: Hx Asthma, Hx Chronic Obstructive Pulmonary Disease (COPD), Hx Pulmonary Edema, Hx Pulmonary Embolism, Hx Sleep Apnea GI History: Reports: Hx Irritable Bowel, Other GI Disorders - ibs Denies: Hx Cirrhosis, Hx Crohn's Disease, Hx Gastroesophageal Reflux Disease , Hx Hiatal Hernia, Hx Jaundice, Hx Ulcer History: Denies: Hx Dialysis, Hx Kidney Infection, Hx Kidney Stones, Hx Renal Disease , Other Problems/Disorders Musculoskeletal History: Reports: Hx Arthritis - RHEUMATOID ARTHRITIS AND OSTEO ARTHRITIS, Hx Rheumatoid Arthritis, Hx Bursitis - HX OF IN THE PAST, Hx Scoliosis, Other Musculoskeletal History - ra Denies: Hx Tendonitis Sensory History: Reports: Hx Cataracts - BILATERAL, Hx Contacts or Glasses, Hx Hearing Aid Denies: Hx Glaucoma Opthamlomology History: Reports: Hx Cataracts - BILATERAL, Hx Contacts or Glasses Denies: Hx Glaucoma Neurological History: Denies: Hx Headaches, Hx Migraine, Hx Nerve Disease, Hx Seizures, Other Neuro Impairments/Disorders Psychiatric History: Reports: Hx Anxiety - ON MEDICATION FOR Denies: Hx Depression, Hx Panic Disorder - Cancer History Hx Chemotherapy: No Hx Radiation Therapy: No - Surgical History Surgery Procedure, Year, and Place: hysterectomy,breast biopsy right benign, ectopic ; SKIN CELLS REMOVED-BENIGN, four hand joints replaced and wrist fused LEFT 2014 Hx Anesthesia Reactions: No Infectious Disease History: Denies: Hx Hepatitis, Hx Human Immunodeficiency Virus (HIV), Traveled Outside the [place] in Last 30 Days - Family History Known Family History: Positive: Hypertension - Social History Alcohol Use: None Hx Substance Use: No Substance Use Type: Reports: None Hx Tobacco Use: Yes Smoking Status (MU): Former Smoker Type: Cigarettes Amount Used/How Often: SOCIAL X FEW YEARS Have You Smoked in the Last Year: No Review of Systems Positive: Chest Pain Positive: Shortness Of Breath All Other Systems Reviewed And Are Negative: Yes Physical Exam - Summary Physical Exam Summary: Constitutional: Well-developed, Well-nourished, Alert. (-) Distressed Skin: Warm, Dry HENT: Normocephalic; Atraumatic Eyes: Conjunctiva normal Neck: Musculoskeletal ROM normal neck. (-) JVD, (-) Stridor, (-) Nuchal rigidity Cardio: Rhythm regular, rate normal, Heart sounds normal; Intact distal pulses; Radial pulses are 2+ and symmetric. (-) Murmur Pulmonary/Chest wall: Effort normal. (-) Respiratory distress, (-) Wheezes, (-) Rales Abd: Soft, (-) tenderness, (-) Distension, (-) Guarding, (-) Rebound Musculoskeletal: (-) Edema, chronic boutonniere deformity of hands Lymph: (-) Cervical adenopathy Neuro: Alert, Oriented x3 Psych: Mood and affect Normal Triage Information Reviewed: Yes Vital Signs Reviewed: Yes Procedures - Sedation Patient Received Moderate/Deep Sedation with Procedure: No Diagnostics - Laboratory Result Diagrams: 04/24/19 06:58 04/24/19 06:58 Lab Statement: Any lab studies that have been ordered have been reviewed, and results considered in the medical decision making process. - Radiology CXR Radiology Interpretation Completed By: Radiologist - IMPRESSION: NO ACTIVE CARDIOPULMONARY DISEASE. ED physician has reviewed this imaging report. - EKG 0656 Cardiac Rate: NL - 72 BPM EKG Rhythm: Sinus Rhythm Summary of EKG Findings: An EKG at 0656 reveals normal sinus rhythm 72 BPM. No STEMI. Compared to EKG done on 12/28/2018, T wave flattening in aVL. No significant change. No acute changes. ED physician has reviewed and interpreted this EKG. 0951 Cardiac Rate: NL - 76 BPM EKG Rhythm: Sinus Rhythm Summary of EKG Findings: An EKG at 0951 reveals normal sinus rhythm 76 BPM. No change from prior. ED physician has reviewed and interpreted this EKG. Re-Evaluation - Re-Evaluation First Eval Re-Evaluation Time: 07:30 Change: Unchanged - labs w K 2.8, give 40 PO and 40 IV. Will check Mg Second Eval Re-Evaluation Time: 09:35 Change: Unchanged - patient is still having chest pain. will check an EKG. Third Eval Re-Evaluation Time: 10:25 Change: Unchanged - patient agrees to admission Chest Pain Course/Dx - Course Course Of Treatment: 74 y/o F w hx LBBB and RA p/w CP since 5 am. - VSS NAD. PE elderly female, resting, EKG unchanged. Chest Pain DDX: The patient is well appearing, with stable vitals. Given the patient's clinical presentation, highest on differential is ACS vs atypical CP. - Heart score: 5. Although less likely, differential also includes the following: --Pneumothorax: Equal breath sounds, story inconsistent since gradual onset of symptoms. CXR shows no evidence of pneumothorax. Unlikely. --Cardiac tamponade: The history and physical are not concerning for tamponade. No Pulsus Paradoxus, no tachypnea. Unlikely. --Mediastinitis or esophageal rupture: The history is not consistent , as the patient has had no recent history of significant wretching, instrumentation, or mediastinal surgeries. Unlikely. --Aortic dissection: The patient does not describe the classical tearing chest pain radiating into the back, and the CXR does not show mediastinal widening or other signs of aortic dissection. Unlikely. --PE: Vitals wnl (not hypoxic, tachycardic or tachypneic) . Recent w/u for PE. Allergic to contrast - Diagnoses Provider Diagnoses: Chest pain - Provider Notifications Discussed Care Of Patient With: Faustina Zepeda - Agrees to admit Time Discussed With Above Provider: 10:03 Discharge ED - Sign-Out/Discharge Documenting (check all that apply): Patient Departure - Discharge Plan Condition: Stable Disposition: ADMITTED TO [facility] - Billing Disposition and Condition Condition: STABLE Disposition: Admitted to [facility] - Attestation Statements Document Initiated by Samson: Yes Documenting Scribe: Yolanda Hemphill Provider For Whom Samson is Documenting (Include Credential): Beau Erazo MD Scribe Attestation: Yolanda Newton, scribed for eBau Erazo MD on 04/24/19 at 1117. Scribe Documentation Reviewed: Yes Provider Attestation: The documentation as recorded by the Yolanda cadet accurately reflects the service I personally performed and the decisions made by Beua montoya MD Status of Scribe Document: Viewed
[2019-04-24] MEDS ORDERED: HYDROcodone/ACETAMIN 5-325 MG* 1 TAB PO ONE (07:09)
[2019-04-24 07:11] LABS: ABS Eosinophils 0.2 10^3/ul (0-0.6); ABS Lymphocytes 0.8 10^3/ul (1.0-4.8); ABS Monocytes 0.6 10^3/ul (0-0.8); ABS Neutrophils 5.2 10^3/ul (1.5-7.7); Eosinophil % 2.3 %; Hematocrit 37 % (35-47); Hemoglobin 12.5 g/dL (12.0-16.0); Lymphocyte % 11.7 %; Mean Corpuscular HGB Conc 34 g/dL (31-36); Mean Corpuscular Hemoglobin 31 pg (27-31); Mean Corpuscular Volume 90 fL (80-97); Mean Platelet Volume 6.9 fL (7.4-10.4); Platelet Count 350 10^3/uL (150-450); Red Blood Count 4.05 10^6 /uL (3.70-4.87); Red Cell Distribution Width 14 % (10-15); White Blood Count 6.7 10^3/uL (3.5-10.8)
[2019-04-24 07:24] LABS: Albumin 3.6 g/dL (3.2-5.2); Albumin/Globulin Ratio 1.6 (1-3); BUN/Creatinine Ratio 16.7 (8-20); Calcium 9.3 mg/dL (8.6-10.3); EGFR African American 118.6 (>60); Globulin 2.2 g/dL (2-4); Potassium 2.8 mmol/L (3.5-5.0); Total Bilirubin 0.6 mg/dL (0.2-1.0); Total Protein 5.8 g/dL (6.4-8.9)
[2019-04-24] MEDS ORDERED: Potassium Chlor TAB* 20 MEQ TAB.ER PO ONE (07:29)
[2019-04-24] MEDS ORDERED: KCL 20 MEQ/100 ML IVPREMIX* 20 MEQ/100 ML BAG IV ONE (07:31)
[2019-04-24 07:58] LABS: Magnesium 1.7 mg/dL (1.9-2.7)
[2019-04-24] MEDS ORDERED: KCL 20 MEQ/100 ML IVPREMIX* 20 MEQ/100 ML BAG IV SCH (08:00)
[2019-04-24] MEDS ORDERED: Magnesium Sulfate 2 GM IV* 2 GM/50 ML BAG IVPB ONE (08:03)
[2019-04-24] MEDS ORDERED: fentaNYL* 50 MCG/ML 2 ML VIAL (100 MCG VIAL) IV SLOW PU ONE (09:34)
[2019-04-24] MEDS ORDERED: Acetaminophen TAB* 325 MG PO PRN (10:33)
[2019-04-24] MEDS ORDERED: ALPRAZolam TAB* 0.5 MG PO PRN (11:06)
[2019-04-24] MEDS: HYDROcodone/ACETAMIN 5-325 MG* 1 TAB PO PRN ×2 (12:57→18:12)
[2019-04-24] MEDS ORDERED: Enoxaparin(*) 40 MG/0.4 ML SYR SUBCUT SCH (13:00)
[2019-04-24] MEDS ORDERED: Ketorolac INJ* 15 MG/ML 1 ML VIAL IV PUSH PRN (13:33)
--- NOTE | 2019-04-24 13:57 | HP ---
CC: Dr. Janie Mccullough; Dr. Ewing; Dr. Ortega * HISTORY AND PHYSICAL: DATE OF ADMISSION: 04/24/19 PRIMARY CARE PROVIDER: Dr. Janie Mccullough. OTHER PROVIDERS: Dr. Ewing and Dr. Ortega. ATTENDING PHYSICIAN: Dr. Faustina Zepeda * (dictated by ELSA Rivers). CHIEF COMPLAINT: Chest pain/pressure. HISTORY OF PRESENT ILLNESS: Ms. Gotti is a 74-year-old female with past medical history of hypertension, hyperlipidemia, rheumatoid arthritis, Sjogren' s disease, who presented to the ER today with complaints of chest pain/pressure that woke her from sleep at 0015 this morning. She states that the pain is midsternal and is constant. There is no radiation of pain, although the patient finds it difficult to answer this question stating that she has chronic left shoulder pain at baseline. She reports her pain at 7 to 8/10 currently. She has associated bilateral lower extremity edema which is chronic since her knee surgery in November. She reports that her pain is worsened with inspiration but denies shortness of breath. She denies tenderness to palpation at the site of chest pain. She reports nothing makes the pain better and has had multiple pain medications including [place] and fentanyl while in the ER. She denies cough and fever but notes that she has chills intermittently which is not unusual for her. She denies diaphoresis, shortness of breath, abdominal pain, nausea, vomiting. She reports that she has IBS with loose or mucousy stools at times which is unchanged from her baseline. She reports that she started Cymbalta 1 month ago and has had chest tightness since then but reports that it was worse this morning since waking. She had an echo in November and a stress test with Dr. Ortega in January. The results were . In the ER, the patient received a full workup. A CBC was obtained and was unremarkable. Chemistry panel reveals electrolyte abnormalities and 2 EKGs were obtained; 1 with the rate of 72, 1 with the rate of [address] elevation of depression. No bundle branch block, although the patient does reportedly have a history of left bundle branch block. In the ER, the patient received [place] 5, fentanyl 50 mcg IV, magnesium 2 g IV, potassium 40 mEq p.o., potassium 40 mEq IV. She does have an order for 2 more runs of IV potassium. The hospitalist team was asked to evaluate the patient for admission due to chest pain, rule out ACS and chest pain that is uncontrolled. PAST MEDICAL HISTORY: 1. Hypertension. 2. Hyperlipidemia. 3. Left bundle branch block. 4. Rheumatoid arthritis. 5. Sjogren's disease. 6. Irritable bowel syndrome. 7. Depression/anxiety. PAST SURGICAL HISTORY: 1. Hysterectomy. 2. Left hand with 4 joint replacements. 3. Left wrist with partial fusion. 4. Hernia repair. 5. Right breast biopsy, benign. 6. Ectopic . HOME MEDICATIONS: 1. Alprazolam 0.5 mg p.o. at bedtime. 2. Calcium carbonate 750 mg p.o. daily. 3. Chlorthalidone 25 mg p.o. daily. 4. Cyclosporin 0.05% ophthalmic 1 drop to both eyes b.i.d. 5. Hydrocodone/acetaminophen 5/325 two tabs p.o. daily. 6. Leflunomide 10 mg p.o. daily. 7. Metoprolol succinate 12.5 mg p.o. daily. 8. Metronidazole 0.75% topically application b.i.d. 9. [place]-3 fatty acids 1200 mg p.o. b.i.d. 10. Potassium chloride 20 mEq p.o. b.i.d. 11. Prednisone 5 mg p.o. daily. 12. Simvastatin 20 mg p.o. at bedtime. DRUG ALLERGIES: SHELLFISH, METHOTREXATE, PENICILLIN, AMLODIPINE, AZITHROMYCIN, BENZYL ALCOHOL, CEFUROXIME, IODINATED CONTRAST MEDIA, IOHEXOL, LISINOPRIL, PNEUMOCOCCAL VACCINE, SODIUM HYPOCHLORITE SOLUTION, TROMETHAMINE. FAMILY HISTORY: Father had colon cancer. Mother and father had hypertension. Mother had coronary artery disease. No family history of diabetes or CVA. SOCIAL HISTORY: The patient quit smoking approximately 50 years ago, prior to that she smoked for 2 years less than 1 pack per day; she smoked socially. She does not use alcohol or illicit drugs. 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 She lives with her , Juan Carlos. In the event that she is unable to make her own medical decisions, she has appointed her , Veto Gotti to be her surrogate decision maker. REVIEW OF SYSTEMS: A 14-point review of systems has been performed and all the pertinent positives and negatives are in the HPI. All other systems are negative. PHYSICAL EXAMINATION GENERAL: Ms. Gotti is an average weight older white female who is sitting up in bed. She appears to be in no acute distress, although is seen clutching her chest at times. She is pleasant, cooperative, and appropriate. She is breathing comfortably on room air. HEENT: PERRL. EOMI. Nonicteric sclerae. Hearing is grossly intact. Oral mucous membranes are moist. There are no lesions. The pharynx is clear. Tongue is at midline. Palate elevates symmetrically. PULMONARY: Symmetrical chest expansion without use of accessory muscles. Clear to auscultation bilaterally without rhonchi, wheeze, or rales. CARDIOVASCULAR: Regular rate and rhythm with S1, S2 present. No murmurs, rubs , clicks, or gallops. There is no JVD. There is trace bilateral lower extremity edema. The midsternal chest area is tender to palpation. ABDOMEN: Bowel sounds in all quadrants. Soft, mild tenderness to palpation at epigastric area, nontender elsewhere. MUSCULOSKELETAL: Mildly painful range of motion at the left shoulder but range of motion is full at this area. Bilateral hands with joint deformity consistent with RA. There is a surgical incision site to the right anterior knee that is healed without erythema. There is mild swelling to the right knee. NEURO: The patient is awake. She is alert and oriented x3 with cranial nerves II through XII grossly intact. Muscle strength is equal bilaterally in upper and lower extremities. Difficult to assess delivery rn strength as the patient's range of motion in bilateral hands is diminished. DIAGNOSTIC STUDIES/LAB DATA: 1. CBC: WBC 6.7, hemoglobin 12.5, hematocrit 35, MCV 90, platelets 350. 2. Chemistry: Sodium 139, potassium 2.8, chloride 99, carbon dioxide 33, anion gap 7, BUN 10, creatinine 0.60. Magnesium 1.7. Troponin 0.00, 0.01. 3. EKG: Rate of [address] elevation or depression. No left bundle-branch block. 4. EKG: Rate of 76, no ST elevation, depression, or bundle-branch block. ASSESSMENT AND PLAN: Ms. Gotti is a 74-year-old female with past medical history of hypertension, hyperlipidemia, left bundle-branch block, rheumatoid arthritis, who presented to the ER today with complaints of chest pain since waking this morning. She will be admitted observation for: 1. Chest pain, rule out acute coronary syndrome. The patient presented with chest pain since waking this morning that is constant and is not relieved with anything. She reports that her pain is worsened with inspiration and was tender to palpation on examination. She will be admitted to the tele floor. She has received 2 EKGs so far and both showed no evidence of ST elevation, depression, or left bundle- branch block. Her troponins are negative x2. We will continue to trend troponins. The patient reports that this pain began in a milder sense with beginning Cymbalta and was worsened again this morning with waking. We will discontinue her Cymbalta. Due to the pleuritic nature of her chest pain, we will obtain a D-dimer. We will also obtain an echocardiogram. She did have stress testing done in January which revealed normal LV function without evidence of ischemia. I do not believe that she needs repeat stress testing. It would be reasonable if the acute coronary syndrome is ruled out for her to follow up outpatient with Dr. Ortega. Other differentials include costochondritis. Lipid panel and hemoglobin A1c will be obtained for risk evaluation. 2. Electrolyte abnormality. Magnesium and potassium have been repleted. We will continue to monitor this and recheck in the morning. 3. Hypertension. Continue chlorthalidone, metoprolol. Continue home potassium. 4. Hyperlipidemia. Continue simvastatin. 5. Rheumatoid arthritis. Continue leflunomide, Xeljanz, and prednisone. 6. Depression/anxiety. We will hold Cymbalta. At this time, we will continue the patient's home alprazolam. 7. DVT prophylaxis: According to DVT Risk Assessment, the patient scores 2, placing her at moderate risk. She has been started on Lovenox. 8. Code status: Full code. The patient does have a MOLST on file that says she is DNR but she would like to resume this. TIME SPENT: Approximately 60 minutes was spent on this admission, greater than half that time was spent [id number] with the patient obtaining history, performing physical, and reviewing the plan of care. The case has been discussed with my attending Dr. Zepeda, who is in agreement with the plan of care. ELSA LUIS [id number]/[facility] #: [id number] MELANIE
--- NOTE | 2019-04-24 14:20 | ECHO ---
*[facility]* [place] [address] Fax #: [phone] Transthoracic Echocardiogram Patient: Melissa Gotti : 1945 Study Date: 04/24/2019 Age: 74 Gender: F HR: 80 bpm Height: 63 in /160 cm BSA: 1.58 m^2 Weight: 124.7 lb /56.7 kg BMI: 22.1 kg/m^2 *Referring Physician: * Linda Ken *Reading Physician: * Sumi Harris MD Indications: Chest Pain, unspecified. History: Risk factors: Hypertension. Diabetes mellitus. Conclusions Summary: - Left ventricle: Systolic function is vigorous. The estimated ejection fraction is 65-70%. Wall motion is normal; there are no regional wall motion abnormalities. - Right ventricle: Systolic function is normal. - Mitral valve: Annulus is moderately calcified. The leaflets are mildly thickened and mildly calcified. There is mild regurgitation. - Tricuspid valve: There is trace regurgitation. - Pulmonary arteries: Systolic pressure is within the normal range, estimated to be 29 mm Hg. - No prior echocardiogram to compare. Study data: Transthoracic echocardiogram. Procedure: Transthoracic echocardiography was performed. Image quality was good. Complete 2D, spectral Doppler, and color flow Doppler. Location: Bedside. Patient status: Inpatient. Patient room number: 449-02. Rhythm: Normal sinus rhythm. Findings Left ventricle: The cavity size is normal. Wall thickness is normal. Systolic function is vigorous. The estimated ejection fraction is 65-70%. Wall motion is normal; there are no regional wall motion abnormalities. Left ventricular diastolic function parameters are normal. Right ventricle: The cavity size is normal. Systolic function is normal. Ventricular septum: The ventricular septum is normal. Left atrium: The atrium is normal in size. Right atrium: The atrium is normal in size. Atrial septum: No defect or patent foramen ovale is identified. Mitral valve: Annulus is moderately calcified. The leaflets are mildly thickened and mildly calcified. No echocardiographic evidence for prolapse. There is no evidence of stenosis. There is mild regurgitation. Aortic valve: The valve is structurally normal. The valve is trileaflet. Cusp separation is normal. Transvalvular velocity is within the normal range. There is no evidence of stenosis. There is no significant regurgitation. Tricuspid valve: The valve is structurally normal. There is no evidence of stenosis. There is trace regurgitation. Pulmonic valve: The valve is structurally normal. There is no evidence of stenosis. There is trace regurgitation. Aorta: The aortic root appears normal. The aortic arch appears normal. Pericardium: There is no significant pericardial effusion. Pulmonary arteries: Systolic pressure is within the normal range, estimated to be 29 mm Hg. Systemic veins: Inferior vena cava: There is (>= 50%) respiratory change in the IVC dimension. Pulmonary veins: The Pulmonary veins appear normal. Measurements Left ventricle Value Ref Aortic valve continued Value Ref TASNEEM, LAX 3.9 cm 3.8 - 5.2 Mean grad, S 4.0 mm Hg ----- ESD, LAX 2.4 cm 2.2 - 3.5 Peak grad, S 8.0 mm Hg ----- FS, LAX 37 % 27 - 45 LION, VTI 2.90 cm^2 ----- PW, ED, LAX (H) 1.2 cm 0.6 - 0.9 ILON, Vmax 2.76 cm^2 ----- E', lat chio, TDI (L) 6.1 cm/sec >=10.0 E/e', lat chio, 16 Mitral valve Value R ef TDI Peak E 0.96 m/sec ----- Peak A 1.33 m/sec ----- LVOT Value Ref Decel time 235 ms ----- Diam, S 2.00 cm Peak grad, D 3.7 mm Hg ----- Area 3.1 cm^2 Peak E/A ratio 0.7 ----- Peak alfa, S 1.23 m/sec Peak grad, S 6 mm Hg Pulmonic valve Value Ref Mean grad, S 4 mm Hg Peak v, S 0.76 m/sec ----- SV 88 ml Peak grad, S 2.0 mm Hg ----- Ventricular septum Value Ref Tricuspid valve Value Ref IVS, ED (H) 1.2 cm 0.6 - 0.9 TR peak v 2.44 m/sec <=2 .8 Peak RV-RA grad, S 24 mm Hg ----- Right ventricle Value Ref Max TR alfa 2.44 m/sec ----- TASNEEM, LAX 3.2 cm TASNEEM minor ax, 2.6 cm 1.9 - 3.5 Aortic root Value Ref A4C mid Root diam 2.8 cm <3. 8 Left atrium Value Ref Ascending aorta Value Ref AP dim, ES 3.60 cm 2.70 - AAo AP diam, S 3.1 cm ----- 3.80 ML dim, A4C 4.1 cm Aortic arch Value Ref SI dim, A4C 5.0 cm Arch diam 2.1 cm ----- Vol/bsa, ES, 1-p 25 ml/m^2 11 - 40 A4C Decending aorta Value Ref Esvin peak alfa 0.79 m/sec ----- Right atrium Value Ref SI dim, ES 4.2 cm 3.4 - 5.3 Inferior vena cava Value Ref ML dim, ES, A4C 3.4 cm 2.6 - 4.4 Diam 1.5 cm ----- SI dim, ES, A4C 4.2 cm 3.4 - 5.3 Aortic valve Value Ref Peak v, S 1.4 m/sec VTI, S 30.2 cm Legend: (L) and (H) arnaldo values outside specified reference range. Prepared and electronically signed by Sumi Harris MD 04/24/2019 14:19
[2019-04-24] MEDS ORDERED: Atorvastatin* 10 MG TAB PO SCH (18:00)
[2019-04-24] MEDS: Cyclosporine 0.05% OPHTH (NF) 0.4 ML VIAL BOTH EYES SCH (20:24)
[2019-04-24] MEDS: Potassium Chlor TAB* 20 MEQ TAB.ER PO SCH (20:24)
[2019-04-24] MEDS: TOFACITINIB CITRATE 5 MG PO SCH (20:25)
[2019-04-24] MEDS: Dextran 70/Hypromellose Tears Eye Drops 15 ml BTL (for Artificials Tears) BOTH EYES PRN (21:47)
[2019-04-25 04:27] LABS: ABS Eosinophils 0.2 10^3/ul (0-0.6); ABS Lymphocytes 0.6 10^3/ul (1.0-4.8); ABS Monocytes 0.6 10^3/ul (0-0.8); ABS Neutrophils 4.6 10^3/ul (1.5-7.7); Eosinophil % 2.6 %; Hematocrit 36 % (35-47); Hemoglobin 11.9 g/dL (12.0-16.0); Lymphocyte % 10.3 %; Mean Corpuscular HGB Conc 34 g/dL (31-36); Mean Corpuscular Hemoglobin 30 pg (27-31); Mean Corpuscular Volume 91 fL (80-97); Mean Platelet Volume 6.9 fL (7.4-10.4); Platelet Count 292 10^3/uL (150-450); Red Blood Count 3.92 10^6 /uL (3.70-4.87); Red Cell Distribution Width 14 % (10-15)
[2019-04-25 04:40] LABS: BUN/Creatinine Ratio 17.3 (8-20); Calcium 8.7 mg/dL (8.6-10.3); EGFR African American 91.7 (>60); EGFR Non-African American 75.7 (>60); HDL Cholesterol 59.5 mg/dL; Magnesium 2.2 mg/dL (1.9-2.7); Potassium 3.6 mmol/L (3.5-5.0)
[2019-04-25] MEDS ORDERED: Chlorthalidone TAB* 50 MG PO SCH (09:00)
[2019-04-25] MEDS ORDERED: Metoprolol Succinate XL TAB* 25 MG PO SCH (09:00)
[2019-04-25] MEDS ORDERED: Calcium Carbonate TAB* 1250 MG (CALCIUM 500 MG) PO SCH (09:00)
[2019-04-25] MEDS ORDERED: LEFLUNOMIDE 10 MG PO SCH (09:00)
[2019-04-25] MEDS: Potassium Chlor TAB* 20 MEQ TAB.ER PO SCH (09:38)
[2019-04-25] MEDS: Dextran 70/Hypromellose Tears Eye Drops 15 ml BTL (for Artificials Tears) BOTH EYES PRN (09:39)
[2019-04-25] MEDS: TOFACITINIB CITRATE 5 MG PO SCH (09:39)
[2019-04-25] MEDS: Cyclosporine 0.05% OPHTH (NF) 0.4 ML VIAL BOTH EYES SCH (09:42)
--- NOTE | 2019-04-25 10:16 | PN ---
Subjective Date of Service: 04/25/19 Interval History: Ms. Gotti reports itchy hives to her back today, not unusual for her, seemingly not related to any medications given. She has had no chest pain. She has no SOB. Objective Active Medications: Acetaminophen (Tylenol Tab*) 650 mg PO Q4H PRN Hydrocodone Bitart/Acetaminophen ([place] 5-325 Tab*) 2 tab PO Q4H PRN Alprazolam (Xanax Tab*) 0.5 mg PO BEDTIME PRN Artificial Tears (Natural Balance Tears Eye Drop) 1 drop BOTH EYES Q2H PRN Atorvastatin Calcium (Lipitor*) 10 mg PO QPM ALLEN Calcium Carbonate (Calcium Carbonate Tab*) 1,875 mg PO QAM ALLEN Chlorthalidone (Hygroton Tab*) 25 mg PO QAM ALLEN Cyclosporine (Restasis 0.05% Ophth) 1 drop BOTH EYES BID [facility]; Protocol Enoxaparin Sodium (Lovenox(*)) 40 mg SUBCUT Q24H ALLEN Hydrocortisone (Hytone Cream 1%*) 1 applic TOPICAL TID ALLEN Ketorolac Tromethamine (Toradol Inj*) 15 mg IV PUSH Q6H PRN Leflunomide (Arava (Nf)) 10 mg PO QAM [facility]; Protocol Metoprolol Succinate (Toprol Xl Tab*) 12.5 mg PO QAM [facility] Metoprolol Succinate (Toprol Xl Tab*) 12.5 mg PO ONCE ONE Pto: (Tofacitinib (Citrate 5 Mg)) 5 mg PO BID [facility] Potassium Chloride (Klor Con Er Tab*) 20 meq PO BID ALLEN Prednisone (Deltasone 5 Mg Tab) 5 mg PO QAM [facility] Vital Signs: Temp Pulse Resp BP Pulse Ox 97.9 F 74 124 116/59 98 04/25/19 03:00 04/25/19 03:00 04/25/19 09:09 04/25/19 09:09 04/25/19 03:00 Oxygen Devices in Use Now: None Appearance: Female lying in bed in NAD Eyes: No Scleral Icterus Ears/Nose/Mouth/Throat: Mucous Membranes Moist Neck: Trachea Midline Respiratory: Symmetrical Chest Expansion and Respiratory Effort, Clear to Auscultation Cardiovascular: NL Sounds; No Murmurs; No JVD, No Edema Abdominal: NL Sounds; No Tenderness; No Distention Extremities: No Edema Skin: - - Hives to back only Neurological: Alert and Oriented x 3, NL Muscle Strength and Tone Nutrition: Taking PO's Result Diagrams: 04/25/19 03:59 04/25/19 03:59 Assess/Plan/Problems-Billing Assessment: Ms. Gotti is a 74 yo F with a PMH of who was admitted on 04/24/19 with - Patient Problems (1) Chest pain Comment: - Trop 0.01 x 3, EKG without evidence of ischemia - Asymptomatic - Negative stress test in January - Recommend follow up with Dr Ortega (2) Anxiety Comment: - Continue alprazolam (3) HTN (hypertension) Comment: - BP well controlled - Continue home meds (4) Hyperlipidemia Comment: - Continue statin (5) Hypokalemia Comment: -Potassium level this am 3.6. Received a one time dose of potassium 40mEq in addition to her normal 20mEq BID. Asymptomatic. (6) Rheumatoid arthritis Comment: -Continue home meds (7) DVT prophylaxis Comment: - Lovenox (8) Full code status Comment: Status and Disposition: OBV. Discharge to home
[2019-04-25] MEDS ORDERED: Hydrocortisone 1% CREAM* 30 GM TUBE TOPICAL SCH (10:30)
[2019-04-25] MEDS ORDERED: Metoprolol Succinate XL TAB* 25 MG PO ONE (10:51)
[2019-04-25] MEDS ORDERED: Potassium Chlor TAB* 20 MEQ TAB.ER PO ONE (11:19)
[2019-04-25 11:45] VITALS: BP 108/74
--- NOTE | 2019-04-25 17:34 | DS ---
CC: Dr. Mccullough; Dr. Ortega * [facility] MEDICINE DISCHARGE SUMMARY: DATE OF ADMISSION: 04/24/19 DATE OF DISCHARGE: 04/25/19 PRIMARY CARE PHYSICIAN: Dr. Mccullough. STUDENT TEACHER: Dr. Ortega. ATTENDING PHYSICIAN: Dr. Faustina Zepeda * (dictation provided by Marya Coe NP ). PRIMARY DIAGNOSIS: Chest pain. SECONDARY DIAGNOSES: 1. Rheumatoid arthritis, on immunosuppressive therapy. 2. Hypertension. 3. Left bundle-branch block. 4. Hyperlipidemia. 5. Sjogren disease. 6. Irritable bowel syndrome. 7. Depression and anxiety. DISCHARGE MEDICATIONS: Unchanged, and they are: 1. Metoprolol succinate 25 mg p.o. q.a.m. 2. Tofacitinib 5 mg p.o. b.i.d. 3. Alprazolam 0.5 mg p.o. at bedtime p.r.n. 4. Chlorthalidone 25 mg p.o. q.a.m. 5. Calcium carbonate 750 mg p.o. q.a.m. 6. Hydrocodone with acetaminophen 5/325. 7. Cyclosporine 0.05% ophthalmic 1 drop both eyes b.i.d. 8. [place]-3 fatty acids 1200 mg p.o. b.i.d. 9. Metronidazole 0.75% topical b.i.d. 10. Leflunomide 10 mg p.o. q.a.m. 11. Simvastatin 20 mg p.o. q.p.m. 12. Potassium chloride 20 mEq p.o. b.i.d. 13. Prednisone 5 mg p.o. q.a.m. HOSPITAL COURSE: Ms. Gotti is a 74-year-old female with past medical history as outlined above, who presented to the emergency room on 04/24/19 with concern for chest pain that woke her from sleep. Please see the dictated H and P from ELSA Rivers, for complete details. In brief, the patient states that she had severe midsternal chest discomfort and tightness. She was having continued pain at about 7 or 8/10 at the time of evaluation in the emergency room. At that time, her labs showed a troponin of 0.00. She has a hypokalemia with potassium of 2.8, but this is consistent with her history. She had no anemia. Her vitals were stable. Her EKG showed no evidence of ischemia. Ms. Gotti was admitted to the hospital to rule out acute coronary syndrome. She has had troponins that were negative x3. She has had an EKG that showed no evidence of ischemia. She does have a rate-related left bundle branch block, but this has been worked up extensively outpatient by Dr. Ortega. Ms. Gotti is medically stable for discharge to home. She has had a negative stress test in January and recent echocardiogram that showed no significant abnormalities. She can follow up with Dr. Ortega and Dr. Mccullough outpatient. She does have an appointment with Dr. Mccullough tomorrow. Ms. Gotti is medically stable for discharge to home. She will be following with Dr. Mccullough tomorrow. DISPOSITION: Home. DIET: Heart-healthy. ACTIVITY: As tolerated. FOLLOWUP PLANS: 1. Please follow up with Dr. Mccullough tomorrow per your prearranged appointment. 2. Please follow up with Dr. Ortgea and I ask you to please call for an appointment. TIME SPENT: Approximately 60 minutes was spent on the discharge of this patient , more than half the time was spent with the patient at the bedside reviewing the events leading up to this hospitalization, performing the physical examination, and reviewing the plan of care. MARYA COE NP [id number]/[facility] #: [id number] MELANIE
== END 2019-04-25 13:30 | disposition home or self-care (01) ==
LOC: ED 06:51 → MEDTELE 10:33
PROVIDERS: ADMIT Hospitalist; ATTEND Hospitalist
DX: R07.9 Chest pain, unspecified (principal); M06.9 Rheumatoid arthritis, unspecified; I10 Essential (primary) hypertension; I44.7 Left bundle-branch block, unspecified; E78.5 Hyperlipidemia, unspecified; M35.00 Sjogren syndrome, unspecified; K58.9 Irritable bowel syndrome, unspecified; F41.9 Anxiety disorder, unspecified; E87.6 Hypokalemia; F32.9 Major depressive disorder, single episode, unspecified; Z79.899 Other long term (current) drug therapy; Z79.52 Long term (current) use of systemic steroids; Z88.0 Allergy status to penicillin; Z88.7 Allergy status to serum and vaccine; Z87.891 Personal history of nicotine dependence
CPT/HCPCS: 36415; 71046; 80048; 80053; 80061; 83036; 83735; 84484; 85025; 85379; 93005; 93306; 96365; 96367; 96372; 96375; 99285; A9270-GY; G0378; J1650; J1885; J3010; J3475; J3480; J7512